=== PATIENT | female | born 1945 | race Caucasian/White ===

== ENCOUNTER 2020-09-28 19:30 | Emergency (ER) | payer OTHER, SELFPAY ==
--- NOTE | 2020-09-28 19:43 | PC.NURSE ---
Patient's name called, no answer.
--- NOTE | 2020-09-28 19:59 | PC.NURSE ---
Pt left ER lobby prior to triage.
== END 2020-09-28 20:06 | disposition left against medical advice (07) ==
DX: Z53.21 Procedure and treatment not carried out due to patient leaving prior to being seen by health care provider (principal)
CPT/HCPCS: 99199

== ENCOUNTER 2024-05-30 09:57 | Emergency (ER) | payer MEDICARE, SELFPAY ==
[2024-05-30] VITALS (10 sets, daily range): BP systolic 85–112; BP diastolic 54–69; PULSE 91–104; RESP 15–27; O2SAT 99–100
--- NOTE | ~2024-05-30 | XR_ITS ---
XR chest 1V portable Ordering provider: Shan Juares III, DO History: 78 years Female with . cva protocol . Comparison: None. FINDINGS: MEDIASTINUM: The cardiac silhouette is not enlarged. Prominent sherrie. LUNGS: No infiltrates, effusions or pneumothorax. Underlying fibrotic changes. OTHER: No free air under the diaphragm. Degenerative changes of the spine. Dextroscoliosis in the lumbar area. IMPRESSION: No acute cardiopulmonary pathology. Reviewed, dictated and finalized at location A.
--- NOTE | ~2024-05-30 | CT_ITS ---
EXAMINATION: CTA brain carotid DATE: 05/30/2024 12:23 INDICATION: Left facial numbness. TECHNIQUE: Computed tomographic angiography (CTA) of the head was performed with 100 mL Omnipaque-350 intravenous contrast. CTA of the neck was performed with intravenous contrast. Automated exposure co ntrol and iterative reconstruction technique were employed. The dose-length product was 869.10 mGy-cm . Maximum intensity projection and volume rendered 3D-reconstructions were created by the [employer] on a separate workstation. COMPARISON: CT 05/30/2024 FINDINGS: HEAD CTA: There are scattered areas of low attenuation in the cerebral white matter. There is no intr acranial hemorrhage, acute infarction, or abnormal intracranial mass lesion. The ventricles are manisha l in size. The orbits are normal. There is mucosal thickening in the paranasal sinuses, worst in left sphenoid sinus. There are surgical changes of the paranasal sinuses and nasal cavity. The mastoid ai r cells are normal. Left vertebral artery is dominant. There is no significant stenosis of basilar ar karen or the posterior cerebral arteries. The posterior communicating arteries are normal. There is no significant stenosis of the intracranial internal carotid arteries or anterior or middle cerebral ar teries. Anterior communicating artery is normal. There is no aneurysm. NECK CTA: There is no lymphadenopathy. There is no significant stenosis of the vertebral arteries. Th ere is plaque in the proximal internal carotid arteries. There is 0% stenosis of the proximal right i nternal carotid artery relative to normal distal artery lumen diameter (NASCET criteria). There is 0% stenosis of the proximal left internal carotid artery relative to normal distal artery lumen diamete r. There is severe cervical spondylosis. There is mild chronic anterior wedging of multiple thoracic vertebral bodies. IMPRESSION: 1. Moderate nonspecific cerebral white matter disease, which likely represents chronic small vessel i schemic disease. 2. No aneurysm or significant intracranial arterial stenosis. 3. 0% stenosis of the proximal internal carotid arteries relative to normal distal artery lumen diame ters (NASCET criteria). Reviewed, dictated and finalized at location A. IMPRESSION: 1. Moderate nonspecific cerebral white matter disease, which likely represents chronic small vessel ischemic disease. 2. No aneurysm or significant intracranial arterial stenosis. 3. 0% stenosis of the proximal internal carotid arteries relative to normal dis alo artery lumen diameters (NASCET criteria).
--- NOTE | ~2024-05-30 | CT_ITS ---
CT brain wo con Ordering provider: Shan Juares III, DO History: 78 years Female with . resolved bilateral facial numbness . Comparison: None. Technique: CT of the head without contrast. Radiation reduction technique utilized.The dose-length product was 605.33 mGy-cm. FINDINGS: BRAIN PARENCHYMA AND CSF SPACES: Mild leukoaraiosis and diffuse cortical atrophy. Mild atheromatous d isease. 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 No midline shift, mass effect or hemorrhage. The brain parenchyma and CSF spaces are otherwise normal. VISUALIZED PARANASAL SINUSES: Left maxillary and sphenoid sinus disease. Otherwise, Well aerated. Pos toperative changes in the medial wall of both maxillary sinuses. MASTOIDS: Well aerated. BONES: The bones appear intact. SOFT TISSUES: Visualized nasopharynx is normal. Superficial soft tissues are normal. IMPRESSION: No acute intracranial findings. Reviewed, dictated and finalized at location A.
--- NOTE | 2024-05-30 10:07 | ECG_ITS ---
Test Date: 2024-05-30 10:14:50 Measurements Intervals [place] Rate: 100 P: 75 KS: 185 QRS: 54 QRSD: 73 T: 56 QT: 321 QTc: 415 Interpretive Statements SINUS TACHYCARDIA No previous ECG available for comparison Electronically Signed On 05-31-2024 15:29:56 CDT by Jeff Osborne M.D.
[2024-05-30 10:20] LABS: Glucose Point of Care 146 mg/dl (65-105)
[2024-05-30 10:24] LABS: Basophils Percent Auto 0.5 % (0.2-1.2); Eosinophils Percent Auto 0.5 % (0-4.4); Hematocrit 29.2 % (37.0-47.0); Hemoglobin 9.4 g/dL (12.0-15.0); Immature Granulocyte Absolute 0.04 K/mm3 (0.00-0.031); Immature Granulocyte Percent A 0.5 % (0-0.5); Lymphocytes Absolute Auto 1.39 K/mm3 (0.9-3.2); Lymphocytes Percent Auto 17.7 % (18.3-44.2); Mean Corpuscular HGB Conc 32.2 g/dl (32-36); Mean Corpuscular Hemoglobin 32.2 pg (26-34); Mean Platelet Volume 8.8 fl (7.4-10.4); Monocytes Absolute Auto 0.9 K/mm3 (0.1-0.6); Neutrophils Absolute Auto 5.5 K/mm3 (1.3-6.7); Neutrophils Percent Auto 69.8 % (45.5-73.1); Platelet Count Result 249 k/mm3 (150-375); Red Blood Count 2.92 M/mm3 (4.2-5.4); Red Cell Distribution Width 18.1 % (11.5-14.5); White Blood Count 7.9 K/mm3 (4.5-10.0)
[2024-05-30 10:45] LABS: INR 1.3
[2024-05-30 10:46] LABS: Partial Thromboplastin Time 27.9 Seconds (22.3-36.8)
[2024-05-30 10:50] LABS: Troponin I < 0.012 ng/mL (0.000-0.034)
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
[2024-05-30 11:30] LABS: Alanine Aminotransferase 19 U/L (6-35); Albumin Level 2.8 g/dL (3.5-5.1); Alkaline Phosphatase 61 U/L (38-126); Anion Gap 11 mmol/L (4-12); Aspartate Amino Transferase 31 U/L (14-36); Bilirubin,Total 0.3 mg/dL (0.2-1.3); Blood Urea Nitrogen 24 mg/dL (7-17); Calcium 7.4 mg/dL (8.4-10.2); Carbon Dioxide 15 mmol/L (22-30); Chloride 108 mmol/L (98-107); Estimated CRCL calculation 41 ml/min; Estimated Glomerular Filt Rate 55; Glucose 122 mg/dL (65-110); Potassium 3.9 mmol/L (3.4-5.0); Sodium 134 mmol/L (137-145)
--- OUTSIDE RECORDS SUMMARY | 2024-05-30 13:00 | XMS_ITS | Encounter Summary ---
Author Organization [facility] Address [facility] [place] [address] Care Team Providers Care Technical Manager Name Role Phone Anna Adames MD Primary Care Provi meenakshi Reason for Visit * Reason Onset Date Comments Question 07/17/2020 Pre Op Call 07/17/2020 Encounter Details Date Type Department Care Team (Late st Contact Info) Description 07/17/2020 Telephone [facility] [address] [place] [id number] Joie Norman MD [address] [facility] [address] [place] [address] Question; Pre Op Call Social History Tobacco Use Types Packs/Day Years Used Date Smoking Tobacco: Never Smokeless Tobacco: Never Alcohol Use Standard Drinks/Week Comments Yes 1 (1 standard drink = 0.6 oz pur e alcohol) 1/week Sex and Gender Information Value Date Recorded Sex Assigned at Not on file Gender Identity Female 11/20/2016 10:17 AM CDT Sexual Orientation Not on file documented as of this encounter Miscellaneous Notes * Telephone Encounter - Lisa Palacios RN - 07/17/2020 2:28 PM CDT CBC, BMP, EKG, Type & Screen and urine culture, COVID 19 testing is the pre op orders She has received both of her Pfizer covid vaccinations HAS PRE OP QUESTIONS: Does she need MRSA testing? Does she need Covid testing since she had both covid vaccines? wants to get surgery scheduled annmarie Moved up her UroCysto testing from 08/22 to 07/19 Wiztangot message to patient with information for bladder testing appointment this Aware we will address all of her surgery issues at the testing visit Agreeable and grateful * Telephone Encounter - Lisa Palacios RN - 07/17/2020 2:23 PM CDT Pre op lab work Having trouble finding lab to run the MRSA Will check with [facility] and [facility] and can send order if so She lives in [facility] so can use either of those local labs * Telephone Encounter - Joie Jay - 07/17/2020 10:42 AM CDT Patient called and noted that she has surgery in September and she is having issues finding a place to do the MRSA test. Where can she go? Please call her as soon as possible. Call back # [phone] documented in this encounter Plan of Treatment Not on file documented as of this encounter Visit Diagnoses Not on filedocumented in this encounter Care Teams Technical Manager Relationship Specialty Start Date End Date Anna Adames MD PCP - General Internal Medicine 11/20/16 documented as of this encounter
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
--- OUTSIDE RECORDS SUMMARY | 2024-05-30 13:00 | XMS_ITS | Encounter Summary ---
Author Organization [facility] Address [address] [place] [address] Care Team Providers Care Applications Intern Name Role Phone Anna Adames MD Primary Care Provi meenakshi Ksenia Fermin MD Unavailable José Cole MD Unavailable TejaValeri Unavailable Anna Adames MD Primary Care Provi meenakshi Dionte Zaragoza MD Unavailable [phone] Jeffy Lugo MD Unavailable Kaushal Massey MD Unavailable [phone] Encounter Details Date Type Department Care Team (Late st Contact Info) Description 03/04/[address] [id number] Omayra Kaplan, RN Social History Tobacco Use Types Packs/Day Years Used Date Smoking Tobacco: Never Smokeless Tobacco: Never [facility] Utilities Answer Date Recorded In the past 12 months has th e electric, gas, oil, or water company threatened to shut off services in your home? No 02/23/2024 Humiliation, Afraid, Rape, and Kick questionnair e Answer Date Recorded Within the last year, have y ou been afraid of your partner or ex-partner? No 02/23/2024 Within the last year, have y ou been humiliated or emotionally abused in other ways by your partner or ex-partner? No Within the last year, have y ou been kicked, hit, slapped, or otherwise physically hurt by your partner or ex-partner? No 02/23/2024 Within the last year, have y ou been raped or forced to have any kind of sexual activity by your partner or ex-partner? No 02/23/2024 Social Connection and Isolat ion Panel [NHANES] Answer Date Recorded In a typical week, how many times do you talk on the phone with family, friends, or neighbors? More than three times a week 02/23/2024 How often do you get togethe r with friends or relatives? More than three times a week 02/23/2024 How often do you attend [facility] or tenriism services? Never 02/23/2024 Do you belong to any clubs o r organizations such as jew groups, unions, fraternal or athletic groups, or school groups? Yes 02/23/2024 How often do you attend meet ings of the clubs or organizations you belong to? More than 4 times per year 02/23/2024 Are you , , di vorced, , never , or living with a partner? 02/23/2024 AUDIT-C Answer Date Recorded Q1: How often do you have a drink containing alc ohol? 2-4 times a month 02/23/2024 Q2: How many drinks containi ng alcohol do you have on a typical day when you are drinking? 1 or 2 02/23/2024 Q3: How often do you have si x or more drinks on one occasion? Never 02/23/2024 Overall Financial Resource Strain (CARDIA) Answe r Date Recorded How hard is it for you to pa y for the very basics like food, housing, medical care, and heating? Not hard at all 02/23/2024 PHQ-2 Answer Date Recorded PHQ-2 Total Score (If total score is 3 or more points, staff should administer the PHQ-9) 0 11/19/2023 [facility] - Occupational Stress Questionnaire Answer Date Recorded Do you feel stress - tense, restless, nervous, or anxious, or unable to sleep at night because your mind is troubled all the time - these days? Not at all 02/23/2024 Exercise Vital Sign Answer Date Recorde d On average, how many days pe r week do you engage in moderate to strenuous exercise (like a brisk walk)? 3 days 02/23/2024 On average, how many minutes do you engage in exercise at this level? 30 min 02/23/2024 Hunger Vital Sign Answer Date Recorded Within the past 12 months, y ou worried that your food would run out before you got the money to buy more. Never true 02/23/20 24 Within the past 12 months, t he food you bought just didn't last and you didn't have money to get more. Never true 02/23/2024 PRAPARE - Transportation Answer Date Re corded In the past 12 months, has l ack of transportation kept you from medical appointments or from getting medications? No 02/06 In the past 12 months, has l ack of transportation kept you from meetings, work, or from getting things needed for daily living? No 02/23/2024 Housing Stability Vital Sign Answer Priyank e Recorded In the last 12 months, was t here a time when you were not able to pay the mortgage or rent on time? No 02/23/2024 In the past 12 months, how m any times have you moved where you were living? 0 02/23/2024 At any time in the past 12 m [facility], were you homeless or living in a group home (including now)? No 02/23/2024 Personal Safety Answer Date Recorded Have you ever been in or are you currently in a harmful physical or emotional relationship or is someone making you feel afraid or unsafe? Denies 02/01/2024 Comments No Sex and Gender Information Value Date Recorded Sex Assigned at Not on file Legal Sex Female 10:50 AM SHACKLER Gender Identity Female 07/16/2020 5:01 PM CDT Sexual Orientation Straight 07/16/2020 5: 01 PM CDT documented as of this encounter Plan of Treatment Not on file documented as of this encounter Visit Diagnoses Not on filedocumented in this encounter Additional Health Concerns Infection Onset Date Last Indicated Resolved Time Ring Surveillance Comment:C Auris 03/02/2024 03/02/2024 03/09/2024 3:[address] C. 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 difficile suspected 05/09/2024 05/09/202405/09 11:02 PM SHACKLER VRE 05/09/2024 05/09/2024 documented as of this encounter Care Teams Applications Intern Relationship Specialty Start Date End Date Anna Adames MD PCP - General 08/26/16 04/13/24 Anna Adames MD [id number] GENERAL MED, [facility] [address] [place] [address] PCP - General Internal Medicine 04/14/24 Ksenia Fermin MD Referring Physician Dermatology 07/23/18 José Cole MD Referring Physician Otolaryngology 08/08/19 Valeri Lezama OD Optometry 08/29/21 Dionte Zaragoza MD [email or web address] ORTHOPAEDIC SURGERY, [facility] [address] [place] [address] Consulting Physician Orthopedic Surgery 04/14/24 Jeffy Lugo MD [address] [facility] [id number] [place] [address] Surgeon Orthopedic Surgery 04/14/24 Kaushal Massey MD [address] [place] [address] Surgeon Trauma Surgery 04/14/24 documented as of this encounter
--- OUTSIDE RECORDS SUMMARY | 2024-05-30 13:00 | XMS_ITS | Clinical Summary ---
Author Organization [facility] Address [address] [place] [address] Care Team Providers Care Perioperative Tech Name Role Phone José Cole MD Unavailable [phone] Anna Adames MD Primary Care Provider [phone] Cassandra Mccoy MD Unavailable [phone] Allergies Active Allergy Reactions Criticality Noted Date Comments Penicillins Hives 12/26/2019 Sulfa Antibiotics Hives,Itching Medium 12/26/2019 Medications B complex-C Cap capsule Take 1 capsule by mouth daily. Active Multiple Vitamins-Minera ls (CENTRUM SILVER OR) Take 1 tablet by mouth daily. Active omeprazole 40 MG capsule Take 40 mg by mouth daily. Active Misc Natural Products (OSTEO BI-FLEX ADV JOINT SHIELD OR) Take 1 tablet by mouth daily. Active propranolol LA 80 MG 24 hr capsule Take 80 mg by mouth 2 (two) times a day. Active Naproxen Sodium (ALEVE) 220 MG Cap Take 2 tablets by mouth 2 (two) times a day. Takes routinely bid Active rosuvastatin 20 MG tablet Take 20 mg by mouth 2 (two) times a day, 3 (three) days a week. To take Thursday and Thursday Active vitamin E 100 UNIT capsule Take 100 Units by mouth daily. Active cholecalciferol (VITAMIN D3) 125 MCG (5000 UT) Tab Take 5,000 Units by mouth daily. Active Mometasone Furoate Powder 1 Application by Does not apply route weekly. Uses this once for rinse of sinus. Is put into distilled water mixed with salt, Uses 2 squeeze bottles of saline and 3rd squeeze bottle with the Momentasone. Other days of the week she uses mupirocin ointment 2%. Uses on Thursday or Thursday. Active losartan 100 MG tablet Take 100 mg by mouth nightly. Active Homeopathic Products (LEG CRAMPS OR) Take 1 tablet by mouth nightly as needed (leg cramps). Active bisacodyl EC 5 MG Tab EC tablet 12/16/20 Take 2 Dulcolax Tablets at 10:00 AM with an 8 ounce glass of water. 1 Active Estradiol (YUVAFEM) 10 MCG vaginal tablet INSERT 1 TABLET VAGINALLY 2 TIMES PER WEEK FOR 3 MONTHS 1 Active acetaminophen 500 MG tablet Take 1,000 mg by mouth every 6 (six) hours as needed for Pain. Active HYDROcodone-renny taminophen 5-325 MG tabletIndicatio ns:Acute Pain < 7 Day Supply Take 1 tablet by mouth every 6 (six) hours as needed for Pain. Indications: Acute Pain < 7 Day Supply 20 tablet 2 Active ibuprofen 800 MG tablet Take 1 tablet (800 mg total) by mouth every 8 (eight) hours as needed for Pain. 30 tablet 2 Active Active Problems No known active problems Family History Medical History Relation Comments Hyperlipidemia Father Hypertension Father Stroke Father Hyperlipidemia Mother Hypertension Mother [place] Mother Relation Status Comments Father (Age 73) heart/stroke Mother (Age 83) heart attack Social History Tobacco Use Types Packs/Day Years Used Date Smoking Tobacco: Never Smokeless Tobacco: Never Alcohol Use Standard Drinks/Week Comments Not Currently 0 (1 standard drink = 0.6 oz pur e alcohol) Comments No Sex and Gender Information Value Date Recorded Sex Assigned at Not on file Legal Sex Female 9:43 AM CDT Gender Identity Not on file Sexual Orientation Not on file Last Filed Vital Signs Vital Sign Reading Time Taken Comments Blood Pressure 153/80 05/10/2021 1:20 PM [employer] Pulse 66 05/10/2021 1:20 PM [employer] Temperature 36.4 C (97.5 F) 05/10/2021 1:20 PM [employer] Respiratory Rate 16 05/10/2021 1:20 PM [employer] Oxygen Saturation 99% 05/10/2021 1:20 PM [employer] Inhaled Oxygen Concentration - - Weight 84 kg (185 lb 3 oz) 05/10/2021 9:30 AM CS T Height 160 cm (5' 3 ) 05/06/2021 12:09 PM [employer] Body Mass Index 32.8 05/06/2021 12:09 PM [employer] Plan of Treatment Health Maintenance Due Date Last Done Comments Hepatitis C 07/16/1963 Annual Medicare Wellness Visit 2010 Dexa Scan (General) 2010 RSV Immunization or 60+ Years (1 - 1-dose 75+ series) 2020 Zoster Vaccines (3 of 3) 10/18/2020 021, 03/17/2012, 02/15/2012 COVID-19 Vaccine ( - season) 2023 12/04/2020, 05/10/2020, 04/17/2020 Influenza Adult (#1) 2023 11/26/2019, 12/03/2018, 01/10/2018, Additional history exists DTaP, Tdap and Td Vaccines (2 - Td or Tdap) 07/23/2028 07/23/2018 Pneumococcal Vaccine: 65+ Years Completed 07/23/2018, 03/07/2015 Meningococcal B Vaccine Aged Out No l onger eligible based on patient's age to complete this topic Meningococcal Vaccine Aged Out No thomas ren eligible based on patient's age to complete this topic RSV Immunizations Under 20 Months Aged Out No longer eligible based on patient's age to complete this topic Medical Devices Explanted Type Area Financial Systems Administrator Device Identifier Shelf Expiration Date Model / Serial / Lot 4.0 X 42 Headed Screw Implanted:Qty: 1 on 12/30/2019 by Nash Aragon DPM at [facility] Explanted:Qty: 1 on 05/10/2021 by Nash Aragon DPM at [facility] Screw Right: Foot [employer] [id number] / / Insurance MED [facility] [place] [address] Advance Directives * Full Code (Latest Code Status on File) Date Activated Date Inactivated Comments 12/30/2019 9:37 AM 12/30/2019 1:50 PM Care Teams Perioperative Tech Relationship Specialty Start Date End Date Anna Adames MD PCP - General INTERNAL MEDICINE 03/28/21 José Cole MD OTOLARYNGOLOGY 03/28/21 Cassandra Mccoy MD [address] [address] OBGYN 03/28/21
--- OUTSIDE RECORDS SUMMARY | 2024-05-30 13:01 | XMS_ITS | Clinical Summary ---
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 Plan (06/10/2023 12:12 PM CDT): C-spine MRI pending, encouraged to pursue PT as previously discussed Assessment & Plan (05/07/2023 4:05 PM SLUBBER OPERATOR): May be related to cervical radiculopathy given severe degenerative changes on her CT Will pursue neck MRI and refer to PT Consider pain mgmt or surgery as next step Left facial numbness 05/06/2023 Assessment & Plan (05/07/2023 4:03 PM SLUBBER OPERATOR): C-spine pathology shouldn't cause her face to be numb, will check brain MRI to rule out a more central process Neurologic exam otherwise reassuring Bilateral leg edema 01/05/2023 Assessment & Plan (01/05/2023 11:25 AM CDT): Suspect dependent edema - flared during travel which is typical Discussed that a water pill might be indicated for her HTN but I think would be less helpful for this Emphasized compression socks, leg elevation, regular physical activity TTE recently performed, not too concerned about CHF as a possibility. Update labs Hypertrophic cardiomyopathy 10/05/2022 Primary osteoarthritis involving multiple joints 08/21/2022 Assessment & Plan (06/10/2023 12:02 PM CDT): She is currently taking Celebrex BID (discussed risks of nonselective NSAIDs with Eliquis) Encouraged to minimize PRN naproxen but she is taking this fairly infrequently. Discussed that mixing NSAIDs is not ideal so she will try making her second dose of Celebrex PRN. If that creates a problem she will go back to PRN naproxen but she will continue to use extremely sparingly. Thankfully kidney function has been good/stable. Assessment & Plan (08/21/2022 10:07 AM CDT): Celebrex is wearing off , will trial 100mg bID instead of 200mg once daily to see if this works better Paroxysmal atrial fibrillation 06/16/2022 Overview (12/15/2023): -presents today with her holter monitor -in need of assistance applying monitor Holter monitor applied in office today, reviewed extra equipment, how to charge, also encouraged to reach out to cardiology for questions. Assessment & Plan (04/19/2024 10:21 AM SLUBBER OPERATOR): Required amio infusion while acutely ill, now back on metop and Eliquis Assessment & Plan (10/29/2023 3:11 PM CDT): Stable on metoprolol. Continue Eliquis. Would recommend she not be on both metoprolol and propranolol as previously discussed. However pt has not found a good replacement for propranolol She sees Neurology later this month. She is currently on clonazepam for her tremor but endorses fatigue is worsening and edema. Assessment & Plan (10/19/2023 5:25 PM CDT): Has not had episodes of palpitations though in clinic today and per Apple watch she is tachycardic, irregularly irregular rhythm, BLE edema on exam concerning for a fib on metoprolol 25 mg. Increase to metoprolol 50 mg Continue to avoid naproxen and use celebrex Referral to sleep medicine for possible AMELIE contributing to a fib Continue Eliquis Assessment & Plan (08/17/2023 3:40 PM CDT): She had an episode of palpitations last night that is concerning for AF (both because of her symptoms and her Kardia tracings) She will try to use her Apple watch in a resting position next time Will avoid naproxen in favor of Celebrex just in case this was a precipitant Check labs to eval for precipitating factors May need to go back up on metoprolol depending on how things go Continue Eliquis Assessment & Plan (07/29/2023 10:22 AM CDT): Much better controlled on metoprolol so switching back to propranolol entirely doesn't seem like a good option Assessment & Plan (01/05/2023 11:15 AM CDT): Discussed rationale for switching to metoprolol in hopes this better suppresses her AF and ectopy She will start it now and report back Reviewed that Eliquis does increase bruising, risk of bleeding but is also important to reduce her AF risk and she is amenable to continue (no serious bleeding). NSAID likely contributing as well Assessment & Plan (08/21/2022 10:17 AM CDT): Asymptomatic Will switch to CUSTOM FEED MILL OPERATOR HELPER stress echo to assess Encouraged compliance with Eliquis Assessment & Plan (06/16/2022 11:44 AM CDT): Several episodes noted on event monitor Discussed possible triggers- AMELIE (But declines sleep med referral), alcohol (but this is minimal), hyperthyroidism (but TFTs most recently normal) Update TTE Rate-controlled on propranolol 80mg BID CHADs-2 vasc score is 4 so will start Eliquis. She has had no falls. Reviewed risks with concurrent ASA/NSAID use so she will avoid -> will swtich from naproxen to celebrex Other chest pain 12/17/2021 Assessment & Plan (12/17/2021 11:33 AM CDT): May have been caused by an arrhythmia or other; given her risk factors will refer for stress test and also pursue event monitor Hair loss 09/24/2021 Assessment & Plan (08/21/2022 10:13 AM CDT): Now on minoxidil per Dr Velazco and she is tolerating fine. Will CTM Assessment & Plan (04/16/2022 11:14 AM SLUBBER OPERATOR): She is very interested in low dose minoxidil for hair regrowth and her advertising representative thought this might be helpful and also recommended Nutrafol. Discussed risks of minoxidil (reflex tachy, fluid retention/heart failure) but that these are likely dose-dependent and she would like to try with close monitoring. I think we need to investigate her palpitations first and will refer for event monitor Assessment & Plan (09/24/2021 2:31 PM CDT): Unlikely related to thyroid issues but suggest the following: Maintain normal TFT and re-evaluate hair loss OK to use biotin but stop few days prior to lab test Suggest Derm evaluation Acquired hallux valgus, right 05/03/2021 Assessment & Plan (05/08/2021 8:45 AM SLUBBER OPERATOR): Ongoing pain Scheduled for right hallux exostectomy with Dr. Aragon to remove prior hardware Preoperative clearance provided today in office as requested Pain of toe of right foot 03/26/2021 Assessment & Plan (03/26/2021 11:56 AM SLUBBER OPERATOR): Has right toe surgery scheduled with Dr Aragon for 04/05/21 No CXR needed as noted above Unable to calculate RCRI - will update labs and clear pending results Chronic LLQ pain 11/14/2020 Assessment & Plan (11/14/2020 3:10 PM CDT): Following with her ob-casting molder for this but persistent after her hysterectomy US done- will get records and consider CT Does not seem to be related to hip pain given normal exam today but some features seem more like MSK pain so will obtain imaging Hearing loss 08/14/2020 Assessment & Plan (05/21/2021 2:30 PM CDT): Wears hearing aids She seems to be having more issues today and does not have a cerumen impaction so encouraged her to repeat audiometry Assessment & Plan (08/14/2020 11:38 AM CDT): Will clean right ear wax based on exam. Esophageal stenosis 10/13/2019 Overview (10/13/2019): Per EGD report from 09/2019 Neck pain 12/07/2018 Assessment & Plan (03/17/2019 4:57 PM SLUBBER OPERATOR): Chronic stable posterior neck pain, well-controlled with Aleve. Likely secondary to her known kyphosis and scoliosis. NTD at this time, CTM. Assessment & Plan (01/27/2019 12:00 PM SLUBBER OPERATOR): X-rays with severe DDD She has been taking naproxen on a scheduled, daily basis. Encouraged her to try tylenol instead. Tizanidine was not particularly helpful. Referred to PT for this. Assessment & Plan (12/07/2018 12:27 PM CDT): I think this is myofascial. She will cut back on naproxen and start using Tylenol instead. Will also trial a low dose of a muscle relaxer- SER particularly risk of sedation. I have referred her to PT for her terribly kyphosis but she has been putting it off- will call to make an appointment in the near future. Kyphosis 08/06/2018 Assessment & Plan (01/27/2019 12:00 PM SLUBBER OPERATOR): Referred to PT to work on posture Assessment & Plan (08/06/2018 9:54 AM CDT): No h/o trauma or back pain so I don't think this is traumatic. She does have osteopenia so will check spine films to assess and r/o compression fracture. Referred to PT to work on postural changes and upper back strength to keep this from progressing. Impaired gait 08/06/2018 Balance problem 08/06/2018 Assessment & Plan (08/06/2018 10:13 AM CDT): Sensation in feet intact but will add B12 to this morning's labs. She has tremor but this thought related to ET - no rigidity on exam today but will continue to monitor for Parkinsonism. Referred to PT to work on this as well. History of nonmelanoma skin cancer 07/23/2018 Assessment & Plan (12/17/2021 11:40 AM CDT): Encouraged her to make sure she is UTD with derm FBSE Assessment & Plan (12/12/2020 3:47 PM CDT): Continues to follow with derm regularly Assessment & Plan (08/08/2019 10:36 AM CDT): Follows with jacky Fermin Recommended annual FBSE and sun protection Assessment & Plan (07/23/2018 1:07 PM CDT): Follows with derm- Dr Fermin Recommended annual FBSE and sun protection Chronic pansinusitis 04/12/2018 Assessment & Plan (08/08/2019 10:20 AM CDT): Now on doxy in addition to nasal regimen Assessment & Plan (01/27/2019 12:09 PM SLUBBER OPERATOR): Encouraged her to follow up with Dr Green for this in case imaging and/or surgery are indicated Continue nasal regimen Assessment & Plan (12/07/2018 12:27 PM CDT): Encouraged her to follow up with Dr Green for this given her persistent symptoms and discomfort Assessment & Plan (07/23/2018 1:08 PM CDT): Following with Dr Green and doing well currently with regular saline rinses Osteoporosis 09/10/2017 Assessment & Plan (12/17/2021 11:41 AM CDT): Update DEXA today Check vit D level- plan to continue supplementation Encouraged 1200mg calcium daily, preferably through diet but supplemental if needed Continue weight-bearing exercise and consider strength-training as well Assessment & Plan (07/23/2018 1:29 PM CDT): Mild, on DEXA 2017 Check vit D level- plan to continue supplementation Encouraged 1200mg calcium daily, preferably through diet but supplemental if needed Continue weight-bearing exercise and consider strength-training as well Assessment & Plan (09/10/2017 3:15 PM CDT): Noted on recent DEXA Encouraged regular weight-bearing exercise, 1200mg calcium (preferably through diet) daily, and continued vit D supplementation. Chronic bilateral low back pain without sciatica 09/10/2017 Assessment & Plan (05/07/2023 4:06 PM SLUBBER OPERATOR): Acute on chronic. Has severe scoliosis and degenerative changes on imaging in the past Again encouraged PT- referral placed Will re-trial celebrex at higher dose Consider pain mgmt as next step Assessment & Plan (01/05/2023 11:13 AM CDT): Chronic Encouraged PT, PM&R would be next step. Referral for PT placed Will continue naproxen 440mg BID for now- she is on NOAC but also on PPI and celebrex wasn't helpful Assessment & Plan (12/17/2021 11:37 AM CDT): Acute on chronic No red flags Referred to PT Continue Aleve Assessment & Plan (09/10/2017 3:19 PM CDT): Will obtain X-rays today per her request even though I suggested it might not private branch exchange installer and that I would probably recommend PT regardless Subclinical hyperthyroidism 07/22/2017 Assessment & Plan (05/16/2024 5:40 PM CDT): Following endocrine. TSH normal on admission. Free T4 within normal limits. -Continue home methimazole 5 mg every other day (while endo note reports every day, she has been taking qOD for at least 6 months and likely longer, will continue her OP regimen and she should follow up with endocrinology OP) Assessment & Plan (02/09/2024 4:04 PM SLUBBER OPERATOR): - Continue home methimazole Assessment & Plan (11/24/2023 1:40 PM CDT): Last TSH normal Assessment & Plan (01/05/2023 11:06 AM CDT): On methimazole per Dr Marcel Tolentino recently normal Assessment & Plan (12/17/2021 11:25 AM CDT): Now following with Dr Marcel TFTs normal in September, updated with upcoming labs Assessment & Plan (09/24/2021 2:30 PM CDT): TFT normalized , FT4 lower normal Plan to lower MMI to 2.5 mg every day TFT in 3 months Assessment & Plan (05/27/2021 2:05 PM CDT): Further investigation to elucidate etiology (TMNG vs autoimmune) Thyroiditis less likely given duration Obtain neck US, TSI/TRAB Consider treating given age and TSH suppression level Assessment & Plan (05/21/2021 2:27 PM CDT): Establishes with endocrine for this issue at the end of the month Assessment & Plan (05/08/2021 8:47 AM SLUBBER OPERATOR): Euthyroid with recent labs Continue current levothyroxine dosing Asymptomatic Routine TFT monitoring Assessment & Plan (03/26/2021 11:33 AM SLUBBER OPERATOR): Will update labs Assessment & Plan (12/12/2020 3:49 PM CDT): May be related to biotin supplementation. She has been instructed to stop biotin now and repeat labs on Thursday Assessment & Plan (11/14/2020 2:55 PM CDT): Encouraged to update labs in the near future Assessment & Plan (08/14/2020 11:38 AM CDT): Will continue to monitor will thyroid labs. Assessment & Plan (03/17/2019 4:58 PM SLUBBER OPERATOR): Last TSH depressed at 0.28, with normal FT4 at 1.08. Given her episodes of worsening palpiations, along with new HTN, will re-screen today. Assessment & Plan (09/10/2017 3:24 PM CDT): Resolved on most recent labs. CTM Muscle cramps 03/16/2017 Assessment & Plan (07/23/2018 1:28 PM CDT): Better on current regimen but still intermittently bothersome Encouraged her to drink more water and stretch every night before bed Paroxysmal supraventricular tachycardia 12/04/19 Assessment & Plan (12/17/2021 11:33 AM CDT): Her episode in [place] may have been consistent with SVT but it felt different from her episodes on the past Referred for event monitor She will try to capture with Kardia Device if it happens again Assessment & Plan (05/08/2021 8:47 AM SLUBBER OPERATOR): Clinically stable, asymptomatic Continue with propranolol as prior prescribed Closely followed by Cardiology Assessment & Plan (08/14/2020 11:35 AM CDT): Currently well controlled on propranolol. Will continue. Assessment & Plan (08/08/2019 10:41 AM CDT): Controlled on propranolol ER- continue at current dose Assessment & Plan (07/23/2018 1:10 PM CDT): No issues since being put on CCB Mixed hyperlipidemia 11/20/2016 Assessment & Plan (05/11/2024 6:28 PM SLUBBER OPERATOR): -Continue home rosuvastatin Assessment & Plan (12/17/2021 11:28 AM CDT): Doing well on rosuva 20 mg three times/week Will update FLP Continue working on Mediterranean diet and exercise Assessment & Plan (03/26/2021 11:31 AM SLUBBER OPERATOR): Doing well on rosuva 20 mg three times/week Will update FLP Continue working on Mediterranean diet and exercise Assessment & Plan (12/12/2020 3:51 PM CDT): Doing well on rosuva 20 three days a week Assessment & Plan (08/08/2019 10:24 AM CDT): On rosuva 3x weekly She will hold for a couple weeks to see if this makes a big difference in her muscle cramps Assessment & Plan (07/23/2018 1:09 PM CDT): Now on rosuvastatin 20mg three times weekly Repeat FLP and LFTs Assessment & Plan (09/10/2017 3:21 PM CDT): LDL 112 in July. Will increase rosuvastatin to 3 x weekly dosing. Essential hypertension 11/20/2016 Assessment & Plan (08/17/2023 3:31 PM CDT): BP looks good today, continue current regimen Assessment & Plan (01/05/2023 11:15 AM CDT): Currently on losartan, propranolol Encouraged to switch to metop and then send log of home Bps Assessment & Plan (08/21/2022 10:18 AM CDT): Significantly improved on my recheck Encouraged to resume monitoring at home as well Continue losartan 100, propranolol 80 BID for now Assessment & Plan (06/16/2022 11:41 AM CDT): Encouraged to continue monitoring BP at home and report back if elevated Assessment & Plan (04/16/2022 11:16 AM SLUBBER OPERATOR): Bps just slightly above goal recently Will hold off on any adjustments since we may be adding minoxidil She will continue to monitor and work on exercise, healthy diet for this Assessment & Plan (12/17/2021 11:39 AM CDT): BP well above goal in the office today but she reports normal Bps at home Encouraged her to keep a written log and report back Assessment & Plan (07/12/2021 2:51 PM CDT): Well above goal in the office today and she reports they may be high at home as well Encouraged to monitor regularly at home and report back with values Assessment & Plan (05/21/2021 2:28 PM CDT): BP looks good today on current regimen Will continue at these doses Assessment & Plan (05/08/2021 8:44 AM SLUBBER OPERATOR): Hypertension is stable Continue current treatment regimen. Dietary sodium restriction. Regular aerobic exercise. Ambulatory blood pressure monitoring. Blood pressure will be reassessed at the next regular appointment. Assessment & Plan (03/26/2021 11:57 AM SLUBBER OPERATOR): BP at goal in office but no home log available for review to determine any adjustment. Continue current meds/doses Reviewed BP goal of 130/80 Encouraged pt to monitor BP intermittently at home and report back with values Advised lifestyle measures for improving BP inc regular exercise, healthy diet, salt restriction and weight loss Will check labs per below Assessment & Plan (12/12/2020 3:59 PM CDT): BP still above goal despite losartan 100mg + propranolol 80mg BID Wonder if hyperthyroidism could be contributing, if this is truly a problem- will repeat labs before she goes to [place] I am hesitant to add anything before she goes out of the country but she does assure me that she will be walking more and hopefully that will help. Reviewed salt and alcohol restriction, healthy diet as well Will f/u in 3 months- advised her to bring in BP machine at that time Assessment & Plan (11/14/2020 3:11 PM CDT): Seemingly still above goal per home Bps on losartan 75mg daily Will increase to 100mg daily May need to add another agent like amlodipine, f/u at [facility] in 1 month and encouraged her to bring in written log of Bps along with her machine Assessment & Plan (08/14/2020 11:55 AM CDT): Patient's blood pressure consistently elevated at recent visits. Patient reporting taking her BP medication. Will increase to losartan 75mg daily and advise patient to log BPs and follow up a BMP. Blood Pressure Follow-up: Lifestyle modifications education provided on diet Assessment & Plan (08/08/2019 10:29 AM CDT): Controlled on current regimen of losartan 50mg + propranolol ER 80mg daily Encouraged to monitor intermittently at home and report back with values Advised lifestyle measures for improving BP inc regular exercise, healthy diet, salt restriction and weight loss Assessment & Plan (03/17/2019 5:00 PM SLUBBER OPERATOR): Well controlled currently on losartan 50. - continue losartan 50 - obtain appropriate-sized BP cuff, and CTM BP at home - RTC in 2 weeks for BP check and f/u Assessment & Plan (01/27/2019 12:18 PM SLUBBER OPERATOR): Above goal today in the office and on home readings Discussed that NSAIDs could be contributing to elevated BP and she will try to cut back She is hesitant to start another BP med so we will try a slightly unconventional approach and increase propranolol to 120mg BID. She will start tracking more consistently at home and will bring her log in to review with BJ in 1 month. Assessment & Plan (12/07/2018 12:27 PM CDT): Suspect elevated Bps were related to pain or to taking extra naproxen. Near goal today. She will continue monitoring at home and will report back if still high when she is otherwise feeling better. Update labs today. Assessment & Plan (07/23/2018 1:09 PM CDT): BP well-controlled on propranolol 80mg daily. CTM Tremor 07/14/2016 Assessment & Plan (05/16/2024 5:40 PM CDT): Following [facility] neuro. Used to be on propranolol. Currently on chronic clonazepam. reports taking 0.25 mg bid, sometimes tid at home -Continue home clonazepam 0.25 BID Assessment & Plan (02/09/2024 4:03 PM SLUBBER OPERATOR): - Home medication: clonazepam - Hold medication has not been resumed - Monitor for signs/symptoms of withdrawal Assessment & Plan (10/19/2023 5:24 PM CDT): Currently on propranolol LA 80mg nightly. Plan for increasing metoprolol 25 to 50 mg today due to a fib. Following with movement disorder clinic and currently taking clonazepam 0.5 mg daily. She takes half in the morning and half at night due to drowsiness. Continue propranolol 80 mg nightly and discuss medication adjustments with movement clinic Assessment & Plan (08/17/2023 3:40 PM CDT): Currently on propranolol LA 80mg nightly (in addition to metoprolol XR 25mg in the morning) She wants to take something PRN for tremor since she still has some breakthrough symptoms. I think if she is in a situation like last night, clonazepam would be helpful despite its risks. We reviewed risks of falls/fractures, dementia, dependence with this medication and will use sparingly She also wants to continue taking PRN propranolol as well for her art classes. Discussed that adding a third BB could made risks and side effects less predictable but she feels strongly that this works best for her and wants to continue. We discussed going up on the propranolol dose to 120mg daily and she reports that made her too tired in the past Assessment & Plan (07/29/2023 1:19 PM CDT): Previously controlled on propranolol but we are looking for other options now that she has to be on metoprolol Gabapentin not helpful nor well tolerated Primidone contraindicated given interaction with Eliquis Will trial topiramate- side effects reviewed, discussed titration up to 50mg BID at which point she will update me with how she is doing If not helpful, we can go back to propranolol + metop with close monitoring Establishes with neurology in a month as well Assessment & Plan (06/10/2023 12:10 PM CDT): I think it makes sense to go up on gabapentin to see if a higher dose impacts her tremor; will increase titrate up as noted in patient instructions to 300mg tID and then will re-assess, Can start primidone if not helpful She knows propranolol works for this and has tolerated both propranolol + metop in the past; therefore I will give her a PRN script of propranolol since she has an important presentation coming up, reviewed potential side effects/risks Assessment & Plan (05/06/2023 11:56 AM SLUBBER OPERATOR): Discussed other options besides propranolol - primidone would be my usual next dose but given her uncomfortable neuropathic symptoms in the left arm I think gabapentin would be good to try. 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 Assessment & Plan (08/14/2020 11:24 AM CDT): Currently controlled on omeprazole. Will continue Assessment & Plan (09/28/2019 1:50 PM CDT): With dysphagia that necessitates EGD Will continue famotidine BID and add omeprazole 40mg daily. She knows to continue both until the time of her EGD. Assessment & Plan (09/14/2019 10:14 AM CDT): She has weaned off Omeprazole. She added Famotidine OTC last week (on her own) to cimetidine 200mg BID. She still has some ranitidine at home which she continues to take. Advised her to not take ranitidine or add any medications without consulting her medical team. She is finding it hard to swallow and GERD sx are not in control. Will order EGD - requested Wendy to assist with this. Pt wants either [facility] or [place] locations for EGD. She will continue on this course for 2 weeks and follow up PRN She will continue taking her medications until her EGD. Added sucralfate today Could potentially consider short course of rabeprazole. She is against taking PPIs as she worries about dementia and side effects of omeprazole Assessment & Plan (08/08/2019 10:30 AM CDT): Controlled on omeprazole 10mg + cimetidine 200mg BID She will try weaning omeprazole Assessment & Plan (07/23/2018 1:10 PM CDT): Controlled on omeprazole 10mg Qam + ranitidine Qpm She will try transitioning to ranitidine BID Assessment & Plan (09/10/2017 3:27 PM CDT): She would like to get off omeprazole because she worries about her memory. Will wean omeprazole to 10mg daily + ranitidine in the evening, then change to ranitidine 300mg BID. Impaired sense of smell 03/19/2015 Resolved Problems Problem Noted Date Diagnosed Date Resolved Date Left ear impacted cerumen 08/15/2021 Assessment & Plan (08/15/2021 3:24 PM CDT): Successful cerumen removal completed office today Counseled of OTC methods to assist with cerumen removal including avoiding Q- tips. RTC with any ongoing sx, need for irrigation Right calf pain 07/12/2021 12/17/2021 Assessment & Plan (07/12/2021 2:58 PM CDT): Suspect that this Is a mild calf strain, but vascular insufficiency could also contribute Encouraged gentle calf stretching and strengthening daily (defers PT for now) If pain persists, could consider LE reflux studies . Thankfully DVT has been ruled out Urinary tract infection symptoms 07/12/2021 12/17/2021 Assessment & Plan (07/12/2021 2:50 PM CDT): With mild dysuria and urgency in the last couple days but not currently UA has already been obtained- since not having symptoms, will wait for results but she knows to call if symptoms worsen over the weekend Diarrhea of presumed infectious origin 06/27/2021 12/17/2021 Assessment & Plan (06/27/2021 10:48 AM CDT): Suspect viral gastroenteritis - defers COVID testing but will test with home kit and let us know. Sxs are improving Counseled on BRAT diet (banana/rice or oatmeal/apple sauce/toast) Avoid simple sugars, sodas and diary Can use Pedialyte or home made ORS Can consider using imodium very sparingly Appropriate warnings given for dehydration, worsening sxs, acute abdomen and when to present to UC vs ER If persistent, consider stool cultures Preop exam for internal medicine 05/03/2021 05/21/2021 Assessment & Plan (05/08/2021 8:46 AM SLUBBER OPERATOR): Pt is medically stable and/or cleared to proceed with surgery per internal medicine standpoint once all labs and other diagnostics (possibly including labs, EKG and/or CXR based on surgeon discretion, PMHx risks) have been received and reviewed. If applicable, RCRI evaluated and addressed through detailed PMHx below Counseled of any applicable prescribed or OTC medications, supplements to discontinue and/or hold preoperatively w/ direction of when to resume postoperatively as agreed by surgeon. Pt was instructed to contact the office with absolutely any changes prior to and post surgery. Pre-op evaluation 03/26/2021 05/21/2021 Assessment & Plan (03/26/2021 11:59 AM SLUBBER OPERATOR): Functional capacity is 4-10 METs Will check BMP EKG today reassuring Will clear pending results - note will be faxed to [phone] Positive colorectal cancer s creening using Cologuard test 12/12/2020 05/21/2021 Assessment & Plan (12/12/2020 3:52 PM CDT): She will schedule colonoscopy for this Impacted davidumen 08/14/2020 12/12/2020 Assessment & Plan (11/14/2020 3:05 PM CDT): Chronic issue and we can perform ear lavages for her Assessment & Plan (08/14/2020 11:42 AM CDT): Will clean right ear due to hearing loss at visit Acute cystitis without hematuria 05/31/2020 08/14/2020 Assessment & Plan (05/31/2020 4:23 PM CDT): Advised pt to practice hygiene Wipe front to back Will send Pyridium (discussed orange discoloration of urine) will order Macrobid and UA Encouraged hydration and avoiding bladder irritants Pt knows to reach back out if sx worsen or do not get better Gave warnings for renal colic Work on pelvic floor training for bladder prolapse and follow up with uro and casting molder Dysphagia 10/04/2019 08/14/2020 Overview (10/04/2019): Added automatically from request for surgery [id number] Palpitations 03/17/2019 08/14/2020 Assessment & Plan (03/17/2019 5:10 PM SLUBBER OPERATOR): Concerning for arrhythmia- perhaps longer episodes of SVT. She also has known frequent PACs. Will obtain event monitor to examine these longer episodes c/f SVT. Discussed abortive manuevers to try but also advised her to go to ER if prolonged symptoms arise. Also checking electrolytes and thyroid function tests. Return to clinic for an interim f/u in 2 weeks with [facility]. Flank pain 09/10/2017 07/23/2018 Assessment & Plan (09/10/2017 3:37 PM CDT): I'm concerned that she might have actually had pyelo given her flank pain although she denies fevers/chills/systemic symptoms. Will check UA to confirm eradication since [place] is going [place]. Encounters Date Type Department Care Team Description 05/12/2024 Telephone [facility] Orthopaedic Surgery [address] [address] [place] [address] [place] [phone] Douglas Tan MD Appointment 05/06/2024 9:45 AM SLUBBER OPERATOR Procedure visit [facility] Otolaryngology [address] [facility] [address] [facility] [address] [place] [address] [place] [phone] Morenita Rondon Au.D. Bilateral hearing loss, unspecified hearing loss type 05/03/2024 Orders Only [facility] Neuro Interventional Radiology [address] [place] [address] Rose Andrews, RN 05/02/2024 Orders Only [facility] Neuro Interventional Radiology [address] [place] [address] Rose Andrews, RN 04/29/2024 Orders Only [facility] Radiology [address] [place] [address] Claude Tobar, RN 04/28/2024 3:29 PM SLUBBER OPERATOR - 05/17/2024 2:53 PM CDT Hospital Encounter [address] [phone] Carlitos Carr MD Mendelsohn, Marc, MD Johnson, MD Sammy Bermudez Nathan R., MD Neilson, MD Bacilio Anderson, MD Clay Avalos, MD Shirley Lees, MD Mamie Irwin, Opal West MD Fall, initial encounter (Primary Dx); Urinary tract infection without hematuria, site unspecified; Diarrhea, unspecified type; Sepsis, due to unspecified organism, unspecified whether acute organ dysfunction present (HCC) Discharge Disposition: Discharge to an Rehab facility 04/27/2024 Telephone [facility] [address] [place] [address] Blanca Mcallister, [facility] Readmission to SNF 04/25/2024 Telephone [facility] Orthopaedic Surgery [address] [address] [place] [address] [place] [phone] Dionte Zaragoza MD cervical collar 04/18/2024 11:40 AM SLUBBER OPERATOR Telemedicine [facility] [address] [address] [place] [address] [place] [phone] Anna Adames MD Severe muscle deconditioning (Primary Dx); Confusion; Abdominal trauma, sequela; Paroxysmal atrial fibrillation (HCC); Impaired functional mobility, balance, gait, and endurance; Other closed nondisplaced odontoid fracture with routine healing, subsequent encounter 04/15/[address] [phone] Barbara Wall RN 04/14/[address] [address] Barbara Wall RN 04/14/2024 Telephone [facility] [address] [facility] [address], [address] [place] [phone] Nichole Dominguez, [facility] Spoke With Home Health Provider 04/13/2024 Telephone [facility] Scheduling [address] [place] [address] Betsy Jiang RN 04/13/2024 Home Care Visit [address] [address] [address] [place] [address] Alma Hazel, [facility] SN TRIAGE ENCOUNTER 04/09/2024 Home Care Visit [address] [address] [address] [place] [address] Asuncion Patel, [facility] TELEPHONE ENCOUNTER 04/09/2024 Home Care Visit [address] [place] [address] Xiomara King RN SN TRIAGE ENCOUNTER 04/08/2024 Home Care Visit [facility] - [address] [place] [address] Xiomara King RN SN TRIAGE ENCOUNTER 04/04/2024 8:30 AM SLUBBER OPERATOR [facility] [address] [facility] [address] [place] [address] 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) (Primary Dx) 03/30/2024 Telephone [facility] Orthopaedic Surgery [address] [place] [address] 6th [place] [address] [place] [address] Dionte Zaragoza MD Appointment 03/25/2024 10:00 AM SLUBBER OPERATOR Telemedicine [facility] Orth[facility] Surgery [address] [place] [address] [address]th [place] [address] [place] [address] Dionte Zaragoza MD Other closed nondisplaced odontoid fracture with routine healing, subsequent encounter (Primary Dx); Follow-up exam 03/24/2024 Telephone [facility] Orthopa[facility] Surgery [address] [place] [address] [address]th [place] [address] [place] [address] Dionte Zaragoza MD Appointment 03/21/2024 2:55 PM SLUBBER OPERATOR - 03/21/2024 11:59 PM SLUBBER OPERATOR Hospital Encounter [facility] [address] [place] [address] Dionte Zaragoza MD Cervical spine pain Discharge Disposition: Discharge to home or self care 03/21/2024 12:30 PM SLUBBER OPERATOR - 03/21/2024 11:59 PM SLUBBER OPERATOR Hospital Encounter [facility] [address] [place] [address] Closed fracture of phalanx of left fifth toe, initial encounter; Closed fracture of iliac wing, unspecified laterality, initial encounter (HCC); Closed nondisplaced fracture of left clavicle, unspecified part of clavicle, initial encounter Discharge Disposition: Discharge to home or self care 03/21/2024 9:30 AM SLUBBER OPERATOR Office Visit [facility] Orthopaedic Surgery [address] [address] [place] [address] [place] [address] Jeffy Lugo MD Closed fracture of phalanx of left fifth toe, initial encounter (Primary Dx); Closed fracture of iliac wing, unspecified laterality, initial encounter (HCC); Closed nondisplaced fracture of left clavicle, unspecified part of clavicle, initial encounter; Follow-up exam 03/21/2024 Orders Only [facility] Orthopaedic Surgery [address] [address]th [place] [address] [place] [address] Dionte Zaragoza MD Cervical spine pain (Primary Dx) 03/16/2024 Telephone [facility] [address] [place] [address] Medical [address], [address] [place] [phone] Loren George, [facility] Appointment 03/11/2024 Telephone [facility] Orthopaedic Surgery On license of [facility] [facility] [address] [place] [address] [place] [phone] Camille Aldana MD Appointment 03/04/2024 [facility] Transitional Care Outreach [facility] [address] [place] [address] April Crandall, [facility] 03/04/[address] [phone] Omayra Kaplan RN 02/01/2024 10:24 AM SLUBBER OPERATOR - 03/03/2024 6:28 PM SLUBBER OPERATOR Hospital Encounter [address] [phone] Omayra Castillo MD Eswaran, Vidya, MD Snyder, Jason Andrew, MD Mesenteric hemorrhage (Primary Dx); Liver laceration, grade III, without open wound into cavity, initial encounter; Closed fracture of left iliac crest, initial encounter (HCC); Closed fracture of cervical vertebral body (HCC); Traumatic epidural hematoma with loss of consciousness of 30 minutes or less, initial encounter (HCC); Closed displaced fracture of left clavicle, unspecified part of clavicle, initial encounter; Acute pain due to trauma; Acute hypoxemic respiratory failure (HCC); Atrial fibrillation with rapid ventricular response (HCC) Discharge Disposition: Discharge to SNF from Last 3 Months Immunizations Immunization Administration Dates Next Due Influenza, Quad, Adjuvantate d, Intramuscular 12/11/2021,11/26/2019 Influenza, Quadrivalent, Hig h Dose, Preservative Free, Intrr 10/22/2022,11/14/2020 Influenza, Trivalent, High D ose, Split, Preservative Free, Intramuscular 12/03/2018,01/10/2018,12/20/2016,02/19,03/07/2015,11/28/2013 Influenza, Trivalent, IM (MDV) 01/13/2013,2012 Influenza, Trivalent, Preser vative Free, Intramuscular 11/26/2019 Influenza, Unspecified 10/22/2022,2020,12/03/2018,01/10,12/20/2016,02/20/2016,02/07/2016 ,03/07/2015,11/28/2013 Pfizer SARS-CoV-2 Monovalent Vaccination (12+ Yrs) PURPLE 12/04/2020,05/10/2020,04/17/2020 Pneumococcal Conjugate PCV 13 03/06/2016 Pneumococcal Conjugate Pcv20 11/24/2023 Pneumococcal Polysaccharide PPV23 07/23/2018 RSV Vaccine, Pref, Recombina nt, Subunit, Adjuvanted, PF, IM (Arexvy) 01/22/2023 Tdap 04/28/2024(),02/02/2024,07/24/19 19 ZOSTER LIVE 03/16/2012,02/15/2012 ZOSTER Recombinant 11/04/2022,08/23/2020 Surgical History Surgery Date Site/Laterality Comments CONTRAST INJECTION EVALUATIO N CENTRAL VENOUS ACCESS DEVICE 08/25/2014 N/A SINUS SURGERY 2014, 2017 MOHS SURGERY Right BCCA cheek CHOLECYSTECTOMY TOTAL KNEE ARTHROPLASTY Bilateral PANNICULECTOMY 03/09/2016 - 03/08/2017 abdominoplasty SUPERFICIAL BONE BIOPSY 05/03/2024 N/A Medical History Medical History Date Comments Depression PAC (premature atrial contraction) SR w/PACs/event monitor 03/2019 Cystitis Chorea as child GERD (gastroesophageal reflux disease) Osteoarthritis MVP (mitral valve prolapse) Left ear impacted cerumen 08/15/2021 Urinary tract infection symptoms 07/12/2021 Diarrhea of presumed infectious origin 06/27/2021 Right calf pain 07/12/2021 Family History Medical History Relation Name Comments Coronary artery disease Father Citlali nary artery disease - (Added by TW Conv) Stroke Father FHx: stroke - ( Added by TW Conv)/Family history of cerebrovascular accident (CVA) - (Added by TW Conv) Coronary artery disease Mother Citlali nary artery disease - (Added by TW Conv) Osteoporosis Mother Family history of osteoporosis - (Added by TW Conv) Thyroid disease Sister Family histo ry of thyroid disease - (Added by TW Conv) Relation Name Status Comments Father Mother Sister Social History Tobacco Use Types Packs/Day Years Used Date Smoking Tobacco: Never Smokeless Tobacco: Never Tobacco Cessation:Counseling Given: Not Answered [facility] Utilities Answer Date Recorded In the past 12 months has e [employer], gas, oil, or water [employer] threatened to shut off services in your [...] neighbors? More than three times a week 05/02/2024 How often do you get togethe r with friends or relatives? More than three times a week 05/02/2024 How often do you attend chur or advent services? Never 05/02/2024 Do you belong to any clubs o r organizations such as cheondoism groups, unions, fraternal or athletic groups, or school groups? Yes 05/02/2024 How often do you attend meet ings of the clubs or organizations you belong to? More than 4 times per year 05/02/2024 Are you , , di vorced, , never , or living with a partner? 05/02/2024 AUDIT-C Answer Date Recorded Q1: How often do you have a drink containing alc ohol? Never 04/04/2024 Q2: How many drinks containi ng alcohol do you have on a typical day when you are drinking? 1 or 2 04/04/2024 Q3: How often do you have six or more drinks on one occasion? Never 04/04/2024 Overall Financial Resource Strain (CARDIA) Answe r Date Recorded How hard is it for you to pa y for the very basics like food, housing, medical care, and heating? Not hard at all 05/02/2024 PHQ-2 Answer Date Recorded PHQ-2 Total Score 0 05/02/2024 [facility] Occupational Stress Questionnaire Answer Date Recorded [...] the money to buy more. Never true 05/02/19 25 Within the past 12 months, t he food you bought just didn't last and you didn't have money to get more. Never true 05/02/2024 PRAPARE - Transportation Answer Date Re corded In the past 12 months, has l ack of transportation kept you from medical appointments or from getting medications? No 04/10 In the past 12 months, has l ack of transportation kept you from meetings, work, or from getting things needed for daily living? No 05/02/2024 Housing Stability Vital Sign Answer Priyank e Recorded In the last 12 months, was t here a time when you were not able to pay the mortgage or rent on time? No 05/02/2024 In the past 12 months, how m any times have you moved where you were living? 0 05/02/2024 At any time in the past 12 m [facility], were you homeless or living in a care home (including now)? No 05/02/2024 Personal Safety Answer Date Recorded Have you ever been in or are you currently in a harmful physical or emotional relationship or is someone making you feel afraid or unsafe? Denies 04/29/2024 Comments No Sex and Gender Information Value Date Recorded Sex Assigned at Not on file Legal Sex Female 10:50 AM SLUBBER OPERATOR Gender Identity Female 07/16/2020 5:01 PM CDT Sexual Orientation Straight 07/16/2020 5: 01 PM CDT Obstetrics History Last Filed Vital Signs Vital Sign Reading Time Taken Comments Blood Pressure 98/51 05/17/2024 11:05 AM CDT Pulse 100 05/17/2024 11:05 AM CDT Temperature 36.5 C (97.7 F) 05/17/2024 8:15 AM CDT Respiratory Rate 14 05/17/2024 8:15 AM CDT Oxygen Saturation 100% 05/17/2024 11:05 AM CDT Inhaled Oxygen Concentration - - Weight 76.9 kg (169 lb 8 oz) 05/11/2024 6:25 AM SLUBBER OPERATOR Height 162.6 cm (5' 4 ) 04/29/2024 10:06 PM SLUBBER OPERATOR Body Mass Index 29.09 04/29/2024 10:06 PM SLUBBER OPERATOR Plan of Treatment Health Maintenance Due Date Last Done Comments Hepatitis B Screening 07/16/1963 Covid-19 Vaccine (2023-2 5 season) 2023 01/22/2023, 10/22/2022, 12/11/2021, Additional history exists Influenza Vaccine (#1) 2023 , 10/22/2022, 12/11/2021, Additional history exists Colon Cancer Screening-DNA Stool 12/18/2023 12/17/2020, 12/05/2020, 08/08/2017 Well Visit 65+ 11/23/2024 11/24/2023, 11/07, 04/04/2022, Additional history exists Depression Screening 04/28/2025 04/28/2024, 11/24/2023, 12/17/2021, Additional history exists Fall Risk Assessment 05/17/2025 05/17/2024, 11/24/2023, 12/17/2021, Additional history exists Osteoporosis Screening-Bone Density Scan 11/25/2025 11/26/2023, 09/14/2019, 07/22/2017 DTaP/Tdap/Td Vaccine (3 - Td or Tdap) 02/01/2034 02/02/2024, 07/23/2018 Hepatitis C Screening Completed 07/22/2017 Breast Cancer Screening-Mammogram Discontinued 09/23/2022, 10/26/2019, 07/22/2017 Zoster Vaccine Completed 11/04/2022, 08/07, 03/16/2012, Additional history exists Pneumococcal vaccine 65+ Completed 024, 07/23/2018, 03/06/2016 Medical Devices Implanted Type Area Carbonating Stone Cleaner Device Identifier Shelf Expiration Date Model / Serial / Lot Bilateral Knee Replacement Knee Screw In Big Right Toe Foot Steel Clamp Abdomen Procedures Procedure Name Priority Date/Time Associated Diagnosis Comments EGFR Routine 05/16/2024 5:14 PM CDT MAGNESIUM Routine 05/16/2024 5:14 PM CDT BASIC METABOLIC PANEL Routine 05/16/2024 5:14 PM CDT HEPATIC FUNCTION PANEL Timed 5:14 PM CDT EGFR Timed 05/16/2024 9:07 AM CDT BASIC METABOLIC PANEL Timed 05/16/2024 9:07 AM CDT POTASSIUM, WHOLE BLOOD Routine 12:31 AM CDT EGFR Timed 05/15/2024 10:10 PM CDT MAGNESIUM Timed 05/15/2024 10:10 PM CDT PHOSPHORUS Timed 05/15/2024 10:10 PM CDT DIFFERENTIAL AUTO Timed 05/15/2024 10:10 PM CDT CBC WITH AUTO DIFFERENTIAL Timed 05/15/2024 10:10 PM CDT BASIC METABOLIC PANEL Timed 05/15/2024 10:10 PM CDT XR SPINE CERVICAL W FLEXION AND EXTENSION 6 OR MORE VIEWS IP Routine 05/15/2024 12:30 PM CDT BASIC METABOLIC PANEL Timed 05/14/2024 10:02 PM SLUBBER OPERATOR EGFR Timed 05/14/2024 10:02 PM SLUBBER OPERATOR MAGNESIUM Timed 05/14/2024 10:02 PM SLUBBER OPERATOR HEPATIC FUNCTION PANEL Timed 10:02 PM SLUBBER OPERATOR POCT GLUCOSE DEVICE Routine 05/14/2024 1 :17 PM SLUBBER OPERATOR PHOSPHORUS Timed 05/14/2024 10:25 AM SLUBBER OPERATOR CRITICAL RESULT CALLBACK CHEMISTRY Timed 05/14/2024 10:25 AM SLUBBER OPERATOR EGFR Timed 05/14/2024 10:25 AM SLUBBER OPERATOR MAGNESIUM Timed 05/14/2024 10:25 AM SLUBBER OPERATOR COMPREHENSIVE METABOLIC PANEL Timed 05/14/2024 10:25 AM SLUBBER OPERATOR EGFR Timed 05/13/2024 8:46 PM SLUBBER OPERATOR DIFFERENTIAL AUTO Timed 05/13/2024 8:4 6 PM SLUBBER OPERATOR MAGNESIUM Routine 05/13/2024 8:46 PM SLUBBER OPERATOR PHOSPHORUS Timed 05/13/2024 8:46 PM SLUBBER OPERATOR MAGNESIUM Timed 05/13/2024 8:46 PM SLUBBER OPERATOR COMPREHENSIVE METABOLIC PANEL Timed 05/13/2024 8:46 PM SLUBBER OPERATOR CBC WITH AUTO DIFFERENTIAL Timed 05/13/2024 8:46 PM SLUBBER OPERATOR TRANSTHORACIC ECHO (TTE) COMPLETE W DOPPLER/CF W CONTRAST ED Urgent/IP Urgent 05/13/2024 1:14 PM SLUBBER OPERATOR BASIC METABOLIC PANEL Timed 05/12/2024 6:18 PM SLUBBER OPERATOR EGFR Timed 05/12/2024 6:18 PM SLUBBER OPERATOR PHOSPHORUS Timed 05/12/2024 6:18 PM SLUBBER OPERATOR MAGNESIUM Timed 05/12/2024 6:18 PM SLUBBER OPERATOR XR SPINE CERVICAL 2 OR 3 VIEWS ED Urgent/IP Urgent 05/12/2024 4:04 PM SLUBBER OPERATOR EGFR Timed 05/11/2024 11:19 PM SLUBBER OPERATOR T4, FREE Timed 05/11/2024 11:19 PM SLUBBER OPERATOR DIFFERENTIAL AUTO Timed 05/11/2024 11:19 PM SLUBBER OPERATOR PHOSPHORUS Timed 05/11/2024 11:19 PM SLUBBER OPERATOR MAGNESIUM Timed 05/11/2024 11:19 PM SLUBBER OPERATOR COMPREHENSIVE METABOLIC PANEL Timed 05/11/2024 11:19 PM SLUBBER OPERATOR CBC WITH AUTO DIFFERENTIAL Timed 05/11/2024 11:19 PM SLUBBER OPERATOR EGFR Routine 05/11/2024 6:31 AM SLUBBER OPERATOR MAGNESIUM Routine 05/11/2024 6:31 AM SLUBBER OPERATOR BASIC METABOLIC PANEL Routine 05/11/2024 6:31 AM SLUBBER OPERATOR EGFR Timed 05/10/2024 12:21 AM SLUBBER OPERATOR DIFFERENTIAL AUTO Timed 05/10/2024 12:21 AM SLUBBER OPERATOR PHOSPHORUS Timed 05/10/2024 12:21 AM SLUBBER OPERATOR MAGNESIUM Timed 05/10/2024 12:21 AM SLUBBER OPERATOR COMPREHENSIVE METABOLIC PANEL Timed 05/10/2024 12:21 AM SLUBBER OPERATOR CBC WITH AUTO DIFFERENTIAL Timed 05/10/2024 12:21 AM SLUBBER OPERATOR SALINE LOCK IV STAT 05/09/2024 10:33 PM SLUBBER OPERATOR SALINE LOCK IV STAT 05/09/2024 10:33 PM SLUBBER OPERATOR INFECTION PREVENTION VRE CULTURE Routine 05/09/2024 4:01 PM SLUBBER OPERATOR C. DIFFICILE TESTING STAT 05/09/2024 4:01 PM SLUBBER OPERATOR XR ABDOMEN AP 1 VIEW ED Urgent/IP Urgent 05/09/2024 3:01 PM SLUBBER OPERATOR EGFR Routine 05/08/2024 1:30 PM SLUBBER OPERATOR DIFFERENTIAL AUTO Routine 05/08/2024 1:3 0 PM SLUBBER OPERATOR PHOSPHORUS Timed 05/08/2024 1:30 PM SLUBBER OPERATOR CBC WITH AUTO DIFFERENTIAL Routine 05/08/2024 1:30 PM SLUBBER OPERATOR BASIC METABOLIC PANEL Routine 05/08/2024 1:30 PM SLUBBER OPERATOR MAGNESIUM Routine 05/08/2024 1:30 PM SLUBBER OPERATOR EGFR STAT 05/06/2024 10:27 PM SLUBBER OPERATOR DIFFERENTIAL AUTO STAT 05/06/2024 10:27 PM SLUBBER OPERATOR PHOSPHORUS STAT 05/06/2024 10:27 PM SLUBBER OPERATOR MAGNESIUM STAT 05/06/2024 10:27 PM SLUBBER OPERATOR CBC WITH AUTO DIFFERENTIAL STAT 05/06/2024 10:27 PM SLUBBER OPERATOR BASIC METABOLIC PANEL STAT 05/06/2024 10:27 PM SLUBBER OPERATOR EGFR Routine 05/05/2024 10:32 PM SLUBBER OPERATOR DIFFERENTIAL AUTO Routine 05/05/2024 10:32 PM SLUBBER OPERATOR PHOSPHORUS Routine 05/05/2024 10:32 PM SLUBBER OPERATOR CBC WITH AUTO DIFFERENTIAL Routine 05/05/2024 10:32 PM SLUBBER OPERATOR MAGNESIUM Routine 05/05/2024 10:32 PM SLUBBER OPERATOR BASIC METABOLIC PANEL Routine 05/05/2024 10:32 PM SLUBBER OPERATOR EGFR Routine 05/04/2024 11:29 PM SLUBBER OPERATOR DIFFERENTIAL AUTO Routine 05/04/2024 11:29 PM SLUBBER OPERATOR PHOSPHORUS Routine 05/04/2024 11:29 PM SLUBBER OPERATOR CBC WITH AUTO DIFFERENTIAL Routine 05/04/2024 11:29 PM SLUBBER OPERATOR MAGNESIUM Routine 05/04/2024 11:29 PM SLUBBER OPERATOR BASIC METABOLIC PANEL Routine 05/04/2024 11:29 PM SLUBBER OPERATOR EGFR Routine 05/03/2024 10:28 PM SLUBBER OPERATOR DIFFERENTIAL AUTO Routine 05/03/2024 10:28 PM SLUBBER OPERATOR PHOSPHORUS Routine 05/03/2024 10:28 PM SLUBBER OPERATOR CBC WITH AUTO DIFFERENTIAL Routine 05/03/2024 10:28 PM SLUBBER OPERATOR MAGNESIUM Routine 05/03/2024 10:28 PM SLUBBER OPERATOR BASIC METABOLIC PANEL Routine 05/03/2024 10:28 PM SLUBBER OPERATOR MYCOBACTERIOLOGY AFB CULTURE AND ACID-FAST STAIN Routine 05/03/2024 11:37 AM SLUBBER OPERATOR MYCOLOGY (FUNGAL) CULTURE Routine 05/03/2024 11:37 AM SLUBBER OPERATOR TISSUE AEROBIC AND ANAEROBIC CULTURE AND GRAM STAIN Routine 05/03/2024 11:37 AM SLUBBER OPERATOR SUPERFICIAL BONE BIOPSY IP Routine 05/03/19 10:25 AM SLUBBER OPERATOR MYCOLOGY (FUNGAL) CULTURE AND STAIN Routine 05/03/2024 10:17 AM SLUBBER OPERATOR MYCOBACTERIOLOGY AFB CULTURE AND ACID-FAST STAIN Routine 05/03/2024 10:17 AM SLUBBER OPERATOR AEROBIC AND ANAEROBIC CULTURE AND GRAM STAIN Routine 05/03/2024 10:17 AM SLUBBER OPERATOR SURGICAL PATHOLOGY Routine 05/03/2024 9: 55 AM SLUBBER OPERATOR Fall, initial encounter Urinary tract infection without hematuria, site unspecified Diarrhea, unspecified type Sepsis, due to unspecified organism, unspecified whether acute organ dysfunction present (HCC) EGFR Routine 05/02/2024 11:12 PM SLUBBER OPERATOR DIFFERENTIAL AUTO Routine 05/02/2024 11:12 PM SLUBBER OPERATOR APTT Routine 05/02/2024 11:12 PM SLUBBER OPERATOR PROTIME-INR Routine 05/02/2024 11:12 PM SLUBBER OPERATOR PHOSPHORUS Routine 05/02/2024 11:12 PM SLUBBER OPERATOR CBC WITH AUTO DIFFERENTIAL Routine 05/02/2024 11:12 PM SLUBBER OPERATOR MAGNESIUM Routine 05/02/2024 11:12 PM SLUBBER OPERATOR BASIC METABOLIC PANEL Routine 05/02/2024 11:12 PM SLUBBER OPERATOR EGFR Routine 05/01/2024 11:02 PM SLUBBER OPERATOR DIFFERENTIAL AUTO Routine 05/01/2024 11:02 PM SLUBBER OPERATOR THYROID FUNCTION CASCADE Routine 025 11:02 PM SLUBBER OPERATOR VITAMIN B12 Routine 05/01/2024 11:02 PM SLUBBER OPERATOR FOLATE Routine 05/01/2024 11:02 PM SLUBBER OPERATOR PHOSPHORUS Routine 05/01/2024 11:02 PM SLUBBER OPERATOR CBC WITH AUTO DIFFERENTIAL Routine 05/01/2024 11:02 PM SLUBBER OPERATOR MAGNESIUM Routine 05/01/2024 11:02 PM SLUBBER OPERATOR BASIC METABOLIC PANEL Routine 05/01/2024 11:02 PM SLUBBER OPERATOR EGFR Routine 04/30/2024 11:17 PM SLUBBER OPERATOR DIFFERENTIAL AUTO Routine 04/30/2024 11:17 PM SLUBBER OPERATOR PHOSPHORUS Routine 04/30/2024 11:17 PM SLUBBER OPERATOR CBC WITH AUTO DIFFERENTIAL Routine 04/30/2024 11:17 PM SLUBBER OPERATOR MAGNESIUM Routine 04/30/2024 11:17 PM SLUBBER OPERATOR BASIC METABOLIC PANEL Routine 04/30/2024 11:17 PM SLUBBER OPERATOR EGFR Routine 04/30/2024 3:35 AM SLUBBER OPERATOR DIFFERENTIAL AUTO Routine 04/30/2024 3:3 5 AM SLUBBER OPERATOR BASIC METABOLIC PANEL Routine 04/30/2024 3:35 AM SLUBBER OPERATOR CBC WITH AUTO DIFFERENTIAL Routine 04/30/2024 3:35 AM SLUBBER OPERATOR EGFR STAT 04/29/2024 7:49 PM SLUBBER OPERATOR CALCIUM,IONIZED, WHOLE BLOOD Routine 04/29/2024 7:49 PM SLUBBER OPERATOR MAGNESIUM STAT 04/29/2024 7:49 PM SLUBBER OPERATOR BASIC METABOLIC PANEL STAT 04/29/2024 7:49 PM SLUBBER OPERATOR CRITICAL RESULT CALLBACK CHEMISTRY STAT 04/29/2024 5:43 PM SLUBBER OPERATOR BLOOD GAS, VENOUS STAT 04/29/2024 5:4 3 PM SLUBBER OPERATOR ECG 12-LEAD Routine 04/29/2024 5:28 PM SLUBBER OPERATOR HI CRITICAL CARE ILL/INJURED PATIENT INIT 30-74 MIN Routine 04/29/2024 5:25 PM SLUBBER OPERATOR CRITICAL RESULT CALLBACK CHEMISTRY Routine 04/29/2024 2:28 PM SLUBBER OPERATOR MAGNESIUM Routine 04/29/2024 2:28 PM SLUBBER OPERATOR CRITICAL RESULT CALLBACK CHEMISTRY Routine 04/29/2024 2:28 PM SLUBBER OPERATOR EGFR Routine 04/29/2024 2:28 PM SLUBBER OPERATOR DIFFERENTIAL AUTO Routine 04/29/2024 2:2 8 PM SLUBBER OPERATOR BASIC METABOLIC PANEL Routine 04/29/2024 2:28 PM SLUBBER OPERATOR CBC WITH AUTO DIFFERENTIAL Routine 04/29/2024 2:28 PM SLUBBER OPERATOR XR HIP LEFT W PELVIS 2 OR 3 VIEWS ED Urgent/IP Urgent 04/29/2024 11:27 AM SLUBBER OPERATOR XR TIBIA FIBULA RIGHT2 VIEWS IP Routine 04/29/2024 11:26 AM SLUBBER OPERATOR CRP (ACUTE PHASE) Timed 04/29/2024 9:5 1 AM SLUBBER OPERATOR ERYTHROCYTE SEDIMENTATION RATE Timed 04/29/2024 9:51 AM SLUBBER OPERATOR EGFR STAT 04/29/2024 5:49 AM SLUBBER OPERATOR COMPREHENSIVE METABOLIC PANEL STAT 04/29/2024 5:49 AM SLUBBER OPERATOR CBC WITHOUT DIFFERENTIAL Routine 025 5:49 AM SLUBBER OPERATOR C. DIFFICILE TESTING Routine 04/28/2024 8:45 PM SLUBBER OPERATOR DRUGS OF ABUSE SCREEN, URINE WITH REFLEX CONFIRMATION Routine 04/28/2024 7:39 PM SLUBBER OPERATOR URINALYSIS, MICROSCOPIC ONLY STAT 04/28/2024 7:17 PM SLUBBER OPERATOR URINE CULTURE STAT 04/28/2024 7:17 PM SLUBBER OPERATOR URINALYSIS AND REFLEX TO MICROSCOPIC AND CULTURE STAT 04/28/2024 7:17 PM SLUBBER OPERATOR BLOOD CULTURE STAT 04/28/2024 7:17 PM SLUBBER OPERATOR BLOOD CULTURE STAT 04/28/2024 7:17 PM SLUBBER OPERATOR SEPSIS LACTATE WITH REFLEX STAT 04/28/2024 5:42 PM SLUBBER OPERATOR HI CRITICAL CARE ILL/INJURED PATIENT INIT 30-74 MIN Routine 04/28/2024 4:52 PM SLUBBER OPERATOR PROTIME-INR STAT 04/28/2024 4:33 PM SLUBBER OPERATOR APTT STAT 04/28/2024 4:[address] RECON THORACIC AND LUMBAR SPINE W CONTRAST Critical/Life- Threatening 04/28/2024 3:[address] CHEST ABDOMEN PELVIS W CONTRAST ED Urgent/IP Urgent 04/28/2024 3:[address] HEAD AND CERVICAL SPINE WO CONTRAST ED 04/28/2024 3:38 PM SLUBBER OPERATOR THROMBOELASTOMETRY PANEL - INTRINSIC Routine 04/28/2024 3:38 PM SLUBBER OPERATOR THROMBOELASTOMETRY PANEL - HEPARIN Routine 04/28/2024 3:38 PM SLUBBER OPERATOR THROMBOELASTOMETRY PANEL - EXTRINSIC Routine 04/28/2024 3:38 PM SLUBBER OPERATOR THROMBOELASTOMETRY PANEL - FIBRINOGEN Routine 04/28/2024 3:38 PM SLUBBER OPERATOR DIFFERENTIAL AUTO Routine 04/28/2024 3:3 8 PM SLUBBER OPERATOR THROMBOELASTOMETRY PANEL Routine 025 3:38 PM SLUBBER OPERATOR ETHANOL Routine 04/28/2024 3:38 PM SLUBBER OPERATOR CBC WITH AUTO DIFFERENTIAL Routine 04/28/2024 3:38 PM SLUBBER OPERATOR TYPE AND SCREEN Timed 04/28/2024 3:38 PM SLUBBER OPERATOR POC BLOOD GAS AND CHEMISTRIES, VENOUS Routine 04/28/2024 3:34 PM SLUBBER OPERATOR XR SPINE CERVICAL 2 OR 3 VIEWS Schedule Routine, Read Routine (OP Routine) 03/21/2024 3:21 PM SLUBBER OPERATOR Cervical spine pain XR PELVIS 3 OR MORE VIEWS Schedule Routine, Read Routine (OP Routine) 03/21/2024 1:17 PM SLUBBER OPERATOR Closed fracture of phalanx of left fifth toe, initial encounter Closed fracture of iliac wing, unspecified laterality, initial encounter ([facility]) Closed nondisplaced fracture of left clavicle, unspecified part of clavicle, initial encounter XR CLAVICLE LEFT COMPLETE Schedule Routine, Read Routine (OP Routine) 03/21/2024 1:17 PM SLUBBER OPERATOR Closed fracture of phalanx of left fifth toe, initial encounter Closed fracture of iliac wing, unspecified laterality, initial encounter (HCC) Closed nondisplaced fracture of left clavicle, unspecified part of clavicle, initial encounter XR FOOT LEFT 3 OR MORE VIEWS Schedule Routine, Read Routine (OP Routine) 03/21/2024 1:17 PM SLUBBER OPERATOR Closed fracture of phalanx of left fifth toe, initial encounter Closed fracture of iliac wing, unspecified laterality, initial encounter (HCC) Closed nondisplaced fracture of left clavicle, unspecified part of clavicle, initial encounter INFECTION PREVENTION [facility] PCR, SURVEILLANCE Routine 03/03/2024 2:40 PM SLUBBER OPERATOR DEXA AXIAL SKELETON BONE DENSITY 1 OR MORE SITES Schedule Routine, Read Routine (OP Routine) 11/26/2023 3:21 PM CDT Encounter for Medicare annual wellness exam Osteopenia, unspecified location Primary ovarian failure COLONOSCOPY 12/17/2020 8:06 AM CDT SCREENING MAMMOGRAM BILATERAL W [facility] Schedule Routine, Read Routine (OP Routine) 10/26/2019 1:59 PM CDT Encounter for screening mammogram for malignant neoplasm of breast HEPATITIS C ANTIBODY Routine Gen Lab 07/22/2017 12:50 PM CDT from Last 3 Months or Most Recently Relevant to Health Maintenance Results * eGFR (05/16/2024 5:14 PM CDT) eGFR 72 >=60 mL/min/1. 73 m2 Comment: Interpretive Data Reference Interval Normal >/= 90 mL/min/1.73m2 Mildly decreased* 60 - 89 mL/min/1.73m2 Mildly to moderately decreased 45 - 59 mL/min/1.73m2 Moderately to severely decreased 30 - 44 mL/min/1.73m2 Severely decreased 15 - 29 mL/min/1.73m2 Kidney Failure < 15 mL/min/1.73m2 *Relative to young adult level Estimated glomerular filtration rate is determined by the 2020 CKD-EPI equation recommended by the National Kidney Foundation (A Unifying Approach to GFR Estimation: Recommendations of the NKF-ASK Task Force on Reassessing the Inclusion of Race in Diagnosing Kidney Disease, JASN 2020). The CKD-EPI equation should not be used for patients with unstable renal function and has not been validated in children and those over 70. Current interpretive data was last reviewed 2021. Blood 05/16/2024 5:14 PM CDT 05/16/2024 5:54 PM CDT Shawnee Watson MD LAB BLOOD ORDERA BLES Final Result Performing Organization Address City/[facility]/ZIP Co de Phone Number [facility] Department of [place] [address] * Magnesium (05/16/2024 5:14 PM CDT) Magnesium 1.7 1.4 - 2.5 mg/dL Blood 05/16/2024 5:14 PM CDT 05/16/2024 5:54 PM CDT Shawnee Watson MD LAB BLOOD ORDERA BLES Final Result Performing Organization Address City/[facility]/ZIP Co de Phone Number [facility] of [place] [address] * (ABNORMAL) Hepatic function panel (05/16/2024 5:14 PM CDT) Bilirubin, total 0.2 0.1 - 1.2 mg/dL Bilirubin, direct <0.2 0.1 - 0.3 mg/dL [facility] Protein, pl 5.1(L) 6.5 - 8.5 g/dL [facility] Albumin 2.5(L) 3.5 - 5.0 g/dL [facility] Alk phos 132(H) 40 - 130 Units/L [facility] ALT 22 7 - 45 Units/L [facility] AST 34 10 - 45 Units/L [facility] Blood 05/16/2024 5:14 PM CDT 05/16/2024 5:54 PM CDT Shawnee Watson MD LAB BLOOD ORDERA BLES Final Result [facility] Department [place] [address] * (ABNORMAL) Basic metabolic panel (05/16/2024 5:14 PM CDT) Sodium 136 135 - 145 mmol/L Potassium, pl 4.1 3.3 - 4.9 mmol/L [facility] Chloride 105 97 - 110 mmol/L [facility] CO2 21(L) 22 - 32 mmol/L [facility] Anion gap 10 2 - 15 mmol/L [facility] BUN 27(H) 6 - 25 mg/dL [facility] Creatinine 0.83 0.60 - 1.10 mg/dL [facility] Glucose 129 70 - 199 mg/dL [facility] Comment: Interpretive Data Fasting glucose >/= 126 mg/dl is diagnostic for diabetes. Fasting is defined as no caloric intake for at least 8 hours. Fasting glucose between 100 mg/dl to 125 mg/dl is diagnostic of prediabetes. In a patient with classic symptoms of hyperglycemia or hyperglycemic crisis, a random glucose >/= 200 mg/dl is diagnostic for diabetes. In the absence of unequivocal hyperglycemia, results should be confirmed by repeat testing. The classification and Diagnosis of Diabetes Diabetes Care 202; 46: S19-S40. Current interpretive data was last revised 2022. Calcium 8.1(L) 8.5 - 10.3 mg/dL [facility] Blood 05/16/2024 5:14 PM CDT 05/16/2024 5:54 PM CDT Shawnee Watson MD LAB BLOOD ORDERA BLES Final Result Performing Organization Address City/[facility]/ZIP Co de Phone Number [facility] Department [place] [address] * eGFR (05/16/2024 9:07 AM CDT) eGFR 67 >=60 mL/min/1. 73 m2 Comment: Interpretive Data Reference Interval Normal >/= 90 mL/min/1.73m2 Mildly decreased* 60 - 89 mL/min/1.73m2 Mildly to moderately decreased 45 - 59 mL/min/1.73m2 Moderately to severely decreased 30 - 44 mL/min/1.73m2 Severely decreased 15 - 29 mL/min/1.73m2 Kidney Failure < 15 mL/min/1.73m2 *Relative to young adult level Estimated glomerular filtration rate is determined by the 2020 CKD-EPI equation recommended by the National Kidney Foundation (A Unifying Approach to GFR Estimation: Recommendations of the NKF-ASK Task Force on Reassessing the Inclusion of Race in Diagnosing Kidney Disease, JASN 2020). The CKD-EPI equation should not be used for patients with unstable renal function and has not been validated in children and those over 70. Current interpretive data was last reviewed 2021. Blood 05/16/2024 9:07 AM CDT 05/16/2024 10:21 AM CDT Shawnee Watson MD LAB BLOOD ORDERA BLES Final Result Performing Organization Address City/[facility]/ZIP Co de Phone Number [facility] [place] [address] * (ABNORMAL) Basic metabolic panel (05/16/2024 9:07 AM CDT) Pathologist [facility] Sodium 138 135 - 145 mmol/L Potassium, pl 4.5 3.3 - 4.9 mmol/L [facility] Chloride 107 97 - 110 mmol/L [facility] CO2 22 22 - 32 mmol/L [facility] Anion gap 9 2 - 15 mmol/L [facility] BUN 26(H) 6 - 25 mg/dL [facility] Creatinine 0.88 0.60 - 1.10 mg/dL [facility] Glucose 73 70 - 199 mg/dL [facility] Comment: Interpretive Data Fasting glucose >/= 126 mg/dl is diagnostic for diabetes. Fasting is defined as no caloric intake for at least 8 hours. Fasting glucose between 100 mg/dl to 125 mg/dl is diagnostic of prediabetes. In a patient with classic symptoms of hyperglycemia or hyperglycemic crisis, a random glucose >/= 200 mg/dl is diagnostic for diabetes. In the absence of unequivocal hyperglycemia, results should be confirmed by repeat testing. The classification and Diagnosis of Diabetes Diabetes Care 2021; 46: S19-S40. Current interpretive data was last revised 2022. Calcium 8.8 8.5 - 10.3 mg/dL [facility] Blood 05/16/2024 9:07 AM CDT 05/16/2024 10:17 AM CDT Shawnee Watson MD LAB BLOOD ORDERA BLES Final Result [facility] Department of [place] [address] * Potassium, whole blood (05/16/2024 12:31 AM CDT) Pathologist [facility] Potassium, bld 4.7 3.3 - 4.9 mmol/L Blood 05/16/2024 12:3 1 AM CDT 05/16/2024 2:22 AM CDT Shawnee Watson MD LAB BLOOD ORDERA BLES Final Result [facility] Department [place] [address] * eGFR (05/15/2024 10:10 PM CDT) eGFR 65 >=60 mL/min/1. 73 m2 Comment: Interpretive Data Reference Interval Normal >/= 90 mL/min/1.73m2 Mildly decreased* 60 - 89 mL/min/1.73m2 Mildly to moderately decreased 45 - 59 mL/min/1.73m2 Moderately to severely decreased 30 - 44 mL/min/1.73m2 Severely decreased 15 - 29 mL/min/1.73m2 Kidney Failure < 15 mL/min/1.73m2 *Relative to young adult level Estimated glomerular filtration rate is determined by the 2020 CKD-EPI equation recommended by the National Kidney Foundation (A Unifying Approach to GFR Estimation: Recommendations of the NKF-ASK Task Force on Reassessing the Inclusion of Race in Diagnosing Kidney Disease, JASN 2020). The CKD-EPI equation should not be used for patients with unstable renal function and has not been validated in children and those over 70. Current interpretive data was last reviewed 2021. Blood 05/15/2024 10:1 0 PM CDT 05/15/2024 10:52 PM CDT us Shawnee Watson MD LAB BLOOD ORDERA BLES Final Result [facility] Department [place] [address] * Differential, auto (05/15/2024 10:10 PM CDT) Neutrophil abs 5.2 1.5 - 6.5 K/cumm Imm gran abs 0.1 0.0 - 0.1 K/cumm [facility] Lymphocyte abs 1.8 0.8 - 3.3 K/cumm [facility] Monocyte abs 0.8 0.2 - 0.8 K/cumm [facility] Eosinophil abs 0.1 0.0 - 0.5 K/cumm [facility] Basophil abs 0.0 0.0 - 0.1 K/cumm [facility] Neutrophil pct 65.2 % [facility] Comment: Interpretive Data Percent cell count reference ranges are not reported, since discordance with absolute values may lead to misinterpretation of CBC data. Current Interpretive Data was last revised on 2017. Imm gran pct 0.9 % [facility] Comment: Interpretive Data Percent cell count reference ranges are not reported, since discordance with absolute values may lead to misinterpretation of CBC data. Current Interpretive Data was last revised on 2017. Lymphocyte pct 22.4 % [facility] Comment: Interpretive Data Percent cell count reference ranges are not reported, since discordance with absolute values may lead to misinterpretation of CBC data. Current Interpretive Data was last revised on 2017. Monocyte pct 9.6 % [facility] Comment: Interpretive Data Percent cell count reference ranges are not reported, since discordance with absolute values may lead to misinterpretation of CBC data. Current Interpretive Data was last revised on 2017. Eosinophil pct 1.6 % [facility] Comment: Interpretive Data Percent cell count reference ranges are not reported, since discordance with absolute values may lead to misinterpretation of CBC data. Current Interpretive Data was last revised on 2017. Basophil pct 0.3 % [facility] Comment: Interpretive Data Percent cell count reference ranges are not reported, since discordance with absolute values may lead to misinterpretation of CBC data. Current Interpretive Data was last revised on 2017. Blood 05/15/2024 10:1 0 PM CDT 05/15/2024 10:52 PM CDT us Felecia Ribera MD LAB BLOOD ORDERABLES Final R esult [facility] Department [place] [address] * (ABNORMAL) CBC with auto differential (05/15/2024 10:10 PM CDT) WBC 8.0 3.8 - 9.9 K/cumm Hgb 10.2(L) 11.9 - 15.5 g/dL [facility] Hct 31.4(L) 35.6 - 45.5 % [facility] Plt 294 150 - 400 K/cumm [facility] MPV 8.7(L) 9.1 - 12.3 fL [facility] RBC 3.29(L) 3.90 - 5.20 M/cumm [facility] MCV 95.4 81.3 - 96.4 fL [facility] MCH 31.0 27.1 - 33.3 pg [facility] MCHC 32.5 32.3 - 35.7 g/dL [facility] RDW CV 18.7(H) 11.1 - 14.9 % [facility] RDW SD 65.4(H) 35.7 - 48.1 fL [facility] NRBC abs 0.00 0.00 - 0.01 K/cumm [facility] Blood 05/15/2024 10:1 0 PM CDT 05/15/2024 10:52 PM CDT Felecia Ribera MD LAB BLOOD ORDERABLES Final R esult Performing Organization Address City/[facility]/ZIP Co de Phone Number [facility] Department [place] [address] * Phosphorus (05/15/2024 10:10 PM CDT) Phosphorus, pl 3.3 2.3 - 4.5 mg/dL Blood 05/15/2024 10:1 0 PM CDT 05/15/2024 10:48 PM CDT Shawnee Watson MD LAB BLOOD ORDERA BLES Final Result [facility] Department [place] [address] * Magnesium (05/15/2024 10:10 PM CDT) Magnesium 2.1 1.4 - 2.5 mg/dL Blood 05/15/2024 10:1 0 PM CDT 05/15/2024 10:48 PM CDT Shawnee Watson MD LAB BLOOD ORDERA BLES Final Result [facility] Department [place] [address] * (ABNORMAL) Basic metabolic panel (05/15/2024 10:10 PM CDT) Sodium 135 135 - 145 mmol/L Potassium, pl 5.3(H) 3.3 - 4.9 mmol/L [facility] Chloride 106 97 - 110 mmol/L [facility] CO2 21(L) 22 - 32 mmol/L [facility] Anion gap 8 2 - 15 mmol/L [facility] BUN 27(H) 6 - 25 mg/dL [facility] Creatinine 0.90 0.60 - 1.10 mg/dL [facility] Glucose 86 70 - 199 mg/dL [facility] Comment: Interpretive Data Fasting glucose >/= 126 mg/dl is diagnostic for diabetes. Fasting is defined as no caloric intake for at least 8 hours. Fasting glucose between 100 mg/dl to 125 mg/dl is diagnostic of prediabetes. In a patient with classic symptoms of hyperglycemia or hyperglycemic crisis, a random glucose >/= 200 mg/dl is diagnostic for diabetes. In the absence of unequivocal hyperglycemia, results should be confirmed by repeat testing. The classification and Diagnosis of Diabetes Diabetes Care 202; 46: S19-S40. Current interpretive data was last revised 2022. Calcium 8.7 8.5 - 10.3 mg/dL [facility] Blood 05/15/2024 10:1 0 PM CDT 05/15/2024 10:48 PM CDT Shawnee Watson MD LAB BLOOD ORDERA BLES Final Result Performing Organization Address City/[facility]/ZIP Co de Phone Number [facility] Department [place] [address] * XR Spine Cervical W Flexion And Extension 6 or More Views (05/15/2024 12:30 PM CDT) Anatomical Region Laterality Modality Spine N/A Computed Radiogr aphy 05/15/2024 12:4 0 PM CDT Impressions 05/15/2024 12:40 PM CDT 1. Unchanged minimally displaced C2 vertebral body fracture 2. Possible dynamic listhesis at C3-C4 with unchanged severe multilevel subaxial cervical degenerative disc disease and bilateral uncovertebral/facet osteoarthritis 3. Diffuse demineralization Electronically signed by: Salvatore Patel MD, PHD Narrative 05/15/2024 12:40 PM CDT EXAMINATION: Cervical spine flexion and extension 6+ views HISTORY: C2 fracture FINDINGS: 9 nonstandard, upright cervical spine radiographs are compared to prior radiographs from 05/12/[address] examination 04/28/2024. Patient is in a collar The healing/healed nondisplaced C2 vertebral body fracture better seen on cross-sectional imaging with unchanged mild anterolisthesis of C3-C4 which there is a suggestion of partial reduction on extension and without change on flexion. Diffuse demineralization is noted. Cervical thoracic kyphosis is present. Severe multilevel subaxial cervical degenerative disc disease and bilateral uncovertebral/facet osteoarthritis is again noted, greatest C4-C7. The healing left mid to distal clavicle shaft fracture is again is again noted. There is wedging of the multiple upper and mid thoracic vertebra with mild to moderate multilevel degenerative disc disease Procedure Note Salvatore Patel MD PhD - 05/15/2024 EXAMINATION: Cervical spine flexion and extension 6+ views HISTORY: C2 fracture FINDINGS: 9 nonstandard, upright cervical spine radiographs are compared to prior radiographs from 05/12/[address] examination 04/28/2024. Patient is in a collar The healing/healed nondisplaced C2 vertebral body fracture better seen on cross-sectional imaging with unchanged mild anterolisthesis of C3-C4 which there is a suggestion of partial reduction on extension and without change on flexion. Diffuse demineralization is noted. Cervical thoracic kyphosis is present. Severe multilevel subaxial cervical degenerative disc disease and bilateral uncovertebral/facet osteoarthritis is again noted, greatest C4-C7. The healing left mid to distal clavicle shaft fracture is again is again noted. There is wedging of the multiple upper and mid thoracic vertebra with mild to moderate multilevel degenerative disc disease IMPRESSION: 1. Unchanged minimally displaced C2 vertebral body fracture 2. Possible dynamic listhesis at C3-C4 with unchanged severe multilevel subaxial cervical degenerative disc disease and bilateral uncovertebral/facet osteoarthritis 3. Diffuse demineralization Electronically signed by: Salvatore Patel MD, PHD Sahwnee Watson MD IMG XR PROCEDURE S Final Result * (ABNORMAL) eGFR (05/14/2024 10:02 PM SLUBBER OPERATOR) eGFR 56(L) >=60 mL/min/1. 73 m2 Comment: Interpretive Data Reference Interval Normal >/= 90 mL/min/1.73m2 Mildly decreased* 60 - 89 mL/min/1.73m2 Mildly to moderately decreased 45 - 59 mL/min/1.73m2 Moderately to severely decreased 30 - 44 mL/min/1.73m2 Severely decreased 15 - 29 mL/min/1.73m2 Kidney Failure < 15 mL/min/1.73m2 *Relative to young adult level Estimated glomerular filtration rate is determined by the 2020 CKD-EPI equation recommended by the National Kidney Foundation (A Unifying Approach to GFR Estimation: Recommendations of the NKF-ASK Task Force on Reassessing the Inclusion of Race in Diagnosing Kidney Disease, JASN 2020). The CKD-EPI equation should not be used for patients with unstable renal function and has not been validated in children and those over 70. Current interpretive data was last reviewed 2021. Blood 05/14/2024 10:0 2 PM SLUBBER OPERATOR 05/14/2024 11:10 PM SLUBBER OPERATOR us Shawnee Watson MD LAB BLOOD ORDERA BLES Final Result [facility] Department [place] [address] * Magnesium (05/14/2024 10:02 PM SLUBBER OPERATOR) Magnesium 2.5 1.4 - 2.5 mg/dL Blood 05/14/2024 10:0 2 PM SLUBBER OPERATOR 05/14/2024 10:46 PM SLUBBER OPERATOR Shawnee Watson MD LAB BLOOD ORDERA BLES Final Result Performing Organization Address [facility]/ZIP Co de Phone Number [facility] Department [place] [address] * (ABNORMAL) Hepatic function panel (05/14/2024 10:02 PM SLUBBER OPERATOR) Bilirubin, total 0.2 0.1 - 1.2 mg/dL Bilirubin, direct <0.2 0.1 - 0.3 mg/dL [facility] Comment:Hemolyzed; result ma y be falsely decreased Protein, pl 5.8(L) 6.5 - 8.5 g/dL [facility] Albumin 2.5(L) 3.5 - 5.0 g/dL [facility] Alk phos 168(H) 40 - 130 Units/L [facility] ALT 21 7 - 45 Units/L [facility] AST 37 10 - 45 Units/L [facility] Comment:Hemolyzed; result ma y be falsely elevated Blood 05/14/2024 10:0 2 PM SLUBBER OPERATOR 05/14/2024 10:46 PM SLUBBER OPERATOR Shawnee Watson MD LAB BLOOD ORDERA BLES Final Result Performing Organization Address [facility] Co de Phone Number [facility] Department [place] [address] * (ABNORMAL) Basic metabolic panel (05/14/2024 10:02 PM SLUBBER OPERATOR) Sodium 134(L) 135 - 145 mmol/L Potassium, pl 5.2(H) 3.3 - 4.9 mmol/L [facility] Comment:Hemolyzed; Potassium value may be falsely elevated by as much as 0.3-0.5 mmol/L. Suggest redraw and reanalysis. Chloride 107 97 - 110 mmol/L [facility] CO2 14(L) 22 - 32 mmol/L [facility] Anion gap 13 2 - 15 mmol/L [facility] BUN 27(H) 6 - 25 mg/dL [facility] Creatinine 1.02 0.60 - 1.10 mg/dL [facility] Glucose 102 70 - 199 mg/dL [facility] Comment: Interpretive Data Fasting glucose >/= 126 mg/dl is diagnostic for diabetes. Fasting is defined as no caloric intake for at least 8 hours. Fasting glucose between 100 mg/dl to 125 mg/dl is diagnostic of prediabetes. In a patient with classic symptoms of hyperglycemia or hyperglycemic crisis, a random glucose >/= 200 mg/dl is diagnostic for diabetes. In the absence of unequivocal hyperglycemia, results should be confirmed by repeat testing. The classification and Diagnosis of Diabetes Diabetes Care 2021; 46: S19-S40. Current interpretive data was last revised 2022. Calcium 8.4(L) 8.5 - 10.3 mg/dL [facility] Comment:Reviewed Blood 05/14/2024 10:0 2 PM SLUBBER OPERATOR 05/14/2024 10:46 PM SLUBBER OPERATOR us Shawnee Watson MD LAB BLOOD ORDERA BLES Final Result [facility] Department of [place] [address] * POCT glucose (05/14/2024 1:17 PM SLUBBER OPERATOR) Glucose, POC 124 70 - 199 mg/dL Blood 05/14/2024 1:17 PM SLUBBER OPERATOR 05/14/2024 1:17 PM SLUBBER OPERATOR us Shawnee Watson MD LAB POCT ORDERAB LES - DEVICE Final Result [facility] Department [place] [address] * eGFR (05/14/2024 10:25 AM SLUBBER OPERATOR) eGFR 89 >=60 mL/min/1. 73 m2 Comment: Interpretive Data Reference Interval Normal >/= 90 mL/min/1.73m2 Mildly decreased* 60 - 89 mL/min/1.73m2 Mildly to moderately decreased 45 - 59 mL/min/1.73m2 Moderately to severely decreased 30 - 44 mL/min/1.73m2 Severely decreased 15 - 29 mL/min/1.73m2 Kidney Failure < 15 mL/min/1.73m2 *Relative to young adult level Estimated glomerular filtration rate is determined by the 2020 CKD-EPI equation recommended by the National Kidney Foundation (A Unifying Approach to GFR Estimation: Recommendations of the NKF-ASK Task Force on Reassessing the Inclusion of Race in Diagnosing Kidney Disease, JASN 2020). The CKD-EPI equation should not be used for patients with unstable renal function and has not been validated in children and those over 70. Current interpretive data was last reviewed 2021. Blood 05/14/2024 10:2 5 AM SLUBBER OPERATOR 05/14/2024 11:46 AM SLUBBER OPERATOR us Shawnee Watson MD LAB BLOOD ORDERA BLES Final Result [facility] [place] [address] * Critical Result Callback Chemistry (05/14/2024 10:25 AM SLUBBER OPERATOR) Date Notified [id number] Time Notified 1222 [facility] TestName Calcium [facility] [place] Called/Read Back Dixie CUNN[place] Credentials RN [facility] [place] Called By miriam [place] Blood 05/14/2024 10:2 5 AM SLUBBER OPERATOR 05/14/2024 11:46 AM SLUBBER OPERATOR Shawnee Watson MD LAB BLOOD ORDERA BLES Final Result [facility] [place] [address] * Phosphorus (05/14/2024 10:25 AM SLUBBER OPERATOR) Pathologist [facility] Phosphorus, pl 2.4 2.3 - 4.5 mg/dL Blood 05/14/2024 10:2 5 AM SLUBBER OPERATOR 05/14/2024 11:46 AM SLUBBER OPERATOR Shawnee Watson MD LAB BLOOD ORDERA BLES Final Result [facility] Department [place] [address] * Magnesium (05/14/2024 10:25 AM SLUBBER OPERATOR) [facility] Magnesium 1.7 1.4 - 2.5 mg/dL Blood 05/14/2024 10:2 5 AM SLUBBER OPERATOR 05/14/2024 11:46 AM SLUBBER OPERATOR Shawnee Watson MD LAB BLOOD ORDERA BLES Final Result Performing Organization Address City/[facility] Co de Phone Number [facility] [place] [address] * (ABNORMAL) Comprehensive metabolic panel (05/14/2024 10:25 AM SLUBBER OPERATOR) [facility] Sodium 140 135 - 145 mmol/L Potassium, pl 2.8(L) 3.3 - 4.9 mmol/L [facility] Chloride 115(H) 97 - 110 mmol/L [facility] CO2 16(L) 22 - 32 mmol/L [facility] Anion gap 9 2 - 15 mmol/L [facility] BUN 17 6 - 25 mg/dL [facility] Creatinine 0.69 0.60 - 1.10 mg/dL [facility] Glucose 57(L) 70 - 199 mg/dL [facility] Comment: Interpretive Data Fasting glucose >/= 126 mg/dl is diagnostic for diabetes. Fasting is defined as no caloric intake for at least 8 hours. Fasting glucose between 100 mg/dl to 125 mg/dl is diagnostic of prediabetes. In a patient with classic symptoms of hyperglycemia or hyperglycemic crisis, a random glucose >/= 200 mg/dl is diagnostic for diabetes. In the absence of unequivocal hyperglycemia, results should be confirmed by repeat testing. The classification and Diagnosis of Diabetes Diabetes Care 2021; 46: S19-S40. Current interpretive data was last revised 2022. Calcium 6.3(C) 8.5 - 10.3 mg/dL [facility] Comment:Repeated and Verifie d Bilirubin, total 0.3 0.1 - 1.2 mg/dL [facility] Protein, pl 5.0(L) 6.5 - 8.5 g/dL [facility] Albumin 2.4(L) 3.5 - 5.0 g/dL [facility] Alk phos 154(H) 40 - 130 Units/L [facility] ALT 20 7 - 45 Units/L [facility] AST 29 10 - 45 Units/L [facility] Blood 05/14/2024 10:2 5 AM SLUBBER OPERATOR 05/14/2024 11:46 AM SLUBBER OPERATOR Shawnee Watson MD LAB BLOOD ORDERA BLES Final Result [facility] Department [place] [address] * eGFR (05/13/2024 8:46 PM SLUBBER OPERATOR) eGFR 65 >=60 mL/min/1. 73 m2 Comment: Interpretive Data Reference Interval Normal >/= 90 mL/min/1.73m2 Mildly decreased* 60 - 89 mL/min/1.73m2 Mildly to moderately decreased 45 - 59 mL/min/1.73m2 Moderately to severely decreased 30 - 44 mL/min/1.73m2 Severely decreased 15 - 29 mL/min/1.73m2 Kidney Failure < 15 mL/min/1.73m2 *Relative to young adult level Estimated glomerular filtration rate is determined by the 2020 CKD-EPI equation recommended by the National Kidney Foundation (A Unifying Approach to GFR Estimation: Recommendations of the NKF-ASK Task Force on Reassessing the Inclusion of Race in Diagnosing Kidney Disease, JASN 2020). The CKD-EPI equation should not be used for patients with unstable renal function and has not been validated in children and those over 70. Current interpretive data was last reviewed 2021. Blood 05/13/2024 8:46 PM SLUBBER OPERATOR 05/13/2024 9:21 PM SLUBBER OPERATOR us Felecia Ribera MD LAB BLOOD ORDERABLES Final R esult [facility] Department [place] [address] * (ABNORMAL) Differential, auto (05/13/2024 8:46 PM SLUBBER OPERATOR) Neutrophil abs 4.9 1.5 - 6.5 K/cumm Imm gran abs 0.1 0.0 - 0.1 K/cumm [facility] Lymphocyte abs 2.2 0.8 - 3.3 K/cumm [facility] Monocyte abs 1.0(H) 0.2 - 0.8 K/cumm [facility] Eosinophil abs 0.0 0.0 - 0.5 K/cumm [facility] Basophil abs 0.0 0.0 - 0.1 K/cumm [facility] Neutrophil pct 59.7 % [facility] Comment: Interpretive Data Percent cell count reference ranges are not reported, since discordance with absolute values may lead to misinterpretation of CBC data. Current Interpretive Data was last revised on 2017. Imm gran pct 0.7 % [facility] Comment: Interpretive Data Percent cell count reference ranges are not reported, since discordance with absolute values may lead to misinterpretation of CBC data. Current Interpretive Data was last revised on 2017. Lymphocyte pct 26.2 % [facility] Comment: Interpretive Data Percent cell count reference ranges are not reported, since discordance with absolute values may lead to misinterpretation of CBC data. Current Interpretive Data was last revised on 2017. Monocyte pct 12.4 % [facility] Comment: Interpretive Data Percent cell count reference ranges are not reported, since discordance with absolute values may lead to misinterpretation of CBC data. Current Interpretive Data was last revised on 2017. Eosinophil pct 0.5 % [facility] Comment: Interpretive Data Percent cell count reference ranges are not reported, since discordance with absolute values may lead to misinterpretation of CBC data. Current Interpretive Data was last revised on 2017. Basophil pct 0.5 % [facility] Comment: Interpretive Data Percent cell count reference ranges are not reported, since discordance with absolute values may lead to misinterpretation of CBC data. Current Interpretive Data was last revised on 2017. Blood 05/13/2024 8:46 PM SLUBBER OPERATOR 05/13/2024 9:20 PM SLUBBER OPERATOR us Felecia Ribera MD LAB BLOOD ORDERABLES Final R esult [facility] Department [place] [address] * (ABNORMAL) CBC with auto differential (05/13/2024 8:46 PM SLUBBER OPERATOR) WBC 8.3 3.8 - 9.9 K/cumm Hgb 11.8(L) 11.9 - 15.5 g/dL [facility] Hct 38.0 35.6 - 45.5 % [facility] Plt 339 150 - 400 K/cumm [facility] MPV 8.7(L) 9.1 - 12.3 fL [facility] RBC 3.91 3.90 - 5.20 M/cumm [facility] MCV 97.2(H) 81.3 - 96.4 fL [facility] MCH 30.2 27.1 - 33.3 pg [facility] MCHC 31.1(L) 32.3 - 35.7 g/dL [facility] RDW CV 18.7(H) 11.1 - 14.9 % [facility] RDW SD 67.2(H) 35.7 - 48.1 fL [facility] NRBC abs 0.00 0.00 - 0.01 K/cumm [facility] Blood 05/13/2024 8:46 PM SLUBBER OPERATOR 05/13/2024 9:20 PM SLUBBER OPERATOR Felecia Ribera MD LAB BLOOD ORDERABLES Final R esult Performing Organization Address City/[facility] Co de Phone Number [facility] [place] [address] * Phosphorus (05/13/2024 8:46 PM SLUBBER OPERATOR) Phosphorus, pl 2.9 2.3 - 4.5 mg/dL Blood 05/13/2024 8:46 PM SLUBBER OPERATOR 05/13/2024 9:21 PM SLUBBER OPERATOR Felecia Ribera MD LAB BLOOD ORDERABLES Final R esult Performing Organization Address [facility] Co de Phone Number [facility] [place] [address] * (ABNORMAL) Magnesium (05/13/2024 8:46 PM SLUBBER OPERATOR) Magnesium 2.8(H) 1.4 - 2.5 mg/dL Blood 05/13/2024 8:46 PM SLUBBER OPERATOR 05/13/2024 9:21 PM SLUBBER OPERATOR Shawnee Watson MD LAB BLOOD ORDERA BLES Final Result Performing Organization Address City/[facility] [place] [address] * (ABNORMAL) Magnesium (05/13/2024 8:46 PM SLUBBER OPERATOR) Magnesium 2.9(H) 1.4 - 2.5 mg/dL Blood 05/13/2024 8:46 PM SLUBBER OPERATOR 05/13/2024 9:21 PM SLUBBER OPERATOR Felecia Ribera MD LAB BLOOD ORDERABLES Final R esult [facility] Department [place] [address] * (ABNORMAL) Comprehensive metabolic panel (05/13/2024 8:46 PM SLUBBER OPERATOR) Sodium 140 135 - 145 mmol/L Potassium, pl 4.1 3.3 - 4.9 mmol/L [facility] Comment:Hemolyzed; Potassium value may be falsely elevated by as much as 0.6-1.0 mmol/L. Suggest redraw and reanalysis. Chloride 109 97 - 110 mmol/L [facility] CO2 12(L) 22 - 32 mmol/L [facility] Anion gap 19(H) 2 - 15 mmol/L [facility] BUN 22 6 - 25 mg/dL [facility] Creatinine 0.90 0.60 - 1.10 mg/dL [facility] Glucose 114 70 - 199 mg/dL [facility] Comment: Interpretive Data Fasting glucose >/= 126 mg/dl is diagnostic for diabetes. Fasting is defined as no caloric intake for at least 8 hours. Fasting glucose between 100 mg/dl to 125 mg/dl is diagnostic of prediabetes. In a patient with classic symptoms of hyperglycemia or hyperglycemic crisis, a random glucose >/= 200 mg/dl is diagnostic for diabetes. In the absence of unequivocal hyperglycemia, results should be confirmed by repeat testing. The classification and Diagnosis of Diabetes Diabetes Care 2021; 46: S19-S40. Current interpretive data was last revised 2022. Calcium 9.0 8.5 - 10.3 mg/dL [facility] Bilirubin, total 0.2 0.1 - 1.2 mg/dL [facility] Comment:Reviewed Protein, pl 6.6 6.5 - 8.5 g/dL [facility] Albumin 2.7(L) 3.5 - 5.0 g/dL [facility] Alk phos 171(H) 40 - 130 Units/L [facility] ALT 18 7 - 45 Units/L [facility] AST 46(H) 10 - 45 Units/L [facility] Comment:Hemolyzed; result ma y be falsely elevated Blood 05/13/2024 8:46 PM SLUBBER OPERATOR 05/13/2024 9:21 PM SLUBBER OPERATOR us Felecia Ribera MD LAB BLOOD ORDERABLES Final R esult [facility] Department [place] [address] * TRANSTHORACIC ECHO (TTE) COMPLETE W DOPPLER/CF W CONTRAST (05/13/2024 1:14 PM SLUBBER OPERATOR) Anatomical Region Laterality Modality Ultrasound 05/13/2024 12:2 2 PM SLUBBER OPERATOR Narrative 05/13/2024 2:45 PM SLUBBER OPERATOR [facility] [place] [place] [address] Transthoracic Echocardiographic Report Patient Name: BRENTON VALDEZ K : 1945 (78y 9m) Gender: F Study Date: 05/13/2024 12:22:20 Ht(Inch): 64 Wt(Lb): 169.09 BSA: 1.86 Phlebotomy Specialist: ZAIRA Bah Location: [id number] Order Provider: SHAWNEE WATSON Heart Rate: 88 BMI: 29.02 Quality: Technically difficult study due to limited patient mobility. Ref Provider: SHAWNEE WATSON PROCEDURES: Echocardiographic Report: [id number], [id number]) Transthoracic complete echo with strain imaging and contrast, 2D, spectral and tissue Doppler, color flow Doppler, M-mode. Contrast: Contrast Enhancement was Employed: After initial imaging due to sub- optimal quality related to co-morbidity defined by patient's body habitus and used Perflutren contrast because 2 of 16 LV wall segments in any view not visualized, using the volume necessary to obtain adequate images. 0.8 ml Optison Administered, (2.2 ml wasted). INDICATIONS: Atrial fibrillation. FINDINGS: Left Ventricle: Normal left ventricular size based on volume index. Concentric LV remodeling. Normal left ventricular systolic function. The Ejection Fraction (Romero's) is measured at 63 %. Left ventricular diastolic parameters are consistent with Grade I diastolic dysfunction (normal LA pressure). The average global longitudinal strain rate is abnormal. The LV global strain is: -14.7 %. No left ventricular thrombus visualized. Resting Segmental Wall Motion Analysis: Total wall motion score is 1.00. There are no regional wall motion abnormalities. Right Ventricle: Normal right ventricular size. Normal right ventricular systolic function. No RV strain images obtained. Left Atrium: The left atrium is normal in size. Right Atrium: The right atrium is normal in size. Mitral Valve: Mitral valve is not well visualized due to poor acoustic windows. Mitral annular calcification is present. There is mild mitral valve regurgitation. No stenosis present. Aortic Valve: Aortic valve not well visualized due to poor acoustic windows. Moderate aortic valve regurgitation. No aortic valve stenosis. Tricuspid Valve: The tricuspid valve demonstrates normal leaflet structure. No tricuspid regurgitation seen. PASP cannot be evaluated due to lack of adequate TR jet. No tricuspid valve stenosis. Pulmonic Valve: The pulmonic valve is not well visualized due to poor acoustic windows. No evidence of pulmonic regurgitation. No pulmonic valve stenosis present. Pericardium: Normal pericardium without evidence of pericardial effusion. Aorta: There is mild aortic root dilation. The aortic root is normal in size when indexed. Rhythm: The rhythm during the study was normal sinus rhythm. CONCLUSIONS: 1. Normal left ventricular size based on volume index. Concentric LV remodeling. Normal left ventricular systolic function. The Ejection Fraction (Romero's) is measured at 63 %. Left ventricular diastolic parameters are consistent with Grade I diastolic dysfunction (normal LA pressure). The average global longitudinal strain rate is abnormal. The LV global strain is: -14.7 %. No left ventricular thrombus visualized. 2. Resting Segmental Wall Motion Analysis: Total wall motion score is 1.00. There are no regional wall motion abnormalities. 3. Normal right ventricular size. Normal right ventricular systolic function. No strain imaging obtained. 4. Normal biatrial size. 5. Poor visualization of the mitral valve. Mild mitral insufficiency. No mitral stenosis. 6. Poor visualization of the aortic valve. No aortic stenosis. Moderate aortic insufficiency. 7. No tricuspid stenosis or insufficiency. 8. Poorly visualized pulmonic valve with no stenosis or insufficiency. 9. Aortic root normal in size when indexed to body surface area. 10. No pericardial effusion. 11. Patient in sinus rhythm for the study. MEASUREMENTS: 2D/MM Value Range Doppler Value Range LVIDd 2D 3.46 cm [ 3.80 - 5.20 ] AV Peak Corey 1.13 m/s [ 1.00 - 1.70 ] LVIDs 2D 2.23 cm [ 2.20 - 3.50 ] AV Peak PG 5.11 IVSd 2D 0.83 cm [ 0.60 - 0.90 ] AV Mean PG 2.71 mmHg LVPWd 2D 0.80 cm [ 0.60 - 0.90 ] AV VTI 22.69 cm LV Thickness Ratio 1.04 LVOT Peak Corey 0.92 m/s [ 0.70 - 1.10 ] LV FS 2D 35.44 % [ 27.00 - 45.00 ] LVOT Peak PG 3.39 LV Mass 2D 77.18 g LVOT Mean PG 1.68 mmHg LV Mass Index 2D 41.49 g/m2 LVOT VTI 16.68 cm RWT 0.46 LVOT Diam 1.98 cm EDV Mod BP 76.72 ml [ 46.00 - 106.00 ] SHANEL VTI 2.26 cm2 LV EDV Index 41.25 ml/m2 LVOT/AV VTI 0.74 - Dimensionless index (DVI) ESV Mod BP 28.48 ml [ 14.00 - 42.00 ] AI Peak Corey 2.60 m/s EF Mod BP 63 % [ 54 - 74 ] AI Peak PG 26.94 mmHg LV GLS -14.7 % [ -18.0 - -16.0 ] AI Decel Time 1361.62 sec LA Length 2C 4.33 cm AI Decel [place] 1.91 m/s2 LA Length 4C 4.99 cm AI PHT 394.87 msec LA Volume BP 34.49 ml MV E Peak Corey 0.54 m/s [ 0.60 - 1.30 ] LA Volume Index 18.54 ml/m2 [ 16.00 - 34.00 ] MV A Peak Corey 0.58 m/s [ 1.00 - 1.20 ] RV Base Dimen 2D 2.8 cm [ 2.5 - 4.2 ] MV E/A 0.92 ratio [ 0.80 - 1.50 ] TAPSE 1.70 cm [ 1.71 - 5.00 ] MV Decel Time 241.94 msec [ 104.00 - 258.00 ] RA Volume 16.48 ml Med E` Corey 4.42 cm/sec [ 8.00 - 15.00 ] RA Volume Index 8.86 ml/m2 Lat E` Corey 8.17 cm/sec [ 10.00 - 15.00 ] AoR Diam 2D 3.35 cm [ 2.70 - 3.70 ] Average E/E` 8.58 Ao Root Index 1.80 cm/m2 [ 1.00 - 2.00 ] RV S` 12.51 cm/sec - ATTESTATION: I have reviewed and interpreted the pertinent images and measurements of this study. I attest to the conclusions in the final report that is provided above. DISCLAIMER: The study images and the final report will be retained in the patient chart by the Echo Laboratory for the legally required time period. This chart constitutes the legal record of any testing performed. Electronically Signed By: Raul Dowling MD 05/13/2024 14:45:02 SLUBBER OPERATOR Electronically Signed By: Raul Dowling MD 05/13/2024 14:45:02 SLUBBER OPERATOR Procedure Note Raul Dowling MD - 05/13/2024 [facility] Cardiac [place] [address] Transthoracic Echocardiographic Report Patient Name: BRENTON VALDEZ K : 1945 (78y 9m) Gender: F Study Date: 05/13/2024 12:22:20 Ht(Inch): 64 Wt(Lb): 169.09 BSA: 1.86 Phlebotomy Specialist: ZAIRA Bah Location: [id number] Order Provider:SHAWNEE WATSON Heart Rate: 88 BMI: 29.02 Quality: Technically difficult study due tolimited patient mobility. Ref Provider: SHAWNEE WATSON PROCEDURES: Echocardiographic Report: [id number], [id number]) Transthoracic complete echo withstrain imaging and contrast, 2D, spectral and tissue Doppler, color flow Doppler,M-mode. Contrast: Contrast Enhancement was Employed: After initial imaging due tosub- optimal quality related to co-morbidity defined by patient's body habitus and usedPerflutren contrast because 2 of 16 LV wall segments in any view not visualized,using the volume necessary to obtain adequate images. 0.8 ml Optison Administered, (2.2 mlwasted). INDICATIONS: Atrial fibrillation. FINDINGS: Left Ventricle: Normal left ventricular size based on volume index.Concentric LV remodeling. Normal left ventricular systolic function. The EjectionFraction (Romero's) is measured at 63 %. Left ventricular diastolic parameters are consistentwith Grade I diastolic dysfunction (normal LA pressure). The average globallongitudinal strain rate is abnormal. The LV global strain is: -14.7 %. No left ventricularthrombus visualized. Resting Segmental Wall Motion Analysis: Total wall motion score is 1.00.There are no regional wall motion abnormalities. Right Ventricle: Normal right ventricular size. Normal right ventricularsystolic function. No RV strain images obtained. Left Atrium: The left atrium is normal in size. Right Atrium: The right atrium is normal in size. Mitral Valve: Mitral valve is not well visualized due to poor acousticwindows. Mitral annular calcification is present. There is mild mitral valveregurgitation. No stenosis present. Aortic Valve: Aortic valve not well visualized due to poor acousticwindows. Moderate aortic valve regurgitation. No aortic valve stenosis. Tricuspid Valve: The tricuspid valve demonstrates normal leafletstructure. No tricuspid regurgitation seen. PASP cannot be evaluated due to lack of adequate TRjet. No tricuspid valve stenosis. Pulmonic Valve: The pulmonic valve is not well visualized due to pooracoustic windows. No evidence of pulmonic regurgitation. No pulmonic valve stenosispresent. Pericardium: Normal pericardium without evidence of pericardialeffusion. Aorta: There is mild aortic root dilation. The aortic root is normal insize when indexed. Rhythm: The rhythm during the study was normal sinus rhythm. CONCLUSIONS: 1. Normal left ventricular size based on volume index. Concentric LVremodeling. Normal left ventricular systolic function. The Ejection Fraction (Romero's) ismeasured at 63 %. Left ventricular diastolic parameters are consistent with Grade Idiastolic dysfunction (normal LA pressure). The average global longitudinal strainrate is abnormal. The LV global strain is: -14.7 %. No left ventricular thrombusvisualized. 2. Resting Segmental Wall Motion Analysis: Total wall motion score is1.00. There are no regional wall motion abnormalities. 3. Normal right ventricular size. Normal right ventricular systolicfunction. No strain imaging obtained. 4. Normal biatrial size. 5. Poor visualization of the mitral valve. Mild mitral insufficiency. Nomitral stenosis. 6. Poor visualization of the aortic valve. No aortic stenosis. Moderateaortic insufficiency. 7. No tricuspid stenosis or insufficiency. 8. Poorly visualized pulmonic valve with no stenosis or insufficiency. 9. Aortic root normal in size when indexed to body surface area. 10. No pericardial effusion. 11. Patient in sinus rhythm for the study. MEASUREMENTS: 2D/MM Value Range DopplerValue Range LVIDd 2D 3.46 cm [ 3.80 - 5.20 ] AV Peak Vel1.13 m/s [ 1.00 - 1.70 ] LVIDs 2D 2.23 cm [ 2.20 - 3.50 ] AV Peak PG5.11 IVSd 2D 0.83 cm [ 0.60 - 0.90 ] AV Mean PG2.71 mmHg LVPWd 2D 0.80 cm [ 0.60 - 0.90 ] AV VTI22.69 cm LV Thickness Ratio 1.04 LVOT Peak Vel0.92 m/s [ 0.70 - 1.10 ] LV FS 2D 35.44 % [ 27.00 - 45.00 ] LVOT Peak PG3.39 LV Mass 2D 77.18 g LVOT Mean PG1.68 mmHg LV Mass Index 2D 41.49 g/m2 LVOT VTI16.68 cm RWT 0.46 LVOT Diam1.98 cm EDV Mod BP 76.72 ml [ 46.00 - 106.00 ] SHANEL VTI2.26 cm2 LV EDV Index 41.25 ml/m2 LVOT/AV VTI0.74 - Dimensionless index (DVI) ESV Mod BP 28.48 ml [ 14.00 - 42.00 ] AI Peak Vel2.60 m/s EF Mod BP 63 % [ 54 - 74 ] AI Peak PG26.94 mmHg LV GLS -14.7 % [ -18.0 - -16.0 ] AI Decel Kmyj2193.62 sec LA Length 2C 4.33 cm AI Decel Slope1.91 m/s2 LA Length 4C 4.99 cm AI YLQ352.87 msec LA Volume BP 34.49 ml MV E Peak Vel0.54 m/s [ 0.60 - 1.30 ] LA Volume Index 18.54 ml/m2 [ 16.00 - 34.00 ] MV A Peak Vel0.58 m/s [ 1.00 - 1.20 ] RV Base Dimen 2D 2.8 cm [ 2.5 - 4.2 ] MV E/A0.92 ratio [ 0.80 - 1.50 ] TAPSE 1.70 cm [ 1.71 - 5.00 ] MV Decel Xuaq296.94 msec [ 104.00 - 258.00 ] RA Volume 16.48 ml Med E` Vel4.42 cm/sec [ 8.00 - 15.00 ] RA Volume Index 8.86 ml/m2 Lat E` Vel8.17 cm/sec [ 10.00 - 15.00 ] AoR Diam 2D 3.35 cm [ 2.70 - 3.70 ] Average E/E`8.58 Ao Root Index 1.80 cm/m2 [ 1.00 - 2.00 ] RV S`12.51 cm/sec - ATTESTATION: I have reviewed and interpreted the pertinent images and measurements ofthis study. I attest to the conclusions in the final report that is provided above. DISCLAIMER: The study images and the final report will be retained in the patientchart by the [facility] for the legally required time period. This chart constitutesthe legal record of any testing performed. Electronically Signed By: Raul Dowling MD 05/13/2024 14:45:02 SLUBBER OPERATOR Electronically Signed By: Raul Dowling MD 05/13/2024 14:45:02 SLUBBER OPERATOR Shawnee Watson MD CV ECHO PROCEDUR ES Final Result * eGFR (05/12/2024 6:18 PM SLUBBER OPERATOR) eGFR 61 >=60 mL/min/1. 73 m2 Comment: Interpretive Data Reference Interval Normal >/= 90 mL/min/1.73m2 Mildly decreased* 60 - 89 mL/min/1.73m2 Mildly to moderately decreased 45 - 59 mL/min/1.73m2 Moderately to severely decreased 30 - 44 mL/min/1.73m2 Severely decreased 15 - 29 mL/min/1.73m2 Kidney Failure < 15 mL/min/1.73m2 *Relative to young adult level Estimated glomerular filtration rate is determined by the 2020 CKD-EPI equation recommended by the National Kidney Foundation (A Unifying Approach to GFR Estimation: Recommendations of the NKF-ASK Task Force on Reassessing the Inclusion of Race in Diagnosing Kidney Disease, JASN 202). The CKD-EPI equation should not be used for patients with unstable renal function and has not been validated in children and those over 70. Current interpretive data was last reviewed 2021. Blood 05/12/2024 6:18 PM SLUBBER OPERATOR 05/12/2024 6:49 PM SLUBBER OPERATOR Shawnee Watson MD LAB BLOOD ORDERA BLES Final Result [facility] Department [place] [address] * Phosphorus (05/12/2024 6:18 PM SLUBBER OPERATOR) Phosphorus, pl 2.3 2.3 - 4.5 mg/dL Blood 05/12/2024 6:18 PM SLUBBER OPERATOR 05/12/2024 6:45 PM SLUBBER OPERATOR Shawnee Watson MD LAB BLOOD ORDERA BLES Final Result Performing Organization Address City/[facility]/ZIP Co de Phone Number [facility] Department [place] [address] * Magnesium (05/12/2024 6:18 PM SLUBBER OPERATOR) [facility] Magnesium 1.4 1.4 - 2.5 mg/dL Blood 05/12/2024 6:18 PM SLUBBER OPERATOR 05/12/2024 6:45 PM SLUBBER OPERATOR Shawnee Watson MD LAB BLOOD ORDERA BLES Final Result Performing Organization Address [facility] Co de Phone Number [facility] Department [place] [address] * (ABNORMAL) Basic metabolic panel (05/12/2024 6:18 PM SLUBBER OPERATOR) [facility] Sodium 136 135 - 145 mmol/L Potassium, pl 3.8 3.3 - 4.9 mmol/L [facility] Chloride 103 97 - 110 mmol/L [facility] CO2 20(L) 22 - 32 mmol/L [facility] Anion gap 13 2 - 15 mmol/L [facility] BUN 21 6 - 25 mg/dL [facility] Creatinine 0.96 0.60 - 1.10 mg/dL [facility] Glucose 94 70 - 199 mg/dL [facility] Comment: Interpretive Data Fasting glucose >/= 126 mg/dl is diagnostic for diabetes. Fasting is defined as no caloric intake for at least 8 hours. Fasting glucose between 100 mg/dl to 125 mg/dl is diagnostic of prediabetes. In a patient with classic symptoms of hyperglycemia or hyperglycemic crisis, a random glucose >/= 200 mg/dl is diagnostic for diabetes. In the absence of unequivocal hyperglycemia, results should be confirmed by repeat testing. The classification and Diagnosis of Diabetes Diabetes Care 2021; 46: S19-S40. Current interpretive data was last revised 2022. Calcium 9.1 8.5 - 10.3 mg/dL [facility] Blood 05/12/2024 6:1 8 PM SLUBBER OPERATOR 05/12/2024 6:45 PM SLUBBER OPERATOR us Shawnee Watson MD LAB BLOOD ORDERA BLES Final Result [facility] Department [place] [address] * XR Spine Cervical 2 or 3 Views (05/12/2024 4:04 PM SLUBBER OPERATOR) Anatomical Region Laterality Modality Spine N/A Computed Radiogr aphy 05/12/2024 4:10 PM SLUBBER OPERATOR Impressions 05/12/2024 4:10 PM SLUBBER OPERATOR 1. Healing minimally displaced C2 vertebral body fracture which is unchanged in alignment. 2. Severe multilevel degenerative disc disease. Electronically signed by: Brayan Garcia D.O. Narrative 05/12/2024 4:10 PM SLUBBER OPERATOR EXAMINATION: XR SPINE CERVICAL 2 OR 3 VIEWS HISTORY: History of C2 fracture COMPARISON: CTs dated 04/28/2024 and 02/02/2024 FINDINGS: Healing minimally displaced C2 vertebral body fracture which is unchanged alignment and better visualized on prior CT. Mild anterolisthesis of C3 on C4. Multilevel degenerative disc disease in cervical spine, worst and severe from C4 to C7. Multilevel severe facet and uncovertebral arthropathy. Partially visualized displaced left clavicle mid shaft fracture. Vascular calcifications. Procedure Note Brayan Garcia DO - 05/12/2024 EXAMINATION: XR SPINE CERVICAL 2 OR 3 VIEWS HISTORY: History of C2 fracture COMPARISON: CTs dated 04/28/2024 and 02/02/2024 FINDINGS: Healing minimally displaced C2 vertebral body fracture which is unchanged alignment and better visualized on prior CT. Mild anterolisthesis of C3 on C4. Multilevel degenerative disc disease in cervical spine, worst and severe from C4 to C7. Multilevel severe facet and uncovertebral arthropathy. Partially visualized displaced left clavicle mid shaft fracture. Vascular calcifications. IMPRESSION: 1. Healing minimally displaced C2 vertebral body fracture which is unchanged in alignment. 2. Severe multilevel degenerative disc disease. Electronically signed by: Brayan Garcia D.O. us Shawnee Watson MD IMG XR PROCEDURE S Final Result * (ABNORMAL) eGFR (05/11/2024 11:19 PM SLUBBER OPERATOR) eGFR 53(L) >=60 mL/min/1. 73 m2 Comment: Interpretive Data Reference Interval Normal >/= 90 mL/min/1.73m2 Mildly decreased* 60 - 89 mL/min/1.73m2 Mildly to moderately decreased 45 - 59 mL/min/1.73m2 Moderately to severely decreased 30 - 44 mL/min/1.73m2 Severely decreased 15 - 29 mL/min/1.73m2 Kidney Failure < 15 mL/min/1.73m2 *Relative to young adult level Estimated glomerular filtration rate is determined by the 2020 CKD-EPI equation recommended by the National Kidney Foundation (A Unifying Approach to GFR Estimation: Recommendations of the NKF-ASK Task Force on Reassessing the Inclusion of Race in Diagnosing Kidney Disease, JASN 2020). The CKD-EPI equation should not be used for patients with unstable renal function and has not been validated in children and those over 70. Current interpretive data was last reviewed 2021. Blood 05/11/2024 11:1 9 PM SLUBBER OPERATOR 05/12/2024 12:37 AM SLUBBER OPERATOR us Felecia Ribera MD LAB BLOOD ORDERABLES Final R esult [facility] [place] [address] * Differential, auto (05/11/2024 11:19 PM SLUBBER OPERATOR) Neutrophil abs 3.4 1.5 - 6.5 K/cumm Imm gran abs 0.0 0.0 - 0.1 K/cumm [facility] Lymphocyte abs 1.7 0.8 - 3.3 K/cumm [facility] Monocyte abs 0.8 0.2 - 0.8 K/cumm [facility] Eosinophil abs 0.1 0.0 - 0.5 K/cumm [facility] Basophil abs 0.0 0.0 - 0.1 K/cumm [facility] Neutrophil pct 56.0 % [facility] Comment: Interpretive Data Percent cell count reference ranges are not reported, since discordance with absolute values may lead to misinterpretation of CBC data. Current Interpretive Data was last revised on 2017. Imm gran pct 0.5 % [facility] Comment: Interpretive Data Percent cell count reference ranges are not reported, since discordance with absolute values may lead to misinterpretation of CBC data. Current Interpretive Data was last revised on 2017. Lymphocyte pct 28.5 % [facility] Comment: Interpretive Data Percent cell count reference ranges are not reported, since discordance with absolute values may lead to misinterpretation of CBC data. Current Interpretive Data was last revised on 2017. Monocyte pct 13.9 % [facility] Comment: Interpretive Data Percent cell count reference ranges are not reported, since discordance with absolute values may lead to misinterpretation of CBC data. Current Interpretive Data was last revised on 2017. Eosinophil pct 0.8 % [facility] Comment: Interpretive Data Percent cell count reference ranges are not reported, since discordance with absolute values may lead to misinterpretation of CBC data. Current Interpretive Data was last revised on 2017. Basophil pct 0.3 % [facility] Comment: Interpretive Data Percent cell count reference ranges are not reported, since discordance with absolute values may lead to misinterpretation of CBC data. Current Interpretive Data was last revised on 2017. Blood 05/11/2024 11:1 9 PM SLUBBER OPERATOR 05/12/2024 12:13 AM SLUBBER OPERATOR us Felecia Ribera MD LAB BLOOD ORDERABLES Final R esult [facility] Department [place] [address] * (ABNORMAL) CBC with auto differential (05/11/2024 11:19 PM SLUBBER OPERATOR) [facility] WBC 6.1 3.8 - 9.9 K/cumm Hgb 9.7(L) 11.9 - 15.5 g/dL [facility] Hct 30.4(L) 35.6 - 45.5 % [facility] Plt 275 150 - 400 K/cumm [facility] MPV 8.7(L) 9.1 - 12.3 fL [facility] RBC 3.15(L) 3.90 - 5.20 M/cumm [facility] MCV 96.5(H) 81.3 - 96.4 fL [facility] MCH 30.8 27.1 - 33.3 pg [facility] MCHC 31.9(L) 32.3 - 35.7 g/dL [facility] RDW CV 18.8(H) 11.1 - 14.9 % [facility] RDW SD 65.6(H) 35.7 - 48.1 fL [facility] NRBC abs 0.00 0.00 - 0.01 K/cumm [facility] Blood 05/11/2024 11:1 9 PM SLUBBER OPERATOR 05/12/2024 12:13 AM SLUBBER OPERATOR us Felecia Ribera MD LAB BLOOD ORDERABLES Final R esult [facility] Department [place] [address] * T4, free (05/11/2024 11:19 PM SLUBBER OPERATOR) [facility] Free T4 1.02 0.90 - 1.70 ng/dL Blood 05/11/2024 11:1 9 PM SLUBBER OPERATOR 05/12/2024 12:28 AM SLUBBER OPERATOR us Shawnee Watson MD LAB BLOOD ORDERA BLES Final Result Performing Organization Address City/[facility] Co de Phone Number [facility] [place] [address] * Phosphorus (05/11/2024 11:19 PM SLUBBER OPERATOR) [facility] Phosphorus, pl 2.6 2.3 - 4.5 mg/dL Blood 05/11/2024 11:1 9 PM SLUBBER OPERATOR 05/12/2024 12:28 AM SLUBBER OPERATOR Felecia Ribera MD LAB BLOOD ORDERABLES Final R esult Performing Organization Address [facility] Co de Phone Number [facility] Department [place] [address] * Magnesium (05/11/2024 11:19 PM SLUBBER OPERATOR) [facility] Magnesium 1.5 1.4 - 2.5 mg/dL Blood 05/11/2024 11:1 9 PM SLUBBER OPERATOR 05/12/2024 12:28 AM SLUBBER OPERATOR Felecia Ribera MD LAB BLOOD ORDERABLES Final R esult Performing Organization Address [facility] Co de Phone Number [facility] Department [place] [address] * (ABNORMAL) Comprehensive metabolic panel (05/11/2024 11:19 PM SLUBBER OPERATOR) [facility] Sodium 138 135 - 145 mmol/L Potassium, pl 4.3 3.3 - 4.9 mmol/L [facility] Chloride 110 97 - 110 mmol/L [facility] CO2 19(L) 22 - 32 mmol/L [facility] Anion gap 9 2 - 15 mmol/L [facility] BUN 23 6 - 25 mg/dL [facility] Creatinine 1.07 0.60 - 1.10 mg/dL [facility] Glucose 93 70 - 199 mg/dL [facility] Comment: Interpretive Data Fasting glucose >/= 126 mg/dl is diagnostic for diabetes. Fasting is defined as no caloric intake for at least 8 hours. Fasting glucose between 100 mg/dl to 125 mg/dl is diagnostic of prediabetes. In a patient with classic symptoms of hyperglycemia or hyperglycemic crisis, a random glucose >/= 200 mg/dl is diagnostic for diabetes. In the absence of unequivocal hyperglycemia, results should be confirmed by repeat testing. The classification and Diagnosis of Diabetes Diabetes Care 2021; 46: S19-S40. Current interpretive data was last revised 2022. Calcium 8.0(L) 8.5 - 10.3 mg/dL [facility] Bilirubin, total <0.2 0.1 - 1.2 mg/dL [facility] Comment:Reviewed Protein, pl 5.2(L) 6.5 - 8.5 g/dL [facility] Albumin 2.4(L) 3.5 - 5.0 g/dL [facility] Alk phos 145(H) 40 - 130 Units/L [facility] ALT 16 7 - 45 Units/L [facility] AST 22 10 - 45 Units/L [facility] Blood 05/11/2024 11:1 9 PM SLUBBER OPERATOR 05/12/2024 12:28 AM SLUBBER OPERATOR us Felecia Ribera MD LAB BLOOD ORDERABLES Final R esult [facility] Department [place] [address] * (ABNORMAL) eGFR (05/11/2024 6:31 AM SLUBBER OPERATOR) eGFR 58(L) >=60 mL/min/1. 73 m2 Comment: Interpretive Data Reference Interval Normal >/= 90 mL/min/1.73m2 Mildly decreased* 60 - 89 mL/min/1.73m2 Mildly to moderately decreased 45 - 59 mL/min/1.73m2 Moderately to severely decreased 30 - 44 mL/min/1.73m2 Severely decreased 15 - 29 mL/min/1.73m2 Kidney Failure < 15 mL/min/1.73m2 *Relative to young adult level Estimated glomerular filtration rate is determined by the 2020 CKD-EPI equation recommended by the National Kidney Foundation (A Unifying Approach to GFR Estimation: Recommendations of the NKF-ASK Task Force on Reassessing the Inclusion of Race in Diagnosing Kidney Disease, JASN 202). The CKD-EPI equation should not be used for patients with unstable renal function and has not been validated in children and those over 70. Current interpretive data was last reviewed 2021. Blood 05/11/2024 6:31 AM SLUBBER OPERATOR 05/11/2024 6:46 AM SLUBBER OPERATOR Shawnee Watson MD LAB BLOOD ORDERA BLES Final Result Performing Organization Address City/[facility]/ZIP Co de Phone Number [facility] Department [place] [address] * Magnesium (05/11/2024 6:31 AM SLUBBER OPERATOR) Pathologist [facility] Magnesium 1.5 1.4 - 2.5 mg/dL Blood 05/11/2024 6:31 AM SLUBBER OPERATOR 05/11/2024 6:46 AM SLUBBER OPERATOR Shawnee Watson MD LAB BLOOD ORDERA BLES Final Result Performing Organization Address City/[facility]/ZIP Co de Phone Number [facility] Department [place] [address] * Basic metabolic panel (05/11/2024 6:31 AM SLUBBER OPERATOR) Sodium 140 135 - 145 mmol/L Potassium, pl 4.1 3.3 - 4.9 mmol/L [facility] Chloride 108 97 - 110 mmol/L [facility] CO2 23 22 - 32 mmol/L [facility] Anion gap 9 2 - 15 mmol/L [facility] BUN 22 6 - 25 mg/dL [facility] Creatinine 1.00 0.60 - 1.10 mg/dL [facility] Glucose 87 70 - 199 mg/dL [facility] Comment: Interpretive Data Fasting glucose >/= 126 mg/dl is diagnostic for diabetes. Fasting is defined as no caloric intake for at least 8 hours. Fasting glucose between 100 mg/dl to 125 mg/dl is diagnostic of prediabetes. In a patient with classic symptoms of hyperglycemia or hyperglycemic crisis, a random glucose >/= 200 mg/dl is diagnostic for diabetes. In the absence of unequivocal hyperglycemia, results should be confirmed by repeat testing. The classification and Diagnosis of Diabetes Diabetes Care 2021; 46: S19-S40. Current interpretive data was last revised 2022. Calcium 8.5 8.5 - 10.3 mg/dL [facility] Blood 05/11/2024 6:31 AM SLUBBER OPERATOR 05/11/2024 6:46 AM SLUBBER OPERATOR us Shawnee Watson MD LAB BLOOD ORDERA BLES Final Result [facility] Department [place] [address] * eGFR (05/10/2024 12:21 AM SLUBBER OPERATOR) eGFR 60 >=60 mL/min/1. 73 m2 Comment: Interpretive Data Reference Interval Normal >/= 90 mL/min/1.73m2 Mildly decreased* 60 - 89 mL/min/1.73m2 Mildly to moderately decreased 45 - 59 mL/min/1.73m2 Moderately to severely decreased 30 - 44 mL/min/1.73m2 Severely decreased 15 - 29 mL/min/1.73m2 Kidney Failure < 15 mL/min/1.73m2 *Relative to young adult level Estimated glomerular filtration rate is determined by the 2020 CKD-EPI equation recommended by the National Kidney Foundation (A Unifying Approach to GFR Estimation: Recommendations of the NKF-ASK Task Force on Reassessing the Inclusion of Race in Diagnosing Kidney Disease, JASN 2020). The CKD-EPI equation should not be used for patients with unstable renal function and has not been validated in children and those over 70. Current interpretive data was last reviewed 2021. Blood 05/10/2024 12:2 1 AM SLUBBER OPERATOR 05/10/2024 1:29 AM SLUBBER OPERATOR us Felecia Ribera MD LAB BLOOD ORDERABLES Final R esult [facility] Department [place] [address] * (ABNORMAL) Differential, auto (05/10/2024 12:21 AM SLUBBER OPERATOR) Neutrophil abs 4.9 1.5 - 6.5 K/cumm Imm gran abs 0.1 0.0 - 0.1 K/cumm [facility] Lymphocyte abs 1.6 0.8 - 3.3 K/cumm [facility] Monocyte abs 0.9(H) 0.2 - 0.8 K/cumm [facility] Eosinophil abs 0.1 0.0 - 0.5 K/cumm [facility] Basophil abs 0.0 0.0 - 0.1 K/cumm [facility] Neutrophil pct 65.4 % [facility] Comment: Interpretive Data Percent cell count reference ranges are not reported, since discordance with absolute values may lead to misinterpretation of CBC data. Current Interpretive Data was last revised on 2017. Imm gran pct 0.7 % [facility] Comment: Interpretive Data Percent cell count reference ranges are not reported, since discordance with absolute values may lead to misinterpretation of CBC data. Current Interpretive Data was last revised on 2017. Lymphocyte pct 20.6 % [facility] Comment: Interpretive Data Percent cell count reference ranges are not reported, since discordance with absolute values may lead to misinterpretation of CBC data. Current Interpretive Data was last revised on 2017. Monocyte pct 12.1 % [facility] Comment: Interpretive Data Percent cell count reference ranges are not reported, since discordance with absolute values may lead to misinterpretation of CBC data. Current Interpretive Data was last revised on 2017. Eosinophil pct 0.8 % [facility] Comment: Interpretive Data Percent cell count reference ranges are not reported, since discordance with absolute values may lead to misinterpretation of CBC data. Current Interpretive Data was last revised on 2017. Basophil pct 0.4 % [facility] Comment: Interpretive Data Percent cell count reference ranges are not reported, since discordance with absolute values may lead to misinterpretation of CBC data. Current Interpretive Data was last revised on 2017. Blood 05/10/2024 12:2 1 AM SLUBBER OPERATOR 05/10/2024 1:30 AM SLUBBER OPERATOR Felecia Ribera MD LAB BLOOD ORDERABLES Final R esult Performing Organization Address City/[facility]/ZIP Co de Phone Number [facility] Department [place] [address] * (ABNORMAL) CBC with auto differential (05/10/2024 12:21 AM SLUBBER OPERATOR) WBC 7.5 3.8 - 9.9 K/cumm Hgb 9.9(L) 11.9 - 15.5 g/dL [facility] [facility] Hct 31.6(L) 35.6 - 45.5 % [facility] Plt 272 150 - 400 K/cumm [facility] MPV 8.8(L) 9.1 - 12.3 fL [facility] RBC 3.38(L) 3.90 - 5.20 M/cumm [facility] MCV 93.5 81.3 - 96.4 fL [facility] MCH 29.3 27.1 - 33.3 pg [facility] MCHC 31.3(L) 32.3 - 35.7 g/dL [facility] RDW CV 18.6(H) 11.1 - 14.9 % [facility] RDW SD 63.2(H) 35.7 - 48.1 fL [facility] NRBC abs 0.00 0.00 - 0.01 K/cumm [facility] Blood 05/10/2024 12:2 1 AM SLUBBER OPERATOR 05/10/2024 1:30 AM SLUBBER OPERATOR Felecia Ribera MD LAB BLOOD ORDERABLES Final R esult [facility] [place] [address] * Phosphorus (05/10/2024 12:21 AM SLUBBER OPERATOR) [facility] Phosphorus, pl 3.7 2.3 - 4.5 mg/dL Blood 05/10/2024 12:2 1 AM SLUBBER OPERATOR 05/10/2024 1:29 AM SLUBBER OPERATOR eFlecia Ribera MD LAB BLOOD ORDERABLES Final R esult Performing Organization Address City/[facility]/[place] [address] * Magnesium (05/10/2024 12:21 AM SLUBBER OPERATOR) [facility] Magnesium 1.7 1.4 - 2.5 mg/dL Blood 05/10/2024 12:2 1 AM SLUBBER OPERATOR 05/10/2024 1:29 AM SLUBBER OPERATOR Felecia Ribera MD LAB BLOOD ORDERABLES Final R esult Performing Organization Address City/[facility] [place] [address] * (ABNORMAL) Comprehensive metabolic panel (05/10/2024 12:21 AM SLUBBER OPERATOR) [facility] Sodium 134(L) 135 - 145 mmol/L Potassium, pl 4.1 3.3 - 4.9 mmol/L [facility] Chloride 105 97 - 110 mmol/L [facility] CO2 21(L) 22 - 32 mmol/L [facility] Anion gap 8 2 - 15 mmol/L [facility] BUN 20 6 - 25 mg/dL [facility] Creatinine 0.97 0.60 - 1.10 mg/dL [facility] Glucose 89 70 - 199 mg/dL [facility] Comment: Interpretive Data Fasting glucose >/= 126 mg/dl is diagnostic for diabetes. Fasting is defined as no caloric intake for at least 8 hours. Fasting glucose between 100 mg/dl to 125 mg/dl is diagnostic of prediabetes. In a patient with classic symptoms of hyperglycemia or hyperglycemic crisis, a random glucose >/= 200 mg/dl is diagnostic for diabetes. In the absence of unequivocal hyperglycemia, results should be confirmed by repeat testing. The classification and Diagnosis of Diabetes Diabetes Care 202; 46: S19-S40. Current interpretive data was last revised 2022. Calcium 8.3(L) 8.5 - 10.3 mg/dL [facility] Bilirubin, total 0.3 0.1 - 1.2 mg/dL [facility] Protein, pl 5.2(L) 6.5 - 8.5 g/dL [facility] Albumin 2.5(L) 3.5 - 5.0 g/dL [facility] Alk phos 154(H) 40 - 130 Units/L [facility] ALT 18 7 - 45 Units/L [facility] AST 26 10 - 45 Units/L [facility] Blood 05/10/2024 12:2 1 AM SLUBBER OPERATOR 05/10/2024 1:29 AM SLUBBER OPERATOR us Felecia Ribera MD LAB BLOOD ORDERABLES Final R esult [facility] Department [place] [address] * Saline lock IV (05/09/2024 10:33 PM SLUBBER OPERATOR) Narrative Robert Garcia RN - 05/09/2024 10:33 PM SLUBBER OPERATOR Robert Garcia, [facility] 05/09/2024 10:33 PM Vascular Access Nurse: Procedure Note Summary of treatment provided to patient today is as follows : . Bedside Procedure Time out/Checklist (Last 4 Hours) Pre-Op Checklist Row Name 05/09/24209905/09/24201905/09/24 1900 Patient/Chart Verification Arm Bands On ID;Allergies -EH ID;Allergies -TW ID;Allergies -EH User Leo (r) = Recorded By, (t) = Taken By, (c) = Cosigned By Initials Name Karishma Bedoya RN TW White, Tamia Vascular Access Documentation (Last 4 Hours) [facility] Additional Procedures Row Name 05/09/24 2230 Procedures Line Type Peripheral -MT Time in 2227 -MT Time out 2233 -MT Time Calculation (min) 6 min -MT Vascular Access Procedures Difficult IV start -MT Comfort Measures Distraction -MT Patient Response Tolerated (no change in status) -MT Source Venous -MT Attempts 1 -MT Orientation Right -MT Site Forearm -MT Patient Response Tolerated Well -MT Peripheral IV 05/09/24 22 G Anterior;Right Forearm IV Properties Placement Date: 05/09/24 -MT Placement Time: 2230 -MT Type: Angiocath -MT Length of Catheter: 1 in -MT Size (Gauge): 22 G -MT Location Orientation: Anterior;Right -MT Location: Forearm -MT Site Prep: Chlorhexidine -MT Comfort Measures: Distraction -MT Local Anesthetic: None -MT Technique: Anatomical landmarks -WI Verification: Able to advance catheter;Irrigates easily with normal saline;Able to cannulate vein;Blood Return -WI Inserted by: Jagruti MADRID -WI Insertion attempts: 1 -MT Patient Tolerance: Tolerated well -MT Site Assessment Clean and dry -MT IV Line Status Single Blood return noted;Capped;Saline locked;Flushes easily -MT Dressing Type Transparent -MT Dressing Status New;Clean, dry, intact;Dated;Occlusive -MT Dressing Change Due 05/16/24 -WI User Leo (r) = Recorded By, (t) = Taken By, (c) = Cosigned By Initials Name WI Robert Garcia RN Michael Tarvin, RN Carlitos Carr MD IV THERAPY ORDERABLES Final R esult * Saline lock IV (05/09/2024 10:33 PM SLUBBER OPERATOR) Narrative Robert Garcia RN - 05/09/2024 10:33 PM SLUBBER OPERATOR Robert Garcia RN 05/09/2024 10:33 PM Vascular Access Nurse: Procedure Note Summary of treatment provided to patient today is as follows : . Bedside Procedure Time out/Checklist (Last 4 Hours) Pre-Op Checklist Row Name 05/09/24209905/09/24201905/09/24 1900 Patient/Chart Verification Arm Bands On ID;Allergies - ID;Allergies -TW ID;Allergies -EH User Leo (r) = Recorded By, (t) = Taken By, (c) = Cosigned By Initials Name Karishma Bedoya RN TW White, Becka Vascular Access Documentation (Last 4 Hours) [facility] Additional Procedures Row Name 05/09/24 2230 Procedures Line Type Peripheral -MT Time in 2227 -MT Time out 2233 -MT Time Calculation (min) 6 min -MT Vascular Access Procedures Difficult IV start -MT Comfort Measures Distraction -MT Patient Response Tolerated (no change in status) -MT Source Venous -MT Attempts 1 -MT Orientation Right -MT Site Forearm -MT Patient Response Tolerated Well -MT Peripheral IV 05/09/24 22 G Anterior;Right Forearm IV Properties Placement Date: 05/09/24 -WI Placement Time: 2230 -MT Type: Angiocath -MT Length of Catheter: 1 in -MT Size (Gauge): 22 G -MT Location Orientation: Anterior;Right -MT Location: Forearm -MT Site Prep: Chlorhexidine -MT Comfort Measures: Distraction -MT Local Anesthetic: None -MT Technique: Anatomical landmarks -WI Verification: Able to advance catheter;Irrigates easily with normal saline;Able to cannulate vein;Blood Return -WI Inserted by: Jagruti MADRID -WI Insertion attempts: 1 -MT Patient Tolerance: Tolerated well -MT Site Assessment Clean and dry -MT IV Line Status Single Blood return noted;Capped;Saline locked;Flushes easily -MT Dressing Type Transparent -MT Dressing Status New;Clean, dry, intact;Dated;Occlusive -MT Dressing Change Due 05/16/24 -WI User Leo (r) = Recorded By, (t) = Taken By, (c) = Cosigned By Initials Name WI Robert Garcia, [facility] Garcia RN Carlitos Carr MD IV THERAPY ORDERABLES Final R esult * C. difficile testing Stool (05/09/2024 4:01 PM SLUBBER OPERATOR) [facility] Result Negative Negative Toxin Result Negative Negative [facility] C. diff result Negative, free toxin Negative, free toxin [facility] C. diff interp Negative for toxigenic Clostridioides (Clostridium) difficile. Analysis was performed using a glutamate dehydrogenase antigen detection assay combined with a C. difficile toxin detection assay. [facility] Stool 05/09/2024 4:01 PM SLUBBER OPERATOR 05/09/2024 6:22 PM SLUBBER OPERATOR Felecia Ribera MD LAB MICROBIOLOGY - GENERAL O RDERABLES Final Result Performing Organization Address [facility]/ZIP Co de Phone Number [facility] Department [place] [address] * (ABNORMAL) Infection Prevention VRE Culture Stool (05/09/2024 4:01 PM SLUBBER OPERATOR) Report Final Report: Enterococcus species, vancomycin resistant (.) Organism ENTEROCOCCUS SPECIES, VANCOMYCIN RESISTANT [facility] Stool 05/09/2024 4:01 PM SLUBBER OPERATOR 05/09/2024 10:42 PM SLUBBER OPERATOR Narrative [facility] - 05/10/2024 9:45 PM SLUBBER OPERATOR Surveillance culture for Infection Prevention purposes only; results indicate colonization, not infection requiring treatment. Testing performed by [facility] ([phone]). Floridalma Williamson MD LAB MICROBIOLOGY - GENERA L ORDERABLES Final Result Performing Organization Address [facility] Co de Phone Number [facility] Department [place] [address] * XR Abdomen Ap 1 Vw (05/09/2024 3:01 PM SLUBBER OPERATOR) Anatomical Region Laterality Modality Body, Abdomen N/A Computed Radiogr aphy 05/09/2024 3:15 PM SLUBBER OPERATOR Impressions 05/09/2024 3:35 PM SLUBBER OPERATOR Bowel gas pattern within normal limits. Cholecystectomy clips. Lumbar dextroscoliosis. Surgical clip overlies the pelvis. Dictated by: Pawel Archuleta MD PHD The radiology attending physician has personally reviewed this study, and had reviewed and/or edited this written report and agrees with it. Electronically signed by: José Ruiz M.D. Narrative 05/09/2024 3:35 PM SLUBBER OPERATOR EXAMINATION: Abdomen, one view. HISTORY: Concern for obstruction COMPARISON: CT 04/28/2024 Procedure Note José Ruiz MD PhD - 05/09/2024 EXAMINATION: Abdomen, one view. HISTORY: Concern for obstruction COMPARISON: CT 04/28/2024 IMPRESSION: Bowel gas pattern within normal limits. Cholecystectomy clips. Lumbar dextroscoliosis. Surgical clip overlies the pelvis. Dictated by: Pawel Archuleta MD PHD The radiology attending physician has personally reviewed this study, and had reviewed and/or edited this written report and agrees with it. Electronically signed by: José Ruiz M.D. us Felecia Ribera MD IMG XR PROCEDURES Final Resu lt * eGFR (05/08/2024 1:30 PM SLUBBER OPERATOR) eGFR 60 >=60 mL/min/1. 73 m2 Comment: Interpretive Data Reference Interval Normal >/= 90 mL/min/1.73m2 Mildly decreased* 60 - 89 mL/min/1.73m2 Mildly to moderately decreased 45 - 59 mL/min/1.73m2 Moderately to severely decreased 30 - 44 mL/min/1.73m2 Severely decreased 15 - 29 mL/min/1.73m2 Kidney Failure < 15 mL/min/1.73m2 *Relative to young adult level Estimated glomerular filtration rate is determined by the 2020 CKD-EPI equation recommended by the National Kidney Foundation (A Unifying Approach to GFR Estimation: Recommendations of the NKF-ASK Task Force on Reassessing the Inclusion of Race in Diagnosing Kidney Disease, JASN 202). The CKD-EPI equation should not be used for patients with unstable renal function and has not been validated in children and those over 70. Current interpretive data was last reviewed 2021. Blood 05/08/2024 1:30 PM SLUBBER OPERATOR 05/08/2024 2:16 PM SLUBBER OPERATOR us Floridalma Williamson MD LAB BLOOD ORDERABLES Danna jin Result [facility] [place] [address] * Differential, auto (05/08/2024 1:30 PM SLUBBER OPERATOR) Neutrophil abs 4.9 1.5 - 6.5 K/cumm Imm gran abs 0.0 0.0 - 0.1 K/cumm [facility] Lymphocyte abs 1.6 0.8 - 3.3 K/cumm [facility] Monocyte abs 0.7 0.2 - 0.8 K/cumm [facility] Eosinophil abs 0.1 0.0 - 0.5 K/cumm [facility] Basophil abs 0.0 0.0 - 0.1 K/cumm [facility] Neutrophil pct 66.0 % [facility] Comment: Interpretive Data Percent cell count reference ranges are not reported, since discordance with absolute values may lead to misinterpretation of CBC data. Current Interpretive Data was last revised on 2017. Imm gran pct 0.5 % [facility] Comment: Interpretive Data Percent cell count reference ranges are not reported, since discordance with absolute values may lead to misinterpretation of CBC data. Current Interpretive Data was last revised on 2017. Lymphocyte pct 22.0 % [facility] Comment: Interpretive Data Percent cell count reference ranges are not reported, since discordance with absolute values may lead to misinterpretation of CBC data. Current Interpretive Data was last revised on 2017. Monocyte pct 9.6 % [facility] Comment: Interpretive Data Percent cell count reference ranges are not reported, since discordance with absolute values may lead to misinterpretation of CBC data. Current Interpretive Data was last revised on 2017. Eosinophil pct 1.4 % [facility] Comment: Interpretive Data Percent cell count reference ranges are not reported, since discordance with absolute values may lead to misinterpretation of CBC data. Current Interpretive Data was last revised on 2017. Basophil pct 0.5 % [facility] Comment: Interpretive Data Percent cell count reference ranges are not reported, since discordance with absolute values may lead to misinterpretation of CBC data. Current Interpretive Data was last revised on 2017. Blood 05/08/2024 1:30 PM SLUBBER OPERATOR 05/08/2024 2:16 PM SLUBBER OPERATOR us Floridalma Williamson MD LAB BLOOD ORDERABLES Danna l Result [facility] Department [place] [address] * (ABNORMAL) CBC with auto differential (05/08/2024 1:30 PM SLUBBER OPERATOR) [facility] WBC 7.4 3.8 - 9.9 K/cumm Hgb 12.0 11.9 - 15.5 g/dL [facility] Hct 37.3 35.6 - 45.5 % [facility] Plt 295 150 - 400 K/cumm [facility] MPV 8.7(L) 9.1 - 12.3 fL [facility] RBC 4.04 3.90 - 5.20 M/cumm [facility] MCV 92.3 81.3 - 96.4 fL [facility] MCH 29.7 27.1 - 33.3 pg [facility] MCHC 32.2(L) 32.3 - 35.7 g/dL [facility] RDW CV 18.0(H) 11.1 - 14.9 % [facility] RDW SD 59.4(H) 35.7 - 48.1 fL [facility] NRBC abs 0.00 0.00 - 0.01 K/cumm [facility] Blood 05/08/2024 1:30 PM SLUBBER OPERATOR 05/08/2024 2:16 PM SLUBBER OPERATOR us Floridalma Williamson MD LAB BLOOD ORDERABLES Danna l Result Performing Organization Address City/[facility]/ZIP Co de Phone Number [facility] Department [place] [address] * Phosphorus (05/08/2024 1:30 PM SLUBBER OPERATOR) [facility] Phosphorus, pl 3.7 2.3 - 4.5 mg/dL Blood 05/08/2024 1:30 PM SLUBBER OPERATOR 05/08/2024 2:08 PM SLUBBER OPERATOR Floridalma Williamson MD LAB BLOOD ORDERABLES Danna l Result Performing Organization Address City/[facility]/ZIP Co de Phone Number [facility] Department [place] [address] * (ABNORMAL) Magnesium (05/08/2024 1:30 PM SLUBBER OPERATOR) Pathologist [facility] Magnesium 1.3(L) 1.4 - 2.5 mg/dL Blood 05/08/2024 1:30 PM SLUBBER OPERATOR 05/08/2024 2:08 PM SLUBBER OPERATOR Floridalma Williamson MD LAB BLOOD ORDERABLES Danna l Result [facility] Department [place] [address] * (ABNORMAL) Basic metabolic panel (05/08/2024 1:30 PM SLUBBER OPERATOR) [facility] Sodium 135 135 - 145 mmol/L Potassium, pl 3.7 3.3 - 4.9 mmol/L [facility] Chloride 103 97 - 110 mmol/L [facility] CO2 21(L) 22 - 32 mmol/L [facility] Anion gap 11 2 - 15 mmol/L [facility] BUN 19 6 - 25 mg/dL [facility] Creatinine 0.97 0.60 - 1.10 mg/dL [facility] Glucose 87 70 - 199 mg/dL [facility] Comment: Interpretive Data Fasting glucose >/= 126 mg/dl is diagnostic for diabetes. Fasting is defined as no caloric intake for at least 8 hours. Fasting glucose between 100 mg/dl to 125 mg/dl is diagnostic of prediabetes. In a patient with classic symptoms of hyperglycemia or hyperglycemic crisis, a random glucose >/= 200 mg/dl is diagnostic for diabetes. In the absence of unequivocal hyperglycemia, results should be confirmed by repeat testing. The classification and Diagnosis of Diabetes Diabetes Care 2021; 46: S19-S40. Current interpretive data was last revised 2022. Calcium 8.7 8.5 - 10.3 mg/dL [facility] Blood 05/08/2024 1:30 PM SLUBBER OPERATOR 05/08/2024 2:08 PM SLUBBER OPERATOR us Floridalma Williamson MD LAB BLOOD ORDERABLES Danna l Result Performing Organization Address [facility] de Phone Number [facility] Department [place] [address] * eGFR (05/06/2024 10:27 PM SLUBBER OPERATOR) eGFR 63 >=60 mL/min/1. 73 m2 Comment: Interpretive Data Reference Interval Normal >/= 90 mL/min/1.73m2 Mildly decreased* 60 - 89 mL/min/1.73m2 Mildly to moderately decreased 45 - 59 mL/min/1.73m2 Moderately to severely decreased 30 - 44 mL/min/1.73m2 Severely decreased 15 - 29 mL/min/1.73m2 Kidney Failure < 15 mL/min/1.73m2 *Relative to young adult level Estimated glomerular filtration rate is determined by the 2020 CKD-EPI equation recommended by the National Kidney Foundation (A Unifying Approach to GFR Estimation: Recommendations of the NKF-ASK Task Force on Reassessing the Inclusion of Race in Diagnosing Kidney Disease, JASN 2020). The CKD-EPI equation should not be used for patients with unstable renal function and has not been validated in children and those over 70. Current interpretive data was last reviewed 2021. Blood 05/06/2024 10:2 7 PM SLUBBER OPERATOR 05/06/2024 11:48 PM SLUBBER OPERATOR us Jadyn Leyva MD LAB BLOOD ORDERABLES F inal Result Performing Organization Address [facility] Co de Phone Number [facility] Department [place] [address] * (ABNORMAL) Differential, auto (05/06/2024 10:27 PM SLUBBER OPERATOR) Pathologist [facility] Neutrophil abs 4.4 1.5 - 6.5 K/cumm Imm gran abs 0.1 0.0 - 0.1 K/cumm [facility] Lymphocyte abs 1.8 0.8 - 3.3 K/cumm [facility] Monocyte abs 0.9(H) 0.2 - 0.8 K/cumm [facility] Eosinophil abs 0.1 0.0 - 0.5 K/cumm [facility] Basophil abs 0.0 0.0 - 0.1 K/cumm [facility] Neutrophil pct 61.0 % [facility] Comment: Interpretive Data Percent cell count reference ranges are not reported, since discordance with absolute values may lead to misinterpretation of CBC data. Current Interpretive Data was last revised on 2017. Imm gran pct 1.0 % [facility] Comment: Interpretive Data Percent cell count reference ranges are not reported, since discordance with absolute values may lead to misinterpretation of CBC data. Current Interpretive Data was last revised on 2017. Lymphocyte pct 24.2 % [facility] Comment: Interpretive Data Percent cell count reference ranges are not reported, since discordance with absolute values may lead to misinterpretation of CBC data. Current Interpretive Data was last revised on 2017. Monocyte pct 12.0 % [facility] Comment: Interpretive Data Percent cell count reference ranges are not reported, since discordance with absolute values may lead to misinterpretation of CBC data. Current Interpretive Data was last revised on 2017. Eosinophil pct 1.4 % [facility] Comment: Interpretive Data Percent cell count reference ranges are not reported, since discordance with absolute values may lead to misinterpretation of CBC data. Current Interpretive Data was last revised on 2017. Basophil pct 0.4 % [facility] Comment: Interpretive Data Percent cell count reference ranges are not reported, since discordance with absolute values may lead to misinterpretation of CBC data. Current Interpretive Data was last revised on 2017. Blood 05/06/2024 10:2 7 PM SLUBBER OPERATOR 05/06/2024 11:48 PM SLUBBER OPERATOR us Jadyn Leyva MD LAB BLOOD ORDERABLES F inal Result [facility] Department [place] [address] * (ABNORMAL) CBC with auto differential (05/06/2024 10:27 PM SLUBBER OPERATOR) [facility] WBC 7.3 3.8 - 9.9 K/cumm Hgb 10.4(L) 11.9 - 15.5 g/dL [facility] Hct 31.4(L) 35.6 - 45.5 % [facility] Plt 232 150 - 400 K/cumm [facility] MPV 9.3 9.1 - 12.3 fL [facility] RBC 3.40(L) 3.90 - 5.20 M/cumm [facility] MCV 92.4 81.3 - 96.4 fL [facility] MCH 30.6 27.1 - 33.3 pg [facility] MCHC 33.1 32.3 - 35.7 g/dL [facility] RDW CV 18.3(H) 11.1 - 14.9 % [facility] RDW SD 60.0(H) 35.7 - 48.1 fL [facility] NRBC abs 0.00 0.00 - 0.01 K/cumm [facility] Blood 05/06/2024 10:2 7 PM SLUBBER OPERATOR 05/06/2024 11:48 PM SLUBBER OPERATOR Jadyn Leyva MD LAB BLOOD ORDERABLES F inal Result Performing Organization Address [facility] Co de Phone Number [facility] [place] [address] * Phosphorus (05/06/2024 10:27 PM SLUBBER OPERATOR) [facility] Phosphorus, pl 3.6 2.3 - 4.5 mg/dL Blood 05/06/2024 10:2 7 PM SLUBBER OPERATOR 05/06/2024 11:48 PM SLUBBER OPERATOR Jadyn Leyva MD LAB BLOOD ORDERABLES F inal Result Performing Organization Address [facility] Co de Phone Number [facility] [place] [address] * Magnesium (05/06/2024 10:27 PM SLUBBER OPERATOR) Pathologist [facility] Magnesium 1.4 1.4 - 2.5 mg/dL Blood 05/06/2024 10:2 7 PM SLUBBER OPERATOR 05/06/2024 11:48 PM SLUBBER OPERATOR Jadyn Leyva MD LAB BLOOD ORDERABLES F inal Result Performing Organization Address [facility]/ZIP Co de Phone Number [facility] Department [place] [address] * (ABNORMAL) Basic metabolic panel (05/06/2024 10:27 PM SLUBBER OPERATOR) Pathologist [facility] Sodium 136 135 - 145 mmol/L Potassium, pl 5.0(H) 3.3 - 4.9 mmol/L [facility] Chloride 108 97 - 110 mmol/L [facility] CO2 18(L) 22 - 32 mmol/L [facility] Anion gap 10 2 - 15 mmol/L [facility] BUN 18 6 - 25 mg/dL [facility] Creatinine 0.93 0.60 - 1.10 mg/dL [facility] Glucose 93 70 - 199 mg/dL [facility] Comment: Interpretive Data Fasting glucose >/= 126 mg/dl is diagnostic for diabetes. Fasting is defined as no caloric intake for at least 8 hours. Fasting glucose between 100 mg/dl to 125 mg/dl is diagnostic of prediabetes. In a patient with classic symptoms of hyperglycemia or hyperglycemic crisis, a random glucose >/= 200 mg/dl is diagnostic for diabetes. In the absence of unequivocal hyperglycemia, results should be confirmed by repeat testing. The classification and Diagnosis of Diabetes Diabetes Care 202; 46: S19-S40. Current interpretive data was last revised 2022. Calcium 8.5 8.5 - 10.3 mg/dL [facility] Blood 05/06/2024 10:2 7 PM SLUBBER OPERATOR 05/06/2024 11:48 PM SLUBBER OPERATOR Jadyn Leyva MD LAB BLOOD ORDERABLES F inal Result Performing Organization Address [facility]/ZIP Co de Phone Number [facility] Department [place] [address] * eGFR (05/05/2024 10:32 PM SLUBBER OPERATOR) Pathologist [facility] eGFR 65 >=60 mL/min/1. 73 m2 Comment: Interpretive Data Reference Interval Normal >/= 90 mL/min/1.73m2 Mildly decreased* 60 - 89 mL/min/1.73m2 Mildly to moderately decreased 45 - 59 mL/min/1.73m2 Moderately to severely decreased 30 - 44 mL/min/1.73m2 Severely decreased 15 - 29 mL/min/1.73m2 Kidney Failure < 15 mL/min/1.73m2 *Relative to young adult level Estimated glomerular filtration rate is determined by the 2020 CKD-EPI equation recommended by the National Kidney Foundation (A Unifying Approach to GFR Estimation: Recommendations of the NKF-ASK Task Force on Reassessing the Inclusion of Race in Diagnosing Kidney Disease, JASN 2020). The CKD-EPI equation should not be used for patients with unstable renal function and has not been validated in children and those over 70. Current interpretive data was last reviewed 2021. Blood 05/05/2024 10:3 2 PM SLUBBER OPERATOR 05/06/2024 us Chester Vegas MD LAB BLOOD ORDERABLES Fi nal Result [facility] Department [place] [address] * Differential, auto (05/05/2024 10:32 PM SLUBBER OPERATOR) Pathologist [facility] Neutrophil abs 3.2 1.5 - 6.5 K/cumm Imm gran abs 0.1 0.0 - 0.1 K/cumm [facility] Lymphocyte abs 2.1 0.8 - 3.3 K/cumm [facility] Monocyte abs 0.8 0.2 - 0.8 K/cumm [facility] Eosinophil abs 0.1 0.0 - 0.5 K/cumm [facility] Basophil abs 0.0 0.0 - 0.1 K/cumm [facility] Neutrophil pct 50.6 % [facility] Comment: Interpretive Data Percent cell count reference ranges are not reported, since discordance with absolute values may lead to misinterpretation of CBC data. Current Interpretive Data was last revised on 2017. Imm gran pct 0.8 % [facility] Comment: Interpretive Data Percent cell count reference ranges are not reported, since discordance with absolute values may lead to misinterpretation of CBC data. Current Interpretive Data was last revised on 2017. Lymphocyte pct 33.3 % [facility] Comment: Interpretive Data Percent cell count reference ranges are not reported, since discordance with absolute values may lead to misinterpretation of CBC data. Current Interpretive Data was last revised on 2017. Monocyte pct 13.1 % [facility] Comment: Interpretive Data Percent cell count reference ranges are not reported, since discordance with absolute values may lead to misinterpretation of CBC data. Current Interpretive Data was last revised on 2017. Eosinophil pct 1.7 % [facility] Comment: Interpretive Data Percent cell count reference ranges are not reported, since discordance with absolute values may lead to misinterpretation of CBC data. Current Interpretive Data was last revised on 2017. Basophil pct 0.5 % [facility] Comment: Interpretive Data Percent cell count reference ranges are not reported, since discordance with absolute values may lead to misinterpretation of CBC data. Current Interpretive Data was last revised on 2017. Blood 05/05/2024 10:3 2 PM SLUBBER OPERATOR 05/06/2024 12:00 AM SLUBBER OPERATOR us Chester Vegas MD LAB BLOOD ORDERABLES Fi nal Result [facility] Department [place] [address] * (ABNORMAL) CBC with auto differential (05/05/2024 10:32 PM SLUBBER OPERATOR) WBC 6.4 3.8 - 9.9 K/cumm Hgb 9.4(L) 11.9 - 15.5 g/dL [facility] Hct 28.8(L) 35.6 - 45.5 % [facility] Plt 211 150 - 400 K/cumm [facility] MPV 9.2 9.1 - 12.3 fL [facility] RBC 3.17(L) 3.90 - 5.20 M/cumm [facility] MCV 90.9 81.3 - 96.4 fL [facility] MCH 29.7 27.1 - 33.3 pg [facility] MCHC 32.6 32.3 - 35.7 g/dL [facility] RDW CV 17.7(H) 11.1 - 14.9 % [facility] RDW SD 58.3(H) 35.7 - 48.1 fL [facility] NRBC abs 0.00 0.00 - 0.01 K/cumm [facility] Blood 05/05/2024 10:3 2 PM SLUBBER OPERATOR 05/06/2024 12:00 AM SLUBBER OPERATOR us Chester Vegas MD LAB BLOOD ORDERABLES Fi nal Result [facility] [address] * Phosphorus (05/05/2024 10:32 PM SLUBBER OPERATOR) Phosphorus, pl 3.1 2.3 - 4.5 mg/dL Blood 05/05/2024 10:3 2 PM SLUBBER OPERATOR 05/06/2024 12:00 AM SLUBBER OPERATOR us Chester Vegas MD LAB BLOOD ORDERABLES Fi nal Result [facility] [place] [address] * Magnesium (05/05/2024 10:32 PM SLUBBER OPERATOR) Magnesium 1.5 1.4 - 2.5 mg/dL Blood 05/05/2024 10:3 2 PM SLUBBER OPERATOR 05/06/2024 12:00 AM SLUBBER OPERATOR us Chester Vegas MD LAB BLOOD ORDERABLES Fi nal Result Performing Organization Address City/[facility]/ZIP Co de Phone Number [facility] Department [place] [address] * (ABNORMAL) Basic metabolic panel (05/05/2024 10:32 PM SLUBBER OPERATOR) [facility] Sodium 137 135 - 145 mmol/L Potassium, pl 4.1 3.3 - 4.9 mmol/L [facility] Chloride 111(H) 97 - 110 mmol/L [facility] CO2 18(L) 22 - 32 mmol/L [facility] Anion gap 8 2 - 15 mmol/L [facility] BUN 16 6 - 25 mg/dL [facility] Creatinine 0.90 0.60 - 1.10 mg/dL [facility] Glucose 91 70 - 199 mg/dL [facility] Comment: Interpretive Data Fasting glucose >/= 126 mg/dl is diagnostic for diabetes. Fasting is defined as no caloric intake for at least 8 hours. Fasting glucose between 100 mg/dl to 125 mg/dl is diagnostic of prediabetes. In a patient with classic symptoms of hyperglycemia or hyperglycemic crisis, a random glucose >/= 200 mg/dl is diagnostic for diabetes. In the absence of unequivocal hyperglycemia, results should be confirmed by repeat testing. The classification and Diagnosis of Diabetes Diabetes Care 2021; 46: S19-S40. Current interpretive data was last revised 2022. Calcium 8.3(L) 8.5 - 10.3 mg/dL [facility] Blood 05/05/2024 10:3 2 PM SLUBBER OPERATOR 05/06/2024 12:00 AM SLUBBER OPERATOR us Chester Vegas MD LAB BLOOD ORDERABLES Fi nal Result Performing Organization Address [facility] Co de Phone Number [facility] Department [place] [address] * eGFR (05/04/2024 11:29 PM SLUBBER OPERATOR) [facility] eGFR 67 >=60 mL/min/1. 73 m2 Comment: Interpretive Data Reference Interval Normal >/= 90 mL/min/1.73m2 Mildly decreased* 60 - 89 mL/min/1.73m2 Mildly to moderately decreased 45 - 59 mL/min/1.73m2 Moderately to severely decreased 30 - 44 mL/min/1.73m2 Severely decreased 15 - 29 mL/min/1.73m2 Kidney Failure < 15 mL/min/1.73m2 *Relative to young adult level Estimated glomerular filtration rate is determined by the 2020 CKD-EPI equation recommended by the National Kidney Foundation (A Unifying Approach to GFR Estimation: Recommendations of the NKF-ASK Task Force on Reassessing the Inclusion of Race in Diagnosing Kidney Disease, JASN 2020). The CKD-EPI equation should not be used for patients with unstable renal function and has not been validated in children and those over 70. Current interpretive data was last reviewed 2021. Blood 05/04/2024 11:2 9 PM SLUBBER OPERATOR 05/05/2024 12:54 AM SLUBBER OPERATOR us Chester Vegas MD LAB BLOOD ORDERABLES Fi nal Result [facility] Department [place] [address] * Differential, auto (05/04/2024 11:29 PM SLUBBER OPERATOR) [facility] Neutrophil abs 4.0 1.5 - 6.5 K/cumm Imm gran abs 0.1 0.0 - 0.1 K/cumm [facility] Lymphocyte abs 1.7 0.8 - 3.3 K/cumm [facility] Monocyte abs 0.8 0.2 - 0.8 K/cumm [facility] Eosinophil abs 0.1 0.0 - 0.5 K/cumm [facility] Basophil abs 0.0 0.0 - 0.1 K/cumm [facility] Neutrophil pct 59.1 % [facility] Comment: Interpretive Data Percent cell count reference ranges are not reported, since discordance with absolute values may lead to misinterpretation of CBC data. Current Interpretive Data was last revised on 2017. Imm gran pct 0.7 % [facility] Comment: Interpretive Data Percent cell count reference ranges are not reported, since discordance with absolute values may lead to misinterpretation of CBC data. Current Interpretive Data was last revised on 2017. Lymphocyte pct 25.6 % [facility] Comment: Interpretive Data Percent cell count reference ranges are not reported, since discordance with absolute values may lead to misinterpretation of CBC data. Current Interpretive Data was last revised on 2017. Monocyte pct 12.1 % [facility] Comment: Interpretive Data Percent cell count reference ranges are not reported, since discordance with absolute values may lead to misinterpretation of CBC data. Current Interpretive Data was last revised on 2017. Eosinophil pct 2.1 % [facility] Comment: Interpretive Data Percent cell count reference ranges are not reported, since discordance with absolute values may lead to misinterpretation of CBC data. Current Interpretive Data was last revised on 2017. Basophil pct 0.4 % [facility] Comment: Interpretive Data Percent cell count reference ranges are not reported, since discordance with absolute values may lead to misinterpretation of CBC data. Current Interpretive Data was last revised on 2017. Blood 05/04/2024 11:2 9 PM SLUBBER OPERATOR 05/05/2024 12:54 AM SLUBBER OPERATOR us Chester Vegas MD LAB BLOOD ORDERABLES Fi nal Result [facility] Department [place] [address] * (ABNORMAL) CBC with auto differential (05/04/2024 11:29 PM SLUBBER OPERATOR) WBC 6.7 3.8 - 9.9 K/cumm Hgb 9.4(L) 11.9 - 15.5 g/dL [facility] Hct 28.9(L) 35.6 - 45.5 % [facility] Plt 223 150 - 400 K/cumm [facility] MPV 9.4 9.1 - 12.3 fL [facility] RBC 3.17(L) 3.90 - 5.20 M/cumm [facility] MCV 91.2 81.3 - 96.4 fL [facility] MCH 29.7 27.1 - 33.3 pg [facility] MCHC 32.5 32.3 - 35.7 g/dL [facility] RDW CV 18.0(H) 11.1 - 14.9 % [facility] RDW SD 60.1(H) 35.7 - 48.1 fL [facility] NRBC abs 0.00 0.00 - 0.01 K/cumm [facility] Blood 05/04/2024 11:2 9 PM SLUBBER OPERATOR 05/05/2024 12:54 AM SLUBBER OPERATOR us Chester Vegas MD LAB BLOOD ORDERABLES Fi nal Result Performing Organization Address [facility] Co de Phone Number [facility] Department [place] [address] * Phosphorus (05/04/2024 11:29 PM SLUBBER OPERATOR) Phosphorus, pl 2.9 2.3 - 4.5 mg/dL Blood 05/04/2024 11:2 9 PM SLUBBER OPERATOR 05/05/2024 12:54 AM SLUBBER OPERATOR Chester Vegas MD LAB BLOOD ORDERABLES Fi nal Result Performing Organization Address City/[facility] Co de Phone Number [facility] [place] [address] * Magnesium (05/04/2024 11:29 PM SLUBBER OPERATOR) Magnesium 1.5 1.4 - 2.5 mg/dL Blood 05/04/2024 11:2 9 PM SLUBBER OPERATOR 05/05/2024 12:54 AM SLUBBER OPERATOR Chester Vegas MD LAB BLOOD ORDERABLES Fi nal Result [facility] Department [place] [address] * (ABNORMAL) Basic metabolic panel (05/04/2024 11:29 PM SLUBBER OPERATOR) Pathologist [facility] Sodium 137 135 - 145 mmol/L Potassium, pl 3.9 3.3 - 4.9 mmol/L [facility] Chloride 112(H) 97 - 110 mmol/L [facility] CO2 18(L) 22 - 32 mmol/L [facility] Anion gap 7 2 - 15 mmol/L [facility] BUN 16 6 - 25 mg/dL [facility] Creatinine 0.88 0.60 - 1.10 mg/dL [facility] Glucose 119 70 - 199 mg/dL [facility] Comment: Interpretive Data Fasting glucose >/= 126 mg/dl is diagnostic for diabetes. Fasting is defined as no caloric intake for at least 8 hours. Fasting glucose between 100 mg/dl to 125 mg/dl is diagnostic of prediabetes. In a patient with classic symptoms of hyperglycemia or hyperglycemic crisis, a random glucose >/= 200 mg/dl is diagnostic for diabetes. In the absence of unequivocal hyperglycemia, results should be confirmed by repeat testing. The classification and Diagnosis of Diabetes Diabetes Care 2021; 46: S19-S40. Current interpretive data was last revised 2022. Calcium 8.2(L) 8.5 - 10.3 mg/dL [facility] Blood 05/04/2024 11:2 9 PM SLUBBER OPERATOR 05/05/2024 12:54 AM SLUBBER OPERATOR us Chester Vegas MD LAB BLOOD ORDERABLES Fi nal Result Performing Organization Address City/[facility]/ZIP Co de Phone Number [facility] Department [place] [address] * eGFR (05/03/2024 10:28 PM SLUBBER OPERATOR) Pathologist [facility] eGFR 67 >=60 mL/min/1. 73 m2 Comment: Interpretive Data Reference Interval Normal >/= 90 mL/min/1.73m2 Mildly decreased* 60 - 89 mL/min/1.73m2 Mildly to moderately decreased 45 - 59 mL/min/1.73m2 Moderately to severely decreased 30 - 44 mL/min/1.73m2 Severely decreased 15 - 29 mL/min/1.73m2 Kidney Failure < 15 mL/min/1.73m2 *Relative to young adult level Estimated glomerular filtration rate is determined by the 2020 CKD-EPI equation recommended by the National Kidney Foundation (A Unifying Approach to GFR Estimation: Recommendations of the NKF-ASK Task Force on Reassessing the Inclusion of Race in Diagnosing Kidney Disease, JASN 2020). The CKD-EPI equation should not be used for patients with unstable renal function and has not been validated in children and those over 70. Current interpretive data was last reviewed 2021. Blood 05/03/2024 10:2 8 PM SLUBBER OPERATOR 05/03/2024 11:51 PM SLUBBER OPERATOR Chester Vegas MD LAB BLOOD ORDERABLES [facility] Result [facility] Department [place] [address] * Differential, auto (05/03/2024 10:28 PM SLUBBER OPERATOR) Pathologist [facility] Neutrophil abs 3.2 1.5 - 6.5 K/cumm Imm gran abs 0.1 0.0 - 0.1 K/cumm [facility] Lymphocyte abs 1.8 0.8 - 3.3 K/cumm [facility] Monocyte abs 0.8 0.2 - 0.8 K/cumm [facility] Eosinophil abs 0.2 0.0 - 0.5 K/cumm [facility] Basophil abs 0.0 0.0 - 0.1 K/cumm [facility] Neutrophil pct 52.1 % [facility] Comment: Interpretive Data Percent cell count reference ranges are not reported, since discordance with absolute values may lead to misinterpretation of CBC data. Current Interpretive Data was last revised on 2017. Imm gran pct 0.8 % [facility] Comment: Interpretive Data Percent cell count reference ranges are not reported, since discordance with absolute values may lead to misinterpretation of CBC data. Current Interpretive Data was last revised on 2017. Lymphocyte pct 29.7 % [facility] Comment: Interpretive Data Percent cell count reference ranges are not reported, since discordance with absolute values may lead to misinterpretation of CBC data. Current Interpretive Data was last revised on 2017. Monocyte pct 13.6 % [facility] Comment: Interpretive Data Percent cell count reference ranges are not reported, since discordance with absolute values may lead to misinterpretation of CBC data. Current Interpretive Data was last revised on 2017. Eosinophil pct 3.2 % [facility] Comment: Interpretive Data Percent cell count reference ranges are not reported, since discordance with absolute values may lead to misinterpretation of CBC data. Current Interpretive Data was last revised on 2017. Basophil pct 0.6 % [facility] Comment: Interpretive Data Percent cell count reference ranges are not reported, since discordance with absolute values may lead to misinterpretation of CBC data. Current Interpretive Data was last revised on 2017. Blood 05/03/2024 10:2 8 PM SLUBBER OPERATOR 05/03/2024 11:51 PM SLUBBER OPERATOR us Chester Vegas MD LAB BLOOD ORDERABLES Fi nal Result [facility] Department [place] [address] * (ABNORMAL) CBC with auto differential (05/03/2024 10:28 PM SLUBBER OPERATOR) WBC 6.2 3.8 - 9.9 K/cumm Hgb 9.5(L) 11.9 - 15.5 g/dL [facility] Hct 29.0(L) 35.6 - 45.5 % [facility] Plt 221 150 - 400 K/cumm [facility] MPV 9.4 9.1 - 12.3 fL [facility] RBC 3.20(L) 3.90 - 5.20 M/cumm [facility] MCV 90.6 81.3 - 96.4 fL [facility] Comment:Consistent with hist orical value. MCH 29.7 27.1 - 33.3 pg [facility] MCHC 32.8 32.3 - 35.7 g/dL [facility] RDW CV 18.3(H) 11.1 - 14.9 % [facility] RDW SD 60.1(H) 35.7 - 48.1 fL [facility] NRBC abs 0.00 0.00 - 0.01 K/cumm [facility] Blood 05/03/2024 10:2 8 PM SLUBBER OPERATOR 05/03/2024 11:51 PM SLUBBER OPERATOR us Chester Vegas MD LAB BLOOD ORDERABLES Fi nal Result [facility] [address] * Phosphorus (05/03/2024 10:28 PM SLUBBER OPERATOR) Phosphorus, pl 2.6 2.3 - 4.5 mg/dL Blood 05/03/2024 10:2 8 PM SLUBBER OPERATOR 05/03/2024 11:51 PM SLUBBER OPERATOR Chester Vegas MD LAB BLOOD ORDERABLES Fi nal Result Performing Organization Address City/[facility] Co de Phone Number [facility] [place] [address] * Magnesium (05/03/2024 10:28 PM SLUBBER OPERATOR) Magnesium 1.7 1.4 - 2.5 mg/dL Blood 05/03/2024 10:2 8 PM SLUBBER OPERATOR 05/03/2024 11:51 PM SLUBBER OPERATOR Chester Vegas MD LAB BLOOD ORDERABLES Fi nal Result [facility] [address] * (ABNORMAL) Basic metabolic panel (05/03/2024 10:28 PM SLUBBER OPERATOR) Pathologist [facility] Sodium 136 135 - 145 mmol/L Potassium, pl 4.0 3.3 - 4.9 mmol/L [facility] Chloride 112(H) 97 - 110 mmol/L [facility] CO2 16(L) 22 - 32 mmol/L [facility] Anion gap 8 2 - 15 mmol/L [facility] BUN 16 6 - 25 mg/dL [facility] Creatinine 0.88 0.60 - 1.10 mg/dL [facility] Glucose 98 70 - 199 mg/dL [facility] Comment: Interpretive Data Fasting glucose >/= 126 mg/dl is diagnostic for diabetes. Fasting is defined as no caloric intake for at least 8 hours. Fasting glucose between 100 mg/dl to 125 mg/dl is diagnostic of prediabetes. In a patient with classic symptoms of hyperglycemia or hyperglycemic crisis, a random glucose >/= 200 mg/dl is diagnostic for diabetes. In the absence of unequivocal hyperglycemia, results should be confirmed by repeat testing. The classification and Diagnosis of Diabetes Diabetes Care 202; 46: S19-S40. Current interpretive data was last revised 2022. Calcium 8.1(L) 8.5 - 10.3 mg/dL [facility] Blood 05/03/2024 10:2 8 PM SLUBBER OPERATOR 05/03/2024 11:51 PM SLUBBER OPERATOR Chester Vegas MD LAB BLOOD ORDERABLES nal Result [facility] Department [place] [address] * Tissue aerobic and anaerobic culture and gram stain Bone Iliac (05/03/2024 11:37 AM SLUBBER OPERATOR) Pathologist [facility] Direct Specimen Exam Stain: No polymorphonuclear leukocytes seen. No organisms seen. Report Final Report: No growth [facility] Bone (Iliac) 05/03/2024 11:3 7 AM SLUBBER OPERATOR 05/03/2024 11:37 AM SLUBBER OPERATOR Narrative KAILA JAMES - 05/08/2024 11:33 AM SLUBBER OPERATOR left Testing performed by [facility] ([phone]) Specimens submitted from normally sterile body sites will have all bacterial morphotypes identified. Specimens that contain grossly mixed daniela and/or are from body sites that are not normally sterile will be examined for Staphylococcus aureus, Pseudomonas aeruginosa, beta-hemolytic strep, vancomycin-resistant Enterococcus, Bacteroides, Parabacteroides, Clostridium perfringens and fungus. If any of these are isolated, the organism will be reported. Current interpretive data was last revised on 2019. us Felecia Ribera MD LAB MICROBIOLOGY - GENERAL O RDERABLES Final Result [facility] Department [place] [address] * IR Superficial Bone Biopsy (05/03/2024 10:25 AM SLUBBER OPERATOR) Anatomical Region Laterality Modality Body N/A Computed Tomogra phy 05/03/2024 10:3 6 AM SLUBBER OPERATOR Impressions 05/03/2024 3:43 PM SLUBBER OPERATOR Left iliac bone biopsy under CT guidance. The core specimens were sent to surgical pathology and microbiology. Aspirate was sent to microbiology. Dictated by: Douglas Kraus M.D. The radiology attending physician has personally reviewed this study, and had reviewed and/or edited this written report and agrees with it. Electronically signed by: Salvatore Patel MD, PHD Narrative 05/03/2024 3:43 PM SLUBBER OPERATOR EXAMINATION: Left iliac bone biopsy under CT guidance HISTORY: Chronic fracture, concern for osteomyelitis ATTENDING PRESENCE: Dr. Salvatore Patel MD, PHD, the attending radiologist, was present from the beginning to the end of the procedure. Dr. Hickman (senior vice president and chief information officer) was present and participated in the procedure. Shyanne Anguiano NP, was also present and actively participated in the procedure. SEDATION: Conscious sedation was administered under the attending physician's direction and continuous monitoring by a trained nurse specialist who was independent from those actually performing the procedure. Total monitored sedation time was 30 minutes. During the course of the procedure, the patient received Fentanyl 100 mcg and Versed 3 mg IV. TECHNIQUE: The risks, benefits and alternatives were discussed and informed consent was obtained. Prior to beginning the procedure, [place] Protocol was performed to confirm the patient's identity and the planned procedure. Sterile barriers used during the procedure included cap, mask, hand hygiene, sterile gloves, sterile gown and a sterile drape. Chloraprep was used for cutaneous antisepsis. The patient was placed supine on the procedure table. 10 mL of a 1:1 mixture of 0.25% bupivacaine and 1% lidocaine was injected for subcutaneous and deep anesthesia. 10/12 gauge Arrow [employer] coaxial biopsy device was inserted into the biopsy site and appropriate needle positioning confirmed utilizing CT guidance. 2 core specimens of a total of 4 cm in length were obtained. 4 mL of sanguinous aspirate was also obtained. The needle was removed and the skin was cleansed with hydrogen peroxide. Dermabond was placed at the needle entry site. Complication: None Type: None ESTIMATED BLOOD LOSS: <30mL CONDITION: Stable condition. DISCHARGED TO: Patient Care Division FINDINGS: Initial images demonstrate chronic, displaced left iliac wing fracture with large inferolateral soft tissue wound. Subsequent images demonstrate appropriate position of the anesthetic and biopsy needles. Images at the conclusion of the procedure demonstrate expected postbiopsy change without complication. Procedure Note Salvatore Patel MD PhD - 05/03/2024 EXAMINATION: Left iliac bone biopsy under CT guidance HISTORY: Chronic fracture, concern for osteomyelitis ATTENDING PRESENCE: Dr. Salvatore Patel MD, PHD, the attending radiologist, was present from the beginning to the end of the procedure. Dr. Hickman (senior vice president and chief information officer) was present and participated in the procedure. Shyanne Anguiano NP, was also present and actively participated in the procedure. SEDATION: Conscious sedation was administered under the attending physician's direction and continuous monitoring by a trained nurse specialist who was independent from those actually performing the procedure. Total monitored sedation time was 30 minutes. During the course of the procedure, the patient received Fentanyl 100 mcg and Versed 3 mg IV. TECHNIQUE: The risks, benefits and alternatives were discussed and informed consent was obtained. Prior to beginning the procedure, [place] Protocol was performed to confirm the patient's identity and the planned procedure. Sterile barriers used during the procedure included cap, mask, hand hygiene, sterile gloves, sterile gown and a sterile drape. Chloraprep was used for cutaneous antisepsis. The patient was placed supine on the procedure table. 10 mL of a 1:1 mixture of 0.25% bupivacaine and 1% lidocaine was injected for subcutaneous and deep anesthesia. 10/12 gauge Arrow [employer] coaxial biopsy device was inserted into the biopsy site and appropriate needle positioning confirmed utilizing CT guidance. 2 core specimens of a total of 4 cm in length were obtained. 4 mL of sanguinous aspirate was also obtained. The needle was removed and the skin was cleansed with hydrogen peroxide. Dermabond was placed at the needle entry site. Complication: None Type: None ESTIMATED BLOOD LOSS: <30mL CONDITION: Stable condition. DISCHARGED TO: Patient Care Division FINDINGS: Initial images demonstrate chronic, displaced left iliac wing fracture with large inferolateral soft tissue wound. Subsequent images demonstrate appropriate position of the anesthetic and biopsy needles. Images at the conclusion of the procedure demonstrate expected postbiopsy change without complication. IMPRESSION: Left iliac bone biopsy under CT guidance. The core specimens were sent to surgical pathology and microbiology. Aspirate was sent to microbiology. Dictated by: Douglas Kraus M.D. The radiology attending physician has personally reviewed this study, and had reviewed and/or edited this written report and agrees with it. Electronically signed by: Salvatore Patel MD, PHD Jadyn Leyva MD IMG IR PROCEDURES Danna l Result * Aerobic and anaerobic culture and gram stain Aspirate Pelvic (05/03/2024 10:17 AM SLUBBER OPERATOR) Direct Specimen Exam Stain: Few polymorphonuclear leukocytes seen. No organisms seen. Report Final Report: No growth [facility] Aspirate (Pelvic) 05/03/2024 10:17 AM SLUBBER OPERATOR 05/03/2024 11:46 AM SLUBBER OPERATOR Narrative [facility] - 05/08/2024 11:33 AM SLUBBER OPERATOR Left Iliac Apirate Testing performed by [facility] ([phone]) Specimens submitted from normally sterile body sites will have all bacterial morphotypes identified. Specimens that contain grossly mixed daniela and/or are from body sites that are not normally sterile will be examined for Staphylococcus aureus, Pseudomonas aeruginosa, beta-hemolytic strep, vancomycin-resistant Enterococcus, Bacteroides, Parabacteroides, Clostridium perfringens and fungus. If any of these are isolated, the organism will be reported. Current interpretive data was last revised on 2019. Jadyn Leyva MD LAB MICROBIOLOGY - GEN ERAL ORDERABLES Final Result [facility] Department [place] [address] * Surgical pathology (05/03/2024 9:55 AM SLUBBER OPERATOR) Tissue (Bone - Biopsy / Curettings) 05/03/2024 9:55 AM SLUBBER OPERATOR Comment:Left Iliac Bone Biop sy Narrative PATHOLOGY [facility] - 05/09/2024 2:13 PM SLUBBER OPERATOR EPIC results best viewed via link to PDF [facility] [place] [address] Note to Patients: This report may contain a detailed description of human tissue sent by a health care provider to the laboratory for pathologic evaluation. The content of this report is essential for diagnosis and may provide important critical findings. This information may be unfamiliar to patients to review without a medical professional present. It is advised that the patient review this report in the presence of a health care provider who can answer questions and explain the details. SURGICAL PATHOLOGY REPORT FINAL Patient Name: BRENTON VALDEZ Gender: F : 1945 (Age: 78) Address: [address] [place] [id number] Hospital #: [id number] Taken:05/03/2024 Received:05/03/2024 Reported: 05/09/2024 Patient Type: [facility] Inpatient Service: Hospitalist Location: [place] [address] Physician(s): Salvatore Patel M.D. MD Anna Ac M.D. Diagnosis: Bone, left iliac, biopsy - No evidence of acute osteomyelitis elba/05/09/2024 09:52 By this signature, I attest that the above diagnosis is based upon my personal examination of the slides(and/or other material indicated in the diagnosis). Patrice Hernandez M.D. Report Electronically Reviewed and Signed Out By Patrice Hernandez M.D. 05/09/2024 14:13:56 Patricia Morris M.D. History: The patient is a 78-year-old woman presenting with fall, initial encounter; urinary tract infection without hematuria, site unspecified; diarrhea, unspecified type; sepsis, due to unspecified organism, unspecified whether acute organ dysfunction present. Operative procedure: Iliac bone biopsy. Specimen(s) Received: A: Left iliac bone biopsy Gross Description: Received in formalin, labeled with the patient s identifiers and left iliac bone biopsy and consists of three white to white- pink core(s) of bone measuring 0.4-0.8 cm each in length by 0.2 cm in diameter. Labeled A1. Acid 1 decalcification.. Jar 0. sxst/05/03/2024 12:09 PA(s): Marsha Casey By this signature, I attest that the above diagnosis is based upon my personal examination of the slides(and/or other material). Addenda/Procedures The performance characteristics of some immunohistochemical stains, fluorescence in-situ hybridization tests and immunophenotyping by flow cytometry cited in this report (if any) were determined by the Surgical Pathology and Flow Cytometry Departments at [facility] as part of an ongoing director software quality assurance program and in compliance with federally mandated regulations drawn from the Clinical Laboratory Improvement Act of 1988 (CLIA '88). Some of these tests rely on the use of analyte specific reagents and are subject to specific labeling requirements by the US Food and Drug Administration. Such diagnostic tests may only be performed in a facility that is certified by the Department of Health and Human Services as a high complexity laboratory under CLIA '88. The FDA has determined that such clearance or approval is not necessary. This test is used for clinical purposes. It should not be regarded as investigational or for research. Nevertheless, federal rules concerning the medical use of analyte specific reagents require that the following disclaimer be attached to the report: This test was developed and its performance characteristics determined by the Surgical Pathology and Flow Cytometry Departments of [facility]. It has not been cleared or approved by the U. S. Food and Drug Administration. IMAGES AND SCANNED DOCUMENTS, IF INCLUDED, ONLY VIEWABLE IN PDF VERSION OF REPORT us Jadyn Leyva MD LAB PATHOLOGY ORDERABL ES Final Result PATHOLOGY [facility] IO [address]rd Floor [place], [place] [phone] * eGFR (05/02/2024 11:12 PM SLUBBER OPERATOR) eGFR 65 >=60 mL/min/1. 73 m2 Comment: Interpretive Data Reference Interval Normal >/= 90 mL/min/1.73m2 Mildly decreased* 60 - 89 mL/min/1.73m2 Mildly to moderately decreased 45 - 59 mL/min/1.73m2 Moderately to severely decreased 30 - 44 mL/min/1.73m2 Severely decreased 15 - 29 mL/min/1.73m2 Kidney Failure < 15 mL/min/1.73m2 *Relative to young adult level Estimated glomerular filtration rate is determined by the 2020 CKD-EPI equation recommended by the National Kidney Foundation (A Unifying Approach to GFR Estimation: Recommendations of the NKF-ASK Task Force on Reassessing the Inclusion of Race in Diagnosing Kidney Disease, JASN 2020). The CKD-EPI equation should not be used for patients with unstable renal function and has not been validated in children and those over 70. Current interpretive data was last reviewed 2021. Blood 05/02/2024 11:1 2 PM SLUBBER OPERATOR 05/03/2024 12:01 AM SLUBBER OPERATOR us Chester Vegas MD LAB BLOOD ORDERABLES Fi nal Result [facility] Department [place] [address] * (ABNORMAL) Differential, auto (05/02/2024 11:12 PM SLUBBER OPERATOR) Neutrophil abs 4.2 1.5 - 6.5 K/cumm Imm gran abs 0.1 0.0 - 0.1 K/cumm [facility] Lymphocyte abs 1.7 0.8 - 3.3 K/cumm [facility] Monocyte abs 0.9(H) 0.2 - 0.8 K/cumm [facility] Eosinophil abs 0.3 0.0 - 0.5 K/cumm [facility] Basophil abs 0.0 0.0 - 0.1 K/cumm [facility] Neutrophil pct 58.4 % [facility] Comment: Interpretive Data Percent cell count reference ranges are not reported, since discordance with absolute values may lead to misinterpretation of CBC data. Current Interpretive Data was last revised on 2017. Imm gran pct 0.8 % [facility] Comment: Interpretive Data Percent cell count reference ranges are not reported, since discordance with absolute values may lead to misinterpretation of CBC data. Current Interpretive Data was last revised on 2017. Lymphocyte pct 24.1 % [facility] Comment: Interpretive Data Percent cell count reference ranges are not reported, since discordance with absolute values may lead to misinterpretation of CBC data. Current Interpretive Data was last revised on 2017. Monocyte pct 12.3 % [facility] Comment: Interpretive Data Percent cell count reference ranges are not reported, since discordance with absolute values may lead to misinterpretation of CBC data. Current Interpretive Data was last revised on 2017. Eosinophil pct 3.8 % [facility] Comment: Interpretive Data Percent cell count reference ranges are not reported, since discordance with absolute values may lead to misinterpretation of CBC data. Current Interpretive Data was last revised on 2017. Basophil pct 0.6 % [facility] Comment: Interpretive Data Percent cell count reference ranges are not reported, since discordance with absolute values may lead to misinterpretation of CBC data. Current Interpretive Data was last revised on 2017. Blood 05/02/2024 11:1 2 PM SLUBBER OPERATOR 05/03/2024 12:01 AM SLUBBER OPERATOR us Chester Vegas MD LAB BLOOD ORDERABLES Fi nal Result [facility] Department [place] [address] * (ABNORMAL) CBC with auto differential (05/02/2024 11:12 PM SLUBBER OPERATOR) Pathologist [facility] WBC 7.1 3.8 - 9.9 K/cumm Hgb 9.9(L) 11.9 - 15.5 g/dL [facility] Hct 32.1(L) 35.6 - 45.5 % [facility] Plt 237 150 - 400 K/cumm [facility] MPV 9.2 9.1 - 12.3 fL [facility] RBC 3.34(L) 3.90 - 5.20 M/cumm [facility] MCV 96.1 81.3 - 96.4 fL [facility] Comment:Large delta with no apparant cause, correlate with clinical context and redraw if indicated. Called to Mary Jo Palm RN. MCH 29.6 27.1 - 33.3 pg [facility] MCHC 30.8(L) 32.3 - 35.7 g/dL [facility] RDW CV 18.6(H) 11.1 - 14.9 % [facility] RDW SD 65.2(H) 35.7 - 48.1 fL [facility] NRBC abs 0.00 0.00 - 0.01 K/cumm [facility] Blood 05/02/2024 11:1 2 PM SLUBBER OPERATOR 05/03/2024 12:01 AM SLUBBER OPERATOR Chester Vegas MD LAB BLOOD ORDERABLES nal Result [facility] Department [place] [address] * aPTT (05/02/2024 11:12 PM SLUBBER OPERATOR) Pathologist [facility] aPTT 28 28 - 38 sec Comment: Interpretive Data Heparin therapeutic range: 66.0 - 100.0 seconds. Range based on correlation with therapeutic heparin activity range of 0.3 - 0.7 Units/mL. Current interpretive data was last revised on 2022. Blood 05/02/2024 11:1 2 PM SLUBBER OPERATOR 05/03/2024 12:07 AM SLUBBER OPERATOR Chester Vegas MD LAB BLOOD ORDERABLES Fi nal Result Performing Organization Address [facility] de Phone Number [facility] [place] [address] * Protime-INR (05/02/2024 11:12 PM SLUBBER OPERATOR) PT 11.9 9.7 - 13.0 sec INR 1.10 0.90 - 1.20 [facility] Comment: Interpretive data Oral anticoagulant therapeutic ranges: Venous thromboembolism prophylaxis or treatment: 2.0-3.0 CARDIOLOGY Standard range: 2.0-3.0 High-intensity range: 2.5-3.5 Refer to indication-specific guidelines for appropriate target ranges for prosthetic heart valve replacement. Current interpretive data was last revised on 2019. Blood 05/02/2024 11:1 2 PM SLUBBER OPERATOR 05/03/2024 12:07 AM SLUBBER OPERATOR Chester Vegas MD LAB BLOOD ORDERABLES Fi nal Result Performing Organization Address [facility] [place] [address] * Phosphorus (05/02/2024 11:12 PM SLUBBER OPERATOR) Pathologist [facility] Phosphorus, pl 2.4 2.3 - 4.5 mg/dL Blood 05/02/2024 11:1 2 PM SLUBBER OPERATOR 05/03/2024 12:01 AM SLUBBER OPERATOR Chester Vegas MD LAB BLOOD ORDERABLES Fi nal Result Performing Organization Address [facility] Co de Phone Number [facility] [place] [address] * Magnesium (05/02/2024 11:12 PM SLUBBER OPERATOR) Pathologist [facility] Magnesium 1.8 1.4 - 2.5 mg/dL Blood 05/02/2024 11:1 2 PM SLUBBER OPERATOR 05/03/2024 12:01 AM SLUBBER OPERATOR Chester Vegas MD LAB BLOOD ORDERABLES Fi nal Result Performing Organization Address City/[facility]/ZIP Co de Phone Number [facility] Department [place] [address] * (ABNORMAL) Basic metabolic panel (05/02/2024 11:12 PM SLUBBER OPERATOR) [facility] Sodium 136 135 - 145 mmol/L Potassium, pl 4.3 3.3 - 4.9 mmol/L [facility] Chloride 114(H) 97 - 110 mmol/L [facility] CO2 13(L) 22 - 32 mmol/L [facility] Anion gap 9 2 - 15 mmol/L [facility] BUN 16 6 - 25 mg/dL [facility] Creatinine 0.90 0.60 - 1.10 mg/dL [facility] Glucose 87 70 - 199 mg/dL [facility] Comment: Interpretive Data Fasting glucose >/= 126 mg/dl is diagnostic for diabetes. Fasting is defined as no caloric intake for at least 8 hours. Fasting glucose between 100 mg/dl to 125 mg/dl is diagnostic of prediabetes. In a patient with classic symptoms of hyperglycemia or hyperglycemic crisis, a random glucose >/= 200 mg/dl is diagnostic for diabetes. In the absence of unequivocal hyperglycemia, results should be confirmed by repeat testing. The classification and Diagnosis of Diabetes Diabetes Care 2021; 46: S19-S40. Current interpretive data was last revised 2022. Calcium 8.1(L) 8.5 - 10.3 mg/dL [facility] Blood 05/02/2024 11:1 2 PM SLUBBER OPERATOR 05/03/2024 12:01 AM SLUBBER OPERATOR Chester Vegas MD LAB BLOOD ORDERABLES Fi nal Result Performing Organization Address [facility] Co de Phone Number [facility] Department [place] [address] * (ABNORMAL) eGFR (05/01/2024 11:02 PM SLUBBER OPERATOR) Pathologist [facility] eGFR 58(L) >=60 mL/min/1. 73 m2 Comment: Interpretive Data Reference Interval Normal >/= 90 mL/min/1.73m2 Mildly decreased* 60 - 89 mL/min/1.73m2 Mildly to moderately decreased 45 - 59 mL/min/1.73m2 Moderately to severely decreased 30 - 44 mL/min/1.73m2 Severely decreased 15 - 29 mL/min/1.73m2 Kidney Failure < 15 mL/min/1.73m2 *Relative to young adult level Estimated glomerular filtration rate is determined by the 2020 CKD-EPI equation recommended by the National Kidney Foundation (A Unifying Approach to GFR Estimation: Recommendations of the NKF-ASK Task Force on Reassessing the Inclusion of Race in Diagnosing Kidney Disease, JASN 2020). The CKD-EPI equation should not be used for patients with unstable renal function and has not been validated in children and those over 70. Current interpretive data was last reviewed 2021. Blood 05/01/2024 11:0 2 PM SLUBBER OPERATOR 05/01/2024 11:55 PM SLUBBER OPERATOR us Chester Vegas MD LAB BLOOD ORDERABLES Fi nal Result [facility] Department [place] [address] * (ABNORMAL) Differential, auto (05/01/2024 11:02 PM SLUBBER OPERATOR) Pathologist [facility] Neutrophil abs 5.7 1.5 - 6.5 K/cumm Imm gran abs 0.0 0.0 - 0.1 K/cumm [facility] Lymphocyte abs 1.5 0.8 - 3.3 K/cumm [facility] Monocyte abs 1.0(H) 0.2 - 0.8 K/cumm [facility] Eosinophil abs 0.5 0.0 - 0.5 K/cumm [facility] Basophil abs 0.0 0.0 - 0.1 K/cumm [facility] Neutrophil pct 65.3 % [facility] Comment: Interpretive Data Percent cell count reference ranges are not reported, since discordance with absolute values may lead to misinterpretation of CBC data. Current Interpretive Data was last revised on 2017. Imm gran pct 0.5 % [facility] Comment: Interpretive Data Percent cell count reference ranges are not reported, since discordance with absolute values may lead to misinterpretation of CBC data. Current Interpretive Data was last revised on 2017. Lymphocyte pct 17.4 % [facility] Comment: Interpretive Data Percent cell count reference ranges are not reported, since discordance with absolute values may lead to misinterpretation of CBC data. Current Interpretive Data was last revised on 2017. Monocyte pct 11.0 % [facility] Comment: Interpretive Data Percent cell count reference ranges are not reported, since discordance with absolute values may lead to misinterpretation of CBC data. Current Interpretive Data was last revised on 2017. Eosinophil pct 5.5 % [facility] Comment: Interpretive Data Percent cell count reference ranges are not reported, since discordance with absolute values may lead to misinterpretation of CBC data. Current Interpretive Data was last revised on 2017. Basophil pct 0.3 % [facility] Comment: Interpretive Data Percent cell count reference ranges are not reported, since discordance with absolute values may lead to misinterpretation of CBC data. Current Interpretive Data was last revised on 2017. Blood 05/01/2024 11:0 2 PM SLUBBER OPERATOR 05/01/2024 11:55 PM SLUBBER OPERATOR us Chester Vegas MD LAB BLOOD ORDERABLES Fi nal Result [facility] Department [place] [address] * Thyroid Function [place] (05/01/2024 11:02 PM SLUBBER OPERATOR) TSH 2.06 0.30 - 4.20 mcIUnit/mL Blood 05/01/2024 11:0 2 PM SLUBBER OPERATOR 05/01/2024 11:55 PM SLUBBER OPERATOR us Chester Vegsa MD LAB BLOOD ORDERABLES Fi nal Result Performing Organization Address [facility]/ZIP Co de Phone Number [facility] Department [place] [address] * (ABNORMAL) CBC with auto differential (05/01/2024 11:02 PM SLUBBER OPERATOR) Pathologist [facility] WBC 8.7 3.8 - 9.9 K/cumm Hgb 10.5(L) 11.9 - 15.5 g/dL [facility] Hct 32.6(L) 35.6 - 45.5 % [facility] Plt 272 150 - 400 K/cumm [facility] MPV 9.3 9.1 - 12.3 fL [facility] RBC 3.60(L) 3.90 - 5.20 M/cumm [facility] MCV 90.6 81.3 - 96.4 fL [facility] MCH 29.2 27.1 - 33.3 pg [facility] MCHC 32.2(L) 32.3 - 35.7 g/dL [facility] RDW CV 18.6(H) 11.1 - 14.9 % [facility] RDW SD 60.8(H) 35.7 - 48.1 fL [facility] NRBC abs 0.00 0.00 - 0.01 K/cumm [facility] Blood 05/01/2024 11:0 2 PM SLUBBER OPERATOR 05/01/2024 11:55 PM SLUBBER OPERATOR us Chester Vegas MD LAB BLOOD ORDERABLES Fi nal Result Performing Organization Address City/[facility] Hospital/ZIP Co de Phone Number [facility] Department [place] [address] * (ABNORMAL) Phosphorus (05/01/2024 11:02 PM SLUBBER OPERATOR) Pathologist [facility] Phosphorus, pl 1.7(L) 2.3 - 4.5 mg/dL Blood 05/01/2024 11:0 2 PM SLUBBER OPERATOR 05/01/2024 11:55 PM SLUBBER OPERATOR us Chester Vegas MD LAB BLOOD ORDERABLES Fi nal Result Performing Organization Address [facility] Co de Phone Number [facility] [address] * Magnesium (05/01/2024 11:02 PM SLUBBER OPERATOR) Magnesium 2.5 1.4 - 2.5 mg/dL Blood 05/01/2024 11:0 2 PM SLUBBER OPERATOR 05/01/2024 11:55 PM SLUBBER OPERATOR us Chester Vegas MD LAB BLOOD ORDERABLES Fi nal Result Performing Organization Address [facility] de Phone Number [facility] [address] * Folate (05/01/2024 11:02 PM SLUBBER OPERATOR) Folic acid >20.0 >=5.0 ng/mL Blood 05/01/2024 11:0 2 PM SLUBBER OPERATOR 05/01/2024 11:55 PM SLUBBER OPERATOR us Chester Vegas MD LAB BLOOD ORDERABLES Fi nal Result Performing Organization Address [facility] de Phone Number [facility] [address] * (ABNORMAL) Vitamin B12 (05/01/2024 11:02 PM SLUBBER OPERATOR) Vitamin B12 1,353(H) 230 - 1,250 pg/mL Blood 05/01/2024 11:0 2 PM SLUBBER OPERATOR 05/01/2024 11:55 PM SLUBBER OPERATOR us Chester Vegas MD LAB BLOOD ORDERABLES Fi nal Result [facility] Department [place] [address] * (ABNORMAL) Basic metabolic panel (05/01/2024 11:02 PM SLUBBER OPERATOR) Pathologist [facility] Sodium 140 135 - 145 mmol/L Potassium, pl 4.2 3.3 - 4.9 mmol/L [facility] Chloride 116(H) 97 - 110 mmol/L [facility] CO2 15(L) 22 - 32 mmol/L [facility] Anion gap 9 2 - 15 mmol/L [facility] BUN 16 6 - 25 mg/dL [facility] Creatinine 1.00 0.60 - 1.10 mg/dL [facility] Glucose 125 70 - 199 mg/dL [facility] Comment: Interpretive Data Fasting glucose >/= 126 mg/dl is diagnostic for diabetes. Fasting is defined as no caloric intake for at least 8 hours. Fasting glucose between 100 mg/dl to 125 mg/dl is diagnostic of prediabetes. In a patient with classic symptoms of hyperglycemia or hyperglycemic crisis, a random glucose >/= 200 mg/dl is diagnostic for diabetes. In the absence of unequivocal hyperglycemia, results should be confirmed by repeat testing. The classification and Diagnosis of Diabetes Diabetes Care 2021; 46: S19-S40. Current interpretive data was last revised 2022. Calcium 8.2(L) 8.5 - 10.3 mg/dL [facility] Blood 05/01/2024 11:0 2 PM SLUBBER OPERATOR 05/01/2024 11:55 PM SLUBBER OPERATOR us Chester Vegas MD LAB BLOOD ORDERABLES Fi nal Result [facility] Department [place] [address] * (ABNORMAL) eGFR (04/30/2024 11:17 PM SLUBBER OPERATOR) eGFR 49(L) >=60 mL/min/1. 73 m2 Comment: Interpretive Data Reference Interval Normal >/= 90 mL/min/1.73m2 Mildly decreased* 60 - 89 mL/min/1.73m2 Mildly to moderately decreased 45 - 59 mL/min/1.73m2 Moderately to severely decreased 30 - 44 mL/min/1.73m2 Severely decreased 15 - 29 mL/min/1.73m2 Kidney Failure < 15 mL/min/1.73m2 *Relative to young adult level Estimated glomerular filtration rate is determined by the 2020 CKD-EPI equation recommended by the National Kidney Foundation (A Unifying Approach to GFR Estimation: Recommendations of the NKF-ASK Task Force on Reassessing the Inclusion of Race in Diagnosing Kidney Disease, JASN 2020). The CKD-EPI equation should not be used for patients with unstable renal function and has not been validated in children and those over 70. Current interpretive data was last reviewed 2021. Blood 04/30/2024 11:1 7 PM SLUBBER OPERATOR 04/30/2024 11:53 PM SLUBBER OPERATOR Chester Vegas MD LAB BLOOD ORDERABLES nal Result [facility] Department [place] [address] * (ABNORMAL) Differential, auto (04/30/2024 11:17 PM SLUBBER OPERATOR) Pathologist [facility] Neutrophil abs 5.8 1.5 - 6.5 K/cumm Imm gran abs 0.1 0.0 - 0.1 K/cumm [facility] Lymphocyte abs 1.2 0.8 - 3.3 K/cumm [facility] Monocyte abs 1.0(H) 0.2 - 0.8 K/cumm [facility] Eosinophil abs 0.5 0.0 - 0.5 K/cumm [facility] Basophil abs 0.1 0.0 - 0.1 K/cumm [facility] Neutrophil pct 67.7 % [facility] Comment: Interpretive Data Percent cell count reference ranges are not reported, since discordance with absolute values may lead to misinterpretation of CBC data. Current Interpretive Data was last revised on 2017. Imm gran pct 0.6 % [facility] Comment: Interpretive Data Percent cell count reference ranges are not reported, since discordance with absolute values may lead to misinterpretation of CBC data. Current Interpretive Data was last revised on 2017. Lymphocyte pct 14.1 % [facility] Comment: Interpretive Data Percent cell count reference ranges are not reported, since discordance with absolute values may lead to misinterpretation of CBC data. Current Interpretive Data was last revised on 2017. Monocyte pct 11.1 % [facility] Comment: Interpretive Data Percent cell count reference ranges are not reported, since discordance with absolute values may lead to misinterpretation of CBC data. Current Interpretive Data was last revised on 2017. Eosinophil pct 5.9 % [facility] Comment: Interpretive Data Percent cell count reference ranges are not reported, since discordance with absolute values may lead to misinterpretation of CBC data. Current Interpretive Data was last revised on 2017. Basophil pct 0.6 % [facility] Comment: Interpretive Data Percent cell count reference ranges are not reported, since discordance with absolute values may lead to misinterpretation of CBC data. Current Interpretive Data was last revised on 2017. Blood 04/30/2024 11:1 7 PM SLUBBER OPERATOR 04/30/2024 11:54 PM SLUBBER OPERATOR us Chester Vegas MD LAB BLOOD ORDERABLES Fi nal Result [facility] Department [place] [address] * (ABNORMAL) CBC with auto differential (04/30/2024 11:17 PM SLUBBER OPERATOR) WBC 8.6 3.8 - 9.9 K/cumm Hgb 9.7(L) 11.9 - 15.5 g/dL [facility] Hct 29.2(L) 35.6 - 45.5 % [facility] Plt 260 150 - 400 K/cumm [facility] MPV 9.1 9.1 - 12.3 fL [facility] RBC 3.33(L) 3.90 - 5.20 M/cumm [facility] MCV 87.7 81.3 - 96.4 fL [facility] MCH 29.1 27.1 - 33.3 pg [facility] MCHC 33.2 32.3 - 35.7 g/dL [facility] RDW CV 18.1(H) 11.1 - 14.9 % [facility] RDW SD 57.2(H) 35.7 - 48.1 fL [facility] NRBC abs 0.00 0.00 - 0.01 K/cumm [facility] Blood 04/30/2024 11:1 7 PM SLUBBER OPERATOR 04/30/2024 11:54 PM SLUBBER OPERATOR Chester Vegas MD LAB BLOOD ORDERABLES Fi nal Result Performing Organization Address City/[facility] Co de Phone Number [facility] Department [place] [address] * Phosphorus (04/30/2024 11:17 PM SLUBBER OPERATOR) Phosphorus, pl 2.5 2.3 - 4.5 mg/dL Blood 04/30/2024 11:1 7 PM SLUBBER OPERATOR 04/30/2024 11:53 PM SLUBBER OPERATOR Chester Vegas MD LAB BLOOD ORDERABLES Fi nal Result Performing Organization Address City/[facility] Co de Phone Number [facility] Department [place] [address] * Magnesium (04/30/2024 11:17 PM SLUBBER OPERATOR) Magnesium 1.5 1.4 - 2.5 mg/dL Blood 04/30/2024 11:1 7 PM SLUBBER OPERATOR 04/30/2024 11:53 PM SLUBBER OPERATOR Chester Vegas MD LAB BLOOD ORDERABLES Fi nal Result Performing Organization Address City/[facility] Co de Phone Number [facility] Department [place] [address] * (ABNORMAL) Basic metabolic panel (04/30/2024 11:17 PM SLUBBER OPERATOR) Pathologist [facility] Sodium 141 135 - 145 mmol/L Potassium, pl 3.6 3.3 - 4.9 mmol/L [facility] Chloride 115(H) 97 - 110 mmol/L [facility] CO2 17(L) 22 - 32 mmol/L [facility] Anion gap 9 2 - 15 mmol/L [facility] BUN 14 6 - 25 mg/dL [facility] Creatinine 1.14(H) 0.60 - 1.10 mg/dL [facility] Glucose 102 70 - 199 mg/dL [facility] Comment: Interpretive Data Fasting glucose >/= 126 mg/dl is diagnostic for diabetes. Fasting is defined as no caloric intake for at least 8 hours. Fasting glucose between 100 mg/dl to 125 mg/dl is diagnostic of prediabetes. In a patient with classic symptoms of hyperglycemia or hyperglycemic crisis, a random glucose >/= 200 mg/dl is diagnostic for diabetes. In the absence of unequivocal hyperglycemia, results should be confirmed by repeat testing. The classification and Diagnosis of Diabetes Diabetes Care 2021; 46: S19-S40. Current interpretive data was last revised 2022. Calcium 8.3(L) 8.5 - 10.3 mg/dL [facility] Blood 04/30/2024 11:1 7 PM SLUBBER OPERATOR 04/30/2024 11:53 PM SLUBBER OPERATOR Chester Vegas MD LAB BLOOD ORDERABLES Fi nal Result [facility] Department [place] [address] * (ABNORMAL) eGFR (04/30/2024 3:35 AM SLUBBER OPERATOR) [facility] eGFR 44(L) >=60 mL/min/1. 73 m2 Comment: Interpretive Data Reference Interval Normal >/= 90 mL/min/1.73m2 Mildly decreased* 60 - 89 mL/min/1.73m2 Mildly to moderately decreased 45 - 59 mL/min/1.73m2 Moderately to severely decreased 30 - 44 mL/min/1.73m2 Severely decreased 15 - 29 mL/min/1.73m2 Kidney Failure < 15 mL/min/1.73m2 *Relative to young adult level Estimated glomerular filtration rate is determined by the 2020 CKD-EPI equation recommended by the National Kidney Foundation (A Unifying Approach to GFR Estimation: Recommendations of the NKF-ASK Task Force on Reassessing the Inclusion of Race in Diagnosing Kidney Disease, JASN 202). The CKD-EPI equation should not be used for patients with unstable renal function and has not been validated in children and those over 70. Current interpretive data was last reviewed 2021. Blood 04/30/2024 3:35 AM SLUBBER OPERATOR 04/30/2024 4:21 AM SLUBBER OPERATOR us Jadyn Leyva MD LAB BLOOD ORDERABLES F inal Result [facility] Department [place] [address] * (ABNORMAL) Differential, auto (04/30/2024 3:35 AM SLUBBER OPERATOR) Neutrophil abs 7.0(H) 1.5 - 6.5 K/cumm Imm gran abs 0.1 0.0 - 0.1 K/cumm [facility] Lymphocyte abs 1.4 0.8 - 3.3 K/cumm [facility] Monocyte abs 0.9(H) 0.2 - 0.8 K/cumm [facility] Eosinophil abs 0.3 0.0 - 0.5 K/cumm [facility] Basophil abs 0.0 0.0 - 0.1 K/cumm [facility] Neutrophil pct 72.2 % [facility] Comment: Interpretive Data Percent cell count reference ranges are not reported, since discordance with absolute values may lead to misinterpretation of CBC data. Current Interpretive Data was last revised on 2017. Imm gran pct 0.9 % [facility] Comment: Interpretive Data Percent cell count reference ranges are not reported, since discordance with absolute values may lead to misinterpretation of CBC data. Current Interpretive Data was last revised on 2017. Lymphocyte pct 14.2 % [facility] Comment: Interpretive Data Percent cell count reference ranges are not reported, since discordance with absolute values may lead to misinterpretation of CBC data. Current Interpretive Data was last revised on 2017. Monocyte pct 9.5 % [facility] Comment: Interpretive Data Percent cell count reference ranges are not reported, since discordance with absolute values may lead to misinterpretation of CBC data. Current Interpretive Data was last revised on 2017. Eosinophil pct 2.9 % [facility] Comment: Interpretive Data Percent cell count reference ranges are not reported, since discordance with absolute values may lead to misinterpretation of CBC data. Current Interpretive Data was last revised on 2017. Basophil pct 0.3 % [facility] Comment: Interpretive Data Percent cell count reference ranges are not reported, since discordance with absolute values may lead to misinterpretation of CBC data. Current Interpretive Data was last revised on 2017. Blood 04/30/2024 3:35 AM SLUBBER OPERATOR 04/30/2024 4:22 AM SLUBBER OPERATOR us Jadyn Leyva MD LAB BLOOD ORDERABLES F inal Result [facility] Department [place] [address] * (ABNORMAL) CBC with auto differential (04/30/2024 3:35 AM SLUBBER OPERATOR) WBC 9.7 3.8 - 9.9 K/cumm Hgb 10.4(L) 11.9 - 15.5 g/dL [facility] Hct 31.2(L) 35.6 - 45.5 % [facility] Plt 285 150 - 400 K/cumm [facility] MPV 9.0(L) 9.1 - 12.3 fL [facility] RBC 3.59(L) 3.90 - 5.20 M/cumm [facility] MCV 86.9 81.3 - 96.4 fL [facility] MCH 29.0 27.1 - 33.3 pg [facility] MCHC 33.3 32.3 - 35.7 g/dL [facility] RDW CV 17.7(H) 11.1 - 14.9 % [facility] RDW SD 54.9(H) 35.7 - 48.1 fL [facility] NRBC abs 0.00 0.00 - 0.01 K/cumm [facility] Blood 04/30/2024 3:35 AM SLUBBER OPERATOR 04/30/2024 4:22 AM SLUBBER OPERATOR us Jadyn Leyva MD LAB BLOOD ORDERABLES F inal Result [facility] Department [place] [address] * (ABNORMAL) Basic metabolic panel (04/30/2024 3:35 AM SLUBBER OPERATOR) Sodium 142 135 - 145 mmol/L Potassium, pl 4.4 3.3 - 4.9 mmol/L [facility] Chloride 114(H) 97 - 110 mmol/L [facility] CO2 17(L) 22 - 32 mmol/L [facility] Anion gap 11 2 - 15 mmol/L [facility] BUN 17 6 - 25 mg/dL [facility] Creatinine 1.26(H) 0.60 - 1.10 mg/dL [facility] Glucose 86 70 - 199 mg/dL [facility] Comment: Interpretive Data Fasting glucose >/= 126 mg/dl is diagnostic for diabetes. Fasting is defined as no caloric intake for at least 8 hours. Fasting glucose between 100 mg/dl to 125 mg/dl is diagnostic of prediabetes. In a patient with classic symptoms of hyperglycemia or hyperglycemic crisis, a random glucose >/= 200 mg/dl is diagnostic for diabetes. In the absence of unequivocal hyperglycemia, results should be confirmed by repeat testing. The classification and Diagnosis of Diabetes Diabetes Care 2021; 46: S19-S40. Current interpretive data was last revised 2022. Calcium 8.6 8.5 - 10.3 mg/dL [facility] Blood 04/30/2024 3:35 AM SLUBBER OPERATOR 04/30/2024 4:21 AM SLUBBER OPERATOR us Jadyn Leyva MD LAB BLOOD ORDERABLES F inal Result [facility] [place] [address] * (ABNORMAL) Calcium, ionized, whole blood (04/29/2024 7:49 PM SLUBBER OPERATOR) Ca, ionized, bld 5.34(H) 4.50 - 5.10 mg/dL Blood 04/29/2024 7:49 PM SLUBBER OPERATOR 04/29/2024 7:53 PM SLUBBER OPERATOR us Griffin Jimenez MD LAB BLOOD ORDERABLES Final Result Performing Organization Address [facility] de Phone Number [facility] [place] [address] * (ABNORMAL) eGFR (04/29/2024 7:49 PM SLUBBER OPERATOR) eGFR 44(L) >=60 mL/min/1. 73 m2 Comment: Interpretive Data Reference Interval Normal >/= 90 mL/min/1.73m2 Mildly decreased* 60 - 89 mL/min/1.73m2 Mildly to moderately decreased 45 - 59 mL/min/1.73m2 Moderately to severely decreased 30 - 44 mL/min/1.73m2 Severely decreased 15 - 29 mL/min/1.73m2 Kidney Failure < 15 mL/min/1.73m2 *Relative to young adult level Estimated glomerular filtration rate is determined by the 2020 CKD-EPI equation recommended by the National Kidney Foundation (A Unifying Approach to GFR Estimation: Recommendations of the NKF-ASK Task Force on Reassessing the Inclusion of Race in Diagnosing Kidney Disease, JASN 2020). The CKD-EPI equation should not be used for patients with unstable renal function and has not been validated in children and those over 70. Current interpretive data was last reviewed 2021. Blood 04/29/2024 7:49 PM SLUBBER OPERATOR 04/29/2024 8:18 PM SLUBBER OPERATOR Griffin Jimenez MD LAB BLOOD ORDERABLES Final Result Performing Organization Address City/State/[facility] Co de Phone Number [facility] [place] [address] * Magnesium (04/29/2024 7:49 PM SLUBBER OPERATOR) Pathologist [facility] Magnesium 2.0 1.4 - 2.5 mg/dL Comment:Reviewed Blood 04/29/2024 7:49 PM SLUBBER OPERATOR 04/29/2024 8:18 PM SLUBBER OPERATOR Griffin Jimenez MD LAB BLOOD ORDERABLES Final Result Performing Organization Address [facility] Phone Number [facility] [place] [address] * (ABNORMAL) Basic metabolic panel (04/29/2024 7:49 PM SLUBBER OPERATOR) [facility] Sodium 138 135 - 145 mmol/L Potassium, pl 3.8 3.3 - 4.9 mmol/L [facility] Chloride 110 97 - 110 mmol/L [facility] CO2 16(L) 22 - 32 mmol/L [facility] Anion gap 12 2 - 15 mmol/L [facility] BUN 19 6 - 25 mg/dL [facility] Creatinine 1.26(H) 0.60 - 1.10 mg/dL [facility] Glucose 89 70 - 199 mg/dL [facility] Comment: Interpretive Data Fasting glucose >/= 126 mg/dl is diagnostic for diabetes. Fasting is defined as no caloric intake for at least 8 hours. Fasting glucose between 100 mg/dl to 125 mg/dl is diagnostic of prediabetes. In a patient with classic symptoms of hyperglycemia or hyperglycemic crisis, a random glucose >/= 200 mg/dl is diagnostic for diabetes. In the absence of unequivocal hyperglycemia, results should be confirmed by repeat testing. The classification and Diagnosis of Diabetes Diabetes Care 202; 46: S19-S40. Current interpretive data was last revised 2022. Calcium 8.6 8.5 - 10.3 mg/dL [facility] Comment:Reviewed Blood 04/29/2024 7:49 PM SLUBBER OPERATOR 04/29/2024 8:18 PM SLUBBER OPERATOR Griffin Jimenez MD LAB BLOOD ORDERABLES Final Result Performing Organization Address City/[facility] Co de Phone Number [facility] [place] [address] * Critical Result Callback Chemistry (04/29/2024 5:43 PM SLUBBER OPERATOR) Date Notified [id number] Time Notified [facility] [facility] TestName HCO3 Abrahan (Calc) [facility] Called/Read Back Griffin [facility] Credentials MD BRIGHT [facility] Called By SB [facility] Blood 04/29/2024 5:43 PM SLUBBER OPERATOR 04/29/2024 5:48 PM SLUBBER OPERATOR Griffin Jimenez MD LAB BLOOD ORDERABLES Final Result Performing Organization Address [facility] [place] [address] * (ABNORMAL) Blood gas, venous (04/29/2024 5:43 PM SLUBBER OPERATOR) pH, Venous 7.26(L) 7.32 - 7.43 PCO2, Venous 18(L) 40 - 50 mmHg [facility] PO2, Venous 52 mmHg [facility] Comment: Interpretive Data No Reference Range Established Current Interpretive Data was last revised on 2017. HCO3 Venous, Calculated 8(C) 20 - 30 mmol/L [facility] BE, venous -18 mmol/L [facility] Comment: Interpretive Data No Reference Range Established Current Interpretive Data was last revised on 2017. Blood 04/29/2024 5:43 PM SLUBBER OPERATOR 04/29/2024 5:48 PM SLUBBER OPERATOR Griffin Jimenez MD LAB BLOOD ORDERABLES Final Result Performing Organization Address City/[facility] Co de Phone Number [facility] Department [place] [address] * (ABNORMAL) ECG 12-LEAD (04/29/2024 5:28 PM SLUBBER OPERATOR) Narrative [facility] - 04/29/2024 5:28 PM SLUBBER OPERATOR Noble Vang MD 05/02/2024 2:44 AM ECG 12 lead Date/Time: 04/29/2024 5:28 PM Performed by: Griffin Jimenez MD Authorized by: Griffin Jimenez MD Rate: ECG rate: 108 ECG rate assessment: tachycardic Rhythm: Rhythm: sinus tachycardia Ectopy: Ectopy: none QRS: QRS axis: Normal QRS intervals: Normal Conduction: Conduction: normal ST segments: ST segments: Normal T waves: T waves: normal Other findings: Other findings comment: Borderline long qt Previous ECG: Previous ECG: Compared to current Date of previous EC02/02/2024 Comparison ECG info: QT longer on current ekg. Newly tachycardic Similarity: Changes noted Interpretation: Interpretation: abnormal Recommended Follow-up: Recommended follow up: further workup in the ED us Griffin Jimenez MD ECG ORDERABLES Final Result Performing Organization Address [facility] Co de Phone Number [facility] * HI CRITICAL CARE ILL/INJURED PATIENT INIT 30-74 MIN (04/29/2024 5:25 PM SLUBBER OPERATOR) Narrative Noble Vang MD - 04/29/2024 5:25 PM SLUBBER OPERATOR Noble Vang MD 05/04/2024 11:45 AM Critical Care Performed by: Noble Vang MD Authorized by: Noble Vang MD Critical care provider statement: As reflected in the history, physical exam, orders, notes, and/or MDM, I was personally present while the patient was critically ill and provided critical care services for 45 minutes, excluding time involved in separately billable procedures. Critical care was necessary to treat or prevent imminent or life-threatening deterioration of the following condition(s): acid-base disturbance, acute electrolyte derangement and severe metabolic condition Critical care was time spent by me providing the following: continuous telemetry, interpretation of bedside monitors, imaging, and arterial/venous lab draws, serial bedside patient exams, serial laboratory checks and resuscitation with fluids frequent neurologic exams active repletion of electrolytes I provided emergent necessary critical care medicine services to this patient. I ordered and reviewed test results and/or imaging studies. I spent time discussing the management of this critically ill patient with consultants and the medical staff. I spent time documenting in the medical record. I spent time discussing the management and therapeutic options for this critically ill patient with the patient themselves or with the appropriate designated surrogate decision-maker. I admitted this patient to a continuous cardiac monitored bed. us Noble Vang MD IN CLINIC/BEDSIDE JUAN ANTONIO CASTELLON Final Result * (ABNORMAL) eGFR (04/29/2024 2:28 PM SLUBBER OPERATOR) [facility] eGFR 42(L) >=60 mL/min/1. 73 m2 Comment: Interpretive Data Reference Interval Normal >/= 90 mL/min/1.73m2 Mildly decreased* 60 - 89 mL/min/1.73m2 Mildly to moderately decreased 45 - 59 mL/min/1.73m2 Moderately to severely decreased 30 - 44 mL/min/1.73m2 Severely decreased 15 - 29 mL/min/1.73m2 Kidney Failure < 15 mL/min/1.73m2 *Relative to young adult level Estimated glomerular filtration rate is determined by the 2020 CKD-EPI equation recommended by the National Kidney Foundation (A Unifying Approach to GFR Estimation: Recommendations of the NKF-ASK Task Force on Reassessing the Inclusion of Race in Diagnosing Kidney Disease, JASN 202). The CKD-EPI equation should not be used for patients with unstable renal function and has not been validated in children and those over 70. Current interpretive data was last reviewed 2021. Blood 04/29/2024 2:28 PM SLUBBER OPERATOR 04/29/2024 2:42 PM SLUBBER OPERATOR us Jadyn Leyva MD LAB BLOOD ORDERABLES F inal Result [facility] Department [place] [address] * (ABNORMAL) Differential, auto (04/29/2024 2:28 PM SLUBBER OPERATOR) Neutrophil abs 5.6 1.5 - 6.5 K/cumm Imm gran abs 0.1 0.0 - 0.1 K/cumm [facility] Lymphocyte abs 1.4 0.8 - 3.3 K/cumm [facility] Monocyte abs 1.0(H) 0.2 - 0.8 K/cumm [facility] Eosinophil abs 0.1 0.0 - 0.5 K/cumm [facility] Basophil abs 0.0 0.0 - 0.1 K/cumm [facility] Neutrophil pct 68.2 % [facility] Comment: Interpretive Data Percent cell count reference ranges are not reported, since discordance with absolute values may lead to misinterpretation of CBC data. Current Interpretive Data was last revised on 2017. Imm gran pct 1.0 % [facility] Comment: Interpretive Data Percent cell count reference ranges are not reported, since discordance with absolute values may lead to misinterpretation of CBC data. Current Interpretive Data was last revised on 2017. Lymphocyte pct 17.0 % [facility] Comment: Interpretive Data Percent cell count reference ranges are not reported, since discordance with absolute values may lead to misinterpretation of CBC data. Current Interpretive Data was last revised on 2017. Monocyte pct 12.3 % [facility] Comment: Interpretive Data Percent cell count reference ranges are not reported, since discordance with absolute values may lead to misinterpretation of CBC data. Current Interpretive Data was last revised on 2017. Eosinophil pct 1.0 % [facility] Comment: Interpretive Data Percent cell count reference ranges are not reported, since discordance with absolute values may lead to misinterpretation of CBC data. Current Interpretive Data was last revised on 2017. Basophil pct 0.5 % [facility] Comment: Interpretive Data Percent cell count reference ranges are not reported, since discordance with absolute values may lead to misinterpretation of CBC data. Current Interpretive Data was last revised on 2017. Blood 04/29/2024 2:28 PM SLUBBER OPERATOR 04/29/2024 2:36 PM SLUBBER OPERATOR Jadyn Leyva MD LAB BLOOD ORDERABLES F inal Result Performing Organization Address City/[facility]/ZIP Co de Phone Number [facility] [place] [address] * Critical Result Callback Chemistry (04/29/2024 2:28 PM SLUBBER OPERATOR) Date Notified 20240429 Time Notified 164 [place]A [place] TestName Theresa [place] Called/Read Back Marcia [place] Credentials [facility] [place] Called By Rey [place] Blood 04/29/2024 2:28 PM SLUBBER OPERATOR 04/29/2024 2:42 PM SLUBBER OPERATOR Navid Weinstein MD LAB BLOOD ORDERABLES Final Re sult Performing Organization Address [facility] Co de Phone Number KAILA [facility] [address] * Critical Result Callback Chemistry (04/29/2024 2:28 PM SLUBBER OPERATOR) Date Notified 20240429 Time Notified 1517 [facility]AILA [place] TestName Gay [place] Called/Read Back Jadyn [place] Credentials MD [facility] [place] Called By VIJAYA [place] Blood 04/29/2024 2:28 PM SLUBBER OPERATOR 04/29/2024 2:42 PM SLUBBER OPERATOR Jadyn Leyva MD LAB BLOOD ORDERABLES F inal Result Performing Organization Address City/[facility]/ZIP Co de Phone Number KAILA [facility] [place] [address] * (ABNORMAL) CBC with auto differential (04/29/2024 2:28 PM SLUBBER OPERATOR) [facility] WBC 8.3 3.8 - 9.9 K/cumm Hgb 9.3(L) 11.9 - 15.5 g/dL [facility] Hct 26.6(L) 35.6 - 45.5 % [facility] Plt 271 150 - 400 K/cumm [facility] MPV 9.2 9.1 - 12.3 fL [facility] RBC 3.16(L) 3.90 - 5.20 M/cumm [facility] MCV 84.2 81.3 - 96.4 fL [facility] MCH 29.4 27.1 - 33.3 pg [facility] MCHC 35.0 32.3 - 35.7 g/dL [facility] RDW CV 17.0(H) 11.1 - 14.9 % [facility] RDW SD 52.3(H) 35.7 - 48.1 fL [facility] NRBC abs 0.00 0.00 - 0.01 K/cumm [facility] Blood 04/29/2024 2:28 PM SLUBBER OPERATOR 04/29/2024 2:36 PM SLUBBER OPERATOR us Jadyn Leyva MD LAB BLOOD ORDERABLES F inal Result Performing Organization Address City/[facility]/ZIP Co de Phone Number [facility] Department of Every[place] [address] * (ABNORMAL) Magnesium (04/29/2024 2:28 PM SLUBBER OPERATOR) [facility] Magnesium 0.6(C) 1.4 - 2.5 mg/dL Comment:Repeated and Verifie d Blood 04/29/2024 2:28 PM SLUBBER OPERATOR 04/29/2024 2:42 PM SLUBBER OPERATOR us Navid Weinstein MD LAB BLOOD ORDERABLES Final Re sult Performing Organization Address City/[facility]/ZIP Co de Phone Number [facility] Department [place] [address] * (ABNORMAL) Basic metabolic panel (04/29/2024 2:28 PM SLUBBER OPERATOR) Sodium 141 135 - 145 mmol/L Potassium, pl 2.9(L) 3.3 - 4.9 mmol/L [facility] Chloride 115(H) 97 - 110 mmol/L [facility] CO2 17(L) 22 - 32 mmol/L [facility] Anion gap 9 2 - 15 mmol/L [facility] BUN 19 6 - 25 mg/dL [facility] Creatinine 1.31(H) 0.60 - 1.10 mg/dL [facility] Glucose 75 70 - 199 mg/dL [facility] Comment: Interpretive Data Fasting glucose >/= 126 mg/dl is diagnostic for diabetes. Fasting is defined as no caloric intake for at least 8 hours. Fasting glucose between 100 mg/dl to 125 mg/dl is diagnostic of prediabetes. In a patient with classic symptoms of hyperglycemia or hyperglycemic crisis, a random glucose >/= 200 mg/dl is diagnostic for diabetes. In the absence of unequivocal hyperglycemia, results should be confirmed by repeat testing. The classification and Diagnosis of Diabetes Diabetes Care 202; 46: S19-S40. Current interpretive data was last revised 2022. Calcium 6.4(C) 8.5 - 10.3 mg/dL [facility] Blood 04/29/2024 2:28 PM SLUBBER OPERATOR 04/29/2024 2:36 PM SLUBBER OPERATOR Jadyn Leyva MD LAB BLOOD ORDERABLES F inal Result [facility] Department [place] [address] * XR Hip Left 2 or 3 Views W Pelvis (04/29/2024 11:27 AM SLUBBER OPERATOR) Anatomical Region Laterality Modality Lower Extremities, Hip, Pelvis Left C omputed Radiography 04/29/2024 12:2 7 PM SLUBBER OPERATOR Impressions 04/29/2024 12:27 PM SLUBBER OPERATOR Findings and Impression: Left hip: No acute fracture or dislocation. The chronic left iliac wing fracture was better seen on the recent CT. Right tibia and fibula: Status post right knee replacement. Enthesopathic changes at the Achilles insertion on the calcaneus. No fracture or dislocation. Electronically signed by: Pedro Lau M.D. Narrative 04/29/2024 12:27 PM SLUBBER OPERATOR Study: 3 views of the left hip. 2 views of the right tibia and fibula. Indication: pain Comparison: 03/21/2024 Procedure Note Pedro Lau MD - 04/29/2024 Study: 3 views of the left hip. 2 views of the right tibia and fibula. Indication: pain Comparison: 03/21/2024 IMPRESSION: Findings and Impression: Left hip: No acute fracture or dislocation. The chronic left iliac wing fracture was better seen on the recent CT. Right tibia and fibula: Status post right knee replacement. Enthesopathic changes at the Achilles insertion on the calcaneus. No fracture or dislocation. Electronically signed by: Pedro Lau M.D. Navid Weinstein MD IMG XR PROCEDURES Final Resul t * XR Tibia Fibula Right 2 Views (04/29/2024 11:26 AM SLUBBER OPERATOR) Anatomical Region Laterality Modality Lower Extremities, Lower Leg Right Com puted Radiography 04/29/2024 12:2 7 PM SLUBBER OPERATOR Impressions 04/29/2024 12:27 PM SLUBBER OPERATOR Findings and Impression: Left hip: No acute fracture or dislocation. The chronic left iliac wing fracture was better seen on the recent CT. Right tibia and fibula: Status post right knee replacement. Enthesopathic changes at the Achilles insertion on the calcaneus. No fracture or dislocation. Electronically signed by: Pedro Lau M.D. Narrative 04/29/2024 12:27 PM SLUBBER OPERATOR Study: 3 views of the left hip. 2 views of the right tibia and fibula. Indication: pain Comparison: 03/21/2024 Procedure Note Pedro Lau MD - 04/29/2024 Study: 3 views of the left hip. 2 views of the right tibia and fibula. Indication: pain Comparison: 03/21/2024 IMPRESSION: Findings and Impression: Left hip: No acute fracture or dislocation. The chronic left iliac wing fracture was better seen on the recent CT. Right tibia and fibula: Status post right knee replacement. Enthesopathic changes at the Achilles insertion on the calcaneus. No fracture or dislocation. Electronically signed by: Pedro Lau M.D. Jadyn Leyva MD IMG XR PROCEDURES Danna l Result * Erythrocyte sedimentation rate (04/29/2024 9:51 AM SLUBBER OPERATOR) Pathologist [facility] Erythrocyte sedimentation rate 16 1 - 30 mm/hr Blood 04/29/2024 9:51 AM SLUBBER OPERATOR 04/29/2024 10:04 AM SLUBBER OPERATOR Jadyn Leyva MD LAB BLOOD ORDERABLES F inal Result Performing Organization Address [facility] de Phone Number [facility] Department [place] [address] * CRP (acute phase) (04/29/2024 9:51 AM SLUBBER OPERATOR) [facility] CRP 6.1 <=10.0 mg/L Blood 04/29/2024 9:51 AM SLUBBER OPERATOR 04/29/2024 10:04 AM SLUBBER OPERATOR Jadyn Leyva MD LAB BLOOD ORDERABLES F inal Result Performing Organization Address [facility] de Phone Number [facility] Department [place] [address] * (ABNORMAL) eGFR (04/29/2024 5:49 AM SLUBBER OPERATOR) Pathologist [facility] eGFR 34(L) >=60 mL/min/1. 73 m2 Comment: Interpretive Data Reference Interval Normal >/= 90 mL/min/1.73m2 Mildly decreased* 60 - 89 mL/min/1.73m2 Mildly to moderately decreased 45 - 59 mL/min/1.73m2 Moderately to severely decreased 30 - 44 mL/min/1.73m2 Severely decreased 15 - 29 mL/min/1.73m2 Kidney Failure < 15 mL/min/1.73m2 *Relative to young adult level Estimated glomerular filtration rate is determined by the 2020 CKD-EPI equation recommended by the National Kidney Foundation (A Unifying Approach to GFR Estimation: Recommendations of the NKF-ASK Task Force on Reassessing the Inclusion of Race in Diagnosing Kidney Disease, JASN 202). The CKD-EPI equation should not be used for patients with unstable renal function and has not been validated in children and those over 70. Current interpretive data was last reviewed 2021. Blood 04/29/2024 5:49 AM SLUBBER OPERATOR 04/29/2024 5:58 AM SLUBBER OPERATOR us Amna Zaragoza DO LAB BLOOD ORDERABLES Final Resul t [facility] Department [place] [address] * (ABNORMAL) CBC without differential (04/29/2024 5:49 AM SLUBBER OPERATOR) WBC 8.4 3.8 - 9.9 K/cumm Hgb 10.4(L) 11.9 - 15.5 g/dL [facility] Hct 30.4(L) 35.6 - 45.5 % [facility] Plt 263 150 - 400 K/cumm [facility] MPV 9.1 9.1 - 12.3 fL [facility] RBC 3.56(L) 3.90 - 5.20 M/cumm [facility] MCV 85.4 81.3 - 96.4 fL [facility] MCH 29.2 27.1 - 33.3 pg [facility] MCHC 34.2 32.3 - 35.7 g/dL [facility] RDW CV 16.6(H) 11.1 - 14.9 % [facility] RDW SD 51.0(H) 35.7 - 48.1 fL [facility] NRBC abs 0.00 0.00 - 0.01 K/cumm [facility] Blood 04/29/2024 5:49 AM SLUBBER OPERATOR 04/29/2024 5:58 AM SLUBBER OPERATOR us Amna Zaragoza DO LAB BLOOD ORDERABLES Final Resul t [facility] Department [place] [address] * (ABNORMAL) Comprehensive metabolic panel (04/29/2024 5:49 AM SLUBBER OPERATOR) Pathologist [facility] Sodium 142 135 - 145 mmol/L Potassium, pl 3.0(L) 3.3 - 4.9 mmol/L [facility] Chloride 113(H) 97 - 110 mmol/L [facility] CO2 17(L) 22 - 32 mmol/L [facility] Anion gap 12 2 - 15 mmol/L [facility] BUN 24 6 - 25 mg/dL [facility] Creatinine 1.54(H) 0.60 - 1.10 mg/dL [facility] Glucose 77 70 - 199 mg/dL [facility] Comment: Interpretive Data Fasting glucose >/= 126 mg/dl is diagnostic for diabetes. Fasting is defined as no caloric intake for at least 8 hours. Fasting glucose between 100 mg/dl to 125 mg/dl is diagnostic of prediabetes. In a patient with classic symptoms of hyperglycemia or hyperglycemic crisis, a random glucose >/= 200 mg/dl is diagnostic for diabetes. In the absence of unequivocal hyperglycemia, results should be confirmed by repeat testing. The classification and Diagnosis of Diabetes Diabetes Care 202; 46: S19-S40. Current interpretive data was last revised 2022. Calcium 7.2(L) 8.5 - 10.3 mg/dL [facility] Bilirubin, total 0.2 0.1 - 1.2 mg/dL [facility] Protein, pl 5.2(L) 6.5 - 8.5 g/dL [facility] Albumin 2.5(L) 3.5 - 5.0 g/dL [facility] Alk phos 117 40 - 130 Units/L [facility] ALT 19 7 - 45 Units/L [facility] AST 27 10 - 45 Units/L [facility] Blood 04/29/2024 5:49 AM SLUBBER OPERATOR 04/29/2024 5:58 AM SLUBBER OPERATOR Amna Zaragoza DO LAB BLOOD ORDERABLES Final Resul t Performing Organization Address [facility] Co de Phone Number [facility] [place] [address] * C. difficile testing Stool (04/28/2024 8:45 PM SLUBBER OPERATOR) Pathologist [facility] Result Negative Negative Toxin Result Negative Negative [facility] C. diff result Negative, free toxin Negative, free toxin [facility] C. diff interp Negative for toxigenic Clostridioides (Clostridium) difficile. Analysis was performed using a glutamate dehydrogenase antigen detection assay combined with a C. difficile toxin detection assay. [facility] Stool 04/28/2024 8:45 PM SLUBBER OPERATOR 04/28/2024 9:17 PM SLUBBER OPERATOR Mel Kim MD LAB MICROBIOLOGY - GENER AL ORDERABLES Final Result Performing Organization Address [facility] de Phone Number [facility] Department [place] [address] * (ABNORMAL) Drugs of Abuse Screen, Urine with Reflex Confirmation (04/28/2024 7:39 PM SLUBBER OPERATOR) Pathologist [facility] Amphetamine, ur Not Detected CutOff 500ng/mL Comment: Interpretive Data - Amphetamines: Samples containing greater than 500 ng/mL d-methamphetamine or other cross-reacting amphetamine compounds are reported as positive. Amphetamine immunoassays are subject to significant false positive rates due to cross-reactivity of non-amphetamine drugs. Confirmatory testing required for definitive results. Current Interpretive Data was last reviewed 2022. Barbiturates, ur Not Detected CutOff 200ng/mL [facility] Comment: Interpretive Data - Barbiturates: Samples containing greater than 200 ng/mL secobarbital or other cross-reacting barbiturate compounds are reported as positive. False positive and false negative results are possible. Confirmatory testing required for definitive results. Current Interpretive Data was last reviewed 2022. Benzodiazepines, ur Screen Positive, presumptive (A) CutOff 100ng/mL [facility] Comment: Interpretive Data - Benzodiazepines: Samples containing greater than 100 ng/mL nordiazepam or other cross-reacting compounds are reported as positive. False positive and false negative results are possible. Confirmatory testing required for definitive results. Current Interpretive Data was last reviewed 2022. Cannabinoids, ur Not Detected CutOff 50 ng/mL [facility] Comment: Interpretive Data - Cannabinoids: Samples containing greater than 50 ng/mL delta-9 THC -COOH or other cross- reacting compounds are reported as positive. False positive and false negative results are possible. Confirmatory testing required for definitive results. Current Interpretive Data was last reviewed 2022. Cocaine, ur Not Detected CutOff 150ng/mL [facility] Comment: Interpretive Data - Cocaine: Samples containing greater than 150 ng/mL benzoylecgonine or other cross- reacting compounds are reported as positive. False positive and false negative results are possible. Confirmatory testing required for definitive results. Current Interpretive Data was last reviewed 2022. Fentanyl, Ur Not Detected CutOff 5 ng/mL [facility] Comment: Interpretive Data - Fentanyl: Samples containing greater than 5 ng/mL norfentanyl, fentanyl, or other cross-reacting fentanyl compounds are reported as positive. False positive and false negative results are possible. Confirmatory testing required for definitive results. Current Interpretive Data was last reviewed 2023. Methadone, ur Not Detected CutOff 300ng/mL [facility] Comment: Interpretive Data - Methadone: Samples containing greater than 300 ng/mL d,l-methadone or other cross-reacting compounds are reported as positive. False positive and false negative results are possible. Confirmatory testing required for definitive results. Current Interpretive Data was last reviewed 2022. Opiates, ur Not Detected CutOff 300ng/mL [facility] Comment: Interpretive Data - Opiates: Samples containing greater than 300 ng/mL morphine or other cross-reacting compounds are reported as positive. False positive and false negative results are possible. Confirmatory testing required for definitive results. Current Interpretive Data was last reviewed 2022. Oxycodone, ur Not Detected CutOff 100ng/mL [facility] Comment: Interpretive Data - Oxycodone: Samples containing greater than 100 ng/mL oxycodone or other cross-reacting compounds are reported as positive. False positive and false negative results are possible. Confirmatory testing required for definitive results. Current Interpretive Data was last reviewed 2022. Phencyclidine, ur Not Detected CutOff 25 ng/mL [facility] Comment: Interpretive Data - Phencyclidine: Samples containing greater than 25 ng/mL phencyclidine or other cross-reacting compounds are reported as positive. False positive and false negative results are possible. Confirmatory testing required for definitive results. Current Interpretive Data was last reviewed 2022. Urine Creatinine 114 mg/dL [facility] Comment: Interpretive Data Urine Creatinine: < 10 mg/dL is extremely dilute = or > 10 but < 20 mg/dL is dilute = or > 20 mg/dL is normal Current Interpretive Data was last revised on 2017. Urine 04/28/2024 7:39 PM SLUBBER OPERATOR 04/28/2024 7:47 PM SLUBBER OPERATOR Narrative [facility] - 04/28/2024 8:17 PM SLUBBER OPERATOR Drug of Abuse screening is performed by immunoassay for medical purposes only. This is not to be used for Pain Management purposes. If Detected, confirmation testing will be performed for Amphetamines, Cocaine, Fentanyl, Methadone, Opiates, Oxycodone or Phencyclidine. Carlitos Carr MD LAB URINE ORDERABLES Final Re sult [facility] Department [place] [address] * (ABNORMAL) Urinalysis reflex to microscopic and culture Urine (04/28/2024 7:17 PM SLUBBER OPERATOR) Color, ur Yellow Yellow Clarity, ur Cloudy(A) Clear [facility] Specific gravity, ur 1.039(H) 1.003 - 1.030 [facility] pH, urine 6.0 [facility] Comment: Interpretive Data U rine pH is affected by diet, medications, systemic acid-base disturbances, and renal tubular function. pH may affect urinary stone formation. For example, urine pH below 6.0 may help reduce the tendency for calcium phosphate stones and pH greater than 6.0 may reduce the tendency for uric acid stone formation. Source: [facility] Current Interpretive Data was last revised on 2017 Protein, ur ql 1+(A) Negative [facility] Glucose, ur ql Negative Negative [facility] Ketones, ur Negative Negative [facility] Bilirubin, ur Negative Negative [facility] Blood, ur Trace(A) Negative [facility] Urobilinogen, ur <2.0 <2.0 mg/dL [facility] Nitrite, ur Negative Negative [facility] Leukocyte esterase, ur 3+(A) Negative [facility] UA reflex comment Reflex to microscopic UA will be performed. [facility] Urine 04/28/2024 7:17 PM SLUBBER OPERATOR 04/28/2024 7:21 PM SLUBBER OPERATOR Mel Kim MD LAB MICROBIOLOGY - GENER AL ORDERABLES Final Result [facility] Department [place] [address] * Blood culture Blood Peripheral (04/28/2024 7:17 PM SLUBBER OPERATOR) Report Final Report: No growth Blood (Peripheral) 04/28/2024 7:17 PM SLUBBER OPERATOR 04/28/2024 7:38 PM SLUBBER OPERATOR Narrative [facility] - 05/03/2024 7:00 AM SLUBBER OPERATOR From a different site than #1. Draw Blood cultures before administration of Antibiotics Collection->Peripheral 1. Blood cultures are incubated for 4 days on a continuously monitored blood culture system. The first report of a negative culture is issued within 24 hours of receipt of the specimen in the laboratory. 2. Positive culture results are reported as soon as they are detected. 3. The most important factor for detection of microbes in the setting of bloodstream infection is the volume of blood submitted for culture. Failure to collect an optimal blood volume can result in false negative blood cultures. 4. For pediatric patients, the recommended blood volume to collect follows a weight based strategy. See the electronic test catalog for collection instructions. 5. For positive blood cultures, a rapid molecular test may be performed for organism identification using the adolph ePlex blood culture identification panel for gram positive (BCID-GP) and gram negative (BCID-GN) organisms. This nucleic acid amplification test detects microbial DNA in positive blood culture broth. This assay has been cleared by the [place] Food and Drug Administration and its performance characteristics have been verified by the [facility]. For questions about this culture, contact the Microbiology Laboratory at [phone]. Interpretive data was last revised on 24. us Mel Kim MD LAB MICROBIOLOGY - GENER AL ORDERABLES Final Result [facility] Department [place] [address] * Blood culture Blood Peripheral (04/28/2024 7:17 PM SLUBBER OPERATOR) Report Final Report: No growth Blood (Peripheral) 04/28/2024 7:17 PM SLUBBER OPERATOR 04/28/2024 7:38 PM SLUBBER OPERATOR Narrative [facility] - 05/03/2024 7:00 AM SLUBBER OPERATOR Draw Blood cultures before administration of Antibiotics Collection->Peripheral 1. Blood cultures are incubated for 4 days on a continuously monitored blood culture system. The first report of a negative culture is issued within 24 hours of receipt of the specimen in the laboratory. 2. Positive culture results are reported as soon as they are detected. 3. The most important factor for detection of microbes in the setting of bloodstream infection is the volume of blood submitted for culture. Failure to collect an optimal blood volume can result in false negative blood cultures. 4. For pediatric patients, the recommended blood volume to collect follows a weight based strategy. See the electronic test catalog for collection instructions. 5. For positive blood cultures, a rapid molecular test may be performed for organism identification using the adolph ePlex blood culture identification panel for gram positive (BCID-GP) and gram negative (BCID-GN) organisms. This nucleic acid amplification test detects microbial DNA in positive blood culture broth. This assay has been cleared by the [place] Food and Drug Administration and its performance characteristics have been verified by the [facility]. For questions about this culture, contact the Microbiology Laboratory at [phone]. Interpretive data was last revised on 24. Mel Kim MD LAB MICROBIOLOGY - GENER AL ORDERABLES Final Result Performing Organization Address [facility] de Phone Number [facility] Department [place] [address] * (ABNORMAL) Urinalysis, microscopic only (04/28/2024 7:17 PM SLUBBER OPERATOR) WBC, ur >50(A) 0 - 5 /HPF RBC, ur 0-2 0 - 2 /HPF [facility] Epithelial cells, squamous, ur 1-5 0 - 5 /HPF [facility] Bacteria, ur 4+(A) [facility] Mucous, ur Present(A) [facility] Hyaline casts, ur 1-5 0 - 10 /LPF [facility] Culture Reflex Comment Reflex to urine culture will be performed. [facility] Urine 04/28/2024 7:17 PM SLUBBER OPERATOR 04/28/2024 7:21 PM SLUBBER OPERATOR Mel Kim MD LAB URINE ORDERABLES Fin al Result Performing Organization Address [facility] de Phone Number [facility] Department [place] [address] * (ABNORMAL) Urine culture Urine (04/28/2024 7:17 PM SLUBBER OPERATOR) Report Final Report: Greater than or equal to 100,000 colonies/mL of Klebsiella pneumoniae The susceptibility pattern of this Klebsiella pneumoniae indicates the possible production of an extended spectrum beta lactamase (ESBL). Patients infected with ESBL-producing organisms require contact isolation precautions. For therapeutic options for this organism, please contact infectious diseases. Greater than or equal to 100,000 colonies/mL of Klebsiella pneumoniae #2 The susceptibility pattern of this Klebsiella pneumoniae #2 indicates the possible production of an extended spectrum beta lactamase (ESBL). Patients infected with ESBL-producing organisms require contact isolation precautions. For therapeutic options for this organism, please contact infectious diseases. (.) Organism KLEBSIELLA PNEUMONIAE [facility] Organism KLEBSIELLA PNEUMONIAE [facility] Urine 04/28/2024 7:17 PM SLUBBER OPERATOR 04/29/2024 1:52 AM SLUBBER OPERATOR Narrative [facility] - 05/02/2024 9:28 AM SLUBBER OPERATOR Urine culture reflexed based upon urinalysis results. Testing performed by [facility] ([phone]) Organism Antibiotic Method Susceptibility Klebsiella pneumoniae Ampicillin INTERPRETATION Resistant Klebsiella pneumoniae Cefazolin INTERPRETATION Resistant Klebsiella pneumoniae Nitrofurantoin INTERPRETATION Resistant Klebsiella pneumoniae Gentamicin INTERPRETATION Susceptible Klebsiella pneumoniae Trimethoprim with Sulfamethoxazole INTERPRETATION Resistant Klebsiella pneumoniae Meropenem INTERPRETATION Susceptible Klebsiella pneumoniae Cefepime INTERPRETATION Resistant Klebsiella pneumoniae Ciprofloxacin INTERPRETATION Resistant Klebsiella pneumoniae Ceftazidime INTERPRETATION Resistant Klebsiella pneumoniae Ceftriaxone INTERPRETATION Resistant Klebsiella pneumoniae Piperacillin/Tazobactam INTERPRE TATION Intermediate Klebsiella pneumoniae Cephalexin INTERPRETATION Resistant Klebsiella pneumoniae Cefuroxime-axetil INTERPRETATION Resistant Klebsiella pneumoniae Cefdinir INTERPRETATION Resistant Klebsiella pneumoniae Amikacin INTERPRETATION Susceptible Klebsiella pneumoniae Aztreonam INTERPRETATION Resistant Klebsiella pneumoniae Imipenem INTERPRETATION Susceptible Klebsiella pneumoniae Ertapenem INTERPRETATION Susceptible Klebsiella pneumoniae Minocycline INTERPRETATION Intermediate Klebsiella pneumoniae Tobramycin INTERPRETATION Susceptible Klebsiella pneumoniae Levofloxacin INTERPRETATION Resistant Klebsiella pneumoniae Doxycycline INTERPRETATION Resistant Klebsiella pneumoniae Ampicillin with Sulbactam INTERP RETATION Resistant Klebsiella pneumoniae Ampicillin INTERPRETATION Resistant Klebsiella pneumoniae Cefazolin INTERPRETATION Resistant Klebsiella pneumoniae Nitrofurantoin INTERPRETATION Resistant Klebsiella pneumoniae Gentamicin INTERPRETATION Susceptible Klebsiella pneumoniae Trimethoprim with Sulfamethoxazole INTERPRETATION Resistant Klebsiella pneumoniae Meropenem INTERPRETATION Susceptible Klebsiella pneumoniae Cefepime INTERPRETATION Resistant Klebsiella pneumoniae Ciprofloxacin INTERPRETATION Resistant Klebsiella pneumoniae Ceftazidime INTERPRETATION Resistant Klebsiella pneumoniae Ceftriaxone INTERPRETATION Resistant Klebsiella pneumoniae Cephalexin INTERPRETATION Resistant Klebsiella pneumoniae Cefuroxime-axetil INTERPRETATION Resistant Klebsiella pneumoniae Cefdinir INTERPRETATION Resistant Klebsiella pneumoniae Amikacin INTERPRETATION Susceptible Klebsiella pneumoniae Aztreonam INTERPRETATION Resistant Klebsiella pneumoniae Imipenem INTERPRETATION Susceptible Klebsiella pneumoniae Ertapenem INTERPRETATION Susceptible Klebsiella pneumoniae Minocycline INTERPRETATION Intermediate Klebsiella pneumoniae Tobramycin INTERPRETATION Susceptible Klebsiella pneumoniae Levofloxacin INTERPRETATION Resistant Klebsiella pneumoniae Doxycycline INTERPRETATION Resistant Klebsiella pneumoniae Ampicillin with Sulbactam INTERP RETATION Resistant us Mel Kim MD LAB MICROBIOLOGY - GENER AL ORDERABLES Final Result [facility] Department [place] [address] * Sepsis Lactate w/ Reflex (04/28/2024 5:42 PM SLUBBER OPERATOR) Sepsis Lactate 1.5 0.7 - 2.0 mmol/L Blood 04/28/2024 5:42 PM SLUBBER OPERATOR 04/28/2024 5:45 PM SLUBBER OPERATOR Margo Chang MD LAB BLOOD ORDERABLES Fin al Result [facility] Department [place] [address] * HI CRITICAL CARE ILL/INJURED PATIENT INIT 30-74 MIN (04/28/2024 4:52 PM SLUBBER OPERATOR) Narrative Carlitos Carr MD - 04/28/2024 4:52 PM SLUBBER OPERATOR Carlitos Carr MD 04/28/2024 6:30 PM Critical Care Performed by: Carlitos Carr MD Authorized by: Carlitos Carr MD Critical care provider statement: As reflected in the history, physical exam, orders, notes, and/or MDM, I was personally present while the patient was critically ill and provided critical care services for 31 minutes, excluding time involved in separately billable procedures. Critical care was necessary to treat or prevent imminent or life-threatening deterioration of the following condition(s): unstable vital signs acute electrolyte derangement sepsis level 1 trauma Critical care was time spent by me providing the following: continuous telemetry, continuous pulse oximetry, interpretation of bedside monitors, imaging, and arterial/venous lab draws, serial laboratory checks, serial bedside patient exams and resuscitation with fluids active repletion of electrolytes obtain appropriate cultures and empiric broad coverage antibiotics I provided emergent necessary critical care medicine services to this patient. I ordered and reviewed test results and/or imaging studies. I spent time discussing the management of this critically ill patient with consultants and the medical staff. I spent time discussing the management and therapeutic options for this critically ill patient with the patient themselves or with the appropriate designated surrogate decision-maker. I spent time documenting in the medical record. us Carlitos Carr MD IN CLINIC/BEDSIDE ORDERABLES Final Result * aPTT (04/28/2024 4:33 PM SLUBBER OPERATOR) aPTT 33 28 - 38 sec Comment: Interpretive Data Heparin therapeutic range: 66.0 - 100.0 seconds. Range based on correlation with therapeutic heparin activity range of 0.3 - 0.7 Units/mL. Current interpretive data was last revised on 2022. Blood 04/28/2024 4:33 PM SLUBBER OPERATOR 04/28/2024 4:45 PM SLUBBER OPERATOR Carlitos Carr MD LAB BLOOD ORDERABLES Final Re sult Performing Organization Address [facility] de Phone Number [facility] Department of [place] [address] * (ABNORMAL) Protime-INR (04/28/2024 4:33 PM SLUBBER OPERATOR) PT 20.6(H) 9.7 - 13.0 sec INR 1.88(H) 0.90 - 1.20 [facility] Comment: Interpretive data Oral anticoagulant therapeutic ranges: Venous thromboembolism prophylaxis or treatment: 2.0-3.0 CARDIOLOGY Standard range: 2.0-3.0 High-intensity range: 2.5-3.5 Refer to indication-specific guidelines for appropriate target ranges for prosthetic heart valve replacement. Current interpretive data was last revised on 2019. Blood 04/28/2024 4:33 PM SLUBBER OPERATOR 04/28/2024 4:45 PM SLUBBER OPERATOR Carlitos Carr MD LAB BLOOD ORDERABLES Final Re sult Performing Organization Address [facility] Co de Phone Number [facility] Department [place] [address] * CT Recon Thoracic and Lumbar Spine W Contrast (C) (04/28/2024 3:38 PM SLUBBER OPERATOR) Anatomical Region Laterality Modality Spine N/A Computed Tomogra phy 04/28/2024 4:19 PM SLUBBER OPERATOR Impressions 04/28/2024 5:05 PM SLUBBER OPERATOR 1. No acute intracranial process. 2. No evidence of acute fracture in the cervical, thoracic, or lumbar spine. Nearly completely healed C2 right lateral mass and body. 3. Asymmetric fullness of the left cavernous sinus, which may represent tortuosity or ectasia of the cavernous carotid artery, however underlying mass cannot be excluded. Consider further evaluation with brain MRI if clinically indicated. 4. Partially imaged subacute left clavicular midshaft fracture, chronic bilateral rib fracture deformities, and left iliac bone chronic fracture deformity. Dictated by: Salty Arriola MD The radiology attending physician has personally reviewed this study, and had reviewed and/or edited this written report and agrees with it. Electronically signed by: Juan Drake MD Narrative 04/28/2024 5:05 PM SLUBBER OPERATOR EXAMINATION: 1. CT head without contrast 2. CT of the cervical spine without contrast 3. CT of the thoracic spine with contrast 4. CT of the lumbar spine with contrast HISTORY: Fall from wheelchair with neck pain, recent C2 vertebral body fracture TECHNIQUE: CT of the head was performed with images acquired from skull base to vertex without intravenous contrast. CT of the cervical spine was performed according to the standard protocol without intravenous contrast. Dedicated reconstructions of the thoracic and lumbar spine were generated using data from a CT of the chest, abdomen, and pelvis acquired with intravenous contrast according to standard protocol. COMPARISON: Cervical spine radiographs 03/21/2024, CT chest abdomen pelvis 02/11/2024, MRI cervical spine 02/04/2024, CT head and cervical spine 02/02/2024 FINDINGS: HEAD: There is no acute intracranial hemorrhage. Diffuse parenchymal volume loss with ex vacuo dilation of the ventricular system. Scattered periventricular subcortical white matter hypodensities likely represent sequela of chronic small vessel ischemic disease. Intracranial atherosclerotic calcifications. No mass effect or midline shift is present. The mckeon-white matter differentiation is normal. The visualized portions of the orbits are normal. The visualized portions of the mastoids are normal. No acute fracture. Postsurgical changes of sinus surgery partially imaged. Bilateral temporomandibular joint osteoarthritis. Asymmetric fullness of the left cavernous sinus. CERVICAL SPINE: Diffuse osseous demineralization. Cervicothoracic levoscoliosis. Mild anterolisthesis of C6 on C7. Non-instrumented osseous fusion of C4 and C5. Multilevel intervertebral disc height loss throughout the remaining cervical spine, most pronounced and moderate to severe at C5-C6 and C6-C7. There is ankylosis of the facet joints bilaterally at C2-C3 on the left at C4-C5, and on the right at C7-T1. There is no acute fracture. Chronic healed fracture deformity of the right body and lateral mass of C2. Vertebral bodies are normal in height without compression fractures. Atherosclerotic calcifications of the carotid artery bifurcations. A subacute left mid clavicle shaft fracture with surrounding callus. Limited views of the skull base appear normal. Multilevel uncovertebral and facet arthropathy throughout the thoracic spine resulting in varying levels of neural foraminal stenosis, severe at C3-C4, C5-C6 and C6-C7. No high-grade spinal canal stenosis. THORACIC SPINE: Diffuse osseous demineralization. There are 12 rib-bearing thoracic vertebra. Cervicothoracic levoscoliosis and thoracolumbar dextroscoliosis. There is no acute fracture. Vertebral bodies are normal in height without compression fractures. Intervertebral disk heights are normal. Cholecystectomy. Atherosclerotic calcifications of the thoracic aorta. Coronary artery calcifications. Hiatal hernia. Soft tissue findings are more completely assessed on concurrent CT of the chest, abdomen, and pelvis. Chronic bilateral rib fracture deformities. Multilevel degenerative disc disease throughout the thoracic spine, most pronounced along the concavity of the thoracolumbar dextroscoliosis. Multilevel facet arthropathy resulting in varying levels of neuroforaminal stenosis, most pronounced and severe at T2-T3 and T3-T4 on the right. LUMBAR SPINE: Diffuse osseous demineralization. Lumbar dextroscoliosis centered at L2-L3 with mild rightward lateral listhesis of L3 on L4. There is no acute fracture. The vertebral bodies are normal in height without compression fractures. Multilevel intervertebral disc height loss throughout the lumbar spine, most pronounced and severe at L5-S1, L3-L4, T12-L1. There is no soft tissue abnormality. Atherosclerotic calcifications of the abdominal aorta and pelvic arterial vasculature. Left lower quadrant ostomy. Partially imaged chronic fracture deformity of the left iliac bone. Multilevel posterior disc osteophyte complexes, most pronounced at L5-S1 resulting in at least mild spinal canal stenosis. Multilevel facet arthropathy throughout the lumbar spine, most pronounced and severe on the right at L3-L4 and L4-L5. Procedure Note Juan Drake MD PhD - 04/28/2024 EXAMINATION: 1. CT head without contrast 2. CT of the cervical spine without contrast 3. CT of the thoracic spine with contrast 4. CT of the lumbar spine with contrast HISTORY: Fall from wheelchair with neck pain, recent C2 vertebral body fracture TECHNIQUE: CT of the head was performed with images acquired from skull base to vertex without intravenous contrast. CT of the cervical spine was performed according to the standard protocol without intravenous contrast. Dedicated reconstructions of the thoracic and lumbar spine were generated using data from a CT of the chest, abdomen, and pelvis acquired with intravenous contrast according to standard protocol. COMPARISON: Cervical spine radiographs 03/21/2024, CT chest abdomen pelvis 02/11/2024, MRI cervical spine 02/04/2024, CT head and cervical spine 02/02/2024 FINDINGS: HEAD: There is no acute intracranial hemorrhage. Diffuse parenchymal volume loss with ex vacuo dilation of the ventricular system. Scattered periventricular subcortical white matter hypodensities likely represent sequela of chronic small vessel ischemic disease. Intracranial atherosclerotic calcifications. No mass effect or midline shift is present. The mckeon-white matter differentiation is normal. The visualized portions of the orbits are normal. The visualized portions of the mastoids are normal. No acute fracture. Postsurgical changes of sinus surgery partially imaged. Bilateral temporomandibular joint osteoarthritis. Asymmetric fullness of the left cavernous sinus. CERVICAL SPINE: Diffuse osseous demineralization. Cervicothoracic levoscoliosis. Mild anterolisthesis of C6 on C7. Non-instrumented osseous fusion of C4 and C5. Multilevel intervertebral disc height loss throughout the remaining cervical spine, most pronounced and moderate to severe at C5-C6 and C6-C7. There is ankylosis of the facet joints bilaterally at C2-C3 on the left at C4-C5, and on the right at C7-T1. There is no acute fracture. Chronic healed fracture deformity of the right body and lateral mass of C2. Vertebral bodies are normal in height without compression fractures. Atherosclerotic calcifications of the carotid artery bifurcations. A subacute left mid clavicle shaft fracture with surrounding callus. Limited views of the skull base appear normal. Multilevel uncovertebral and facet arthropathy throughout the thoracic spine resulting in varying levels of neural foraminal stenosis, severe at C3-C4, C5-C6 and C6-C7. No high-grade spinal canal stenosis. THORACIC SPINE: Diffuse osseous demineralization. There are 12 rib-bearing thoracic vertebra. Cervicothoracic levoscoliosis and thoracolumbar dextroscoliosis. There is no acute fracture. Vertebral bodies are normal in height without compression fractures. Intervertebral disk heights are normal. Cholecystectomy. Atherosclerotic calcifications of the thoracic aorta. Coronary artery calcifications. Hiatal hernia. Soft tissue findings are more completely assessed on concurrent CT of the chest, abdomen, and pelvis. Chronic bilateral rib fracture deformities. Multilevel degenerative disc disease throughout the thoracic spine, most pronounced along the concavity of the thoracolumbar dextroscoliosis. Multilevel facet arthropathy resulting in varying levels of neuroforaminal stenosis, most pronounced and severe at T2-T3 and T3-T4 on the right. LUMBAR SPINE: Diffuse osseous demineralization. Lumbar dextroscoliosis centered at L2-L3 with mild rightward lateral listhesis of L3 on L4. There is no acute fracture. The vertebral bodies are normal in height without compression fractures. Multilevel intervertebral disc height loss throughout the lumbar spine, most pronounced and severe at L5-S1, L3-L4, T12-L1. There is no soft tissue abnormality. Atherosclerotic calcifications of the abdominal aorta and pelvic arterial vasculature. Left lower quadrant ostomy. Partially imaged chronic fracture deformity of the left iliac bone. Multilevel posterior disc osteophyte complexes, most pronounced at L5-S1 resulting in at least mild spinal canal stenosis. Multilevel facet arthropathy throughout the lumbar spine, most pronounced and severe on the right at L3-L4 and L4-L5. IMPRESSION: 1. No acute intracranial process. 2. No evidence of acute fracture in the cervical, thoracic, or lumbar spine. Nearly completely healed C2 right lateral mass and body. 3. Asymmetric fullness of the left cavernous sinus, which may represent tortuosity or ectasia of the cavernous carotid artery, however underlying mass cannot be excluded. Consider further evaluation with brain MRI if clinically indicated. 4. Partially imaged subacute left clavicular midshaft fracture, chronic bilateral rib fracture deformities, and left iliac bone chronic fracture deformity. Dictated by: Salty Arriola MD The radiology attending physician has personally reviewed this study, and had reviewed and/or edited this written report and agrees with it. Electronically signed by: Juan Drake MD us Jun Mitchell MD IMG CT PROCEDURES Final Result * CT Head and Cervical Spine WO Contrast (04/28/2024 3:38 PM SLUBBER OPERATOR) Anatomical Region Laterality Modality Head and Neck N/A Computed Tomogra phy 04/28/2024 4:19 PM SLUBBER OPERATOR Impressions 04/28/2024 5:05 PM SLUBBER OPERATOR 1. No acute intracranial process. 2. No evidence of acute fracture in the cervical, thoracic, or lumbar spine. Nearly completely healed C2 right lateral mass and body. 3. Asymmetric fullness of the left cavernous sinus, which may represent tortuosity or ectasia of the cavernous carotid artery, however underlying mass cannot be excluded. Consider further evaluation with brain MRI if clinically indicated. 4. Partially imaged subacute left clavicular midshaft fracture, chronic bilateral rib fracture deformities, and left iliac bone chronic fracture deformity. Dictated by: Salty Arriola MD The radiology attending physician has personally reviewed this study, and had reviewed and/or edited this written report and agrees with it. Electronically signed by: Juan Drake MD Narrative 04/28/2024 5:05 PM SLUBBER OPERATOR EXAMINATION: 1. CT head without contrast 2. CT of the cervical spine without contrast 3. CT of the thoracic spine with contrast 4. CT of the lumbar spine with contrast HISTORY: Fall from wheelchair with neck pain, recent C2 vertebral body fracture TECHNIQUE: CT of the head was performed with images acquired from skull base to vertex without intravenous contrast. CT of the cervical spine was performed according to the standard protocol without intravenous contrast. Dedicated reconstructions of the thoracic and lumbar spine were generated using data from a CT of the chest, abdomen, and pelvis acquired with intravenous contrast according to standard protocol. COMPARISON: Cervical spine radiographs 03/21/2024, CT chest abdomen pelvis 02/11/2024, MRI cervical spine 02/04/2024, CT head and cervical spine 02/02/2024 FINDINGS: HEAD: There is no acute intracranial hemorrhage. Diffuse parenchymal volume loss with ex vacuo dilation of the ventricular system. Scattered periventricular subcortical white matter hypodensities likely represent sequela of chronic small vessel ischemic disease. Intracranial atherosclerotic calcifications. No mass effect or midline shift is present. The mckeon-white matter differentiation is normal. The visualized portions of the orbits are normal. The visualized portions of the mastoids are normal. No acute fracture. Postsurgical changes of sinus surgery partially imaged. Bilateral temporomandibular joint osteoarthritis. Asymmetric fullness of the left cavernous sinus. CERVICAL SPINE: Diffuse osseous demineralization. Cervicothoracic levoscoliosis. Mild anterolisthesis of C6 on C7. Non-instrumented osseous fusion of C4 and C5. Multilevel intervertebral disc height loss throughout the remaining cervical spine, most pronounced and moderate to severe at C5-C6 and C6-C7. There is ankylosis of the facet joints bilaterally at C2-C3 on the left at C4-C5, and on the right at C7-T1. There is no acute fracture. Chronic healed fracture deformity of the right body and lateral mass of C2. Vertebral bodies are normal in height without compression fractures. Atherosclerotic calcifications of the carotid artery bifurcations. A subacute left mid clavicle shaft fracture with surrounding callus. Limited views of the skull base appear normal. Multilevel uncovertebral and facet arthropathy throughout the thoracic spine resulting in varying levels of neural foraminal stenosis, severe at C3-C4, C5-C6 and C6-C7. No high-grade spinal canal stenosis. THORACIC SPINE: Diffuse osseous demineralization. There are 12 rib-bearing thoracic vertebra. Cervicothoracic levoscoliosis and thoracolumbar dextroscoliosis. There is no acute fracture. Vertebral bodies are normal in height without compression fractures. Intervertebral disk heights are normal. Cholecystectomy. Atherosclerotic calcifications of the thoracic aorta. Coronary artery calcifications. Hiatal hernia. Soft tissue findings are more completely assessed on concurrent CT of the chest, abdomen, and pelvis. Chronic bilateral rib fracture deformities. Multilevel degenerative disc disease throughout the thoracic spine, most pronounced along the concavity of the thoracolumbar dextroscoliosis. Multilevel facet arthropathy resulting in varying levels of neuroforaminal stenosis, most pronounced and severe at T2-T3 and T3-T4 on the right. LUMBAR SPINE: Diffuse osseous demineralization. Lumbar dextroscoliosis centered at L2-L3 with mild rightward lateral listhesis of L3 on L4. There is no acute fracture. The vertebral bodies are normal in height without compression fractures. Multilevel intervertebral disc height loss throughout the lumbar spine, most pronounced and severe at L5-S1, L3-L4, T12-L1. There is no soft tissue abnormality. Atherosclerotic calcifications of the abdominal aorta and pelvic arterial vasculature. Left lower quadrant ostomy. Partially imaged chronic fracture deformity of the left iliac bone. Multilevel posterior disc osteophyte complexes, most pronounced at L5-S1 resulting in at least mild spinal canal stenosis. Multilevel facet arthropathy throughout the lumbar spine, most pronounced and severe on the right at L3-L4 and L4-L5. Procedure Note Juan Drake MD PhD - 04/28/2024 EXAMINATION: 1. CT head without contrast 2. CT of the cervical spine without contrast 3. CT of the thoracic spine with contrast 4. CT of the lumbar spine with contrast HISTORY: Fall from wheelchair with neck pain, recent C2 vertebral body fracture TECHNIQUE: CT of the head was performed with images acquired from skull base to vertex without intravenous contrast. CT of the cervical spine was performed according to the standard protocol without intravenous contrast. Dedicated reconstructions of the thoracic and lumbar spine were generated using data from a CT of the chest, abdomen, and pelvis acquired with intravenous contrast according to standard protocol. COMPARISON: Cervical spine radiographs 03/21/2024, CT chest abdomen pelvis 02/11/2024, MRI cervical spine 02/04/2024, CT head and cervical spine 02/02/2024 FINDINGS: HEAD: There is no acute intracranial hemorrhage. Diffuse parenchymal volume loss with ex vacuo dilation of the ventricular system. Scattered periventricular subcortical white matter hypodensities likely represent sequela of chronic small vessel ischemic disease. Intracranial atherosclerotic calcifications. No mass effect or midline shift is present. The mckeon-white matter differentiation is normal. The visualized portions of the orbits are normal. The visualized portions of the mastoids are normal. No acute fracture. Postsurgical changes of sinus surgery partially imaged. Bilateral temporomandibular joint osteoarthritis. Asymmetric fullness of the left cavernous sinus. CERVICAL SPINE: Diffuse osseous demineralization. Cervicothoracic levoscoliosis. Mild anterolisthesis of C6 on C7. Non-instrumented osseous fusion of C4 and C5. Multilevel intervertebral disc height loss throughout the remaining cervical spine, most pronounced and moderate to severe at C5-C6 and C6-C7. There is ankylosis of the facet joints bilaterally at C2-C3 on the left at C4-C5, and on the right at C7-T1. There is no acute fracture. Chronic healed fracture deformity of the right body and lateral mass of C2. Vertebral bodies are normal in height without compression fractures. Atherosclerotic calcifications of the carotid artery bifurcations. A subacute left mid clavicle shaft fracture with surrounding callus. Limited views of the skull base appear normal. Multilevel uncovertebral and facet arthropathy throughout the thoracic spine resulting in varying levels of neural foraminal stenosis, severe at C3-C4, C5-C6 and C6-C7. No high-grade spinal canal stenosis. THORACIC SPINE: Diffuse osseous demineralization. There are 12 rib-bearing thoracic vertebra. Cervicothoracic levoscoliosis and thoracolumbar dextroscoliosis. There is no acute fracture. Vertebral bodies are normal in height without compression fractures. Intervertebral disk heights are normal. Cholecystectomy. Atherosclerotic calcifications of the thoracic aorta. Coronary artery calcifications. Hiatal hernia. Soft tissue findings are more completely assessed on concurrent CT of the chest, abdomen, and pelvis. Chronic bilateral rib fracture deformities. Multilevel degenerative disc disease throughout the thoracic spine, most pronounced along the concavity of the thoracolumbar dextroscoliosis. Multilevel facet arthropathy resulting in varying levels of neuroforaminal stenosis, most pronounced and severe at T2-T3 and T3-T4 on the right. LUMBAR SPINE: Diffuse osseous demineralization. Lumbar dextroscoliosis centered at L2-L3 with mild rightward lateral listhesis of L3 on L4. There is no acute fracture. The vertebral bodies are normal in height without compression fractures. Multilevel intervertebral disc height loss throughout the lumbar spine, most pronounced and severe at L5-S1, L3-L4, T12-L1. There is no soft tissue abnormality. Atherosclerotic calcifications of the abdominal aorta and pelvic arterial vasculature. Left lower quadrant ostomy. Partially imaged chronic fracture deformity of the left iliac bone. Multilevel posterior disc osteophyte complexes, most pronounced at L5-S1 resulting in at least mild spinal canal stenosis. Multilevel facet arthropathy throughout the lumbar spine, most pronounced and severe on the right at L3-L4 and L4-L5. IMPRESSION: 1. No acute intracranial process. 2. No evidence of acute fracture in the cervical, thoracic, or lumbar spine. Nearly completely healed C2 right lateral mass and body. 3. Asymmetric fullness of the left cavernous sinus, which may represent tortuosity or ectasia of the cavernous carotid artery, however underlying mass cannot be excluded. Consider further evaluation with brain MRI if clinically indicated. 4. Partially imaged subacute left clavicular midshaft fracture, chronic bilateral rib fracture deformities, and left iliac bone chronic fracture deformity. Dictated by: Salty Arriola MD The radiology attending physician has personally reviewed this study, and had reviewed and/or edited this written report and agrees with it. Electronically signed by: Juan Drake MD Carlitos Carr MD IMG CT PROCEDURES Final Resul t * CT Chest Abdomen Pelvis W Contrast (04/28/2024 3:38 PM SLUBBER OPERATOR) Anatomical Region Laterality Modality Body N/A Computed Tomogra phy 04/28/2024 4:00 PM SLUBBER OPERATOR Impressions 04/28/2024 4:00 PM SLUBBER OPERATOR 1. No acute traumatic injury identified in the chest abdomen or pelvis. 2. Soft tissue wound overlying the left iliac bone with inflammation extending to the site of a chronic iliac wing fracture, suspicious for osteomyelitis. Electronically signed by: Molina Griffin M.D. Narrative 04/28/2024 4:00 PM SLUBBER OPERATOR EXAMINATION: Computed tomography of the chest, abdomen and pelvis with intravenous contrast HISTORY: Fall TECHNIQUE: Transaxial computed tomographic images of the chest, abdomen and pelvis were obtained with intravenous contrast according to the standard protocol after the uneventful administration of 69 mL Opti-Ray 350 intravenous contrast. COMPARISON: 02/11/2024 FINDINGS: There is respiratory motion both lungs. Subsegmental atelectasis in the lung bases. Central airways are widely patent. No suspicious pulmonary nodule or mass. No pulmonary contusion or laceration. Normal heart size without pericardial effusion. Nonaneurysmal thoracic aorta. Coronary atherosclerotic calcifications are present. No axillary, supraclavicular, mediastinal, or hilar lymphadenopathy. There is no solid organ laceration or perivisceral hematoma. No suspicious liver lesion or biliary duct dilatation. Surgically absent gallbladder. Normal-appearing adrenal glands, pancreas, and spleen. No hydronephrosis or suspicious renal lesion. The abdominal aorta is atherosclerotic but nonaneurysmal. No abdominal or pelvic lymphadenopathy. Surgically absent uterus and ovaries. Decompressed bladder. Surgical changes from descending colostomy and Hester's pouch are noted. No ascites or free intraperitoneal gas. No intestinal obstruction or focal bowel wall thickening. Changes from previous ileocolic resection are noted. There is a wound overlying the left iliac wing with inflammation extending down to the site of a chronic ununited left iliac wing fracture. There is sclerosis of the underlying bone suggestive of underlying osteomyelitis. No acute fracture is identified. There is an old left ninth rib fracture. Multiple old right-sided rib fractures are also seen. Thoracolumbar spine degenerative disc disease is noted. Old sternal fracture is noted. Procedure Note Molina Griffin MD - 04/28/2024 EXAMINATION: Computed tomography of the chest, abdomen and pelvis with intravenous contrast HISTORY: Fall TECHNIQUE: Transaxial computed tomographic images of the chest, abdomen and pelvis were obtained with intravenous contrast according to the standard protocol after the uneventful administration of 69 mL Opti-Ray 350 intravenous contrast. COMPARISON: 02/11/2024 FINDINGS: There is respiratory motion both lungs. Subsegmental atelectasis in the lung bases. Central airways are widely patent. No suspicious pulmonary nodule or mass. No pulmonary contusion or laceration. Normal heart size without pericardial effusion. Nonaneurysmal thoracic aorta. Coronary atherosclerotic calcifications are present. No axillary, supraclavicular, mediastinal, or hilar lymphadenopathy. There is no solid organ laceration or perivisceral hematoma. No suspicious liver lesion or biliary duct dilatation. Surgically absent gallbladder. Normal-appearing adrenal glands, pancreas, and spleen. No hydronephrosis or suspicious renal lesion. The abdominal aorta is atherosclerotic but nonaneurysmal. No abdominal or pelvic lymphadenopathy. Surgically absent uterus and ovaries. Decompressed bladder. Surgical changes from descending colostomy and Hester's pouch are noted. No ascites or free intraperitoneal gas. No intestinal obstruction or focal bowel wall thickening. Changes from previous ileocolic resection are noted. There is a wound overlying the left iliac wing with inflammation extending down to the site of a chronic ununited left iliac wing fracture. There is sclerosis of the underlying bone suggestive of underlying osteomyelitis. No acute fracture is identified. There is an old left ninth rib fracture. Multiple old right-sided rib fractures are also seen. Thoracolumbar spine degenerative disc disease is noted. Old sternal fracture is noted. IMPRESSION: 1. No acute traumatic injury identified in the chest abdomen or pelvis. 2. Soft tissue wound overlying the left iliac bone with inflammation extending to the site of a chronic iliac wing fracture, suspicious for osteomyelitis. Electronically signed by: Molina Griffin M.D. Margo Chang MD [facility] CT PROCEDURES Final Result * Thromboelastometry Panel - Heparin (04/28/2024 3:38 PM SLUBBER OPERATOR) HEPTEM-CT 203 141 - 215 sec HEPTEM-A5 48 33 - 51 mm [facility] HEPTEM-A10 59 44 - 61 mm [facility] HEPTEM-A20 66 52 - 67 mm [facility] HEPTEM-MCF 68 54 - 69 mm [facility] Blood 04/28/2024 3:38 PM SLUBBER OPERATOR 04/28/2024 3:43 PM SLUBBER OPERATOR Carlitos Carr MD LAB BLOOD ORDERABLES Edited [facility] Performing Organization Address City/[facility] Co de Phone Number [facility] Department of [place] [address] * Thromboelastometry Panel - Intrinsic (04/28/2024 3:38 PM SLUBBER OPERATOR) Pathologist [facility] INTEM-CT 204 139 - 205 sec INTEM-A5 50 36 - 54 mm [facility] INTEM-A10 60 46 - 63 mm [facility] INTEM-A20 67 53 - 68 mm [facility] INTEM-MCF 69 55 - 70 mm [facility] INTEM-LI60 99 93 - 100 % [facility] INTEM-ML 1 0 - 7 % [facility] Blood 04/28/2024 3:38 PM SLUBBER OPERATOR 04/28/2024 3:43 PM SLUBBER OPERATOR Carlitos Carr MD LAB BLOOD ORDERABLES Edited [facility] Performing Organization Address City/[facility] Co de Phone Number [facility] Department of [place] [address] * Thromboelastometry Panel - Fibrinogen (04/28/2024 3:38 PM SLUBBER OPERATOR) FIBTEM-A5 9 5 - 16 mm FIBTEM-A10 11 6 - 17 mm [facility] FIBTEM-A20 13 6 - 18 mm [facility] FIBTEM-MCF 13 9 - 19 mm [facility] Blood 04/28/2024 3:38 PM SLUBBER OPERATOR 04/28/2024 3:43 PM SLUBBER OPERATOR Carlitos Carr MD LAB BLOOD ORDERABLES Edited [facility] Performing Organization Address [facility] de Phone Number [facility] Department [place] [address] * Thromboelastometry Panel - Extrinsic (04/28/2024 3:38 PM SLUBBER OPERATOR) [facility] EXTEM-CT >172 51 - 73 sec EXTEM-A5 42 33 - 52 mm [facility] EXTEM-A10 59 45 - 62 mm [facility] EXTEM-A20 66 54 - 69 mm [facility] EXTEM-MCF 69 57 - 72 [facility] EX[facility]-LI60 99 94 - 100 % [facility] EXTEM-ML 1 0 - 6 % [facility] Blood 04/28/2024 3:38 PM SLUBBER OPERATOR 04/28/2024 3:43 PM SLUBBER OPERATOR Carlitos Carr MD LAB BLOOD ORDERABLES Edited [facility] Performing Organization Address [facility] de Phone Number [facility] Department [place] [address] * (ABNORMAL) Differential, auto (04/28/2024 3:38 PM SLUBBER OPERATOR) Pathologist [facility] Neutrophil abs 8.9(H) 1.5 - 6.5 K/cumm Imm gran abs 0.1 0.0 - 0.1 K/cumm [facility] Lymphocyte abs 2.7 0.8 - 3.3 K/cumm [facility] Monocyte abs 1.2(H) 0.2 - 0.8 K/[facility]umm [facility] Eosinophil abs 0.0 0.0 - 0.5 K/cumm [facility] Basophil abs 0.1 0.0 - 0.1 K/cumm [facility] Neutrophil pct 68.2 % [facility] Comment: Interpretive Data Percent cell count reference ranges are not reported, since discordance with absolute values may lead to misinterpretation of CBC data. Current Interpretive Data was last revised on 2017. Imm gran pct 1.0 % [facility] Comment: Interpretive Data Percent cell count reference ranges are not reported, since discordance with absolute values may lead to misinterpretation of CBC data. Current Interpretive Data was last revised on 2017. Lymphocyte pct 21.0 % [facility] Comment: Interpretive Data Percent cell count reference ranges are not reported, since discordance with absolute values may lead to misinterpretation of CBC data. Current Interpretive Data was last revised on 2017. Monocyte pct 9.1 % [facility] Comment: Interpretive Data Percent cell count reference ranges are not reported, since discordance with absolute values may lead to misinterpretation of CBC data. Current Interpretive Data was last revised on 2017. Eosinophil pct 0.2 % [facility] Comment: Interpretive Data Percent cell count reference ranges are not reported, since discordance with absolute values may lead to misinterpretation of CBC data. Current Interpretive Data was last revised on 2017. Basophil pct 0.5 % [facility] Comment: Interpretive Data Percent cell count reference ranges are not reported, since discordance with absolute values may lead to misinterpretation of CBC data. Current Interpretive Data was last revised on 2017. Blood 04/28/2024 3:38 PM SLUBBER OPERATOR 04/28/2024 3:43 PM SLUBBER OPERATOR us Carlitos Carr MD LAB BLOOD ORDERABLES Final Re sult [facility] Department of Laboratories [place], [place] [id number] * (ABNORMAL) CBC with auto differential (04/28/2024 3:38 PM SLUBBER OPERATOR) WBC 13.0(H) 3.8 - 9.9 K/cumm Comment:Code Blue Specimen Hgb 13.3 11.9 - 15.5 g/dL [facility] Hct 38.4 35.6 - 45.5 % [facility] Plt 396 150 - 400 K/cumm [facility] MPV 8.9(L) 9.1 - 12.3 fL [facility] RBC 4.48 3.90 - 5.20 M/cumm [facility] MCV 85.7 81.3 - 96.4 fL [facility] MCH 29.7 27.1 - 33.3 pg [facility] MCHC 34.6 32.3 - 35.7 g/dL [facility] RDW CV 16.6(H) 11.1 - 14.9 % [facility] RDW SD 51.2(H) 35.7 - 48.1 fL [facility] NRBC abs 0.00 0.00 - 0.01 K/cumm [facility] Blood 04/28/2024 3:38 PM SLUBBER OPERATOR 04/28/2024 3:43 PM SLUBBER OPERATOR Carlitos Carr MD LAB BLOOD ORDERABLES Final Re sult Performing Organization Address City/[facility]/ZIP Co de Phone Number [facility] Department [place] [address] * Type and screen (04/28/2024 3:38 PM SLUBBER OPERATOR) Pathologist [facility] Solo, indirect Negative ABO Rh A Positive [facility] Blood 04/28/2024 3:38 PM SLUBBER OPERATOR 04/28/2024 3:45 PM SLUBBER OPERATOR Narrative [facility] - 04/28/2024 4:30 PM SLUBBER OPERATOR Has the patient had Daratumumab or Isatuximab in the past 6 months?->Unknown Carlitos Carr MD LAB BLOOD BANK TEST ORDERABLE S Final Result [facility] [place] [address] * Ethanol (04/28/2024 3:38 PM SLUBBER OPERATOR) Pathologist [facility] Ethanol <10 <=10 mg/dL Comment: Code Blue Specimen Interpretive Data Legal limit of intoxication > or = 80 mg/dL Levels > or = 400 mg/dL are potentially TOXIC. Current interpretive data was last revised on 2018. Blood 04/28/2024 3:38 PM SLUBBER OPERATOR 04/28/2024 3:43 PM SLUBBER OPERATOR us Carlitos Carr MD LAB BLOOD ORDERABLES Final Re sult [facility] Department [place] [address] * (ABNORMAL) POC Blood Gas and Chemistries, Venous - (04/28/2024 3:34 PM SLUBBER OPERATOR) pH, Abrahan POC 7.22(L) 7.32 - 7.43 pCO2, abrahan POC 36(L) 40 - 50 mmHg [facility] pO2, abrahan POC 24(C) mmHg [facility] Na, POC 131(L) 135 - 145 mmol/L [facility] K POC 2.6(L) 3.3 - 4.9 mmol/L [facility] Comment: Interpretive Data Not all point of care methods assess for hemolysis. Confirm with instrument and retest K+ if not consistent with clinical signs and symptoms. Current Interpretive Data was last revised on 2023. Cl, POC 99 97 - 110 mmol/L [facility] Ionized Ca, POC 4.41(L) 4.50 - 5.10 mg/dL [facility] Glucose, POC 115 70 - 199 mg/dL [facility] Lactate, POC 4.9(C) 0.7 - 2.0 mmol/L [facility] MetHb, Abrahan POC 0.5 0.0 - 1.9 % [facility] O2 Sat, Abrahan POC (Jair) 24 % [facility] Base excess, POC -12.1 mmol/L [facility] Hct, POC 41.0 36.3 - 45.3 % [facility] Total Hb, POC 13.6 11.9 - 15.5 g/dL [facility] Blood 04/28/2024 3:34 PM SLUBBER OPERATOR 04/28/2024 3:34 PM SLUBBER OPERATOR us Carlitos Carr MD LAB POCT ORDERABLES - DEVICE Final Result [facility] Department [place] [address] * XR Spine Cervical 2 or 3 Views (03/21/2024 3:21 PM SLUBBER OPERATOR) Anatomical Region Laterality Modality Spine N/A Computed Radiogr aphy 03/21/2024 4:18 PM SLUBBER OPERATOR Impressions 03/21/2024 4:18 PM SLUBBER OPERATOR 1. Healing minimally displaced C2 vertebral body fracture. 2. Severe multilevel cervical degenerative disc disease. Electronically signed by: Terence Radford M.D. Narrative 03/21/2024 4:18 PM SLUBBER OPERATOR EXAMINATION: XR SPINE CERVICAL 2 OR 3 VIEWS HISTORY: Cervical Spine Fracture FINDINGS: 3 view examination of the cervical spine is read with comparison to cervical spine CT 02/02/2024. Healing minimally displaced C2 vertebral body fracture much better characterized on prior CT. The bones are demineralized. The C6 and C7 vertebral bodies are partially obscured by overlying soft tissue on the lateral view. No prevertebral soft tissue swelling or new fracture. Unchanged mild retrolisthesis of C4 on C5. Unchanged multilevel degenerative disc disease most pronounced and severe from C4-C7 with cervical kyphosis. Multilevel up to severe facet osteoarthritis and uncovertebral hypertrophy. Vascular calcifications noted. Procedure Note Bill Radford, Terence Galvez MD - 03/21/2024 EXAMINATION: XR SPINE CERVICAL 2 OR 3 VIEWS HISTORY: Cervical Spine Fracture FINDINGS: 3 view examination of the cervical spine is read with comparison to cervical spine CT 02/02/2024. Healing minimally displaced C2 vertebral body fracture much better characterized on prior CT. The bones are demineralized. The C6 and C7 vertebral bodies are partially obscured by overlying soft tissue on the lateral view. No prevertebral soft tissue swelling or new fracture. Unchanged mild retrolisthesis of C4 on C5. Unchanged multilevel degenerative disc disease most pronounced and severe from C4-C7 with cervical kyphosis. Multilevel up to severe facet osteoarthritis and uncovertebral hypertrophy. Vascular calcifications noted. IMPRESSION: 1. Healing minimally displaced C2 vertebral body fracture. 2. Severe multilevel cervical degenerative disc disease. Electronically signed by: Terence Radford M.D. us Dionte Zaragoza MD IMG XR PROCEDURES Final Re sult * X-ray foot left 3+ views (03/21/2024 1:17 PM SLUBBER OPERATOR) Anatomical Region Laterality Modality Lower Extremities, Foot Left Computed Radiography 03/21/2024 3:24 PM SLUBBER OPERATOR Impressions 03/21/2024 3:25 PM SLUBBER OPERATOR 1. Healing minimally displaced intra-articular fifth proximal phalanx base fracture. 2. Healing comminuted and displaced left iliac wing fracture. 3. Unchanged displaced left clavicle mid shaft fracture. Dictated by: Chau Paris M.D. The radiology attending physician has personally reviewed this study, and had reviewed and/or edited this written report and agrees with it. Electronically signed by: Eugene Godfrey M.D. Narrative 03/21/2024 3:25 PM SLUBBER OPERATOR EXAMINATION: XR FOOT LEFT 3 OR MORE VIEWS, XR CLAVICLE LEFT COMPLETE, XR PELVIS 3 OR MORE VIEWS HISTORY: Fracture follow-up COMPARISON: 02/02/2024 FINDINGS: Left foot: 3 views of the left foot were obtained. Healing minimally displaced intra-articular fifth proximal phalanx base fracture. No new fractures or dislocation. Unchanged mild midfoot and first metatarsophalangeal osteoarthritis. Unchanged Achilles enthesophyte and moderate-sized plantar calcaneal bone spur. No significant soft tissue swelling about the left foot. Pelvis: 3 views of the pelvis were obtained. Healing comminuted and displaced left iliac wing fracture. No new fracture or dislocation. Normal joint spaces. Normal bone alignment. Surgical clips and sutures overlie the pelvis. Mild bilateral hip osteoarthritis. Multilevel lower lumbar degenerative disc disease. An osteotomy bag is noted. Left clavicle: 2 views of the left clavicle were obtained. Unchanged displaced left clavicle mid shaft fracture. Mild acromioclavicular osteoarthritis. Normal glenohumeral joint. No new fracture or dislocation. Procedure Note Eugene Godfrey MD PhD - 03/21/2024 EXAMINATION: XR FOOT LEFT 3 OR MORE VIEWS, XR CLAVICLE LEFT COMPLETE, XR PELVIS 3 OR MORE VIEWS HISTORY: Fracture follow-up COMPARISON: 02/02/2024 FINDINGS: Left foot: 3 views of the left foot were obtained. Healing minimally displaced intra-articular fifth proximal phalanx base fracture. No new fractures or dislocation. Unchanged mild midfoot and first metatarsophalangeal osteoarthritis. Unchanged Achilles enthesophyte and moderate-sized plantar calcaneal bone spur. No significant soft tissue swelling about the left foot. Pelvis: 3 views of the pelvis were obtained. Healing comminuted and displaced left iliac wing fracture. No new fracture or dislocation. Normal joint spaces. Normal bone alignment. Surgical clips and sutures overlie the pelvis. Mild bilateral hip osteoarthritis. Multilevel lower lumbar degenerative disc disease. An osteotomy bag is noted. Left clavicle: 2 views of the left clavicle were obtained. Unchanged displaced left clavicle mid shaft fracture. Mild acromioclavicular osteoarthritis. Normal glenohumeral joint. No new fracture or dislocation. IMPRESSION: 1. Healing minimally displaced intra-articular fifth proximal phalanx base fracture. 2. Healing comminuted and displaced left iliac wing fracture. 3. Unchanged displaced left clavicle mid shaft fracture. Dictated by: Chau Paris M.D. The radiology attending physician has personally reviewed this study, and had reviewed and/or edited this written report and agrees with it. Electronically signed by: Eugene Godfrey M.D. Jeffy Lugo MD IMG XR PROCEDURE S Final Result * X-ray clavicle left (03/21/2024 1:17 PM SLUBBER OPERATOR) Anatomical Region Laterality Modality Clavicle, Chest Left Computed Radiogr aphy 03/21/2024 3:24 PM SLUBBER OPERATOR Impressions 03/21/2024 3:25 PM SLUBBER OPERATOR 1. Healing minimally displaced intra-articular fifth proximal phalanx base fracture. 2. Healing comminuted and displaced left iliac wing fracture. 3. Unchanged displaced left clavicle mid shaft fracture. Dictated by: Chau Paris M.D. The radiology attending physician has personally reviewed this study, and had reviewed and/or edited this written report and agrees with it. Electronically signed by: Eugene Godfrey M.D. Narrative 03/21/2024 3:25 PM SLUBBER OPERATOR EXAMINATION: XR FOOT LEFT 3 OR MORE VIEWS, XR CLAVICLE LEFT COMPLETE, XR PELVIS 3 OR MORE VIEWS HISTORY: Fracture follow-up COMPARISON: 02/02/2024 FINDINGS: Left foot: 3 views of the left foot were obtained. Healing minimally displaced intra-articular fifth proximal phalanx base fracture. No new fractures or dislocation. Unchanged mild midfoot and first metatarsophalangeal osteoarthritis. Unchanged Achilles enthesophyte and moderate-sized plantar calcaneal bone spur. No significant soft tissue swelling about the left foot. Pelvis: 3 views of the pelvis were obtained. Healing comminuted and displaced left iliac wing fracture. No new fracture or dislocation. Normal joint spaces. Normal bone alignment. Surgical clips and sutures overlie the pelvis. Mild bilateral hip osteoarthritis. Multilevel lower lumbar degenerative disc disease. An osteotomy bag is noted. Left clavicle: 2 views of the left clavicle were obtained. Unchanged displaced left clavicle mid shaft fracture. Mild acromioclavicular osteoarthritis. Normal glenohumeral joint. No new fracture or dislocation. Procedure Note Eugene Godfrey MD PhD - 03/21/2024 EXAMINATION: XR FOOT LEFT 3 OR MORE VIEWS, XR CLAVICLE LEFT COMPLETE, XR PELVIS 3 OR MORE VIEWS HISTORY: Fracture follow-up COMPARISON: 02/02/2024 FINDINGS: Left foot: 3 views of the left foot were obtained. Healing minimally displaced intra-articular fifth proximal phalanx base fracture. No new fractures or dislocation. Unchanged mild midfoot and first metatarsophalangeal osteoarthritis. Unchanged Achilles enthesophyte and moderate-sized plantar calcaneal bone spur. No significant soft tissue swelling about the left foot. Pelvis: 3 views of the pelvis were obtained. Healing comminuted and displaced left iliac wing fracture. No new fracture or dislocation. Normal joint spaces. Normal bone alignment. Surgical clips and sutures overlie the pelvis. Mild bilateral hip osteoarthritis. Multilevel lower lumbar degenerative disc disease. An osteotomy bag is noted. Left clavicle: 2 views of the left clavicle were obtained. Unchanged displaced left clavicle mid shaft fracture. Mild acromioclavicular osteoarthritis. Normal glenohumeral joint. No new fracture or dislocation. IMPRESSION: 1. Healing minimally displaced intra-articular fifth proximal phalanx base fracture. 2. Healing comminuted and displaced left iliac wing fracture. 3. Unchanged displaced left clavicle mid shaft fracture. Dictated by: Chau Paris M.D. The radiology attending physician has personally reviewed this study, and had reviewed and/or edited this written report and agrees with it. Electronically signed by: Eugene Godfrey M.D. us Jeffy Lugo MD IMG XR PROCEDURE S Final Result * X-ray pelvis 3+ views (03/21/2024 1:17 PM SLUBBER OPERATOR) Anatomical Region Laterality Modality Pelvis, Body N/A Computed Radiogr aphy 03/21/2024 3:24 PM SLUBBER OPERATOR Impressions 03/21/2024 3:25 PM SLUBBER OPERATOR 1. Healing minimally displaced intra-articular fifth proximal phalanx base fracture. 2. Healing comminuted and displaced left iliac wing fracture. 3. Unchanged displaced left clavicle mid shaft fracture. Dictated by: Chau Paris M.D. The radiology attending physician has personally reviewed this study, and had reviewed and/or edited this written report and agrees with it. Electronically signed by: Eugene Godfrey M.D. Narrative 03/21/2024 3:25 PM SLUBBER OPERATOR EXAMINATION: XR FOOT LEFT 3 OR MORE VIEWS, XR CLAVICLE LEFT COMPLETE, XR PELVIS 3 OR MORE VIEWS HISTORY: Fracture follow-up COMPARISON: 02/02/2024 FINDINGS: Left foot: 3 views of the left foot were obtained. Healing minimally displaced intra-articular fifth proximal phalanx base fracture. No new fractures or dislocation. Unchanged mild midfoot and first metatarsophalangeal osteoarthritis. Unchanged Achilles enthesophyte and moderate-sized plantar calcaneal bone spur. No significant soft tissue swelling about the left foot. Pelvis: 3 views of the pelvis were obtained. Healing comminuted and displaced left iliac wing fracture. No new fracture or dislocation. Normal joint spaces. Normal bone alignment. Surgical clips and sutures overlie the pelvis. Mild bilateral hip osteoarthritis. Multilevel lower lumbar degenerative disc disease. An osteotomy bag is noted. Left clavicle: 2 views of the left clavicle were obtained. Unchanged displaced left clavicle mid shaft fracture. Mild acromioclavicular osteoarthritis. Normal glenohumeral joint. No new fracture or dislocation. Procedure Note Eugene Godfrey MD PhD - 03/21/2024 EXAMINATION: XR FOOT LEFT 3 OR MORE VIEWS, XR CLAVICLE LEFT COMPLETE, XR PELVIS 3 OR MORE VIEWS HISTORY: Fracture follow-up COMPARISON: 02/02/2024 FINDINGS: Left foot: 3 views of the left foot were obtained. Healing minimally displaced intra-articular fifth proximal phalanx base fracture. No new fractures or dislocation. Unchanged mild midfoot and first metatarsophalangeal osteoarthritis. Unchanged Achilles enthesophyte and moderate-sized plantar calcaneal bone spur. No significant soft tissue swelling about the left foot. Pelvis: 3 views of the pelvis were obtained. Healing comminuted and displaced left iliac wing fracture. No new fracture or dislocation. Normal joint spaces. Normal bone alignment. Surgical clips and sutures overlie the pelvis. Mild bilateral hip osteoarthritis. Multilevel lower lumbar degenerative disc disease. An osteotomy bag is noted. Left clavicle: 2 views of the left clavicle were obtained. Unchanged displaced left clavicle mid shaft fracture. Mild acromioclavicular osteoarthritis. Normal glenohumeral joint. No new fracture or dislocation. IMPRESSION: 1. Healing minimally displaced intra-articular fifth proximal phalanx base fracture. 2. Healing comminuted and displaced left iliac wing fracture. 3. Unchanged displaced left clavicle mid shaft fracture. Dictated by: Chau Paris M.D. The radiology attending physician has personally reviewed this study, and had reviewed and/or edited this written report and agrees with it. Electronically signed by: Eugene Godfrey M.D. Jeffy Lugo MD IMG XR PROCEDURE S Final Result * Infection Prevention [place] auris PCR, surveillance Axilla/Groin (03/03/2024 2:40 PM SLUBBER OPERATOR) Pathologist [facility] [place] auris DNA Not Detected Not Detected [facility] Comment: Interpretive Data Testing performed by [facility] using the [employer] Lia[employer] MDX [place] auris assay. This assay detects DNA from [place] auris using Real-Time PCR. This assay is laboratory developed and is not cleared by the [place] Food and Drug Administration. The performance characteristics have been verified by the [facility]. Interpretive data was last reviewed on 07/01/2023 Axilla/Groin 03/03/2024 2:40 PM SLUBBER OPERATOR 03/03/2024 3:42 PM SLUBBER OPERATOR us Eamon Rodriguez MD LAB MICROBIOLOGY - GENERAL ORDER KRIS Final Result [facility] Department [place] [address] [facility] * Dexa Axial Skeleton Bone Density 1 or 2 Site (11/26/2023 3:21 PM CDT) Anatomical Region Laterality Modality Body N/A Digital Radiogra phy 11/26/2023 3:43 PM CDT Impressions 11/26/2023 5:20 PM CDT 1. The bone mineral density of the lumbar spine is normal. 2. The bone mineral density of the left femoral neck is mildly decreased. 3. The bone mineral density of the left total hip is mildly decreased. 4. Overall, the above findings are diagnostic of low bone mass (osteopenia) by WHO criteria. 5. Based on the FRAX fracture risk model, the 10-year probability for major osteoporotic fracture is 14% and that for hip fracture is 3.6%. This 10-year fracture risk estimate was calculated using the risk factors noted in the history above, along with the femoral neck bone density. FRAX is intended to help guide treatment decisions in men over age 50 and postmenopausal women with low bone mass (osteopenia). The National Osteoporosis Foundation (NOF) recommends that FDA-approved medical therapies be considered in postmenopausal women and men age 50 years and older with osteoporosis and those with low bone mass whose 10-year fracture probability by FRAX is >= 20% for major osteoporotic fracture or >= 3% for hip fracture. However, all treatment decisions require clinical judgment and consideration of individual patient factors, including patient preferences, comorbidities, previous drug use, risk factors not captured in the FRAX model (e.g., frailty, falls, vitamin D deficiency, increased bone turnover, interval significant decline in bone density) and possible under- or overestimation of fracture risk by FRAX. General comments regarding interpretation of bone density measurements: A) In children, premenopausal woman and males under age 50 not at increased risk for fractures only Z-scores, not T-scores are used to indicate risk. A Z-score above -2.0 is defined as within the expected range for age and Z-score at or less than -2.0 is below the expected range for age . A Z-score below the expected range for age in a patient with recent fractures and/or chronic corticosteroid treatment is consistent with a diagnosis of osteoporosis. B) In post menopausal women and males over 50, comparison of the measured bone mineral density with the average value in young normal subjects (the T-score ) has been found to be useful in assessing fracture risk. Fracture risk approximately doubles for each 1.0 standard deviation (SD) in individual's hip or spine bone mineral density is below the average value of young normal subjects. The World Health Organization (WHO) has defined T-scores of -1.0 to -2.5 as diagnostic of low bone mass (OSTEOPENIA), and T-scores of -2.5 or lower to be diagnostic of OSTEOPOROSIS, based on the site of lowest bone density. Note that there will be a change in reporting format and reference databases as patients move from the younger population (group A) to the older population (group B) The National Osteoporosis Foundation (www.nof.org) recommends adequate intake of calcium and vitamin D and regular weight-bearing exercise in all patients. They recommend pharmacologic treatment in postmenopausal women and men age 50 and older presenting with any of the followin) Osteoporosis, after appropriate evaluation to exclude secondary causes. 2) A hip or vertebral (clinical or radiographic) fracture, regardless of the bone density. 3) Low bone mass (Osteopenia) and one or more of: other prior fractures, secondary causes associated with high risk of fracture (such as glucocorticoid use or total immobilization), or computed high risk of fracture (10-yr probability of hip fracture >= 3% or a 10-yr probability of any major osteoporosis-related fracture >= 20% based on the [place].-adapted WHO algorithm), available at http://www.shef.ac.uk/FRAX). Dictated by: Velma Gonzales MD The radiology attending physician has personally reviewed this study, and had reviewed and/or edited this written report and agrees with it. Electronically signed by: Jj Jung M.D. Narrative 11/26/2023 5:20 PM CDT BONE DENSITOMETRY OF THE SPINE AND HIP DATE OF STUDY: 11/26/2023 HISTORY: 78-year-old postmenopausal woman with loss of height. She is being treated with calcium and vitamin D. Evaluate bone mineral density. Additional risk factors for fracture: none. FINDINGS (SPINE): The bone mineral density of L1-L4 was assessed by dual-energy x-ray absorptiometry. The average bone mineral density within this region is 1.125 gm/sq-cm. This is 3.3 standard deviations above the mean of the average bone mineral density for age- and gender-matched subjects (the Z-score). It is 0.7 standard deviations above the mean peak bone mineral density in young adults (the T-score). FINDINGS (FEMORAL NECK): The bone mineral density of the left femoral neck was assessed by dual-energy x-ray absorptiometry. The average bone mineral density within the femoral neck region is 0.629 gm/sq-cm. This is 0.2 standard deviations above the mean of the average bone mineral density for age- and gender-matched subjects (the Z-score). It is 2.0 standard deviations below the mean peak bone mineral density in young adults (the T-score). FINDINGS (TOTAL HIP): The bone mineral density of the left hip was assessed by dual-energy x-ray absorptiometry. The average bone mineral density within the total hip region is 0.726 gm/sq-cm. This is 0.2 standard deviations above the mean of the average bone mineral density for age- and gender-matched subjects (the Z-score). It is 1.8 standard deviations below the mean peak bone mineral density in young adults (the T-score). SUMMARY OF CURRENT RESULTS: Region BMD T-score Z-score AP Spine (L1-L4) 1.125 0.7 3.3 Femoral Neck (Left) 0.629 -2.0 0.2 Total Hip (Left) 0.726 -1.8 0.2 Procedure Note Jj Jung MD - 11/26/2023 BONE DENSITOMETRY OF THE SPINE AND HIP DATE OF STUDY: 11/26/2023 HISTORY: 78-year-old postmenopausal woman with loss of height. She is being treated with calcium and vitamin D. Evaluate bone mineral density. Additional risk factors for fracture: none. FINDINGS (SPINE): The bone mineral density of L1-L4 was assessed by dual-energy x-ray absorptiometry. The average bone mineral density within this region is 1.125 gm/sq-cm. This is 3.3 standard deviations above the mean of the average bone mineral density for age- and gender-matched subjects (the Z-score). It is 0.7 standard deviations above the mean peak bone mineral density in young adults (the T-score). FINDINGS (FEMORAL NECK): The bone mineral density of the left femoral neck was assessed by dual-energy x-ray absorptiometry. The average bone mineral density within the femoral neck region is 0.629 gm/sq-cm. This is 0.2 standard deviations above the mean of the average bone mineral density for age- and gender-matched subjects (the Z-score). It is 2.0 standard deviations below the mean peak bone mineral density in young adults (the T-score). FINDINGS (TOTAL HIP): The bone mineral density of the left hip was assessed by dual-energy x-ray absorptiometry. The average bone mineral density within the total hip region is 0.726 gm/sq-cm. This is 0.2 standard deviations above the mean of the average bone mineral density for age- and gender-matched subjects (the Z-score). It is 1.8 standard deviations below the mean peak bone mineral density in young adults (the T-score). SUMMARY OF CURRENT RESULTS: Region BMD T-score Z-score AP Spine (L1-L4) 1.125 0.7 3.3 Femoral Neck (Left) 0.629 -2.0 0.2 Total Hip (Left) 0.726 -1.8 0.2 IMPRESSION: 1. The bone mineral density of the lumbar spine is normal. 2. The bone mineral density of the left femoral neck is mildly decreased. 3. The bone mineral density of the left total hip is mildly decreased. 4. Overall, the above findings are diagnostic of low bone mass (osteopenia) by WHO criteria. 5. Based on the FRAX fracture risk model, the 10-year probability for major osteoporotic fracture is 14% and that for hip fracture is 3.6%. This 10-year fracture risk estimate was calculated using the risk factors noted in the history above, along with the femoral neck bone density. FRAX is intended to help guide treatment decisions in men over age 50 and postmenopausal women with low bone mass (osteopenia). The National Osteoporosis Foundation (NOF) recommends that FDA-approved medical therapies be considered in postmenopausal women and men age 50 years and older with osteoporosis and those with low bone mass whose 10-year fracture probability by FRAX is >= 20% for major osteoporotic fracture or >= 3% for hip fracture. However, all treatment decisions require clinical judgment and consideration of individual patient factors, including patient preferences, comorbidities, previous drug use, risk factors not captured in the FRAX model (e.g., frailty, falls, vitamin D deficiency, increased bone turnover, interval significant decline in bone density) and possible under- or overestimation of fracture risk by FRAX. General comments regarding interpretation of bone density measurements: A) In children, premenopausal woman and males under age 50 not at increased risk for fractures only Z-scores, not T-scores are used to indicate risk. A Z-score above -2.0 is defined as within the expected range for age and Z-score at or less than -2.0 is below the expected range for age . A Z-score below the expected range for age in a patient with recent fractures and/or chronic corticosteroid treatment is consistent with a diagnosis of osteoporosis. B) In post menopausal women and males over 50, comparison of the measured bone mineral density with the average value in young normal subjects (the T-score ) has been found to be useful in assessing fracture risk. Fracture risk approximately doubles for each 1.0 standard deviation (SD) in individual's hip or spine bone mineral density is below the average value of young normal subjects. The World Health Organization (WHO) has defined T-scores of -1.0 to -2.5 as diagnostic of low bone mass (OSTEOPENIA), and T-scores of -2.5 or lower to be diagnostic of OSTEOPOROSIS, based on the site of lowest bone density. Note that there will be a change in reporting format and reference databases as patients move from the younger population (group A) to the older population (group B) The National Osteoporosis Foundation (www.nof.org) recommends adequate intake of calcium and vitamin D and regular weight-bearing exercise in all patients. They recommend pharmacologic treatment in postmenopausal women and men age 50 and older presenting with any of the followin) Osteoporosis, after appropriate evaluation to exclude secondary causes. 2) A hip or vertebral (clinical or radiographic) fracture, regardless of the bone density. 3) Low bone mass (Osteopenia) and one or more of: other prior fractures, secondary causes associated with high risk of fracture (such as glucocorticoid use or total immobilization), or computed high risk of fracture (10-yr probability of hip fracture >= 3% or a 10-yr probability of any major osteoporosis-related fracture >= 20% based on the [place].-adapted WHO algorithm), available at http://www.shef.ac.uk/FRAX). Dictated by: Velma Gonzales MD The radiology attending physician has personally reviewed this study, and had reviewed and/or edited this written report and agrees with it. Electronically signed by: Jj Jung M.D. us Anna Adames MD IMG DXA PROCEDURES Final Result * COLONOSCOPY (12/17/2020 8:06 AM CDT) Anatomical Region Laterality Modality Other Narrative Procedure Note Yolis Mata MD PhD - 12/17/2020 8:06 AM CDT ENDOSCOPY LAB Patient Name: Brenton Valdez Procedure Date: 12/17/2020 8:06 AM Date of : 1945 Admit Type: Outpatient Age: 75 Gender: Female Attending MD: Yolis Mata MD,PHD Room: [facility] ENDOSCOPY ROOM 03 Note Status: Finalized Procedure: Colonoscopy Indications: Positive Cologuard test Providers: Yolis Mata MD, PHD Referring MD: Anna Adames M.D. Medicines: Monitored Anesthesia Care Complications: No immediate complications. Estimated Blood Loss: Estimated blood loss: none. Procedure: Pre-Anesthesia Assessment: - Immediately prior to administration ofmedications, the patient was re-assessed for adequacy to receive sedatives. The benefits, risks and alternatives of theprocedure and sedation were discussed and informed consentwas obtained. All questions were answered. Please referto the signed informed consent document in the medical record. The scope was passed under direct vision.The [id number] was introduced through the anusand advanced to the terminal ileum. The colonoscopy was performed without difficulty. The patient tolerated the procedure well. The quality of the bowel preparation was excellent. The quality of the bowel preparation was evaluated using the BBPS (BostonBowel Preparation Scale) with scores of: Right Colon = 3, Transverse Colon = 3 and Left Colon = 3 (entiremucosa seen well with no residual staining, smallfragments of stool or opaque liquid). The total BBPS score equals 9. The bowel preparation used was Miralax, bisacodyl tablets and magnesium citrate via splitdose instruction. Bowel prep was administered using asplit dose. Findings: The perianal and digital rectal examinations were normal. The terminal ileum appeared normal. Scattered small-mouthed diverticula were found from transverse colonto sigmoid colon. The exam was otherwise without abnormality on direct and retroflexion views. Impression: - The examined portion of the ileum was normal. - Diverticulosis from transverse colon to sigmoid colon. - The examination was otherwise normal on directand retroflexion views. Recommendation: - High fiber diet. - Repeat colonoscopy in 10 years for screening purposes. - Contact Information: During normal business hours - Please call theNurse Coordinator: [phone]. After hours, evening, nights, weekends and holidays- Please call the hospital sorter operator at and ask for the GI fellow wildlife conservation officer. Attending Participation: I personally performed the entire procedure. Electronically signed by Yolis Mata MD. Yolis Mata MD, PHD 12/17/2020 8:36:25 AM Number of Addenda: 0 Note Initiated On: 12/17/2020 8:06 AM Yolis Mata MD PhD ENDOSCOPY PROCEDURES Danna l Result * Screening Mammogram Bilateral W Johnson (10/26/2019 1:59 PM CDT) Anatomical Region Laterality Modality Breast Bilateral Mammography Narrative 10/31/2019 11:04 AM CDT Mammogram Technique: Bilateral Digital Breast Tomosynthesis, Bilateral C-view 2D Screening mammogram. Views obtained: bilateral craniocaudal and bilateral mediolateral oblique. Computer Aided Detection was performed. Mammogram Findings: The present examination has been compared to a prior imaging study performed at [place] [address] on 07/22/2017. There are scattered areas of fibroglandular density. There is no suspicious abnormality in either breast. Impression: Annual screening mammography is recommended. OVERALL FINAL ASSESSMENT: BI-RADS CATEGORY 1: Negative. Procedure Note Reid Mccartney MD - 10/31/2019 Mammogram Technique: Bilateral Digital Breast Tomosynthesis, Bilateral C-view 2D Screening mammogram. Views obtained: bilateral craniocaudal and bilateral mediolateral oblique. Computer Aided Detection was performed. Mammogram Findings: The present examination has been compared to a prior imaging study performed at [place] [address] on 07/22/2017. There are scattered areas of fibroglandular density. There is no suspicious abnormality in either breast. Impression: Annual screening mammography is recommended. OVERALL FINAL ASSESSMENT: BI-RADS CATEGORY 1: Negative. Anna Adames MD IMG MAMMO PROCEDURE S Final Result * Hepatitis C antibody (07/22/2017 12:50 PM CDT) Hep C Ab Nonreactive Nonreactive [facility] Comment: Interpretive Data Positive and greyzone results should be confirmed by a molecular method. If positive or greyzone, a second separately collected sample should be submitted for Hepatitis C Virus RNA. Detection and Quantitation by Real-Time Reverse Cushion Sewer-PCR.Current Interpretive data was last revised on 2016. 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:05/02/2024 New Dx <6 months, Can review 10/26, OWEN Rodriguez RN 04/28/2024 04/28/2024 VRE 05/09/2024 05/09/2024 Insurance [facility] MED[facility] Address: [address] [address] [facility] MEDIC[facility] Address: [address] [address] [place] [address] [facility] MEDICARE AET MEDICARE [facility] MEDICARE AETNA MEDICARE Advance Directives For more information, please contact: [phone] Documents on File Type Date Recorded Patient Manager Business Operations Expl anation Power of [employer] Network Engineer 02/24/2022 1:27 PM [facility] Directive Brenton Real [email or web address] * Full Code (Latest Code Status on File) Date Activated Date Inactivated Comments 04/28/2024 10:17 PM 05/17/2024 7:12 PM * Full Code Date Activated Date Inactivated Comments 02/01/2024 3:24 PM 03/03/2024 10:34 PM * Full Code Date Activated Date Inactivated Comments 02/01/2024 3:11 PM 02/01/2024 3:18 PM * Full Code Date Activated Date Inactivated Comments 12/17/2020 7:09 AM 12/17/2020 1:48 PM * Full Code Date Activated Date Inactivated Comments 10/05/2019 11:17 AM 10/05/2019 5:44 PM Care Teams Rotary Saw Operator Relationship Specialty Start Date End Date Anna Adames MD [address] DIV GENERAL [facility] [address] [place] [address] PCP - General Internal Medicine 04/14/24 Ksenia Fermin MD Referring Physician Dermatology 07/23/18 José Cole MD Referring Physician Otolaryngology 08/08/19 Valeri Lezama, JOANNE Optometry 08/29/21 Dionte Zaragoza MD [address] [facility] DEPT ORTHOPAEDIC SURGERY, [facility] [address] Consulting Physician Orthopedic Surgery 04/14/24 Jeffy Lugo MD [address] [facility] [id number] [place] [address] Surgeon Orthopedic Surgery 04/14/24 Kaushal Massey MD [address] [place] [address] Surgeon Trauma Surgery 04/14/24
--- OUTSIDE RECORDS SUMMARY | 2024-05-30 13:02 | XMS_ITS | Encounter Summary ---
Author Organization [facility] Address [address] [facility] Attn: Epic Prelude ADT [place] [address] Care Team Providers Care Facing End Trimmer Name Role Phone Kevin Peterson MD Primary Care Provider Unava ilable Encounter Details Date Type Department Care Team (Late st Contact Info) Description 05/02/1992 Outpatient Historical Kevin Peterson MD NO ADDRESS ON FILE Social History Tobacco Use Types Packs/Day Years Used Date Smoking Tobacco: Never Assessed Comments Unknown Sex and Gender Information Value Date Recorded Sex Assigned at Not on file 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
--- OUTSIDE RECORDS SUMMARY | 2024-05-30 13:02 | XMS_ITS | Clinical Summary ---
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
--- OUTSIDE RECORDS SUMMARY | 2024-05-30 13:02 | XMS_ITS | Encounter Summary ---
Author [facility] Address 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
--- OUTSIDE RECORDS SUMMARY | 2024-05-30 13:02 | XMS_ITS | Encounter Summary ---
Author Organization [facility] Address [facility] [facility] [place] [address] Care Team Providers Care Dressage Instructor Name Role Phone Anna Adames MD Primary Care [facility] Reason for Visit * Reason Onset Date Comments Appointment 11/17/2023 Encounter Details Date Type Department Care Team (Late st Contact Info) Description 11/17/2023 Telephone [facility] - ENT [address] [place] [phone] José Cole MD [address] [place] [address] [place] [address] Appointment Social History Tobacco Use Types Packs/Day Years Used Date Smoking Tobacco: Never Smokeless Tobacco: Never Alcohol Use Standard Drinks/Week Comments Yes 1 (1 standard drink = 0.6 oz pur e alcohol) Sex and Gender Information Value Date Recorded Sex Assigned at Not on file Gender Identity Female 11/20/2016 10:17 AM CDT Sexual Orientation Not on file documented as of this encounter Miscellaneous Notes * Telephone Encounter - Les Pichrado - 11/17/2023 8:14 AM CDT Current Provider: Kelsey Reason for Call: pt has appt next week 11/23 but states that she has ear pain possible ear infectionand wants to be seen sooner Patient Call Back Number: [phone] documented in this encounter Plan of Treatment Not on file documented as of this encounter Visit Diagnoses Not on filedocumented in this encounter Care Teams Dressage Instructor Relationship Specialty Start Date End Date Anna Adames MD PCP - General Internal Medicine 11/20/16 documented as of this encounter
--- OUTSIDE RECORDS SUMMARY | 2024-05-30 13:02 | XMS_ITS | Encounter Summary ---
Author Organization [email or web address] Address [address] [place] [address] Care Team Providers Care Ship Pilot Dispatcher Name Role Phone Kevin Peterson MD Primary Care Provider Aram hinds Encounter Details Date Type Department Care Team (Latest Contact Info) Description 10/24/2003 Outpatient Historical [facility] Royal Sky MD [address] [facility] [address] [place] [address] BENIGN SARAH SCALP/SKIN NECK (Primary Dx) Social History Tobacco Use Types Packs/Day Years Used Date Smoking Tobacco: Never Assessed Comments Unknown Sex and Gender Information Value Date Recorded Sex Assigned at Not on file Legal Sex Female 5:22 AM PERIANESTHESIA RN Gender Identity Not on file Sexual Orientation Not on file documented as of this encounter Plan of Treatment Not on file documented as of this encounter Visit Diagnoses Diagnosis 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
--- OUTSIDE RECORDS SUMMARY | 2024-05-30 13:02 | XMS_ITS | Encounter Summary ---
Author Organization [facility] Address [address] [place] [address] Phone Care Team Providers Care Tram Inspector Name Role Phone Anna Adames MD Primary Care Provi meenakshi Ksenia Fermin MD Unavailable José Cole MD Unavailable Valeri Lezama Unavailable [phone] Anna Adames MD Primary Care Provi meenakshi Dionte Zaragoza MD Unavailable [phone] Jeffy Lugo MD Unavailable Kaushal Massey MD Unavailable [phone] Encounter Details Date Type Department Care Team (Latest Contact Info) Description 09/23/2022 Orders Only [facility] ED Scanning, Provider Social History Tobacco Use Types Packs/Day Years Used Date Smoking Tobacco: Never Smokeless Tobacco: Never AUDIT-C Answer Date Recorded Q1: How often do you have a drink containing alc ohol? 2-4 times a month 12/17/2020 Q2: How many drinks containi ng alcohol do you have on a typical day when you are drinking? 1 or 2 12/17/2020 Q3: How often do you have si x or more drinks on one occasion? Never 12/17/2020 PHQ-2 Answer Date Recorded PHQ-2 Total Score (If total score is 3 or more points, staff should administer the PHQ-9) 0 12/17/2021 Comments No Sex and Gender Information Value Date Recorded Sex Assigned at Not on file Legal Sex Female 10:50 AM FORESTRY ENGINEER Gender Identity Female 07/16/2020 5:01 PM CDT Sexual Orientation Straight 07/16/2020 5: 01 PM CDT documented as of this encounter Plan of Treatment Not on file documented as of this encounter Procedures Procedure Name Priority Date/Time Associated Diagnosis Comments SCAN - RADIOLOGY/IMAGING 09/23/2022 documented in this encounter Results * SCAN - RADIOLOGY/IMAGING (09/23/2022) Anatomical Region Laterality Modality Other us Provider Scanning Final Result documented in this encounter Visit Diagnoses Not on filedocumented in this encounter Additional Health Concerns Infection Onset Date Last Indicated Resolved Time Ring Surveillance Comment:This flag is used to identify patient who are in house who are being monitored by Infection Prevention. If the patient is discharged and a swab has not been collected, if patient returns to hospital within 7 days a surveillance swab is to be collected (Reach out to IP for order) Patient does NOT need isolation, patient can travel off the floor. C auris 02/06/2024 02/06/2024 02/09/2024 8:[address] C. difficile suspected 02/22/2024 02/22/202402/21 7:16 PM FORESTRY ENGINEER Ring Surveillance Comment:C Auris 03/02/2024 03/02/2024 03/09/2024 3:[address] C. difficile suspected 04/28/2024 04/28/202404/28 10:44 PM FORESTRY ENGINEER MDR gram neg/ESBL Comment:05/02/2024 New Dx <6 months, Can review 10/26, IP Stacie Rodriguez RN 04/28/2024 04/28/2024 C. difficile suspected 05/09/2024 05/09/202405/09 11:02 PM FORESTRY ENGINEER VRE 05/09/2024 05/09/2024 documented as of this encounter Care Teams Tram Inspector Relationship Specialty Start Date End Date Anna Adames MD PCP - General 08/26/16 04/13/24 Anna Adames MD [address] [facility] DIV GENERAL [facility] [place] [address] [place] [address] PCP - General Internal Medicine 04/14/24 Ksenia Fermin MD Referring Physician Dermatology 07/23/18 José Cole MD Referring Physician Otolaryngology 08/08/19 Valeri Lezama OD Optometry 08/29/21 Dionte Zaragoza MD [address] [facility] DEPT ORTHOPAEDIC SURGERY, [facility] [address] [place] [address] Consulting Physician Orthopedic Surgery 04/14/24 Jeffy Lugo MD [address] [facility] [id number] [place] [address] Surgeon Orthopedic Surgery 04/14/24 Kaushal Massey MD [address] [place] [address] Surgeon Trauma Surgery 04/14/24 documented as of this encounter
--- OUTSIDE RECORDS SUMMARY | 2024-05-30 13:02 | XMS_ITS | Encounter Summary ---
Author Organization [facility] Address [address] [facility] Attn: Epic Prelude ADT [place] [address] Care Team Providers Care Quilting Machine Helper Name Role Phone Kevin Peterson MD Primary Care Provider Unava ilable Encounter Details Date Type Department Care Team (Late st Contact Info) Description 10/03/1988 Outpatient Historical Kevin Peterson MD NO ADDRESS ON FILE Social History Tobacco Use Types Packs/Day Years Used Date Smoking Tobacco: Never Assessed Comments Unknown Sex and Gender Information Value Date Recorded Sex Assigned at Not on file Legal Sex Female 5:22 AM AUTOMATIC CLIPPER AND STRIPPER Gender Identity Not on file Sexual Orientation Not on file documented as of this encounter Plan of Treatment Not on file documented as of this encounter Visit Diagnoses Not on filedocumented in this encounter Care Teams Quilting Machine Helper Relationship Specialty Start Date End Date Kevin Peterson MD NO ADDRESS ON FILE PCP - General 11/25/02 documented as of this encounter
--- OUTSIDE RECORDS SUMMARY | 2024-05-30 13:02 | XMS_ITS | Encounter Summary ---
Author Organization [facility] Address [address] [place] [address] Care Team Providers Care Disability Insurance Hearing Officer Name Role Phone Anna Adames MD Primary Care Provi meenakshi Reason for Visit * Reason Onset Date Comments Concerns 07/29/2023 Encounter Details Date Type Department Care Team (Late st Contact Info) Description 07/29/2023 Telephone [facility] - Centralized Scheduling [address] [place] [phone] Henry Perez MD Concerns Social History Tobacco Use Types Packs/Day Years [...] encounter Miscellaneous Notes * Telephone Encounter - Denilson [place] - 07/29/2023 3:15 PM CDT Patient is concerned with seeing Dr. Rosales and asked why her appt was rescheduled with HODA Gee. documented in this encounter Plan of Treatment Not on file documented as of this encounter Visit Diagnoses Not on filedocumented in this encounter Care Teams Disability Insurance Hearing Officer Relationship Specialty Start Date End Date Anna Adames MD PCP - General Internal Medicine 11/20/16 documented as of this encounter
--- OUTSIDE RECORDS SUMMARY | 2024-05-30 13:02 | XMS_ITS | Encounter Summary ---
Author Organization [employer] [facility] Address [address] [place] [address] Care Team Providers Care Lime Supervisor Name Role Phone Kevin Peterson MD Primary Care Provider Aram hinds Encounter Details Date Type Department Care Team (Latest Contact Info) Description 11/25/2002 Outpatient Historical HIS PATIENT IN A BED Fausto Dias MD NO ADDRESS ON FILE CHOLELITH W ACUTE GB DIS-NO OBSTR (Primary Dx) Social History Tobacco Use Types Packs/Day Years Used Date Smoking Tobacco: Never Assessed Comments Unknown Sex and Gender Information Value Date Recorded Sex Assigned at Not on file Legal Sex Female 5:22 AM DINKING MACHINE OPERATOR Gender Identity Not on file Sexual Orientation Not on file documented as of this encounter Plan of Treatment Not on file documented as of this encounter Visit Diagnoses Diagnosis Calculus of gallbladder with acute cholecystitis, without mention of obstruction- Primary documented in this encounter Care Teams Lime Supervisor Relationship Specialty Start Date End Date Kevin Peterson MD NO ADDRESS ON FILE PCP - General 11/25/02 documented as of this encounter
--- OUTSIDE RECORDS SUMMARY | 2024-05-30 13:02 | XMS_ITS | Encounter Summary ---
Author Organization [facility] Address [address] [facility] Attn: Epic Prelude ADT [place] [address] Care Team Providers Care Security Incident Handler Name Role Phone Kevin Peterson MD Primary Care Provider Unava ilable Encounter Details Date Type Department Care Team (Late st Contact Info) Description 04/12/1991 Outpatient Historical Kevin Peterson MD NO ADDRESS ON FILE Social History Tobacco Use Types Packs/Day Years Used Date Smoking Tobacco: Never Assessed Comments Unknown Sex and Gender Information Value Date Recorded Sex Assigned at Not on file Legal Sex Female 5:22 AM CERTIFIED SCRUM MASTER Gender Identity Not on file Sexual Orientation Not on file documented as of this encounter Plan of Treatment Not on file documented as of this encounter Visit Diagnoses Not on filedocumented in this encounter Care Teams Security Incident Handler Relationship Specialty Start Date End Date Kevin Peterson MD NO ADDRESS ON FILE PCP - General 11/25/02 documented as of this encounter
--- OUTSIDE RECORDS SUMMARY | 2024-05-30 13:02 | XMS_ITS | Encounter Summary ---
Author Organization [facility] Address [address] [place] [address] Care Team Providers Care Railroad Brake Repairer Name Role Phone Kevin Peterson MD Primary Care Provider Unava ilable Encounter Details Date Type Department Care Team (Late st Contact Info) Description 05/08/2006 Outpatient Historical HIS AUDIOLOGY Kevin Peterson MD NO ADDRESS ON FILE Social History Tobacco Use Types Packs/Day Years Used Date Smoking Tobacco: Never Assessed Comments Unknown Sex and Gender Information Value Date Recorded Sex Assigned at Not on file Legal Sex Female 5:22 AM AUDITOR INTERNAL Gender Identity Not on file Sexual Orientation Not on file documented as of this encounter Plan of Treatment Not on file documented as of this encounter Visit Diagnoses Not on filedocumented in this encounter Care Teams Railroad Brake Repairer Relationship Specialty Start Date End Date Kevin Peterson MD NO ADDRESS ON FILE PCP - General 11/25/02 documented as of this encounter
--- OUTSIDE RECORDS SUMMARY | 2024-05-30 13:02 | XMS_ITS | Referral Summary ---
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 AUTO DIFFERENTIAL Timed 05/10/2024 12:21 AM AUDITING CONTROL CLERK SALINE LOCK IV STAT 05/09/2024 10:33 PM AUDITING CONTROL CLERK SALINE LOCK IV STAT 05/09/2024 10:33 PM AUDITING CONTROL CLERK INFECTION PREVENTION VRE CULTURE Routine 05/09/2024 4:01 PM AUDITING CONTROL CLERK C. DIFFICILE TESTING STAT 05/09/2024 4:01 PM AUDITING CONTROL CLERK XR ABDOMEN AP 1 VIEW ED Urgent/IP Urgent 05/09/2024 3:01 PM AUDITING CONTROL CLERK EGFR Routine 05/08/2024 1:30 PM AUDITING CONTROL CLERK DIFFERENTIAL AUTO Routine 05/08/2024 1:3 0 PM AUDITING CONTROL CLERK PHOSPHORUS Timed 05/08/2024 1:30 PM AUDITING CONTROL CLERK CBC WITH AUTO DIFFERENTIAL Routine 05/08/2024 1:30 PM AUDITING CONTROL CLERK BASIC METABOLIC PANEL Routine 05/08/2024 1:30 PM AUDITING CONTROL CLERK MAGNESIUM Routine 05/08/2024 1:30 PM AUDITING CONTROL CLERK EGFR STAT 05/06/2024 10:27 PM AUDITING CONTROL CLERK DIFFERENTIAL AUTO STAT 05/06/2024 10:27 PM AUDITING CONTROL CLERK PHOSPHORUS STAT 05/06/2024 10:27 PM AUDITING CONTROL CLERK MAGNESIUM STAT 05/06/2024 10:27 PM AUDITING CONTROL CLERK CBC WITH AUTO DIFFERENTIAL STAT 05/06/2024 10:27 PM AUDITING CONTROL CLERK BASIC METABOLIC PANEL STAT 05/06/2024 10:27 PM AUDITING CONTROL CLERK EGFR Routine 05/05/2024 10:32 PM AUDITING CONTROL CLERK DIFFERENTIAL AUTO Routine 05/05/2024 10:32 PM AUDITING CONTROL CLERK PHOSPHORUS Routine 05/05/2024 10:32 PM AUDITING CONTROL CLERK CBC WITH AUTO DIFFERENTIAL Routine 05/05/2024 10:32 PM AUDITING CONTROL CLERK MAGNESIUM Routine 05/05/2024 10:32 PM AUDITING CONTROL CLERK BASIC METABOLIC PANEL Routine 05/05/2024 10:32 PM AUDITING CONTROL CLERK EGFR Routine 05/04/2024 11:29 PM AUDITING CONTROL CLERK DIFFERENTIAL AUTO Routine 05/04/2024 11:29 PM AUDITING CONTROL CLERK PHOSPHORUS Routine 05/04/2024 11:29 PM AUDITING CONTROL CLERK CBC WITH AUTO DIFFERENTIAL Routine 05/04/2024 11:29 PM AUDITING CONTROL CLERK MAGNESIUM Routine 05/04/2024 11:29 PM AUDITING CONTROL CLERK BASIC METABOLIC PANEL Routine 05/04/2024 11:29 PM AUDITING CONTROL CLERK EGFR Routine 05/03/2024 10:28 PM AUDITING CONTROL CLERK DIFFERENTIAL AUTO Routine 05/03/2024 10:28 PM AUDITING CONTROL CLERK PHOSPHORUS Routine 05/03/2024 10:28 PM AUDITING CONTROL CLERK CBC WITH AUTO DIFFERENTIAL Routine 05/03/2024 10:28 PM AUDITING CONTROL CLERK MAGNESIUM Routine 05/03/2024 10:28 PM AUDITING CONTROL CLERK BASIC METABOLIC PANEL Routine 05/03/2024 10:28 PM AUDITING CONTROL CLERK MYCOBACTERIOLOGY AFB CULTURE AND ACID-FAST STAIN Routine 05/03/2024 11:37 AM AUDITING CONTROL CLERK MYCOLOGY (FUNGAL) CULTURE Routine 05/03/2024 11:37 AM AUDITING CONTROL CLERK TISSUE AEROBIC AND ANAEROBIC CULTURE AND GRAM STAIN Routine 05/03/2024 11:37 AM AUDITING CONTROL CLERK SUPERFICIAL BONE BIOPSY IP Routine 05/03/19 10:25 AM AUDITING CONTROL CLERK MYCOLOGY (FUNGAL) CULTURE AND STAIN Routine 05/03/2024 10:17 AM AUDITING CONTROL CLERK MYCOBACTERIOLOGY AFB CULTURE AND ACID-FAST STAIN Routine 05/03/2024 10:17 AM AUDITING CONTROL CLERK AEROBIC AND ANAEROBIC CULTURE AND GRAM STAIN Routine 05/03/2024 10:17 AM AUDITING CONTROL CLERK SURGICAL PATHOLOGY Routine 05/03/2024 9: 55 AM AUDITING CONTROL CLERK Fall, initial encounter Urinary tract infection without hematuria, site unspecified Diarrhea, unspecified type Sepsis, due to unspecified organism, unspecified whether acute organ dysfunction present (HCC) EGFR Routine 05/02/2024 11:12 PM AUDITING CONTROL CLERK DIFFERENTIAL AUTO Routine 05/02/2024 11:12 PM AUDITING CONTROL CLERK APTT Routine 05/02/2024 11:12 PM AUDITING CONTROL CLERK PROTIME-INR Routine 05/02/2024 11:12 PM AUDITING CONTROL CLERK PHOSPHORUS Routine 05/02/2024 11:12 PM AUDITING CONTROL CLERK CBC WITH AUTO DIFFERENTIAL Routine 05/02/2024 11:12 PM AUDITING CONTROL CLERK MAGNESIUM Routine 05/02/2024 11:12 PM AUDITING CONTROL CLERK BASIC METABOLIC PANEL Routine 05/02/2024 11:12 PM AUDITING CONTROL CLERK EGFR Routine 05/01/2024 11:02 PM AUDITING CONTROL CLERK DIFFERENTIAL AUTO Routine 05/01/2024 11:02 PM AUDITING CONTROL CLERK THYROID FUNCTION CASCADE Routine 11:02 PM AUDITING CONTROL CLERK VITAMIN B12 Routine 05/01/2024 11:02 PM AUDITING CONTROL CLERK FOLATE Routine 05/01/2024 11:02 PM AUDITING CONTROL CLERK PHOSPHORUS Routine 05/01/2024 11:02 PM AUDITING CONTROL CLERK CBC WITH AUTO DIFFERENTIAL Routine 05/01/2024 11:02 PM AUDITING CONTROL CLERK MAGNESIUM Routine 05/01/2024 11:02 PM AUDITING CONTROL CLERK BASIC METABOLIC PANEL Routine 05/01/2024 11:02 PM AUDITING CONTROL CLERK EGFR Routine 04/30/2024 11:17 PM AUDITING CONTROL CLERK DIFFERENTIAL AUTO Routine 04/30/2024 11:17 PM AUDITING CONTROL CLERK PHOSPHORUS Routine 04/30/2024 11:17 PM AUDITING CONTROL CLERK CBC WITH AUTO DIFFERENTIAL Routine 04/30/2024 11:17 PM AUDITING CONTROL CLERK MAGNESIUM Routine 04/30/2024 11:17 PM AUDITING CONTROL CLERK BASIC METABOLIC PANEL Routine 04/30/2024 11:17 PM AUDITING CONTROL CLERK EGFR Routine 04/30/2024 3:35 AM AUDITING CONTROL CLERK DIFFERENTIAL AUTO Routine 04/30/2024 3:3 5 AM AUDITING CONTROL CLERK BASIC METABOLIC PANEL Routine 04/30/2024 3:35 AM AUDITING CONTROL CLERK CBC WITH AUTO DIFFERENTIAL Routine 04/30/2024 3:35 AM AUDITING CONTROL CLERK EGFR STAT 04/29/2024 7:49 PM AUDITING CONTROL CLERK CALCIUM,IONIZED, WHOLE BLOOD Routine 04/29/2024 7:49 PM AUDITING CONTROL CLERK MAGNESIUM STAT 04/29/2024 7:49 PM AUDITING CONTROL CLERK BASIC METABOLIC PANEL STAT 04/29/2024 7:49 PM AUDITING CONTROL CLERK CRITICAL RESULT CALLBACK CHEMISTRY STAT 04/29/2024 5:43 PM AUDITING CONTROL CLERK BLOOD GAS, VENOUS STAT 04/29/2024 5:4 3 PM AUDITING CONTROL CLERK ECG 12-LEAD Routine 04/29/2024 5:28 PM AUDITING CONTROL CLERK [place] CRITICAL CARE ILL/INJURED PATIENT INIT 30-74 MIN Routine 04/29/2024 5:25 PM AUDITING CONTROL CLERK CRITICAL RESULT CALLBACK CHEMISTRY Routine 04/29/2024 2:28 PM AUDITING CONTROL CLERK MAGNESIUM Routine 04/29/2024 2:28 PM AUDITING CONTROL CLERK CRITICAL RESULT CALLBACK CHEMISTRY Routine 04/29/2024 2:28 PM AUDITING CONTROL CLERK EGFR Routine 04/29/2024 2:28 PM AUDITING CONTROL CLERK DIFFERENTIAL AUTO Routine 04/29/2024 2:2 8 PM AUDITING CONTROL CLERK BASIC METABOLIC PANEL Routine 04/29/2024 2:28 PM AUDITING CONTROL CLERK CBC WITH AUTO DIFFERENTIAL Routine 04/29/2024 2:28 PM AUDITING CONTROL CLERK XR HIP LEFT W PELVIS 2 OR 3 VIEWS ED Urgent/IP Urgent 04/29/2024 11:27 AM AUDITING CONTROL CLERK XR TIBIA FIBULA RIGHT2 VIEWS IP Routine 04/29/2024 11:26 AM AUDITING CONTROL CLERK CRP (ACUTE PHASE) Timed 04/29/2024 9:5 1 AM AUDITING CONTROL CLERK ERYTHROCYTE SEDIMENTATION RATE Timed 04/29/2024 9:51 AM AUDITING CONTROL CLERK EGFR STAT 04/29/2024 5:49 AM AUDITING CONTROL CLERK COMPREHENSIVE METABOLIC PANEL STAT 04/29/2024 5:49 AM AUDITING CONTROL CLERK CBC WITHOUT DIFFERENTIAL Routine 025 5:49 AM AUDITING CONTROL CLERK C. DIFFICILE TESTING Routine 04/28/2024 8:45 PM AUDITING CONTROL CLERK DRUGS OF ABUSE SCREEN, URINE WITH REFLEX CONFIRMATION Routine 04/28/2024 7:39 PM AUDITING CONTROL CLERK URINALYSIS, MICROSCOPIC ONLY STAT 04/28/2024 7:17 PM AUDITING CONTROL CLERK URINE CULTURE STAT 04/28/2024 7:17 PM AUDITING CONTROL CLERK URINALYSIS AND REFLEX TO MICROSCOPIC AND CULTURE STAT 04/28/2024 7:17 PM AUDITING CONTROL CLERK BLOOD CULTURE STAT 04/28/2024 7:17 PM AUDITING CONTROL CLERK BLOOD CULTURE STAT 04/28/2024 7:17 PM AUDITING CONTROL CLERK SEPSIS LACTATE WITH REFLEX STAT 04/28/2024 5:42 PM AUDITING CONTROL CLERK [place] CRITICAL CARE ILL/INJURED PATIENT INIT 30-74 MIN Routine 04/28/2024 4:52 PM AUDITING CONTROL CLERK PROTIME-INR STAT 04/28/2024 4:33 PM AUDITING CONTROL CLERK APTT STAT 04/28/2024 4:33 [address] RECON THORACIC AND LUMBAR SPINE W CONTRAST Critical/Life- Threatening 04/28/2024 3:38 PM AUDITING CONTROL CL[address] CHEST ABDOMEN PELVIS W CONTRAST ED Urgent/IP Urgent 04/28/2024 3:38 PM AUDITING CONTROL CLERK CT HEAD AND CERVICAL SPINE WO CONTRAST ED 04/28/2024 3:38 PM AUDITING CONTROL CLERK THROMBOELASTOMETRY PANEL - INTRINSIC Routine 04/28/2024 3:38 PM AUDITING CONTROL CLERK THROMBOELASTOMETRY PANEL - HEPARIN Routine 04/28/2024 3:38 PM AUDITING CONTROL CLERK THROMBOELASTOMETRY PANEL - EXTRINSIC Routine 04/28/2024 3:38 PM AUDITING CONTROL CLERK THROMBOELASTOMETRY PANEL - FIBRINOGEN Routine 04/28/2024 3:38 PM AUDITING CONTROL CLERK DIFFERENTIAL AUTO Routine 04/28/2024 3:3 8 PM AUDITING CONTROL CLERK THROMBOELASTOMETRY PANEL Routine 025 3:38 PM AUDITING CONTROL CLERK ETHANOL Routine 04/28/2024 3:38 PM AUDITING CONTROL CLERK CBC WITH AUTO DIFFERENTIAL Routine 04/28/2024 3:38 PM AUDITING CONTROL CLERK TYPE AND SCREEN Timed 04/28/2024 3:38 PM AUDITING CONTROL CLERK POC BLOOD GAS AND CHEMISTRIES, VENOUS Routine 04/28/2024 3:34 PM AUDITING CONTROL CLERK XR SPINE CERVICAL 2 OR 3 VIEWS Schedule Routine, Read Routine (OP Routine) 03/21/2024 3:21 PM AUDITING CONTROL CLERK Cervical spine pain XR PELVIS 3 OR MORE VIEWS Schedule Routine, Read Routine (OP Routine) 03/21/2024 1:17 PM AUDITING CONTROL CLERK Closed fracture of phalanx of left fifth toe, initial encounter Closed fracture of iliac wing, unspecified laterality, initial encounter (HCC) Closed nondisplaced fracture of left clavicle, unspecified part of clavicle, initial encounter XR CLAVICLE LEFT COMPLETE Schedule Routine, Read Routine (OP Routine) 03/21/2024 1:17 PM AUDITING CONTROL CLERK Closed fracture of phalanx of left fifth toe, initial encounter Closed fracture of iliac wing, unspecified laterality, initial encounter (HCC) Closed nondisplaced fracture of left clavicle, unspecified part of clavicle, initial encounter XR FOOT LEFT 3 OR MORE VIEWS Schedule Routine, Read Routine (OP Routine) 03/21/2024 1:17 PM AUDITING CONTROL CLERK Closed fracture of phalanx of left fifth toe, initial encounter Closed fracture of iliac wing, unspecified laterality, initial encounter ([facility]) Closed nondisplaced fracture of left clavicle, unspecified part of clavicle, initial encounter INFECTION PREVENTION [place] [facility] PCR, SURVEILLANCE Routine 03/03/2024 2:40 PM AUDITING CONTROL CLERK DEXA AXIAL SKELETON BONE DENSITY 1 OR [...] MD LAB BLOOD ORDERA BLES Final Result [facility] [place] [address] * Magnesium (05/16/2024 5:14 PM CDT) Pathologist [facility] Magnesium 1.7 1.4 - 2.5 mg/dL Blood 05/16/2024 5:14 PM CDT 05/16/2024 5:54 PM CDT Shawnee Watson MD LAB BLOOD ORDERA BLES Final Result Performing Organization Address [facility] Co de Phone Number [facility] [place] [address] * (ABNORMAL) Hepatic function panel (05/16/2024 5:14 PM CDT) Bilirubin, total 0.2 0.1 - 1.2 mg/dL Bilirubin, direct <0.2 0.1 - 0.3 mg/dL [facility] Protein, pl 5.1(L) 6.5 - 8.5 g/dL [facility] Albumin 2.5(L) 3.5 - 5.0 g/dL [facility] Alk phos 132(H) 40 - 130 Units/L [facility] ALT 22 7 - 45 Units/L [facility] AST 34 10 - 45 Units/L [facility] Blood 05/16/2024 5:14 PM CDT 05/16/2024 5:54 PM CDT Shawnee Watson MD LAB BLOOD ORDERA BLES Final Result Performing Organization Address City/[facility]/ZIP Co de Phone Number [facility] Department [place] [address] * (ABNORMAL) Basic metabolic panel (05/16/2024 5:14 PM CDT) Pathologist [facility] Sodium 136 135 - 145 mmol/L Potassium, pl 4.1 3.3 - 4.9 mmol/L [facility] Chloride 105 97 - 110 mmol/L [facility] CO2 21(L) 22 - 32 mmol/L [facility] Anion gap 10 2 - 15 mmol/L [facility] BUN 27(H) 6 - 25 mg/dL [facility] Creatinine 0.83 0.60 - 1.10 mg/dL [facility] Glucose 129 70 - 199 mg/dL [facility] Comment: Interpretive Data Fasting glucose >/= 126 [...] 2022. Calcium 8.1(L) 8.5 - 10.3 mg/dL [facility] Blood 05/16/2024 5:14 PM CDT 05/16/2024 5:54 PM CDT Shawnee Watson MD LAB BLOOD ORDERA BLES Final Result [facility] Department [place] [address] * eGFR (05/16/2024 9:07 AM CDT) Pathologist [facility] eGFR 67 >=60 mL/min/1. 73 m2 Comment: [...] MD LAB BLOOD ORDERA BLES Final Result [facility] Department [place] [address] * (ABNORMAL) Basic metabolic panel (05/16/2024 9:07 AM CDT) Sodium 138 135 - 145 mmol/L Potassium, pl 4.5 3.3 - 4.9 mmol/L [facility] Chloride 107 97 - 110 mmol/L [facility] CO2 22 22 - 32 mmol/L [facility] Anion gap 9 2 - 15 mmol/L [facility] BUN 26(H) 6 - 25 mg/dL [facility] Creatinine 0.88 0.60 - 1.10 mg/dL [facility] Glucose 73 70 - 199 mg/dL [facility] Comment: Interpretive Data Fasting glucose >/= 126 [...] 2022. Calcium 8.8 8.5 - 10.3 mg/dL [facility] Blood 05/16/2024 9:07 AM CDT 05/16/2024 10:17 AM CDT Shawnee Watson MD LAB BLOOD ORDERA BLES Final Result [facility] Department [place] [address] * Potassium, whole blood (05/16/2024 12:31 AM CDT) Potassium, bld 4.7 3.3 - 4.9 mmol/L Blood 05/16/2024 12:3 1 AM CDT 05/16/2024 2:22 AM CDT Shawnee Watson MD LAB BLOOD ORDERA BLES Final Result Performing Organization Address City/[facility] Co de Phone Number [facility] Department [place] [address] * eGFR (05/15/2024 10:10 PM CDT) eGFR [...] 0 PM CDT 05/15/2024 10:52 PM CDT Shawnee Watson MD LAB BLOOD ORDERA BLES Final Result [facility] Department [place] [address] * Differential, auto (05/15/2024 10:10 PM CDT) Neutrophil abs 5.2 1.5 - 6.5 K/cumm Imm gran abs 0.1 0.0 - 0.1 K/cumm [facility] Lymphocyte abs 1.8 0.8 - 3.3 K/cumm [facility] Monocyte abs 0.8 0.2 - 0.8 K/cumm [facility] Eosinophil abs 0.1 0.0 - 0.5 K/cumm [facility] Basophil abs 0.0 0.0 - 0.1 K/cumm [facility] Neutrophil pct 65.2 % [facility] Comment: Interpretive Data Percent cell count reference ranges are not reported, since discordance with absolute values may lead to misinterpretation of CBC data. Current Interpretive Data was last revised on 2017. Imm gran pct 0.9 % [facility] Comment: Interpretive Data Percent cell count reference ranges are not reported, since discordance with absolute values may lead to misinterpretation of CBC data. Current Interpretive Data was last revised on 2017. Lymphocyte pct 22.4 % [facility] Comment: Interpretive Data Percent cell count reference ranges are not reported, since discordance with absolute values may lead to misinterpretation of CBC data. Current Interpretive Data was last revised on 2017. Monocyte pct 9.6 % [facility] Comment: Interpretive Data Percent cell count reference ranges are not reported, since discordance with absolute values may lead to misinterpretation of CBC data. Current Interpretive Data was last revised on 2017. Eosinophil pct 1.6 % [facility] Comment: Interpretive Data Percent cell count reference ranges are not reported, since discordance with absolute values may lead to misinterpretation of CBC data. Current Interpretive Data was last revised on 2017. Basophil pct 0.3 % [facility] Comment: Interpretive Data Percent cell count reference ranges are not reported, since discordance with absolute values may lead to misinterpretation of CBC data. Current Interpretive Data was last revised on 2017. Blood 05/15/2024 10:1 0 PM CDT 05/15/2024 10:52 PM CDT us Felecia Ribera MD LAB BLOOD ORDERABLES Final R esult [facility] Department [place] [address] * (ABNORMAL) CBC with auto differential (05/15/2024 10:10 PM CDT) WBC 8.0 3.8 - 9.9 K/cumm Hgb 10.2(L) 11.9 - 15.5 g/dL [facility] Hct 31.4(L) 35.6 - 45.5 % [facility] Plt 294 150 - 400 K/cumm [facility] MPV 8.7(L) 9.1 - 12.3 fL [facility] RBC 3.29(L) 3.90 - 5.20 M/cumm [facility] MCV 95.4 81.3 - 96.4 fL [facility] MCH 31.0 27.1 - 33.3 pg [facility] MCHC 32.5 32.3 - 35.7 g/dL [facility] RDW CV 18.7(H) 11.1 - 14.9 % [facility] RDW SD 65.4(H) 35.7 - 48.1 fL [facility] NRBC abs 0.00 0.00 - 0.01 K/cumm [facility] Blood 05/15/2024 10:1 0 PM CDT 05/15/2024 10:52 PM CDT Felecia Ribera MD LAB BLOOD ORDERABLES Final R esult Performing Organization Address City/[facility]/ZIP Co de Phone Number [facility] [place] [address] * Phosphorus (05/15/2024 10:10 PM CDT) [facility] [address] Phosphorus, pl 3.3 2.3 - 4.5 mg/dL Blood 05/15/2024 10:1 0 PM CDT 05/15/2024 10:48 PM CDT Shawnee Watson MD LAB BLOOD ORDERA BLES Final Result Performing Organization Address [facility] Co de Phone Number [facility] Department [place] [address] * Magnesium (05/15/2024 10:10 PM CDT) [facility] [address] Magnesium 2.1 1.4 - 2.5 mg/dL Blood 05/15/2024 10:1 0 PM CDT 05/15/2024 10:48 PM CDT Shawnee Watson MD LAB BLOOD ORDERA BLES Final Result Performing Organization Address City/[facility]/ZIP Co de Phone Number [facility] [place] [address] * (ABNORMAL) Basic metabolic panel (05/15/2024 10:10 PM CDT) [facility] [address] Sodium 135 135 - 145 mmol/L Potassium, pl 5.3(H) 3.3 - 4.9 mmol/L [facility] Chloride 106 97 - 110 mmol/L [facility] CO2 21(L) 22 - 32 mmol/L [facility] Anion gap 8 2 - 15 mmol/L [facility] BUN 27(H) 6 - 25 mg/dL [facility] Creatinine 0.90 0.60 - 1.10 mg/dL [facility] Glucose 86 70 - 199 mg/dL [facility] Comment: Interpretive Data Fasting glucose >/= 126 [...] 2022. Calcium 8.7 8.5 - 10.3 mg/dL [facility] Blood 05/15/2024 10:1 0 PM CDT 05/15/2024 10:48 PM CDT us Shawnee Watson MD LAB BLOOD ORDERA BLES Final Result [facility] Department [place] [address] * XR Spine Cervical W Flexion And [...] Electronically signed by: Salvatore Patel MD, PHD us Shawnee Watson MD IMG XR PROCEDURE S Final Result * (ABNORMAL) eGFR (05/14/2024 10:02 PM AUDITING CONTROL CLERK) eGFR 56(L) >=60 mL/min/1. 73 m2 Comment: [...] reviewed 2021. Blood 05/14/2024 10:0 2 PM AUDITING CONTROL CLERK 05/14/2024 11:10 PM AUDITING CONTROL CLERK Shawnee Watson MD LAB BLOOD ORDERA BLES Final Result [facility] [place] [address] * Magnesium (05/14/2024 10:02 PM AUDITING CONTROL CLERK) Magnesium 2.5 1.4 - 2.5 mg/dL Blood 05/14/2024 10:0 2 PM AUDITING CONTROL CLERK 05/14/2024 10:46 PM AUDITING CONTROL CLERK Shawnee Watson MD LAB BLOOD ORDERA BLES Final Result [facility] [place] [address] * (ABNORMAL) Hepatic function panel (05/14/2024 10:02 PM AUDITING CONTROL CLERK) Bilirubin, total 0.2 0.1 - 1.2 mg/dL Bilirubin, direct <0.2 0.1 - 0.3 mg/dL [facility] Comment:Hemolyzed; result ma y be falsely decreased Protein, pl 5.8(L) 6.5 - 8.5 g/dL [facility] Albumin 2.5(L) 3.5 - 5.0 g/dL [facility] Alk phos 168(H) 40 - 130 Units/L [facility] ALT 21 7 - 45 Units/L [facility] AST 37 10 - 45 Units/L [facility] Comment:Hemolyzed; result ma y be falsely elevated Blood 05/14/2024 10:0 2 PM AUDITING CONTROL CLERK 05/14/2024 10:46 PM AUDITING CONTROL CLERK us Shawnee Watson MD LAB BLOOD ORDERA BLES Final Result [facility] Department [place] [address] * (ABNORMAL) Basic metabolic panel (05/14/2024 10:02 PM AUDITING CONTROL CLERK) Sodium 134(L) 135 - 145 mmol/L Potassium, pl 5.2(H) 3.3 - 4.9 mmol/L [facility] Comment:Hemolyzed; Potassium value may be falsely elevated by as much as 0.3-0.5 mmol/L. Suggest redraw and reanalysis. Chloride 107 97 - 110 mmol/L [facility] CO2 14(L) 22 - 32 mmol/L [facility] Anion gap 13 2 - 15 mmol/L [facility] BUN 27(H) 6 - 25 mg/dL [facility] Creatinine 1.02 0.60 - 1.10 mg/dL [facility] Glucose 102 70 - 199 mg/dL [facility] Comment: Interpretive Data Fasting glucose >/= 126 [...] 2022. Calcium 8.4(L) 8.5 - 10.3 mg/dL [facility] Comment:Reviewed Blood 05/14/2024 10:0 2 PM AUDITING CONTROL CLERK 05/14/2024 10:46 PM AUDITING CONTROL CLERK Shawnee Watson MD LAB BLOOD ORDERA BLES Final Result Performing Organization Address City/[facility]/ZIP Co de Phone Number [facility] [place] [address] * POCT glucose (05/14/2024 1:17 PM AUDITING CONTROL CLERK) Glucose, POC 124 70 - 199 mg/dL Blood 05/14/2024 1:17 PM AUDITING CONTROL CLERK 05/14/2024 1:17 PM AUDITING CONTROL CLERK Shawnee Watson MD LAB POCT ORDERAB LES - DEVICE Final Result Performing Organization Address [facility] Co de Phone Number [facility] [place] [address] * eGFR (05/14/2024 10:25 AM AUDITING CONTROL CLERK) eGFR 89 >=60 mL/min/1. 73 m2 Comment: [...] reviewed 2021. Blood 05/14/2024 10:2 5 AM AUDITING CONTROL CLERK 05/14/2024 11:46 AM AUDITING CONTROL CLERK Shawnee Watson MD LAB BLOOD ORDERA BLES Final Result [facility] [place] [address] * Critical Result Callback Chemistry (05/14/2024 10:25 AM AUDITING CONTROL CLERK) Date Notified [id number] Time Notified 1222 [facility] TestName Calcium [facility] Called/Read Back [place] Credentials RN [facility] Called By miriam [facility] Blood 05/14/2024 10:2 5 AM AUDITING CONTROL CLERK 05/14/2024 11:46 AM AUDITING CONTROL CLERK Shawnee Watson MD LAB BLOOD ORDERA BLES Final Result Performing Organization Address City/[facility] Co de Phone Number [facility] [place] [address] * Phosphorus (05/14/2024 10:25 AM AUDITING CONTROL CLERK) Phosphorus, pl 2.4 2.3 - 4.5 mg/dL Blood 05/14/2024 10:2 5 AM AUDITING CONTROL CLERK 05/14/2024 11:46 AM AUDITING CONTROL CLERK Shawnee Watson MD LAB BLOOD ORDERA BLES Final Result Performing Organization Address City/[facility]/ZIP Co de Phone Number [facility] [place] [address] * Magnesium (05/14/2024 10:25 AM AUDITING CONTROL CLERK) Magnesium 1.7 1.4 - 2.5 mg/dL Blood 05/14/2024 10:2 5 AM AUDITING CONTROL CLERK 05/14/2024 11:46 AM AUDITING CONTROL CLERK Shawnee Watson MD LAB BLOOD ORDERA BLES Final Result [facility] Department [place] [address] * (ABNORMAL) Comprehensive metabolic panel (05/14/2024 10:25 AM AUDITING CONTROL CLERK) Pathologist [facility] Sodium 140 135 - 145 mmol/L Potassium, pl 2.8(L) 3.3 - 4.9 mmol/L [facility] Chloride 115(H) 97 - 110 mmol/L [facility] CO2 16(L) 22 - 32 mmol/L [facility] Anion gap 9 2 - 15 mmol/L [facility] BUN 17 6 - 25 mg/dL [facility] Creatinine 0.69 0.60 - 1.10 mg/dL [facility] Glucose 57(L) 70 - 199 mg/dL [facility] Comment: Interpretive Data Fasting glucose >/= 126 [...] 2022. Calcium 6.3(C) 8.5 - 10.3 mg/dL [facility] Comment:Repeated and Verifie d Bilirubin, total 0.3 0.1 - 1.2 mg/dL [facility] Protein, pl 5.0(L) 6.5 - 8.5 g/dL [facility] Albumin 2.4(L) 3.5 - 5.0 g/dL [facility] Alk phos 154(H) 40 - 130 Units/L [facility] ALT 20 7 - 45 Units/L [facility] AST 29 10 - 45 Units/L [facility] Blood 05/14/2024 10:2 5 AM AUDITING CONTROL CLERK 05/14/2024 11:46 AM AUDITING CONTROL CLERK us Shawnee Watson MD LAB BLOOD ORDERA BLES Final Result Performing Organization Address [facility]/ZIP Co de Phone Number [facility] Department [place] [address] * eGFR (05/13/2024 8:46 PM AUDITING CONTROL CLERK) eGFR 65 >=60 mL/min/1. 73 m2 Comment: [...] last reviewed 2021. Blood 05/13/2024 8:46 PM AUDITING CONTROL CLERK 05/13/2024 9:21 PM AUDITING CONTROL CLERK us Felecia Ribera MD LAB BLOOD ORDERABLES Final R esult Performing Organization Address City/[facility]/ZIP Co de Phone Number [facility] Department [place] [address] * (ABNORMAL) Differential, auto (05/13/2024 8:46 PM AUDITING CONTROL CLERK) Neutrophil abs 4.9 1.5 - 6.5 K/cumm Imm gran abs 0.1 0.0 - 0.1 K/cumm [facility] Lymphocyte abs 2.2 0.8 - 3.3 K/cumm [facility] Monocyte abs 1.0(H) 0.2 - 0.8 K/cumm [facility] Eosinophil abs 0.0 0.0 - 0.5 K/cumm [facility] Basophil abs 0.0 0.0 - 0.1 K/cumm [facility] Neutrophil pct 59.7 % [facility] Comment: Interpretive Data Percent cell count reference ranges are not reported, since discordance with absolute values may lead to misinterpretation of CBC data. Current Interpretive Data was last revised on 2017. Imm gran pct 0.7 % [facility] Comment: Interpretive Data Percent cell count reference ranges are not reported, since discordance with absolute values may lead to misinterpretation of CBC data. Current Interpretive Data was last revised on 2017. Lymphocyte pct 26.2 % [facility] Comment: Interpretive Data Percent cell count reference ranges are not reported, since discordance with absolute values may lead to misinterpretation of CBC data. Current Interpretive Data was last revised on 2017. Monocyte pct 12.4 % [facility] Comment: Interpretive Data Percent cell count reference ranges are not reported, since discordance with absolute values may lead to misinterpretation of CBC data. Current Interpretive Data was last revised on 2017. Eosinophil pct 0.5 % [facility] Comment: Interpretive Data Percent cell count reference ranges are not reported, since discordance with absolute values may lead to misinterpretation of CBC data. Current Interpretive Data was last revised on 2017. Basophil pct 0.5 % [facility] Comment: Interpretive Data Percent cell count reference ranges are not reported, since discordance with absolute values may lead to misinterpretation of CBC data. Current Interpretive Data was last revised on 2017. Blood 05/13/2024 8:46 PM AUDITING CONTROL CLERK 05/13/2024 9:20 PM AUDITING CONTROL CLERK Felecia Ribera MD LAB BLOOD ORDERABLES Final R esult Performing Organization Address City/[facility] Co de Phone Number [facility] Department [place] [address] * (ABNORMAL) CBC with auto differential (05/13/2024 8:46 PM AUDITING CONTROL CLERK) Pathologist [facility] WBC 8.3 3.8 - 9.9 K/cumm Hgb 11.8(L) 11.9 - 15.5 g/dL [facility] Hct 38.0 35.6 - 45.5 % [facility] Plt 339 150 - 400 K/cumm [facility] MPV 8.7(L) 9.1 - 12.3 fL [facility] RBC 3.91 3.90 - 5.20 M/cumm [facility] MCV 97.2(H) 81.3 - 96.4 fL [facility] MCH 30.2 27.1 - 33.3 pg [facility] MCHC 31.1(L) 32.3 - 35.7 g/dL [facility] RDW CV 18.7(H) 11.1 - 14.9 % [facility] RDW SD 67.2(H) 35.7 - 48.1 fL [facility] NRBC abs 0.00 0.00 - 0.01 K/cumm [facility] Blood 05/13/2024 8:46 PM AUDITING CONTROL CLERK 05/13/2024 9:20 PM AUDITING CONTROL CLERK Felecia Ribera MD LAB BLOOD ORDERABLES Final R esult [facility] [place] [address] * Phosphorus (05/13/2024 8:46 PM AUDITING CONTROL CLERK) Pathologist [facility] Phosphorus, pl 2.9 2.3 - 4.5 mg/dL Blood 05/13/2024 8:46 PM AUDITING CONTROL CLERK 05/13/2024 9:21 PM AUDITING CONTROL CLERK Felecia Ribera MD LAB BLOOD ORDERABLES Final R esult Performing Organization Address [facility] Co de Phone Number [facility] [place] [address] * (ABNORMAL) Magnesium (05/13/2024 8:46 PM AUDITING CONTROL CLERK) Magnesium 2.8(H) 1.4 - 2.5 mg/dL Blood 05/13/2024 8:46 PM AUDITING CONTROL CLERK 05/13/2024 9:21 PM AUDITING CONTROL CLERK Shawnee Watson MD LAB BLOOD ORDERA BLES Final Result Performing Organization Address [facility] Co de Phone Number [facility] [place] [address] * (ABNORMAL) Magnesium (05/13/2024 8:46 PM AUDITING CONTROL CLERK) Pathologist [facility] Magnesium 2.9(H) 1.4 - 2.5 mg/dL Blood 05/13/2024 8:46 PM AUDITING CONTROL CLERK 05/13/2024 9:21 PM AUDITING CONTROL CLERK Felecia Ribera MD LAB BLOOD ORDERABLES Final R esult Performing Organization Address [facility] Co de Phone Number [facility] [place] [address] * (ABNORMAL) Comprehensive metabolic panel (05/13/2024 8:46 PM AUDITING CONTROL CLERK) Sodium 140 135 - 145 mmol/L Potassium, pl 4.1 3.3 - 4.9 mmol/L [facility] Comment:Hemolyzed; Potassium value may be falsely elevated by as much as 0.6-1.0 mmol/L. Suggest redraw and reanalysis. Chloride 109 97 - 110 mmol/L [facility] CO2 12(L) 22 - 32 mmol/L [facility] Anion gap 19(H) 2 - 15 mmol/L [facility] BUN 22 6 - 25 mg/dL [facility] Creatinine 0.90 0.60 - 1.10 mg/dL [facility] Glucose 114 70 - 199 mg/dL [facility] Comment: Interpretive Data Fasting glucose >/= 126 [...] 2022. Calcium 9.0 8.5 - 10.3 mg/dL [facility] Bilirubin, total 0.2 0.1 - 1.2 mg/dL [facility] Comment:Reviewed Protein, pl 6.6 6.5 - 8.5 g/dL [facility] Albumin 2.7(L) 3.5 - 5.0 g/dL [facility] Alk phos 171(H) 40 - 130 Units/L [facility] ALT 18 7 - 45 Units/L [facility] AST 46(H) 10 - 45 Units/L [facility] Comment:Hemolyzed; result ma y be falsely elevated Blood 05/13/2024 8:46 PM AUDITING CONTROL CLERK 05/13/2024 9:21 PM AUDITING CONTROL CLERK us Felecia Ribera MD LAB BLOOD ORDERABLES Final R esult [facility] [place] [address] * TRANSTHORACIC ECHO (TTE) COMPLETE W DOPPLER/CF W CONTRAST (05/13/2024 1:14 PM AUDITING CONTROL CLERK) Anatomical Region Laterality Modality Ultrasound 05/13/2024 12:2 2 PM AUDITING CONTROL CLERK Narrative 05/13/2024 2:45 PM AUDITING CONTROL CLERK [facility] [place] [address] Transthoracic Echocardiographic Report Patient Name: BRENTON VALDEZ K : 1945 (78y 9m) Gender: F Study Date: 05/13/2024 12:22:20 Ht(Inch): 64 Wt(Lb): 169.09 BSA: 1.86 Machine Maintenance Repairer: ZAIRA Bah Location: [id number] Order Provider: SHAWNEE WATSON Heart Rate: 88 BMI: 29.02 Quality: Technically difficult study due to limited patient mobility. Ref Provider: SHAWNEE WATSON PROCEDURES: Echocardiographic Report: ([id number], [id number]) Transthoracic complete echo with strain imaging and [...] LA Length 2C 4.33 cm AI Decel [place] 1.91 m/s2 LA Length 4C 4.99 cm [...] Signed By: Raul Dowling MD 05/13/2024 14:45:02 AUDITING CONTROL CLERK Electronically Signed By: Raul Dowling MD 05/13/2024 14:45:02 AUDITING CONTROL CLERK Procedure Note Raul Dowling MD - 05/13/2024 [facility] [place] [address] Transthoracic Echocardiographic Report Patient Name: BRENTON VALDEZ K : 1945 (78y 9m) Gender: F Study Date: 05/13/2024 12:22:20 Ht(Inch): 64 Wt(Lb): 169.09 BSA: 1.86 Machine Maintenance Repairer: ZAIRA Bah Location: [id number] Order Provider:SHAWNEE WATSON Heart Rate: 88 BMI: 29.02 Quality: Technically difficult study due tolimited patient mobility. Ref Provider: SHAWNEE WATSON PROCEDURES: Echocardiographic Report: ([id number], [id number]) Transthoracic complete echo withstrain imaging and contrast, [...] [ -18.0 - -16.0 ] AI Decel [id number] sec LA Length 2C 4.33 cm AI Decel [place]1.91 m/s2 LA Length 4C 4.99 cm AI JHV804.87 msec LA Volume BP 34.49 ml MV [...] [ 1.71 - 5.00 ] MV Decel Jirf129.94 msec [ 104.00 - 258.00 ] RA [...] Signed By: Raul Dowling MD 05/13/2024 14:45:02 AUDITING CONTROL CLERK Electronically Signed By: Raul Dowling MD 05/13/2024 14:45:02 AUDITING CONTROL CLERK us Shawnee Watson MD CV ECHO PROCEDUR ES Final Result * eGFR (05/12/2024 6:18 PM AUDITING CONTROL CLERK) eGFR 61 >=60 mL/min/1. 73 m2 Comment: [...] last reviewed 2021. Blood 05/12/2024 6:18 PM AUDITING CONTROL CLERK 05/12/2024 6:49 PM AUDITING CONTROL CLERK us Shawnee Watson MD LAB BLOOD ORDERA BLES Final Result Performing Organization Address City/[facility]/ZIP Co de Phone Number [facility] [place] [address] * Phosphorus (05/12/2024 6:18 PM AUDITING CONTROL CLERK) Phosphorus, pl 2.3 2.3 - 4.5 mg/dL Blood 05/12/2024 6:18 PM AUDITING CONTROL CLERK 05/12/2024 6:45 PM AUDITING CONTROL CLERK Shawnee Watson MD LAB BLOOD ORDERA BLES Final Result Performing Organization Address City/[facility] Co de Phone Number [facility] Department [place] [address] * Magnesium (05/12/2024 6:18 PM AUDITING CONTROL CLERK) Magnesium 1.4 1.4 - 2.5 mg/dL Blood 05/12/2024 6:18 PM AUDITING CONTROL CLERK 05/12/2024 6:45 PM AUDITING CONTROL CLERK Shawnee Watson MD LAB BLOOD ORDERA BLES Final Result [facility] Department [place] [address] * (ABNORMAL) Basic metabolic panel (05/12/2024 6:18 PM AUDITING CONTROL CLERK) Pathologist [facility] Sodium 136 135 - 145 mmol/L Potassium, pl 3.8 3.3 - 4.9 mmol/L [facility] Chloride 103 97 - 110 mmol/L [facility] CO2 20(L) 22 - 32 mmol/L [facility] Anion gap 13 2 - 15 mmol/L [facility] BUN 21 6 - 25 mg/dL [facility] Creatinine 0.96 0.60 - 1.10 mg/dL [facility] Glucose 94 70 - 199 mg/dL [facility] Comment: Interpretive Data Fasting glucose >/= 126 [...] 2022. Calcium 9.1 8.5 - 10.3 mg/dL [facility] Blood 05/12/2024 6:18 PM AUDITING CONTROL CLERK 05/12/2024 6:45 PM AUDITING CONTROL CLERK Shawnee Watson MD LAB BLOOD ORDERA BLES Final Result Performing Organization Address [facility]/ZIP Co de Phone Number [facility] Department [place] [address] * XR Spine Cervical 2 or 3 Views (05/12/2024 4:04 PM AUDITING CONTROL CLERK) Anatomical Region Laterality Modality Spine N/A Computed Radiogr aphy 05/12/2024 4:10 PM AUDITING CONTROL CLERK Impressions 05/12/2024 4:10 PM AUDITING CONTROL CLERK 1. Healing minimally displaced C2 vertebral body fracture which is unchanged in alignment. 2. Severe multilevel degenerative disc disease. Electronically signed by: Brayan Garcia D.O. Narrative 05/12/2024 4:10 PM AUDITING CONTROL CLERK EXAMINATION: XR SPINE CERVICAL 2 OR 3 [...] shaft fracture. Vascular calcifications. Procedure Note Brayan Garcia, DO - 05/12/2024 EXAMINATION: XR SPINE CERVICAL [...] disease. Electronically signed by: Brayan Garcia D.O. Shawnee Watson MD IMG XR PROCEDURE S Final Result * (ABNORMAL) eGFR (05/11/2024 11:19 PM AUDITING CONTROL CLERK) eGFR 53(L) >=60 mL/min/1. 73 m2 Comment: [...] reviewed 2021. Blood 05/11/2024 11:1 9 PM AUDITING CONTROL CLERK 05/12/2024 12:37 AM AUDITING CONTROL CLERK us Felecia Ribera MD LAB BLOOD ORDERABLES Final R esult [facility] Department [place] [address] * Differential, auto (05/11/2024 11:19 PM AUDITING CONTROL CLERK) Pathologist [facility] Neutrophil abs 3.4 1.5 - 6.5 K/cumm Imm gran abs 0.0 0.0 - 0.1 K/cumm [facility] Lymphocyte abs 1.7 0.8 - 3.3 K/cumm [facility] Monocyte abs 0.8 0.2 - 0.8 K/cumm [facility] Eosinophil abs 0.1 0.0 - 0.5 K/cumm [facility] Basophil abs 0.0 0.0 - 0.1 K/cumm [facility] Neutrophil pct 56.0 % [facility] Comment: Interpretive Data Percent cell count reference ranges are not reported, since discordance with absolute values may lead to misinterpretation of CBC data. Current Interpretive Data was last revised on 2017. Imm gran pct 0.5 % [facility] Comment: Interpretive Data Percent cell count reference ranges are not reported, since discordance with absolute values may lead to misinterpretation of CBC data. Current Interpretive Data was last revised on 2017. Lymphocyte pct 28.5 % [facility] Comment: Interpretive Data Percent cell count reference ranges are not reported, since discordance with absolute values may lead to misinterpretation of CBC data. Current Interpretive Data was last revised on 2017. Monocyte pct 13.9 % [facility] Comment: Interpretive Data Percent cell count reference ranges are not reported, since discordance with absolute values may lead to misinterpretation of CBC data. Current Interpretive Data was last revised on 2017. Eosinophil pct 0.8 % [facility] Comment: Interpretive Data Percent cell count reference ranges are not reported, since discordance with absolute values may lead to misinterpretation of CBC data. Current Interpretive Data was last revised on 2017. Basophil pct 0.3 % [facility] Comment: Interpretive Data Percent cell count reference ranges are not reported, since discordance with absolute values may lead to misinterpretation of CBC data. Current Interpretive Data was last revised on 2017. Blood 05/11/2024 11:1 9 PM AUDITING CONTROL CLERK 05/12/2024 12:13 AM AUDITING CONTROL CLERK us Felecia Ribera MD LAB BLOOD ORDERABLES Final R esult [facility] Department [place] [address] * (ABNORMAL) CBC with auto differential (05/11/2024 11:19 PM AUDITING CONTROL CLERK) WBC 6.1 3.8 - 9.9 K/cumm Hgb 9.7(L) 11.9 - 15.5 g/dL [facility] Hct 30.4(L) 35.6 - 45.5 % [facility] Plt 275 150 - 400 K/cumm [facility] MPV 8.7(L) 9.1 - 12.3 fL [facility] RBC 3.15(L) 3.90 - 5.20 M/cumm [facility] MCV 96.5(H) 81.3 - 96.4 fL [facility] MCH 30.8 27.1 - 33.3 pg [facility] MCHC 31.9(L) 32.3 - 35.7 g/dL [facility] RDW CV 18.8(H) 11.1 - 14.9 % [facility] RDW SD 65.6(H) 35.7 - 48.1 fL [facility] NRBC abs 0.00 0.00 - 0.01 K/cumm [facility] Blood 05/11/2024 11:1 9 PM AUDITING CONTROL CLERK 05/12/2024 12:13 AM AUDITING CONTROL CLERK Felecia Ribera MD LAB BLOOD ORDERABLES Final R esult Performing Organization Address City/[facility]/ZIP Co de Phone Number [facility] Department [place] [address] * T4, free (05/11/2024 11:19 PM AUDITING CONTROL CLERK) Free T4 1.02 0.90 - 1.70 ng/dL Blood 05/11/2024 11:1 9 PM AUDITING CONTROL CLERK 05/12/2024 12:28 AM AUDITING CONTROL CLERK Shawnee Watson MD LAB BLOOD ORDERA BLES Final Result [facility] Department [place] [address] * Phosphorus (05/11/2024 11:19 PM AUDITING CONTROL CLERK) Phosphorus, pl 2.6 2.3 - 4.5 mg/dL Blood 05/11/2024 11:1 9 PM AUDITING CONTROL CLERK 05/12/2024 12:28 AM AUDITING CONTROL CLERK Felecia Ribera MD LAB BLOOD ORDERABLES Final R esult [facility] Department [place] [address] * Magnesium (05/11/2024 11:19 PM AUDITING CONTROL CLERK) [facility] [address] Magnesium 1.5 1.4 - 2.5 mg/dL Blood 05/11/2024 11:1 9 PM AUDITING CONTROL CLERK 05/12/2024 12:28 AM AUDITING CONTROL CLERK [facility] MD LAB BLOOD ORDERABLES Final R esult Performing Organization Address [facility] Co de Phone Number [facility] Department [place] [address] * (ABNORMAL) Comprehensive metabolic panel (05/11/2024 11:19 PM AUDITING CONTROL CLERK) [facility] [address] Sodium 138 135 - 145 mmol/L Potassium, pl 4.3 3.3 - 4.9 mmol/L [facility] Chloride 110 97 - 110 mmol/L [facility] CO2 19(L) 22 - 32 mmol/L [facility] Anion gap 9 2 - 15 mmol/L [facility] BUN 23 6 - 25 mg/dL [facility] Creatinine 1.07 0.60 - 1.10 mg/dL [facility] Glucose 93 70 - 199 mg/dL [facility] Comment: Interpretive Data Fasting glucose >/= 126 [...] 2022. Calcium 8.0(L) 8.5 - 10.3 mg/dL [facility] Bilirubin, total <0.2 0.1 - 1.2 mg/dL [facility] Comment:Reviewed Protein, pl 5.2(L) 6.5 - 8.5 g/dL [facility] Albumin 2.4(L) 3.5 - 5.0 g/dL [facility] Alk phos 145(H) 40 - 130 Units/L [facility] ALT 16 7 - 45 Units/L [facility] AST 22 10 - 45 Units/L [facility] Blood 05/11/2024 11:1 9 PM AUDITING CONTROL CLERK 05/12/2024 12:28 AM AUDITING CONTROL CLERK us Felecia Ribera MD LAB BLOOD ORDERABLES Final R esult [facility] Department [place] [address] * (ABNORMAL) eGFR (05/11/2024 6:31 AM AUDITING CONTROL CLERK) eGFR 58(L) >=60 mL/min/1. 73 m2 Comment: [...] last reviewed 2021. Blood 05/11/2024 6:31 AM AUDITING CONTROL CLERK 05/11/2024 6:46 AM AUDITING CONTROL CLERK us Shawnee Watson MD LAB BLOOD ORDERA BLES Final Result [facility] Department [place] [address] * Magnesium (05/11/2024 6:31 AM AUDITING CONTROL CLERK) [facility] [address] Magnesium 1.5 1.4 - 2.5 mg/dL Blood 05/11/2024 6:31 AM AUDITING CONTROL CLERK 05/11/2024 6:46 AM AUDITING CONTROL CLERK Shawnee Watson MD LAB BLOOD ORDERA BLES Final Result Performing Organization Address [facility] de Phone Number [facility] Department [place] [address] * Basic metabolic panel (05/11/2024 6:31 AM AUDITING CONTROL CLERK) [facility] [address] Sodium 140 135 - 145 mmol/L Potassium, pl 4.1 3.3 - 4.9 mmol/L [facility] Chloride 108 97 - 110 mmol/L [facility] CO2 23 22 - 32 mmol/L [facility] Anion gap 9 2 - 15 mmol/L [facility] BUN 22 6 - 25 mg/dL [facility] Creatinine 1.00 0.60 - 1.10 mg/dL [facility] Glucose 87 70 - 199 mg/dL [facility] Comment: Interpretive Data Fasting glucose >/= 126 [...] 2022. Calcium 8.5 8.5 - 10.3 mg/dL [facility] Blood 05/11/2024 6:31 AM AUDITING CONTROL CLERK 05/11/2024 6:46 AM AUDITING CONTROL CLERK Shawnee Watson MD LAB BLOOD ORDERA BLES Final Result Performing Organization Address [facility] Co de Phone Number [facility] Department [place] [address] * eGFR (05/10/2024 12:21 AM AUDITING CONTROL CLERK) eGFR 60 >=60 mL/min/1. 73 m2 Comment: [...] reviewed 2021. Blood 05/10/2024 12:2 1 AM AUDITING CONTROL CLERK 05/10/2024 1:29 AM AUDITING CONTROL CLERK us Felecia Ribera MD LAB BLOOD ORDERABLES Final R esult Performing Organization Address City/[facility]/ZIP Co de Phone Number [facility] Department [place] [address] * (ABNORMAL) Differential, auto (05/10/2024 12:21 AM AUDITING CONTROL CLERK) Pathologist [facility] Neutrophil abs 4.9 1.5 - 6.5 K/cumm Imm gran abs 0.1 0.0 - 0.1 K/cumm [facility] Lymphocyte abs 1.6 0.8 - 3.3 K/cumm [facility] Monocyte abs 0.9(H) 0.2 - 0.8 K/cumm [facility] Eosinophil abs 0.1 0.0 - 0.5 K/cumm [facility] Basophil abs 0.0 0.0 - 0.1 K/cumm [facility] Neutrophil pct 65.4 % [facility] Comment: Interpretive Data Percent cell count reference ranges are not reported, since discordance with absolute values may lead to misinterpretation of CBC data. Current Interpretive Data was last revised on 2017. Imm gran pct 0.7 % [facility] Comment: Interpretive Data Percent cell count reference ranges are not reported, since discordance with absolute values may lead to misinterpretation of CBC data. Current Interpretive Data was last revised on 2017. Lymphocyte pct 20.6 % [facility] Comment: Interpretive Data Percent cell count reference ranges are not reported, since discordance with absolute values may lead to misinterpretation of CBC data. Current Interpretive Data was last revised on 2017. Monocyte pct 12.1 % [facility] Comment: Interpretive Data Percent cell count reference ranges are not reported, since discordance with absolute values may lead to misinterpretation of CBC data. Current Interpretive Data was last revised on 2017. Eosinophil pct 0.8 % [facility] Comment: Interpretive Data Percent cell count reference ranges are not reported, since discordance with absolute values may lead to misinterpretation of CBC data. Current Interpretive Data was last revised on 2017. Basophil pct 0.4 % [facility] Comment: Interpretive Data Percent cell count reference ranges are not reported, since discordance with absolute values may lead to misinterpretation of CBC data. Current Interpretive Data was last revised on 2017. Blood 05/10/2024 12:2 1 AM AUDITING CONTROL CLERK 05/10/2024 1:30 AM AUDITING CONTROL CLERK us Felecia Ribera MD LAB BLOOD ORDERABLES Final R esult [facility] [place] [address] * (ABNORMAL) CBC with auto differential (05/10/2024 12:21 AM AUDITING CONTROL CLERK) Pathologist [facility] WBC 7.5 3.8 - 9.9 K/cumm Hgb 9.9(L) 11.9 - 15.5 g/dL [facility] Hct 31.6(L) 35.6 - 45.5 % [facility] Plt 272 150 - 400 K/cumm [facility] MPV 8.8(L) 9.1 - 12.3 fL [facility] RBC 3.38(L) 3.90 - 5.20 M/cumm [facility] MCV 93.5 81.3 - 96.4 fL [facility] MCH 29.3 27.1 - 33.3 pg [facility] MCHC 31.3(L) 32.3 - 35.7 g/dL [facility] RDW CV 18.6(H) 11.1 - 14.9 % [facility] RDW SD 63.2(H) 35.7 - 48.1 fL [facility] NRBC abs 0.00 0.00 - 0.01 K/cumm [facility] Blood 05/10/2024 12:2 1 AM AUDITING CONTROL CLERK 05/10/2024 1:30 AM AUDITING CONTROL CLERK Felecia Ribera MD LAB BLOOD ORDERABLES Final R esult Performing Organization Address City/[facility] Co de Phone Number [facility] [place] [address] * Phosphorus (05/10/2024 12:21 AM AUDITING CONTROL CLERK) Pathologist [facility] Phosphorus, pl 3.7 2.3 - 4.5 mg/dL Blood 05/10/2024 12:2 1 AM AUDITING CONTROL CLERK 05/10/2024 1:29 AM AUDITING CONTROL CLERK Felecia Ribera MD LAB BLOOD ORDERABLES Final R esult Performing Organization Address City/State/[facility] Co de Phone Number [facility] Department [place] [address] * Magnesium (05/10/2024 12:21 AM AUDITING CONTROL CLERK) Pathologist [facility] Magnesium 1.7 1.4 - 2.5 mg/dL Blood 05/10/2024 12:2 1 AM AUDITING CONTROL CLERK 05/10/2024 1:29 AM AUDITING CONTROL CLERK Felecia Ribera MD LAB BLOOD ORDERABLES Final R esult [facility] [place] [address] * (ABNORMAL) Comprehensive metabolic panel (05/10/2024 12:21 AM AUDITING CONTROL CLERK) Pathologist [facility] Sodium 134(L) 135 - 145 mmol/L Potassium, pl 4.1 3.3 - 4.9 mmol/L [facility] Chloride 105 97 - 110 mmol/L [facility] CO2 21(L) 22 - 32 mmol/L [facility] Anion gap 8 2 - 15 mmol/L [facility] BUN 20 6 - 25 mg/dL [facility] Creatinine 0.97 0.60 - 1.10 mg/dL [facility] Glucose 89 70 - 199 mg/dL [facility] Comment: Interpretive Data Fasting glucose >/= 126 [...] 2022. Calcium 8.3(L) 8.5 - 10.3 mg/dL [facility] Bilirubin, total 0.3 0.1 - 1.2 mg/dL [facility] Protein, pl 5.2(L) 6.5 - 8.5 g/dL [facility] Albumin 2.5(L) 3.5 - 5.0 g/dL [facility] Alk phos 154(H) 40 - 130 Units/L [facility] ALT 18 7 - 45 Units/L [facility] AST 26 10 - 45 Units/L [facility] Blood 05/10/2024 12:2 1 AM AUDITING CONTROL CLERK 05/10/2024 1:29 AM AUDITING CONTROL CLERK us Felecia Ribera MD LAB BLOOD ORDERABLES Final R esult [facility] [place] [address] * Saline lock IV (05/09/2024 10:33 PM AUDITING CONTROL CLERK) Narrative Robert Garcia, [facility] - 05/09/2024 10:33 PM AUDITING CONTROL CLERK Robert Garcia RN 05/09/2024 10:33 PM Vascular [...] Cosigned By Initials Name Karishma Bedoya RN Becka Lindo Vascular Access Documentation (Last 4 Hours) [facility] Additional Procedures Row Name 05/09/242229 Procedures Line Type Peripheral -MT Time in [...] Local Anesthetic: None -MT Technique: Anatomical landmarks -MT Verification: Able to advance catheter;Irrigates easily with normal saline;Able to cannulate vein;Blood Return -MT Inserted by: Jagruti MADRID -MT Insertion attempts: 1 -MT Patient Tolerance: Tolerated well -MT Site Assessment Clean and dry -MT IV Line Status Single Blood return noted;Capped;Saline locked;Flushes easily -MT Dressing Type Transparent -MT Dressing Status New;Clean, dry, intact;Dated;Occlusive -MT Dressing Change Due 05/16/24 -MT User Leo (r) = Recorded By, (t) = Taken By, (c) = Cosigned By Initials Name OR Robert Garcia RN Michael Tarvin, RN Carlitos Carr MD IV THERAPY ORDERABLES Final R esult * Saline lock IV (05/09/2024 10:33 PM AUDITING CONTROL CLERK) Narrative Robert Garcia RN - 05/09/2024 10:33 PM AUDITING CONTROL CLERK Robert Garcia RN 05/09/2024 10:33 PM Vascular Access Nurse: Procedure Note Summary of treatment provided to patient today is as follows : . Bedside Procedure Time out/Checklist (Last 4 Hours) Pre-Op Checklist Row Name 05/09/24 2100 05/09/24201905/09/24 1900 Patient/Chart Verification Arm Bands On ID;Allergies - ID;Allergies - ID;Allergies - User Leo (r) = Recorded By, (t) = Taken By, (c) = Cosigned By Initials Name Karishma Bedoya RN TW White, Tamia Vascular Access Documentation (Last 4 Hours) [facility] Additional Procedures Row Name 05/09/242229 Procedures Line Type Peripheral -MT Time in [...] (Gauge): 22 G -MT Location Orientation: Anterior;Right -OR Location: Forearm -OR Site Prep: Chlorhexidine -OR Comfort Measures: Distraction -MT Local Anesthetic: None -MT Technique: Anatomical landmarks -OR Verification: Able to advance catheter;Irrigates easily with normal saline;Able to cannulate vein;Blood Return -OR Inserted by: Jagruti MADRID -OR Insertion attempts: 1 -MT Patient Tolerance: Tolerated well -MT Site Assessment Clean and dry -MT IV Line Status Single Blood return noted;Capped;Saline locked;Flushes easily -MT Dressing Type Transparent -MT Dressing Status New;Clean, dry, intact;Dated;Occlusive -MT Dressing Change Due 05/16/24 -OR User Leo (r) = Recorded By, (t) = Taken By, (c) = Cosigned By Initials Name OR Robert Garcia RN Michael Tarvin, RN Carlitos Carr MD IV THERAPY ORDERABLES Final R esult * C. difficile testing Stool (05/09/2024 4:01 PM AUDITING CONTROL CLERK) [facility] Result Negative Negative Toxin Result Negative Negative [facility] C. diff result Negative, free toxin Negative, free toxin [facility] C. diff interp Negative for toxigenic Clostridioides (Clostridium) difficile. Analysis was performed using a glutamate dehydrogenase antigen detection assay combined with a C. difficile toxin detection assay. [facility] Stool 05/09/2024 4:01 PM AUDITING CONTROL CLERK 05/09/2024 6:22 PM AUDITING CONTROL CLERK Felecia Ribera MD LAB MICROBIOLOGY - GENERAL O RDERABLES Final Result [facility] [place] [address] * (ABNORMAL) Infection Prevention VRE Culture Stool (05/09/2024 4:01 PM AUDITING CONTROL CLERK) Report Final Report: Enterococcus species, vancomycin resistant (.) Organism ENTEROCOCCUS SPECIES, VANCOMYCIN RESISTANT [facility] Stool 05/09/2024 4:01 PM AUDITING CONTROL CLERK 05/09/2024 10:42 PM AUDITING CONTROL CLERK Narrative KAILA CUNNINGHAM - 05/10/2024 9:45 PM AUDITING CONTROL CLERK Surveillance culture for Infection Prevention purposes only; results indicate colonization, not infection requiring treatment. Testing performed by [facility] ([phone]). us Floridalma Williamson MD LAB MICROBIOLOGY - GENERA L ORDERABLES Final Result [facility] Department [place] [address] * XR Abdomen Ap 1 Vw (05/09/2024 3:01 PM AUDITING CONTROL CLERK) Anatomical Region Laterality Modality Body, Abdomen N/A Computed Radiogr aphy 05/09/2024 3:15 PM AUDITING CONTROL CLERK Impressions 05/09/2024 3:35 PM AUDITING CONTROL CLERK Bowel gas pattern within normal limits. Cholecystectomy clips. Lumbar dextroscoliosis. Surgical clip overlies the pelvis. Dictated by: Pawel Archuleta MD PHD The radiology attending physician has personally reviewed this study, and had reviewed and/or edited this written report and agrees with it. Electronically signed by: José Ruiz M.D. Narrative 05/09/2024 3:35 PM AUDITING CONTROL CLERK EXAMINATION: Abdomen, one view. HISTORY: Concern for [...] Resu lt * eGFR (05/08/2024 1:30 PM AUDITING CONTROL CLERK) eGFR 60 >=60 mL/min/1. 73 m2 Comment: [...] last reviewed 2021. Blood 05/08/2024 1:30 PM AUDITING CONTROL CLERK 05/08/2024 2:16 PM AUDITING CONTROL CLERK us Floridalma Williamson MD LAB BLOOD ORDERABLES Danna jin Result [facility] Department [place] [address] * Differential, auto (05/08/2024 1:30 PM AUDITING CONTROL CLERK) Pathologist [facility] Neutrophil abs 4.9 1.5 - 6.5 K/cumm Imm gran abs 0.0 0.0 - 0.1 K/cumm [facility] Lymphocyte abs 1.6 0.8 - 3.3 K/cumm [facility] Monocyte abs 0.7 0.2 - 0.8 K/cumm [facility] Eosinophil abs 0.1 0.0 - 0.5 K/cumm [facility] Basophil abs 0.0 0.0 - 0.1 K/cumm [facility] Neutrophil pct 66.0 % [facility] Comment: Interpretive Data Percent cell count reference ranges are not reported, since discordance with absolute values may lead to misinterpretation of CBC data. Current Interpretive Data was last revised on 2017. Imm gran pct 0.5 % [facility] Comment: Interpretive Data Percent cell count reference ranges are not reported, since discordance with absolute values may lead to misinterpretation of CBC data. Current Interpretive Data was last revised on 2017. Lymphocyte pct 22.0 % [facility] Comment: Interpretive Data Percent cell count reference ranges are not reported, since discordance with absolute values may lead to misinterpretation of CBC data. Current Interpretive Data was last revised on 2017. Monocyte pct 9.6 % [facility] Comment: Interpretive Data Percent cell count reference ranges are not reported, since discordance with absolute values may lead to misinterpretation of CBC data. Current Interpretive Data was last revised on 2017. Eosinophil pct 1.4 % [facility] Comment: Interpretive Data Percent cell count reference ranges are not reported, since discordance with absolute values may lead to misinterpretation of CBC data. Current Interpretive Data was last revised on 2017. Basophil pct 0.5 % [facility] Comment: Interpretive Data Percent cell count reference ranges are not reported, since discordance with absolute values may lead to misinterpretation of CBC data. Current Interpretive Data was last revised on 2017. Blood 05/08/2024 1:30 PM AUDITING CONTROL CLERK 05/08/2024 2:16 PM AUDITING CONTROL CLERK us Floridalma Williamson MD LAB BLOOD ORDERABLES Danna jin Result [facility] Department [place] [address] * (ABNORMAL) CBC with auto differential (05/08/2024 1:30 PM AUDITING CONTROL CLERK) WBC 7.4 3.8 - 9.9 K/cumm Hgb 12.0 11.9 - 15.5 g/dL [facility] Hct 37.3 35.6 - 45.5 % [facility] Plt 295 150 - 400 K/cumm [facility] MPV 8.7(L) 9.1 - 12.3 fL [facility] RBC 4.04 3.90 - 5.20 M/cumm [facility] MCV 92.3 81.3 - 96.4 fL [facility] MCH 29.7 27.1 - 33.3 pg [facility] MCHC 32.2(L) 32.3 - 35.7 g/dL [facility] RDW CV 18.0(H) 11.1 - 14.9 % [facility] RDW SD 59.4(H) 35.7 - 48.1 fL [facility] NRBC abs 0.00 0.00 - 0.01 K/cumm [facility] Blood 05/08/2024 1:30 PM AUDITING CONTROL CLERK 05/08/2024 2:16 PM AUDITING CONTROL CLERK Floridalma Williamson MD LAB BLOOD ORDERABLES Danna l Result Performing Organization Address [facility] de Phone Number [facility] Department [place] [address] * Phosphorus (05/08/2024 1:30 PM AUDITING CONTROL CLERK) Phosphorus, pl 3.7 2.3 - 4.5 mg/dL Blood 05/08/2024 1:30 PM AUDITING CONTROL CLERK 05/08/2024 2:08 PM AUDITING CONTROL CLERK Floridalma Williamson MD LAB BLOOD ORDERABLES Danna l Result Performing Organization Address [facility] de Phone Number [facility] Department [place] [address] * (ABNORMAL) Magnesium (05/08/2024 1:30 PM AUDITING CONTROL CLERK) Magnesium 1.3(L) 1.4 - 2.5 mg/dL Blood 05/08/2024 1:30 PM AUDITING CONTROL CLERK 05/08/2024 2:08 PM AUDITING CONTROL CLERK Floridalma Williamson MD LAB BLOOD ORDERABLES Danna l Result Performing Organization Address City/[facility] Co de Phone Number [facility] Department [place] [address] * (ABNORMAL) Basic metabolic panel (05/08/2024 1:30 PM AUDITING CONTROL CLERK) Pathologist [facility] Sodium 135 135 - 145 mmol/L Potassium, pl 3.7 3.3 - 4.9 mmol/L [facility] Chloride 103 97 - 110 mmol/L [facility] CO2 21(L) 22 - 32 mmol/L [facility] Anion gap 11 2 - 15 mmol/L [facility] BUN 19 6 - 25 mg/dL [facility] Creatinine 0.97 0.60 - 1.10 mg/dL [facility] Glucose 87 70 - 199 mg/dL [facility] Comment: Interpretive Data Fasting glucose >/= 126 [...] 2022. Calcium 8.7 8.5 - 10.3 mg/dL [facility] Blood 05/08/2024 1:30 PM AUDITING CONTROL CLERK 05/08/2024 2:08 PM AUDITING CONTROL CLERK us Floridalma Williamson MD LAB BLOOD ORDERABLES Danna jin Result [facility] Department [place] [address] * eGFR (05/06/2024 10:27 PM AUDITING CONTROL CLERK) [facility] [address] eGFR 63 >=60 mL/min/1. 73 m2 Comment: [...] reviewed 2021. Blood 05/06/2024 10:2 7 PM AUDITING CONTROL CLERK 05/06/2024 11:48 PM AUDITING CONTROL CLERK us Jadyn Leyva MD LAB BLOOD ORDERABLES F inal Result [facility] [place] [address] * (ABNORMAL) Differential, auto (05/06/2024 10:27 PM AUDITING CONTROL CLERK) Neutrophil abs 4.4 1.5 - 6.5 K/cumm Imm gran abs 0.1 0.0 - 0.1 K/cumm [facility] Lymphocyte abs 1.8 0.8 - 3.3 K/cumm [facility] Monocyte abs 0.9(H) 0.2 - 0.8 K/cumm [facility] Eosinophil abs 0.1 0.0 - 0.5 K/cumm [facility] Basophil abs 0.0 0.0 - 0.1 K/cumm [facility] Neutrophil pct 61.0 % [facility] Comment: Interpretive Data Percent cell count reference ranges are not reported, since discordance with absolute values may lead to misinterpretation of CBC data. Current Interpretive Data was last revised on 2017. Imm gran pct 1.0 % [facility] Comment: Interpretive Data Percent cell count reference ranges are not reported, since discordance with absolute values may lead to misinterpretation of CBC data. Current Interpretive Data was last revised on 2017. Lymphocyte pct 24.2 % [facility] Comment: Interpretive Data Percent cell count reference ranges are not reported, since discordance with absolute values may lead to misinterpretation of CBC data. Current Interpretive Data was last revised on 2017. Monocyte pct 12.0 % [facility] Comment: Interpretive Data Percent cell count reference ranges are not reported, since discordance with absolute values may lead to misinterpretation of CBC data. Current Interpretive Data was last revised on 2017. Eosinophil pct 1.4 % [facility] Comment: Interpretive Data Percent cell count reference ranges are not reported, since discordance with absolute values may lead to misinterpretation of CBC data. Current Interpretive Data was last revised on 2017. Basophil pct 0.4 % [facility] Comment: Interpretive Data Percent cell count reference ranges are not reported, since discordance with absolute values may lead to misinterpretation of CBC data. Current Interpretive Data was last revised on 2017. Blood 05/06/2024 10:2 7 PM AUDITING CONTROL CLERK 05/06/2024 11:48 PM AUDITING CONTROL CLERK us Jadyn Leyva MD LAB BLOOD ORDERABLES F inal Result [facility] Department [place] [address] * (ABNORMAL) CBC with auto differential (05/06/2024 10:27 PM AUDITING CONTROL CLERK) WBC 7.3 3.8 - 9.9 K/cumm Hgb 10.4(L) 11.9 - 15.5 g/dL [facility] Hct 31.4(L) 35.6 - 45.5 % [facility] Plt 232 150 - 400 K/cumm [facility] MPV 9.3 9.1 - 12.3 fL [facility] RBC 3.40(L) 3.90 - 5.20 M/cumm [facility] MCV 92.4 81.3 - 96.4 fL [facility] MCH 30.6 27.1 - 33.3 pg [facility] MCHC 33.1 32.3 - 35.7 g/dL [facility] RDW CV 18.3(H) 11.1 - 14.9 % [facility] RDW SD 60.0(H) 35.7 - 48.1 fL [facility] NRBC abs 0.00 0.00 - 0.01 K/cumm [facility] Blood 05/06/2024 10:2 7 PM AUDITING CONTROL CLERK 05/06/2024 11:48 PM AUDITING CONTROL CLERK Jadyn Leyva MD LAB BLOOD ORDERABLES F inal Result Performing Organization Address City/[facility]/ZIP Co de Phone Number [facility] [place] [address] * Phosphorus (05/06/2024 10:27 PM AUDITING CONTROL CLERK) Phosphorus, pl 3.6 2.3 - 4.5 mg/dL Blood 05/06/2024 10:2 7 PM AUDITING CONTROL CLERK 05/06/2024 11:48 PM AUDITING CONTROL CLERK Jadyn Leyva MD LAB BLOOD ORDERABLES F inal Result Performing Organization Address [facility] Co de Phone Number [facility] [place] [address] * Magnesium (05/06/2024 10:27 PM AUDITING CONTROL CLERK) Magnesium 1.4 1.4 - 2.5 mg/dL Blood 05/06/2024 10:2 7 PM AUDITING CONTROL CLERK 05/06/2024 11:48 PM AUDITING CONTROL CLERK Jadyn Leyva MD LAB BLOOD ORDERABLES F inal Result Performing Organization Address City/[facility] Co de Phone Number [facility] [place] [address] * (ABNORMAL) Basic metabolic panel (05/06/2024 10:27 PM AUDITING CONTROL CLERK) Pathologist [facility] Sodium 136 135 - 145 mmol/L Potassium, pl 5.0(H) 3.3 - 4.9 mmol/L [facility] Chloride 108 97 - 110 mmol/L [facility] CO2 18(L) 22 - 32 mmol/L [facility] Anion gap 10 2 - 15 mmol/L [facility] BUN 18 6 - 25 mg/dL [facility] Creatinine 0.93 0.60 - 1.10 mg/dL [facility] Glucose 93 70 - 199 mg/dL [facility] Comment: Interpretive Data Fasting glucose >/= 126 [...] 2022. Calcium 8.5 8.5 - 10.3 mg/dL [facility] Blood 05/06/2024 10:2 7 PM AUDITING CONTROL CLERK 05/06/2024 11:48 PM AUDITING CONTROL CLERK us Jadyn Leyva MD LAB BLOOD ORDERABLES F inal Result [facility] Department [place] [address] * eGFR (05/05/2024 10:32 PM AUDITING CONTROL CLERK) Pathologist [facility] eGFR 65 >=60 mL/min/1. 73 m2 Comment: [...] reviewed 2021. Blood 05/05/2024 10:3 2 PM AUDITING CONTROL CLERK 05/06/2024 us Chester [place] MD LAB BLOOD ORDERABLES Fi nal Result [facility] [place] [address] * Differential, auto (05/05/2024 10:32 PM AUDITING CONTROL CLERK) Neutrophil abs 3.2 1.5 - 6.5 K/cumm Imm gran abs 0.1 0.0 - 0.1 K/cumm [facility] Lymphocyte abs 2.1 0.8 - 3.3 K/cumm [facility] Monocyte abs 0.8 0.2 - 0.8 K/cumm [facility] Eosinophil abs 0.1 0.0 - 0.5 K/cumm [facility] Basophil abs 0.0 0.0 - 0.1 K/cumm [facility] Neutrophil pct 50.6 % [facility] Comment: Interpretive Data Percent cell count reference ranges are not reported, since discordance with absolute values may lead to misinterpretation of CBC data. Current Interpretive Data was last revised on 2017. Imm gran pct 0.8 % [facility] Comment: Interpretive Data Percent cell count reference ranges are not reported, since discordance with absolute values may lead to misinterpretation of CBC data. Current Interpretive Data was last revised on 2017. Lymphocyte pct 33.3 % [facility] Comment: Interpretive Data Percent cell count reference ranges are not reported, since discordance with absolute values may lead to misinterpretation of CBC data. Current Interpretive Data was last revised on 2017. Monocyte pct 13.1 % [facility] Comment: Interpretive Data Percent cell count reference ranges are not reported, since discordance with absolute values may lead to misinterpretation of CBC data. Current Interpretive Data was last revised on 2017. Eosinophil pct 1.7 % [facility] Comment: Interpretive Data Percent cell count reference ranges are not reported, since discordance with absolute values may lead to misinterpretation of CBC data. Current Interpretive Data was last revised on 2017. Basophil pct 0.5 % [facility] Comment: Interpretive Data Percent cell count reference ranges are not reported, since discordance with absolute values may lead to misinterpretation of CBC data. Current Interpretive Data was last revised on 2017. Blood 05/05/2024 10:3 2 PM AUDITING CONTROL CLERK 05/06/2024 12:00 AM AUDITING CONTROL CLERK us Chester Vegas MD LAB BLOOD ORDERABLES nal Result [facility] Department [place] [address] * (ABNORMAL) CBC with auto differential (05/05/2024 10:32 PM AUDITING CONTROL CLERK) WBC 6.4 3.8 - 9.9 K/cumm Hgb 9.4(L) 11.9 - 15.5 g/dL [facility] Hct 28.8(L) 35.6 - 45.5 % [facility] Plt 211 150 - 400 K/cumm [facility] MPV 9.2 9.1 - 12.3 fL [facility] RBC 3.17(L) 3.90 - 5.20 M/cumm [facility] MCV 90.9 81.3 - 96.4 fL [facility] MCH 29.7 27.1 - 33.3 pg [facility] MCHC 32.6 32.3 - 35.7 g/dL [facility] RDW CV 17.7(H) 11.1 - 14.9 % [facility] RDW SD 58.3(H) 35.7 - 48.1 fL [facility] NRBC abs 0.00 0.00 - 0.01 K/cumm [facility] Blood 05/05/2024 10:3 2 PM AUDITING CONTROL CLERK 05/06/2024 12:00 AM AUDITING CONTROL CLERK Chester [place] MD LAB BLOOD ORDERABLES Fi nal Result Performing Organization Address City/[facility] Co de Phone Number [facility] [address] * Phosphorus (05/05/2024 10:32 PM AUDITING CONTROL CLERK) Phosphorus, pl 3.1 2.3 - 4.5 mg/dL Blood 05/05/2024 10:3 2 PM AUDITING CONTROL CLERK 05/06/2024 12:00 AM AUDITING CONTROL CLERK us Chester Vegas MD LAB BLOOD ORDERABLES Fi nal Result Performing Organization Address [facility] Co de Phone Number [facility] [address] * Magnesium (05/05/2024 10:32 PM AUDITING CONTROL CLERK) Magnesium 1.5 1.4 - 2.5 mg/dL Blood 05/05/2024 10:3 2 PM AUDITING CONTROL CLERK 05/06/2024 12:00 AM AUDITING CONTROL CLERK Chester Vegas MD LAB BLOOD ORDERABLES Fi nal Result Performing Organization Address City/[facility] Co de Phone Number [facility] [place] [address] * (ABNORMAL) Basic metabolic panel (05/05/2024 10:32 PM AUDITING CONTROL CLERK) Sodium 137 135 - 145 mmol/L Potassium, pl 4.1 3.3 - 4.9 mmol/L [facility] Chloride 111(H) 97 - 110 mmol/L [facility] CO2 18(L) 22 - 32 mmol/L [facility] Anion gap 8 2 - 15 mmol/L [facility] BUN 16 6 - 25 mg/dL [facility] Creatinine 0.90 0.60 - 1.10 mg/dL [facility] Glucose 91 70 - 199 mg/dL [facility] Comment: Interpretive Data Fasting glucose >/= 126 [...] 2022. Calcium 8.3(L) 8.5 - 10.3 mg/dL [facility] Blood 05/05/2024 10:3 2 PM AUDITING CONTROL CLERK 05/06/2024 12:00 AM AUDITING CONTROL CLERK us Chester Vegas MD LAB BLOOD ORDERABLES Fi nal Result [facility] One [facility] Department [place] [address] * eGFR (05/04/2024 11:29 PM AUDITING CONTROL CLERK) eGFR 67 >=60 mL/min/1. 73 m2 Comment: [...] reviewed 2021. Blood 05/04/2024 11:2 9 PM AUDITING CONTROL CLERK 05/05/2024 12:54 AM AUDITING CONTROL CLERK us Chester Vegas MD LAB BLOOD ORDERABLES Fi nal Result [facility] One [facility] [place] [address] * Differential, auto (05/04/2024 11:29 PM AUDITING CONTROL CLERK) Neutrophil abs 4.0 1.5 - 6.5 K/cumm Imm gran abs 0.1 0.0 - 0.1 K/cumm [facility] Lymphocyte abs 1.7 0.8 - 3.3 K/cumm [facility] Monocyte abs 0.8 0.2 - 0.8 K/cumm [facility] Eosinophil abs 0.1 0.0 - 0.5 K/cumm [facility] Basophil abs 0.0 0.0 - 0.1 K/cumm [facility] Neutrophil pct 59.1 % [facility] Comment: Interpretive Data Percent cell count reference ranges are not reported, since discordance with absolute values may lead to misinterpretation of CBC data. Current Interpretive Data was last revised on 2017. Imm gran pct 0.7 % [facility] Comment: Interpretive Data Percent cell count reference ranges are not reported, since discordance with absolute values may lead to misinterpretation of CBC data. Current Interpretive Data was last revised on 2017. Lymphocyte pct 25.6 % [facility] Comment: Interpretive Data Percent cell count reference ranges are not reported, since discordance with absolute values may lead to misinterpretation of CBC data. Current Interpretive Data was last revised on 2017. Monocyte pct 12.1 % [facility] Comment: Interpretive Data Percent cell count reference ranges are not reported, since discordance with absolute values may lead to misinterpretation of CBC data. Current Interpretive Data was last revised on 2017. Eosinophil pct 2.1 % [facility] Comment: Interpretive Data Percent cell count reference ranges are not reported, since discordance with absolute values may lead to misinterpretation of CBC data. Current Interpretive Data was last revised on 2017. Basophil pct 0.4 % [facility] Comment: Interpretive Data Percent cell count reference ranges are not reported, since discordance with absolute values may lead to misinterpretation of CBC data. Current Interpretive Data was last revised on 2017. Blood 05/04/2024 11:2 9 PM AUDITING CONTROL CLERK 05/05/2024 12:54 AM AUDITING CONTROL CLERK us Chester Vegas MD LAB BLOOD ORDERABLES Fi nal Result [facility] One [facility] Department [place] [address] * (ABNORMAL) CBC with auto differential (05/04/2024 11:29 PM AUDITING CONTROL CLERK) WBC 6.7 3.8 - 9.9 K/cumm Hgb 9.4(L) 11.9 - 15.5 g/dL [facility] Hct 28.9(L) 35.6 - 45.5 % [facility] Plt 223 150 - 400 K/cumm [facility] MPV 9.4 9.1 - 12.3 fL [facility] RBC 3.17(L) 3.90 - 5.20 M/cumm [facility] MCV 91.2 81.3 - 96.4 fL [facility] MCH 29.7 27.1 - 33.3 pg [facility] MCHC 32.5 32.3 - 35.7 g/dL [facility] RDW CV 18.0(H) 11.1 - 14.9 % [facility] RDW SD 60.1(H) 35.7 - 48.1 fL [facility] NRBC abs 0.00 0.00 - 0.01 K/cumm [facility] Blood 05/04/2024 11:2 9 PM AUDITING CONTROL CLERK 05/05/2024 12:54 AM AUDITING CONTROL CLERK Chester Vegas MD LAB BLOOD ORDERABLES Fi nal Result Performing Organization Address [facility] Co de Phone Number [facility] [place] [address] * Phosphorus (05/04/2024 11:29 PM AUDITING CONTROL CLERK) Pathologist [facility] Phosphorus, pl 2.9 2.3 - 4.5 mg/dL Blood 05/04/2024 11:2 9 PM AUDITING CONTROL CLERK 05/05/2024 12:54 AM AUDITING CONTROL CLERK us Chester Vegas MD LAB BLOOD ORDERABLES Fi nal Result Performing Organization Address [facility] Co de Phone Number [facility] [place] [address] * Magnesium (05/04/2024 11:29 PM AUDITING CONTROL CLERK) [facility] [address] Magnesium 1.5 1.4 - 2.5 mg/dL Blood 05/04/2024 11:2 9 PM AUDITING CONTROL CLERK 05/05/2024 12:54 AM AUDITING CONTROL CLERK Chester Vegas MD LAB BLOOD ORDERABLES Fi nal Result Performing Organization Address [facility] [place] [address] * (ABNORMAL) Basic metabolic panel (05/04/2024 11:29 PM AUDITING CONTROL CLERK) Pathologist [facility] Sodium 137 135 - 145 mmol/L Potassium, pl 3.9 3.3 - 4.9 mmol/L [facility] Chloride 112(H) 97 - 110 mmol/L [facility] CO2 18(L) 22 - 32 mmol/L [facility] Anion gap 7 2 - 15 mmol/L [facility] BUN 16 6 - 25 mg/dL [facility] Creatinine 0.88 0.60 - 1.10 mg/dL [facility] Glucose 119 70 - 199 mg/dL [facility] Comment: Interpretive Data Fasting glucose >/= 126 [...] 2022. Calcium 8.2(L) 8.5 - 10.3 mg/dL [facility] Blood 05/04/2024 11:2 9 PM AUDITING CONTROL CLERK 05/05/2024 12:54 AM AUDITING CONTROL CLERK us Chester Vegas MD LAB BLOOD ORDERABLES Fi nal Result [facility] One [facility] Department [place] [address] * eGFR (05/03/2024 10:28 PM AUDITING CONTROL CLERK) eGFR 67 >=60 mL/min/1. 73 m2 Comment: [...] reviewed 2021. Blood 05/03/2024 10:2 8 PM AUDITING CONTROL CLERK 05/03/2024 11:51 PM AUDITING CONTROL CLERK us Chester Vegas MD LAB BLOOD ORDERABLES Fi nal Result [facility] One [facility] Department [place] [address] * Differential, auto (05/03/2024 10:28 PM AUDITING CONTROL CLERK) Neutrophil abs 3.2 1.5 - 6.5 K/cumm Imm gran abs 0.1 0.0 - 0.1 K/cumm [facility] Lymphocyte abs 1.8 0.8 - 3.3 K/cumm [facility] Monocyte abs 0.8 0.2 - 0.8 K/cumm [facility] Eosinophil abs 0.2 0.0 - 0.5 K/cumm [facility] Basophil abs 0.0 0.0 - 0.1 K/cumm [facility] Neutrophil pct 52.1 % [facility] Comment: Interpretive Data Percent cell count reference ranges are not reported, since discordance with absolute values may lead to misinterpretation of CBC data. Current Interpretive Data was last revised on 2017. Imm gran pct 0.8 % [facility] Comment: Interpretive Data Percent cell count reference ranges are not reported, since discordance with absolute values may lead to misinterpretation of CBC data. Current Interpretive Data was last revised on 2017. Lymphocyte pct 29.7 % [facility] Comment: Interpretive Data Percent cell count reference ranges are not reported, since discordance with absolute values may lead to misinterpretation of CBC data. Current Interpretive Data was last revised on 2017. Monocyte pct 13.6 % [facility] Comment: Interpretive Data Percent cell count reference ranges are not reported, since discordance with absolute values may lead to misinterpretation of CBC data. Current Interpretive Data was last revised on 2017. Eosinophil pct 3.2 % [facility] Comment: Interpretive Data Percent cell count reference ranges are not reported, since discordance with absolute values may lead to misinterpretation of CBC data. Current Interpretive Data was last revised on 2017. Basophil pct 0.6 % [facility] Comment: Interpretive Data Percent cell count reference ranges are not reported, since discordance with absolute values may lead to misinterpretation of CBC data. Current Interpretive Data was last revised on 2017. Blood 05/03/2024 10:2 8 PM AUDITING CONTROL CLERK 05/03/2024 11:51 PM AUDITING CONTROL CLERK us Chester Vegas MD LAB BLOOD ORDERABLES Fi nal Result [facility] One [facility] Department [place] [address] * (ABNORMAL) CBC with auto differential (05/03/2024 10:28 PM AUDITING CONTROL CLERK) WBC 6.2 3.8 - 9.9 K/cumm Hgb 9.5(L) 11.9 - 15.5 g/dL [facility] Hct 29.0(L) 35.6 - 45.5 % [facility] Plt 221 150 - 400 K/cumm [facility] MPV 9.4 9.1 - 12.3 fL [facility] RBC 3.20(L) 3.90 - 5.20 M/cumm [facility] MCV 90.6 81.3 - 96.4 fL [facility] Comment:Consistent with hist orical value. MCH 29.7 27.1 - 33.3 pg [facility] MCHC 32.8 32.3 - 35.7 g/dL [facility] RDW CV 18.3(H) 11.1 - 14.9 % [facility] RDW SD 60.1(H) 35.7 - 48.1 fL [facility] NRBC abs 0.00 0.00 - 0.01 K/cumm [facility] Blood 05/03/2024 10:2 8 PM AUDITING CONTROL CLERK 05/03/2024 11:51 PM AUDITING CONTROL CLERK us Chester Vegas MD LAB BLOOD ORDERABLES Fi nal Result Performing Organization Address City/[facility] Co de Phone Number [facility] [place] [address] * Phosphorus (05/03/2024 10:28 PM AUDITING CONTROL CLERK) [facility] [address] Phosphorus, pl 2.6 2.3 - 4.5 mg/dL Blood 05/03/2024 10:2 8 PM AUDITING CONTROL CLERK 05/03/2024 11:51 PM AUDITING CONTROL CLERK Chester Vegas MD LAB BLOOD ORDERABLES Fi nal Result Performing Organization Address [facility] Co de Phone Number [facility] [place] [address] * Magnesium (05/03/2024 10:28 PM AUDITING CONTROL CLERK) [facility] [address] Magnesium 1.7 1.4 - 2.5 mg/dL Blood 05/03/2024 10:2 8 PM AUDITING CONTROL CLERK 05/03/2024 11:51 PM AUDITING CONTROL CLERK Chester Vegas MD LAB BLOOD ORDERABLES Fi nal Result Performing Organization Address [facility] Co de Phone Number [facility] [place] [address] * (ABNORMAL) Basic metabolic panel (05/03/2024 10:28 PM AUDITING CONTROL CLERK) [facility] [address] Sodium 136 135 - 145 mmol/L Potassium, pl 4.0 3.3 - 4.9 mmol/L [facility] Chloride 112(H) 97 - 110 mmol/L [facility] CO2 16(L) 22 - 32 mmol/L [facility] Anion gap 8 2 - 15 mmol/L [facility] BUN 16 6 - 25 mg/dL [facility] Creatinine 0.88 0.60 - 1.10 mg/dL [facility] Glucose 98 70 - 199 mg/dL [facility] Comment: Interpretive Data Fasting glucose >/= 126 [...] 2022. Calcium 8.1(L) 8.5 - 10.3 mg/dL [facility] Blood 05/03/2024 10:2 8 PM AUDITING CONTROL CLERK 05/03/2024 11:51 PM AUDITING CONTROL CLERK Chester Vegas MD LAB BLOOD ORDERABLES Fi nal Result [facility] One [facility] Department [place] [address] * Tissue aerobic and anaerobic culture and gram stain Bone Iliac (05/03/2024 11:37 AM AUDITING CONTROL CLERK) Direct Specimen Exam Stain: No polymorphonuclear leukocytes seen. No organisms seen. Report Final Report: No growth [facility] Bone (Iliac) 05/03/2024 11:3 7 AM AUDITING CONTROL CLERK 05/03/2024 11:37 AM AUDITING CONTROL CLERK Narrative [facility] - 05/08/2024 11:33 AM AUDITING CONTROL CLERK left Testing performed by [facility] ([phone]) Specimens submitted from normally sterile body sites [...] - GENERAL O RDERABLES Final Result KAILA CUNNINGHAM Vicenta [facility] Department [place] [address] * IR Superficial Bone Biopsy (05/03/2024 10:25 AM AUDITING CONTROL CLERK) Anatomical Region Laterality Modality Body N/A Computed Tomogra phy 05/03/2024 10:3 6 AM AUDITING CONTROL CLERK Impressions 05/03/2024 3:43 PM AUDITING CONTROL CLERK Left iliac bone biopsy under CT guidance. The core specimens were sent to surgical pathology and microbiology. Aspirate was sent to microbiology. Dictated by: Douglas Kraus M.D. The radiology attending physician has personally reviewed this study, and had reviewed and/or edited this written report and agrees with it. Electronically signed by: Salvatore Patel MD, PHD Narrative 05/03/2024 3:43 PM AUDITING CONTROL CLERK EXAMINATION: Left iliac bone biopsy under CT guidance HISTORY: Chronic fracture, concern for osteomyelitis ATTENDING PRESENCE: Dr. Salvatore Patel MD, PHD, the attending radiologist, was present from the beginning to the end of the procedure. Dr. Hickman (residential gas heat technician) was present and participated in the procedure. [...] was obtained. Prior to beginning the procedure, Jerome Protocol was performed to confirm the patient's [...] for subcutaneous and deep anesthesia. 10/12 gauge MobilyTrip coaxial biopsy device was inserted into the [...] the end of the procedure. Dr. Hickman (residential gas heat technician) was present and participated in the procedure. [...] was obtained. Prior to beginning the procedure, Jerome Protocol was performed to confirm the patient's [...] gram stain Aspirate Pelvic (05/03/2024 10:17 AM AUDITING CONTROL CLERK) Direct Specimen Exam Stain: Few polymorphonuclear leukocytes seen. No organisms seen. Report Final Report: No growth [facility] CUNNINGHAM Aspirate (Pelvic) 05/03/2024 10:17 AM AUDITING CONTROL CLERK 05/03/2024 11:46 AM AUDITING CONTROL CLERK Narrative [facility]AIL[facility] - 05/08/2024 11:33 AM AUDITING CONTROL CLERK Left Iliac Apirate Testing performed by [facility] ([phone]) Specimens submitted from normally sterile body sites [...] MICROBIOLOGY - GEN ERAL ORDERABLES Final Result DAVIDREZA MARISA One [facility] Department [place] [address] * Surgical pathology (05/03/2024 9:55 AM AUDITING CONTROL CLERK) Tissue (Bone - Biopsy / Curettings) 05/03/2024 9:55 AM AUDITING CONTROL CLERK Comment:Left Iliac Bone Biop sy Narrative PATHOLOGY [facility] - 05/09/2024 2:13 PM AUDITING CONTROL CLERK EPIC results best viewed via link to PDF [facility] [place] [address] Note to Patients: This report may contain [...] Gender: F : 1945 (Age: 78) Address: [address] [place], [place] [id number] Hospital #: [id number] Taken:05/03/2024 Received:05/03/2024 Reported: 05/09/2024 Patient Type: [facility] Inpatient Service: Hospitalist Location: [place] [address] Physician(s): Israel Heredia MD Chelsea E. Pearson, M.D. Diagnosis: Bone, left iliac, biopsy - [...] Labeled A1. Acid 1 decalcification.. Jar 0. sxs/05/03/2024 12:09 PA(s): Marsha Casey By this signature, I attest that the above diagnosis is based upon my personal examination of the slides(and/or other material). Addenda/Procedures The performance characteristics of some immunohistochemical stains, fluorescence in-situ hybridization tests and immunophenotyping by flow cytometry cited in this report (if any) were determined by the Surgical Pathology and Flow Cytometry Departments at [facility] as part of an ongoing quality tester program and in compliance with federally mandated [...] Surgical Pathology and Flow Cytometry Departments of [facility]. It has not been cleared or approved by the U. S. Food and Drug Administration. IMAGES AND SCANNED DOCUMENTS, IF INCLUDED, ONLY VIEWABLE IN PDF VERSION OF REPORT us Jadyn Leyva MD LAB PATHOLOGY ORDERABL ES Final Result PATHOLOGY [facility] 3rd Floor [place], [place] [phone] * eGFR (05/02/2024 11:12 PM AUDITING CONTROL CLERK) eGFR 65 >=60 mL/min/1. 73 m2 Comment: [...] reviewed 2021. Blood 05/02/2024 11:1 2 PM AUDITING CONTROL CLERK 05/03/2024 12:01 AM AUDITING CONTROL CLERK Chester Vegas MD LAB BLOOD ORDERABLES nal Result [facility] One [facility] Department [place] [address] * (ABNORMAL) Differential, auto (05/02/2024 11:12 PM AUDITING CONTROL CLERK) Pathologist [facility] Neutrophil abs 4.2 1.5 - 6.5 K/cumm Imm gran abs 0.1 0.0 - 0.1 K/cumm [facility] Lymphocyte abs 1.7 0.8 - 3.3 K/cumm [facility] Monocyte abs 0.9(H) 0.2 - 0.8 K/cumm [facility] Eosinophil abs 0.3 0.0 - 0.5 K/cumm [facility] Basophil abs 0.0 0.0 - 0.1 K/cumm [facility] Neutrophil pct 58.4 % [facility] Comment: Interpretive Data Percent cell count reference ranges are not reported, since discordance with absolute values may lead to misinterpretation of CBC data. Current Interpretive Data was last revised on 2017. Imm gran pct 0.8 % [facility] Comment: Interpretive Data Percent cell count reference ranges are not reported, since discordance with absolute values may lead to misinterpretation of CBC data. Current Interpretive Data was last revised on 2017. Lymphocyte pct 24.1 % [facility] Comment: Interpretive Data Percent cell count reference ranges are not reported, since discordance with absolute values may lead to misinterpretation of CBC data. Current Interpretive Data was last revised on 2017. Monocyte pct 12.3 % [facility] Comment: Interpretive Data Percent cell count reference ranges are not reported, since discordance with absolute values may lead to misinterpretation of CBC data. Current Interpretive Data was last revised on 2017. Eosinophil pct 3.8 % [facility] Comment: Interpretive Data Percent cell count reference ranges are not reported, since discordance with absolute values may lead to misinterpretation of CBC data. Current Interpretive Data was last revised on 2017. Basophil pct 0.6 % [facility] Comment: Interpretive Data Percent cell count reference ranges are not reported, since discordance with absolute values may lead to misinterpretation of CBC data. Current Interpretive Data was last revised on 2017. Blood 05/02/2024 11:1 2 PM AUDITING CONTROL CLERK 05/03/2024 12:01 AM AUDITING CONTROL CLERK us Chester Vegas MD LAB BLOOD ORDERABLES Fi nal Result [facility] One [facility] [place] [address] * (ABNORMAL) CBC with auto differential (05/02/2024 11:12 PM AUDITING CONTROL CLERK) WBC 7.1 3.8 - 9.9 K/cumm Hgb 9.9(L) 11.9 - 15.5 g/dL [facility] Hct 32.1(L) 35.6 - 45.5 % [facility] Plt 237 150 - 400 K/cumm [facility] MPV 9.2 9.1 - 12.3 fL [facility] RBC 3.34(L) 3.90 - 5.20 M/cumm [facility] MCV 96.1 81.3 - 96.4 fL [facility] Comment:Large delta with no apparant cause, correlate with clinical context and redraw if indicated. Called to Mary Jo Palm RN. MCH 29.6 27.1 - 33.3 pg [facility] MCHC 30.8(L) 32.3 - 35.7 g/dL [facility] RDW CV 18.6(H) 11.1 - 14.9 % [facility] RDW SD 65.2(H) 35.7 - 48.1 fL [facility] NRBC abs 0.00 0.00 - 0.01 K/cumm [facility] Blood 05/02/2024 11:1 2 PM AUDITING CONTROL CLERK 05/03/2024 12:01 AM AUDITING CONTROL CLERK us Chester Vegas MD LAB BLOOD ORDERABLES nal Result Performing Organization Address [facility] de Phone Number [facility] [place] [address] * aPTT (05/02/2024 11:12 PM AUDITING CONTROL CLERK) Pathologist [facility] aPTT 28 28 - 38 sec Comment: Interpretive Data Heparin therapeutic range: 66.0 - 100.0 seconds. Range based on correlation with therapeutic heparin activity range of 0.3 - 0.7 Units/mL. Current interpretive data was last revised on 2022. Blood 05/02/2024 11:1 2 PM AUDITING CONTROL CLERK 05/03/2024 12:07 AM AUDITING CONTROL CLERK Chester Vegas MD LAB BLOOD ORDERABLES nal Result Performing Organization Address [facility] Co de Phone Number [facility] [place] [address] * Protime-INR (05/02/2024 11:12 PM AUDITING CONTROL CLERK) PT 11.9 9.7 - 13.0 sec INR 1.10 0.90 - 1.20 [facility] Comment: Interpretive data Oral anticoagulant therapeutic ranges: Venous thromboembolism prophylaxis or treatment: 2.0-3.0 CARDIOLOGY Standard range: 2.0-3.0 High-intensity range: 2.5-3.5 Refer to indication-specific guidelines for appropriate target ranges for prosthetic heart valve replacement. Current interpretive data was last revised on 2019. Blood 05/02/2024 11:1 2 PM AUDITING CONTROL CLERK 05/03/2024 12:07 AM AUDITING CONTROL CLERK us Chester Vegas MD LAB BLOOD ORDERABLES Fi nal Result Performing Organization Address City/[facility] [place] [address] * Phosphorus (05/02/2024 11:12 PM AUDITING CONTROL CLERK) Phosphorus, pl 2.4 2.3 - 4.5 mg/dL Blood 05/02/2024 11:1 2 PM AUDITING CONTROL CLERK 05/03/2024 12:01 AM AUDITING CONTROL CLERK Chester Vegas MD LAB BLOOD ORDERABLES Fi nal Result Performing Organization Address [facility] Co de Phone Number [facility] [place] [address] * Magnesium (05/02/2024 11:12 PM AUDITING CONTROL CLERK) Magnesium 1.8 1.4 - 2.5 mg/dL Blood 05/02/2024 11:1 2 PM AUDITING CONTROL CLERK 05/03/2024 12:01 AM AUDITING CONTROL CLERK Chester Vegas MD LAB BLOOD ORDERABLES Fi nal Result Performing Organization Address [facility] Co de Phone Number [facility] [place] [address] * (ABNORMAL) Basic metabolic panel (05/02/2024 11:12 PM AUDITING CONTROL CLERK) Pathologist [facility] Sodium 136 135 - 145 mmol/L Potassium, pl 4.3 3.3 - 4.9 mmol/L [facility] Chloride 114(H) 97 - 110 mmol/L [facility] CO2 13(L) 22 - 32 mmol/L [facility] Anion gap 9 2 - 15 mmol/L [facility] BUN 16 6 - 25 mg/dL [facility] Creatinine 0.90 0.60 - 1.10 mg/dL [facility] Glucose 87 70 - 199 mg/dL [facility] Comment: Interpretive Data Fasting glucose >/= 126 [...] 2022. Calcium 8.1(L) 8.5 - 10.3 mg/dL [facility] Blood 05/02/2024 11:1 2 PM AUDITING CONTROL CLERK 05/03/2024 12:01 AM AUDITING CONTROL CLERK us Chester Vegas MD LAB BLOOD ORDERABLES nal Result [facility] One [facility] Department [place] [address] * (ABNORMAL) eGFR (05/01/2024 11:02 PM AUDITING CONTROL CLERK) [facility] [address] eGFR 58(L) >=60 mL/min/1. 73 m2 Comment: [...] reviewed 2021. Blood 05/01/2024 11:0 2 PM AUDITING CONTROL CLERK 05/01/2024 11:55 PM AUDITING CONTROL CLERK us Chester Vegas MD LAB BLOOD ORDERABLES Fi nal Result [facility] One [facility] Department [place] [address] * (ABNORMAL) Differential, auto (05/01/2024 11:02 PM AUDITING CONTROL CLERK) Neutrophil abs 5.7 1.5 - 6.5 K/cumm Imm gran abs 0.0 0.0 - 0.1 K/cumm [facility] Lymphocyte abs 1.5 0.8 - 3.3 K/cumm [facility] Monocyte abs 1.0(H) 0.2 - 0.8 K/cumm [facility] Eosinophil abs 0.5 0.0 - 0.5 K/cumm [facility] Basophil abs 0.0 0.0 - 0.1 K/cumm [facility] Neutrophil pct 65.3 % [facility] Comment: Interpretive Data Percent cell count reference ranges are not reported, since discordance with absolute values may lead to misinterpretation of CBC data. Current Interpretive Data was last revised on 2017. Imm gran pct 0.5 % [facility] Comment: Interpretive Data Percent cell count reference ranges are not reported, since discordance with absolute values may lead to misinterpretation of CBC data. Current Interpretive Data was last revised on 2017. Lymphocyte pct 17.4 % [facility] Comment: Interpretive Data Percent cell count reference ranges are not reported, since discordance with absolute values may lead to misinterpretation of CBC data. Current Interpretive Data was last revised on 2017. Monocyte pct 11.0 % [facility] Comment: Interpretive Data Percent cell count reference ranges are not reported, since discordance with absolute values may lead to misinterpretation of CBC data. Current Interpretive Data was last revised on 2017. Eosinophil pct 5.5 % [facility] Comment: Interpretive Data Percent cell count reference ranges are not reported, since discordance with absolute values may lead to misinterpretation of CBC data. Current Interpretive Data was last revised on 2017. Basophil pct 0.3 % [facility] Comment: Interpretive Data Percent cell count reference ranges are not reported, since discordance with absolute values may lead to misinterpretation of CBC data. Current Interpretive Data was last revised on 2017. Blood 05/01/2024 11:0 2 PM AUDITING CONTROL CLERK 05/01/2024 11:55 PM AUDITING CONTROL CLERK us Chester Vegas MD LAB BLOOD ORDERABLES Fi nal Result Performing Organization Address City/[facility]/ZIP Co de Phone Number [facility] Department [place] [address] * Thyroid Function [place] (05/01/2024 11:02 PM AUDITING CONTROL CLERK) TSH 2.06 0.30 - 4.20 mcIUnit/mL Blood 05/01/2024 11:0 2 PM AUDITING CONTROL CLERK 05/01/2024 11:55 PM AUDITING CONTROL CLERK us Chester Vegas MD LAB BLOOD ORDERABLES Fi nal Result [facility] [place] [address] * (ABNORMAL) CBC with auto differential (05/01/2024 11:02 PM AUDITING CONTROL CLERK) WBC 8.7 3.8 - 9.9 K/cumm Hgb 10.5(L) 11.9 - 15.5 g/dL [facility] Hct 32.6(L) 35.6 - 45.5 % [facility] Plt 272 150 - 400 K/cumm [facility] MPV 9.3 9.1 - 12.3 fL [facility] RBC 3.60(L) 3.90 - 5.20 M/cumm [facility] MCV 90.6 81.3 - 96.4 fL [facility] MCH 29.2 27.1 - 33.3 pg [facility] MCHC 32.2(L) 32.3 - 35.7 g/dL [facility] RDW CV 18.6(H) 11.1 - 14.9 % [facility] RDW SD 60.8(H) 35.7 - 48.1 fL [facility] NRBC abs 0.00 0.00 - 0.01 K/cumm [facility] Blood 05/01/2024 11:0 2 PM AUDITING CONTROL CLERK 05/01/2024 11:55 PM AUDITING CONTROL CLERK us Chester Vegas MD LAB BLOOD ORDERABLES Fi nal Result [facility] [place] [address] * (ABNORMAL) Phosphorus (05/01/2024 11:02 PM AUDITING CONTROL CLERK) Phosphorus, pl 1.7(L) 2.3 - 4.5 mg/dL Blood 05/01/2024 11:0 2 PM AUDITING CONTROL CLERK 05/01/2024 11:55 PM AUDITING CONTROL CLERK us Chester Vegas MD LAB BLOOD ORDERABLES Fi nal Result [facility] [place] [address] * Magnesium (05/01/2024 11:02 PM AUDITING CONTROL CLERK) Magnesium 2.5 1.4 - 2.5 mg/dL Blood 05/01/2024 11:0 2 PM AUDITING CONTROL CLERK 05/01/2024 11:55 PM AUDITING CONTROL CLERK Chester Vegas MD LAB BLOOD ORDERABLES Fi nal Result Performing Organization Address [facility] Co de Phone Number [facility] [place] [address] * Folate (05/01/2024 11:02 PM AUDITING CONTROL CLERK) [facility] [address] Folic acid >20.0 >=5.0 ng/mL Blood 05/01/2024 11:0 2 PM AUDITING CONTROL CLERK 05/01/2024 11:55 PM AUDITING CONTROL CLERK us Chester Vegas MD LAB BLOOD ORDERABLES Fi nal Result Performing Organization Address [facility] Co de Phone Number [facility] [place] [address] * (ABNORMAL) Vitamin B12 (05/01/2024 11:02 PM AUDITING CONTROL CLERK) [facility] [address] Vitamin B12 1,353(H) 230 - 1,250 pg/mL Blood 05/01/2024 11:0 2 PM AUDITING CONTROL CLERK 05/01/2024 11:55 PM AUDITING CONTROL CLERK Chester Vegas MD LAB BLOOD ORDERABLES Fi nal Result Performing Organization Address [facility] [place] [address] * (ABNORMAL) Basic metabolic panel (05/01/2024 11:02 PM AUDITING CONTROL CLERK) [facility] [address] Sodium 140 135 - 145 mmol/L Potassium, pl 4.2 3.3 - 4.9 mmol/L [facility] Chloride 116(H) 97 - 110 mmol/L [facility] CO2 15(L) 22 - 32 mmol/L [facility] Anion gap 9 2 - 15 mmol/L [facility] BUN 16 6 - 25 mg/dL [facility] Creatinine 1.00 0.60 - 1.10 mg/dL [facility] Glucose 125 70 - 199 mg/dL [facility] Comment: Interpretive Data Fasting glucose >/= 126 [...] 2022. Calcium 8.2(L) 8.5 - 10.3 mg/dL [facility] Blood 05/01/2024 11:0 2 PM AUDITING CONTROL CLERK 05/01/2024 11:55 PM AUDITING CONTROL CLERK us Chester Vegas MD LAB BLOOD ORDERABLES Fi nal Result [facility] Department [place] [address] * (ABNORMAL) eGFR (04/30/2024 11:17 PM AUDITING CONTROL CLERK) eGFR 49(L) >=60 mL/min/1. 73 m2 Comment: [...] reviewed 2021. Blood 04/30/2024 11:1 7 PM AUDITING CONTROL CLERK 04/30/2024 11:53 PM AUDITING CONTROL CLERK us Chester Vegas MD LAB BLOOD ORDERABLES Fi nal Result [facility] Department [place] [address] * (ABNORMAL) Differential, auto (04/30/2024 11:17 PM AUDITING CONTROL CLERK) Neutrophil abs 5.8 1.5 - 6.5 K/cumm Imm gran abs 0.1 0.0 - 0.1 K/cumm [facility] Lymphocyte abs 1.2 0.8 - 3.3 K/cumm [facility] Monocyte abs 1.0(H) 0.2 - 0.8 K/cumm [facility] Eosinophil abs 0.5 0.0 - 0.5 K/cumm [facility] Basophil abs 0.1 0.0 - 0.1 K/cumm [facility] Neutrophil pct 67.7 % [facility] Comment: Interpretive Data Percent cell count reference ranges are not reported, since discordance with absolute values may lead to misinterpretation of CBC data. Current Interpretive Data was last revised on 2017. Imm gran pct 0.6 % [facility] Comment: Interpretive Data Percent cell count reference ranges are not reported, since discordance with absolute values may lead to misinterpretation of CBC data. Current Interpretive Data was last revised on 2017. Lymphocyte pct 14.1 % [facility] Comment: Interpretive Data Percent cell count reference ranges are not reported, since discordance with absolute values may lead to misinterpretation of CBC data. Current Interpretive Data was last revised on 2017. Monocyte pct 11.1 % [facility] Comment: Interpretive Data Percent cell count reference ranges are not reported, since discordance with absolute values may lead to misinterpretation of CBC data. Current Interpretive Data was last revised on 2017. Eosinophil pct 5.9 % [facility] Comment: Interpretive Data Percent cell count reference ranges are not reported, since discordance with absolute values may lead to misinterpretation of CBC data. Current Interpretive Data was last revised on 2017. Basophil pct 0.6 % [facility] Comment: Interpretive Data Percent cell count reference ranges are not reported, since discordance with absolute values may lead to misinterpretation of CBC data. Current Interpretive Data was last revised on 2017. Blood 04/30/2024 11:1 7 PM AUDITING CONTROL CLERK 04/30/2024 11:54 PM AUDITING CONTROL CLERK us Chester Vegas MD LAB BLOOD ORDERABLES Fi nal Result [facility] Department [place] [address] * (ABNORMAL) CBC with auto differential (04/30/2024 11:17 PM AUDITING CONTROL CLERK) WBC 8.6 3.8 - 9.9 K/cumm Hgb 9.7(L) 11.9 - 15.5 g/dL [facility] Hct 29.2(L) 35.6 - 45.5 % [facility] Plt 260 150 - 400 K/cumm [facility] MPV 9.1 9.1 - 12.3 fL [facility] RBC 3.33(L) 3.90 - 5.20 M/cumm [facility] MCV 87.7 81.3 - 96.4 fL [facility] MCH 29.1 27.1 - 33.3 pg [facility] MCHC 33.2 32.3 - 35.7 g/dL [facility] RDW CV 18.1(H) 11.1 - 14.9 % [facility] RDW SD 57.2(H) 35.7 - 48.1 fL [facility] NRBC abs 0.00 0.00 - 0.01 K/cumm [facility] Blood 04/30/2024 11:1 7 PM AUDITING CONTROL CLERK 04/30/2024 11:54 PM AUDITING CONTROL CLERK Chester Vegas MD LAB BLOOD ORDERABLES Fi nal Result Performing Organization Address City/[facility] Co de Phone Number [facility] [place] [address] * Phosphorus (04/30/2024 11:17 PM AUDITING CONTROL CLERK) Pathologist [facility] Phosphorus, pl 2.5 2.3 - 4.5 mg/dL Blood 04/30/2024 11:1 7 PM AUDITING CONTROL CLERK 04/30/2024 11:53 PM AUDITING CONTROL CLERK Chester Vegas MD LAB BLOOD ORDERABLES Fi nal Result Performing Organization Address [facility] Co de Phone Number [facility] [place] [address] * Magnesium (04/30/2024 11:17 PM AUDITING CONTROL CLERK) [facility] [address] Magnesium 1.5 1.4 - 2.5 mg/dL Blood 04/30/2024 11:1 7 PM AUDITING CONTROL CLERK 04/30/2024 11:53 PM AUDITING CONTROL CLERK Chester Vegas MD LAB BLOOD ORDERABLES Fi nal Result Performing Organization Address [facility] [place] [address] * (ABNORMAL) Basic metabolic panel (04/30/2024 11:17 PM AUDITING CONTROL CLERK) Pathologist [facility] Sodium 141 135 - 145 mmol/L Potassium, pl 3.6 3.3 - 4.9 mmol/L [facility] Chloride 115(H) 97 - 110 mmol/L [facility] CO2 17(L) 22 - 32 mmol/L [facility] Anion gap 9 2 - 15 mmol/L [facility] BUN 14 6 - 25 mg/dL [facility] Creatinine 1.14(H) 0.60 - 1.10 mg/dL [facility] Glucose 102 70 - 199 mg/dL [facility] Comment: Interpretive Data Fasting glucose >/= 126 [...] 2022. Calcium 8.3(L) 8.5 - 10.3 mg/dL [facility] Blood 04/30/2024 11:1 7 PM AUDITING CONTROL CLERK 04/30/2024 11:53 PM AUDITING CONTROL CLERK us Chester Vegas MD LAB BLOOD ORDERABLES [facility] Result [facility] Department [place] [address] * (ABNORMAL) eGFR (04/30/2024 3:35 AM AUDITING CONTROL CLERK) eGFR 44(L) >=60 mL/min/1. 73 m2 Comment: [...] last reviewed 2021. Blood 04/30/2024 3:35 AM AUDITING CONTROL CLERK 04/30/2024 4:21 AM AUDITING CONTROL CLERK us Jadyn Leyva MD LAB BLOOD ORDERABLES F inal Result [facility] Department [place] [address] * (ABNORMAL) Differential, auto (04/30/2024 3:35 AM AUDITING CONTROL CLERK) Neutrophil abs 7.0(H) 1.5 - 6.5 K/cumm Imm gran abs 0.1 0.0 - 0.1 K/cumm [facility] Lymphocyte abs 1.4 0.8 - 3.3 K/cumm [facility] Monocyte abs 0.9(H) 0.2 - 0.8 K/cumm [facility] Eosinophil abs 0.3 0.0 - 0.5 K/cumm [facility] Basophil abs 0.0 0.0 - 0.1 K/cumm [facility] Neutrophil pct 72.2 % [facility] Comment: Interpretive Data Percent cell count reference ranges are not reported, since discordance with absolute values may lead to misinterpretation of CBC data. Current Interpretive Data was last revised on 2017. Imm gran pct 0.9 % [facility] Comment: Interpretive Data Percent cell count reference ranges are not reported, since discordance with absolute values may lead to misinterpretation of CBC data. Current Interpretive Data was last revised on 2017. Lymphocyte pct 14.2 % [facility] Comment: Interpretive Data Percent cell count reference ranges are not reported, since discordance with absolute values may lead to misinterpretation of CBC data. Current Interpretive Data was last revised on 2017. Monocyte pct 9.5 % [facility] Comment: Interpretive Data Percent cell count reference ranges are not reported, since discordance with absolute values may lead to misinterpretation of CBC data. Current Interpretive Data was last revised on 2017. Eosinophil pct 2.9 % [facility] Comment: Interpretive Data Percent cell count reference ranges are not reported, since discordance with absolute values may lead to misinterpretation of CBC data. Current Interpretive Data was last revised on 2017. Basophil pct 0.3 % [facility] Comment: Interpretive Data Percent cell count reference ranges are not reported, since discordance with absolute values may lead to misinterpretation of CBC data. Current Interpretive Data was last revised on 2017. Blood 04/30/2024 3:35 AM AUDITING CONTROL CLERK 04/30/2024 4:22 AM AUDITING CONTROL CLERK Jadyn Leyva MD LAB BLOOD ORDERABLES F inal Result [facility] Department [place] [address] * (ABNORMAL) CBC with auto differential (04/30/2024 3:35 AM AUDITING CONTROL CLERK) WBC 9.7 3.8 - 9.9 K/cumm Hgb 10.4(L) 11.9 - 15.5 g/dL [facility] Hct 31.2(L) 35.6 - 45.5 % [facility] Plt 285 150 - 400 K/cumm [facility] MPV 9.0(L) 9.1 - 12.3 fL [facility] RBC 3.59(L) 3.90 - 5.20 M/cumm [facility] MCV 86.9 81.3 - 96.4 fL [facility] MCH 29.0 27.1 - 33.3 pg [facility] MCHC 33.3 32.3 - 35.7 g/dL [facility] RDW CV 17.7(H) 11.1 - 14.9 % [facility] RDW SD 54.9(H) 35.7 - 48.1 fL [facility] NRBC abs 0.00 0.00 - 0.01 K/cumm [facility] Blood 04/30/2024 3:35 AM AUDITING CONTROL CLERK 04/30/2024 4:22 AM AUDITING CONTROL CLERK Jadyn Leyva MD LAB BLOOD ORDERABLES F inal Result [facility] Department [place] [address] * (ABNORMAL) Basic metabolic panel (04/30/2024 3:35 AM AUDITING CONTROL CLERK) Pathologist [facility] Sodium 142 135 - 145 mmol/L Potassium, pl 4.4 3.3 - 4.9 mmol/L [facility] Chloride 114(H) 97 - 110 mmol/L [facility] CO2 17(L) 22 - 32 mmol/L [facility] Anion gap 11 2 - 15 mmol/L [facility] BUN 17 6 - 25 mg/dL [facility] Creatinine 1.26(H) 0.60 - 1.10 mg/dL [facility] Glucose 86 70 - 199 mg/dL [facility] Comment: Interpretive Data Fasting glucose >/= 126 [...] 2022. Calcium 8.6 8.5 - 10.3 mg/dL [facility] Blood 04/30/2024 3:35 AM AUDITING CONTROL CLERK 04/30/2024 4:21 AM AUDITING CONTROL CLERK us Jadyn Levya MD LAB BLOOD ORDERABLES F inal Result Performing Organization Address City/[facility]/ZIP Co de Phone Number [facility] [place] [address] * (ABNORMAL) Calcium, ionized, whole blood (04/29/2024 7:49 PM AUDITING CONTROL CLERK) Ca, ionized, bld 5.34(H) 4.50 - 5.10 mg/dL Blood 04/29/2024 7:49 PM AUDITING CONTROL CLERK 04/29/2024 7:53 PM AUDITING CONTROL CLERK Griffin Jimenez MD LAB BLOOD ORDERABLES Final Result Performing Organization Address City/[facility]/ZIP Co de Phone Number [facility] [address] * (ABNORMAL) eGFR (04/29/2024 7:49 PM AUDITING CONTROL CLERK) eGFR 44(L) >=60 mL/min/1. 73 m2 Comment: [...] last reviewed 2021. Blood 04/29/2024 7:49 PM AUDITING CONTROL CLERK 04/29/2024 8:18 PM AUDITING CONTROL CLERK Griffin Jimenez MD LAB BLOOD ORDERABLES Final Result [facility] [address] * Magnesium (04/29/2024 7:49 PM AUDITING CONTROL CLERK) Magnesium 2.0 1.4 - 2.5 mg/dL Comment:Reviewed Blood 04/29/2024 7:49 PM AUDITING CONTROL CLERK 04/29/2024 8:18 PM AUDITING CONTROL CLERK Griffin Jimenez MD LAB BLOOD ORDERABLES Final Result [facility] Department [place] [address] * (ABNORMAL) Basic metabolic panel (04/29/2024 7:49 PM AUDITING CONTROL CLERK) [facility] [address] Sodium 138 135 - 145 mmol/L Potassium, pl 3.8 3.3 - 4.9 mmol/L [facility] Chloride 110 97 - 110 mmol/L [facility] CO2 16(L) 22 - 32 mmol/L [facility] Anion gap 12 2 - 15 mmol/L [facility] BUN 19 6 - 25 mg/dL [facility] Creatinine 1.26(H) 0.60 - 1.10 mg/dL [facility] Glucose 89 70 - 199 mg/dL [facility] Comment: Interpretive Data Fasting glucose >/= 126 [...] 2022. Calcium 8.6 8.5 - 10.3 mg/dL [facility] Comment:Reviewed Blood 04/29/2024 7:49 PM AUDITING CONTROL CLERK 04/29/2024 8:18 PM AUDITING CONTROL CLERK Griffin Jimenez MD LAB BLOOD ORDERABLES Final Result Performing Organization Address [facility]/ZIP Co de Phone Number [facility] Department [place] [address] * Critical Result Callback Chemistry (04/29/2024 5:43 PM AUDITING CONTROL CLERK) Date Notified [id number] Time Notified 1801 [facility] TestName HCO3 Abrahan (Calc) [facility] Called/Read Back Griffin [facility] Credentials MD [facility] Called By HARRISON CUNN[facility] Blood 04/29/2024 5:43 PM AUDITING CONTROL CLERK 04/29/2024 5:48 PM AUDITING CONTROL CLERK Griffin Jimenez MD LAB BLOOD ORDERABLES Final Result [facility] Department [place] [address] * (ABNORMAL) Blood gas, venous (04/29/2024 5:43 PM AUDITING CONTROL CLERK) pH, Venous 7.26(L) 7.32 - 7.43 PCO2, Venous 18(L) 40 - 50 mmHg [facility] PO2, Venous 52 mmHg [facility] Comment: Interpretive Data No Reference Range Established Current Interpretive Data was last revised on 2017. HCO3 Venous, Calculated 8(C) 20 - 30 mmol/L [facility] BE, venous -18 mmol/L [facility] Comment: Interpretive Data No Reference Range Established Current Interpretive Data was last revised on 2017. Blood 04/29/2024 5:43 PM AUDITING CONTROL CLERK 04/29/2024 5:48 PM AUDITING CONTROL CLERK Griffin Jimenez MD LAB BLOOD ORDERABLES Final Result [facility] [place] [address] * (ABNORMAL) ECG 12-LEAD (04/29/2024 5:28 PM AUDITING CONTROL CLERK) Narrative [facility] - 04/29/2024 5:28 PM AUDITING CONTROL CLERK Noble Vang MD 05/02/2024 2:44 AM ECG [...] follow up: further workup in the ED Griffin Jimenez MD ECG ORDERABLES Final Result [facility] * [place] [facility] ILL/INJURED PATIENT INIT 30-74 MIN (04/29/2024 5:25 PM AUDITING CONTROL CLERK) Narrative Noble Vang MD - 04/29/2024 5:25 PM AUDITING CONTROL CLERK Noble Vang MD 05/04/2024 11:45 AM Critical [...] Result * (ABNORMAL) eGFR (04/29/2024 2:28 PM AUDITING CONTROL CLERK) Pathologist [facility] eGFR 42(L) >=60 mL/min/1. 73 m2 Comment: [...] last reviewed 2021. Blood 04/29/2024 2:28 PM AUDITING CONTROL CLERK 04/29/2024 2:42 PM AUDITING CONTROL CLERK us Jadyn Leyva MD LAB BLOOD ORDERABLES F inal Result [facility] [place] [address] * (ABNORMAL) Differential, auto (04/29/2024 2:28 PM AUDITING CONTROL CLERK) Neutrophil abs 5.6 1.5 - 6.5 K/cumm Imm gran abs 0.1 0.0 - 0.1 K/cumm [facility] Lymphocyte abs 1.4 0.8 - 3.3 K/cumm [facility] Monocyte abs 1.0(H) 0.2 - 0.8 K/cumm [facility] Eosinophil abs 0.1 0.0 - 0.5 K/cumm [facility] Basophil abs 0.0 0.0 - 0.1 K/cumm [facility] Neutrophil pct 68.2 % [facility] Comment: Interpretive Data Percent cell count reference ranges are not reported, since discordance with absolute values may lead to misinterpretation of CBC data. Current Interpretive Data was last revised on 2017. Imm gran pct 1.0 % [facility] Comment: Interpretive Data Percent cell count reference ranges are not reported, since discordance with absolute values may lead to misinterpretation of CBC data. Current Interpretive Data was last revised on 2017. Lymphocyte pct 17.0 % [facility] Comment: Interpretive Data Percent cell count reference ranges are not reported, since discordance with absolute values may lead to misinterpretation of CBC data. Current Interpretive Data was last revised on 2017. Monocyte pct 12.3 % [facility] Comment: Interpretive Data Percent cell count reference ranges are not reported, since discordance with absolute values may lead to misinterpretation of CBC data. Current Interpretive Data was last revised on 2017. Eosinophil pct 1.0 % [facility] Comment: Interpretive Data Percent cell count reference ranges are not reported, since discordance with absolute values may lead to misinterpretation of CBC data. Current Interpretive Data was last revised on 2017. Basophil pct 0.5 % [facility] Comment: Interpretive Data Percent cell count reference ranges are not reported, since discordance with absolute values may lead to misinterpretation of CBC data. Current Interpretive Data was last revised on 2017. Blood 04/29/2024 2:28 PM AUDITING CONTROL CLERK 04/29/2024 2:36 PM AUDITING CONTROL CLERK us Jadyn Leyva MD LAB BLOOD ORDERABLES F inal Result [facility] [place] [address] * Critical Result Callback Chemistry (04/29/2024 2:28 PM AUDITING CONTROL CLERK) Date Notified 20240429 Time Notified 1648 [facility] TestName Magnesium [facility] Called/Read Back Marcia [facility] Credentials [facility] Called By Rey [facility] Blood 04/29/2024 2:28 PM AUDITING CONTROL CLERK 04/29/2024 2:42 PM AUDITING CONTROL CLERK us Navid Weinstein MD LAB BLOOD ORDERABLES Final Re sult [facility] [place] [address] * Critical Result Callback Chemistry (04/29/2024 2:28 PM AUDITING CONTROL CLERK) Pathologist [facility] Date Notified [id number] Time Notified 151 [facility] TestName Calcium [facility] Called/Read Back Jadyn [facility] Credentials MD [facility] Called By [facility] Blood 04/29/2024 2:28 PM AUDITING CONTROL CLERK 04/29/2024 2:42 PM AUDITING CONTROL CLERK us Jadyn Leyva MD LAB BLOOD ORDERABLES F inal Result Performing Organization Address City/[facility]/ZIP Co de Phone Number [facility] One [facility] Department [place] [address] * (ABNORMAL) CBC with auto differential (04/29/2024 2:28 PM AUDITING CONTROL CLERK) [facility] [address] WBC 8.3 3.8 - 9.9 K/cumm Hgb 9.3(L) 11.9 - 15.5 g/dL [facility] Hct 26.6(L) 35.6 - 45.5 % [facility] Plt 271 150 - 400 K/cumm [facility] MPV 9.2 9.1 - 12.3 fL [facility] RBC 3.16(L) 3.90 - 5.20 M/cumm [facility] MCV 84.2 81.3 - 96.4 fL [facility] MCH 29.4 27.1 - 33.3 pg [facility] MCHC 35.0 32.3 - 35.7 g/dL [facility] RDW CV 17.0(H) 11.1 - 14.9 % [facility] RDW SD 52.3(H) 35.7 - 48.1 fL [facility] NRBC abs 0.00 0.00 - 0.01 K/cumm [facility] Blood 04/29/2024 2:28 PM AUDITING CONTROL CLERK 04/29/2024 2:36 PM AUDITING CONTROL CLERK Jadyn Leyva MD LAB BLOOD ORDERABLES F inal Result Performing Organization Address [facility]/ZIP Co de Phone Number [facility] Department [place] [address] * (ABNORMAL) Magnesium (04/29/2024 2:28 PM AUDITING CONTROL CLERK) [facility] [address] Magnesium 0.6(C) 1.4 - 2.5 mg/dL Comment:Repeated and Verifie d Blood 04/29/2024 2:28 PM AUDITING CONTROL CLERK 04/29/2024 2:42 PM AUDITING CONTROL CLERK us Navid Weinstein MD LAB BLOOD ORDERABLES Final Re sult Performing Organization Address [facility] Co de Phone Number [facility] Department [place] [address] * (ABNORMAL) Basic metabolic panel (04/29/2024 2:28 PM AUDITING CONTROL CLERK) [facility] [address] Sodium 141 135 - 145 mmol/L Potassium, pl 2.9(L) 3.3 - 4.9 mmol/L [facility] Chloride 115(H) 97 - 110 mmol/L [facility] CO2 17(L) 22 - 32 mmol/L [facility] Anion gap 9 2 - 15 mmol/L [facility] BUN 19 6 - 25 mg/dL [facility] Creatinine 1.31(H) 0.60 - 1.10 mg/dL [facility] Glucose 75 70 - 199 mg/dL [facility] Comment: Interpretive Data Fasting glucose >/= 126 [...] 2022. Calcium 6.4(C) 8.5 - 10.3 mg/dL [facility] Blood 04/29/2024 2:28 PM AUDITING CONTROL CLERK 04/29/2024 2:36 PM AUDITING CONTROL CLERK us Jadyn Leyva MD LAB BLOOD ORDERABLES F inal Result [facility] Department [place] [address] * XR Hip Left 2 or 3 Views W Pelvis (04/29/2024 11:27 AM AUDITING CONTROL CLERK) Anatomical Region Laterality Modality Lower Extremities, Hip, Pelvis Left C omputed Radiography 04/29/2024 12:2 7 PM AUDITING CONTROL CLERK Impressions 04/29/2024 12:27 PM AUDITING CONTROL CLERK Findings and Impression: Left hip: No acute fracture or dislocation. The chronic left iliac wing fracture was better seen on the recent CT. Right tibia and fibula: Status post right knee replacement. Enthesopathic changes at the Achilles insertion on the calcaneus. No fracture or dislocation. Electronically signed by: Pedro Lau M.D. Narrative 04/29/2024 12:27 PM AUDITING CONTROL CLERK Study: 3 views of the left hip. [...] Fibula Right 2 Views (04/29/2024 11:26 AM AUDITING CONTROL CLERK) Anatomical Region Laterality Modality Lower Extremities, Lower Leg Right Com puted Radiography 04/29/2024 12:2 7 PM AUDITING CONTROL CLERK Impressions 04/29/2024 12:27 PM AUDITING CONTROL CLERK Findings and Impression: Left hip: No acute fracture or dislocation. The chronic left iliac wing fracture was better seen on the recent CT. Right tibia and fibula: Status post right knee replacement. Enthesopathic changes at the Achilles insertion on the calcaneus. No fracture or dislocation. Electronically signed by: Pedro Lau M.D. Narrative 04/29/2024 12:27 PM AUDITING CONTROL CLERK Study: 3 views of the left hip. [...] * Erythrocyte sedimentation rate (04/29/2024 9:51 AM AUDITING CONTROL CLERK) Erythrocyte sedimentation rate 16 1 - 30 mm/hr Blood 04/29/2024 9:51 AM AUDITING CONTROL CLERK 04/29/2024 10:04 AM AUDITING CONTROL CLERK Jadyn Leyva MD LAB BLOOD ORDERABLES F inal Result Performing Organization Address City/[facility] Co de Phone Number [facility] [place] [address] * CRP (acute phase) (04/29/2024 9:51 AM AUDITING CONTROL CLERK) CRP 6.1 <=10.0 mg/L Blood 04/29/2024 9:51 AM AUDITING CONTROL CLERK 04/29/2024 10:04 AM AUDITING CONTROL CLERK Jadyn Leyva MD LAB BLOOD ORDERABLES F inal Result Performing Organization Address [facility] de Phone Number [facility] [place] [address] * (ABNORMAL) eGFR (04/29/2024 5:49 AM AUDITING CONTROL CLERK) eGFR 34(L) >=60 mL/min/1. 73 m2 Comment: [...] last reviewed 2021. Blood 04/29/2024 5:49 AM AUDITING CONTROL CLERK 04/29/2024 5:58 AM AUDITING CONTROL CLERK Amna Zaragoza DO LAB BLOOD ORDERABLES Final Resul t Performing Organization Address [facility] Co de Phone Number [facility] Department [place] [address] * (ABNORMAL) CBC without differential (04/29/2024 5:49 AM AUDITING CONTROL CLERK) WBC 8.4 3.8 - 9.9 K/cumm Hgb 10.4(L) 11.9 - 15.5 g/dL [facility] Hct 30.4(L) 35.6 - 45.5 % [facility] Plt 263 150 - 400 K/cumm [facility] MPV 9.1 9.1 - 12.3 fL [facility] RBC 3.56(L) 3.90 - 5.20 M/cumm [facility] MCV 85.4 81.3 - 96.4 fL [facility] MCH 29.2 27.1 - 33.3 pg [facility] MCHC 34.2 32.3 - 35.7 g/dL [facility] RDW CV 16.6(H) 11.1 - 14.9 % [facility] RDW SD 51.0(H) 35.7 - 48.1 fL [facility] NRBC abs 0.00 0.00 - 0.01 K/cumm [facility] Blood 04/29/2024 5:49 AM AUDITING CONTROL CLERK 04/29/2024 5:58 AM AUDITING CONTROL CLERK Amna Zaragoza DO LAB BLOOD ORDERABLES Final Resul t Performing Organization Address City/[facility]/ZIP Co de Phone Number [facility] Department [place] [address] * (ABNORMAL) Comprehensive metabolic panel (04/29/2024 5:49 AM AUDITING CONTROL CLERK) Pathologist [facility] Sodium 142 135 - 145 mmol/L Potassium, pl 3.0(L) 3.3 - 4.9 mmol/L [facility] Chloride 113(H) 97 - 110 mmol/L [facility] CO2 17(L) 22 - 32 mmol/L [facility] Anion gap 12 2 - 15 mmol/L [facility] BUN 24 6 - 25 mg/dL [facility] Creatinine 1.54(H) 0.60 - 1.10 mg/dL [facility] Glucose 77 70 - 199 mg/dL [facility] Comment: Interpretive Data Fasting glucose >/= 126 [...] 2022. Calcium 7.2(L) 8.5 - 10.3 mg/dL [facility] Bilirubin, total 0.2 0.1 - 1.2 mg/dL [facility] Protein, pl 5.2(L) 6.5 - 8.5 g/dL [facility] Albumin 2.5(L) 3.5 - 5.0 g/dL [facility] Alk phos 117 40 - 130 Units/L [facility] ALT 19 7 - 45 Units/L [facility] AST 27 10 - 45 Units/L [facility] Blood 04/29/2024 5:49 AM AUDITING CONTROL CLERK 04/29/2024 5:58 AM AUDITING CONTROL CLERK us Amna Zaragoza DO LAB BLOOD ORDERABLES Final Resul t [facility] [place] [address] * C. difficile testing Stool (04/28/2024 8:45 PM AUDITING CONTROL CLERK) [facility] Result Negative Negative Toxin Result Negative Negative [facility] C. diff result Negative, free toxin Negative, free toxin [facility] C. diff interp Negative for toxigenic Clostridioides (Clostridium) difficile. Analysis was performed using a glutamate dehydrogenase antigen detection assay combined with a C. difficile toxin detection assay. [facility] Stool 04/28/2024 8:45 PM AUDITING CONTROL CLERK 04/28/2024 9:17 PM AUDITING CONTROL CLERK Mel Kim MD LAB MICROBIOLOGY - [facility] ORDERABLES Final Result [facility] Department [place] [address] * (ABNORMAL) Drugs of Abuse Screen, Urine with Reflex Confirmation (04/28/2024 7:39 PM AUDITING CONTROL CLERK) Pathologist [facility] Amphetamine, ur Not Detected CutOff 500ng/mL Comment: Interpretive Data - Amphetamines: Samples containing greater than 500 ng/mL d-methamphetamine or other cross-reacting amphetamine compounds are reported as positive. Amphetamine immunoassays are subject to significant false positive rates due to cross-reactivity of non-amphetamine drugs. Confirmatory testing required for definitive results. Current Interpretive Data was last reviewed 2022. Barbiturates, ur Not Detected CutOff 200ng/mL [facility] Comment: Interpretive Data - Barbiturates: Samples containing greater than 200 ng/mL secobarbital or other cross-reacting barbiturate compounds are reported as positive. False positive and false negative results are possible. Confirmatory testing required for definitive results. Current Interpretive Data was last reviewed 2022. Benzodiazepines, ur Screen Positive, presumptive (A) CutOff 100ng/mL [facility] Comment: Interpretive Data - Benzodiazepines: Samples containing greater than 100 ng/mL nordiazepam or other cross-reacting compounds are reported as positive. False positive and false negative results are possible. Confirmatory testing required for definitive results. Current Interpretive Data was last reviewed 2022. Cannabinoids, ur Not Detected CutOff 50 ng/mL [facility] Comment: Interpretive Data - Cannabinoids: Samples containing greater than 50 ng/mL delta-9 THC -COOH or other cross- reacting compounds are reported as positive. False positive and false negative results are possible. Confirmatory testing required for definitive results. Current Interpretive Data was last reviewed 2022. Cocaine, ur Not Detected CutOff 150ng/mL [facility] Comment: Interpretive Data - Cocaine: Samples containing greater than 150 ng/mL benzoylecgonine or other cross- reacting compounds are reported as positive. False positive and false negative results are possible. Confirmatory testing required for definitive results. Current Interpretive Data was last reviewed 2022. Fentanyl, Ur Not Detected CutOff 5 ng/mL [facility] Comment: Interpretive Data - Fentanyl: Samples containing greater than 5 ng/mL norfentanyl, fentanyl, or other cross-reacting fentanyl compounds are reported as positive. False positive and false negative results are possible. Confirmatory testing required for definitive results. Current Interpretive Data was last reviewed 2023. Methadone, ur Not Detected CutOff 300ng/mL [facility] Comment: Interpretive Data - Methadone: Samples containing greater than 300 ng/mL d,l-methadone or other cross-reacting compounds are reported as positive. False positive and false negative results are possible. Confirmatory testing required for definitive results. Current Interpretive Data was last reviewed 2022. Opiates, ur Not Detected CutOff 300ng/mL [facility] Comment: Interpretive Data - Opiates: Samples containing greater than 300 ng/mL morphine or other cross-reacting compounds are reported as positive. False positive and false negative results are possible. Confirmatory testing required for definitive results. Current Interpretive Data was last reviewed 2022. Oxycodone, ur Not Detected CutOff 100ng/mL [facility] Comment: Interpretive Data - Oxycodone: Samples containing greater than 100 ng/mL oxycodone or other cross-reacting compounds are reported as positive. False positive and false negative results are possible. Confirmatory testing required for definitive results. Current Interpretive Data was last reviewed 2022. Phencyclidine, ur Not Detected CutOff 25 ng/mL [facility] Comment: Interpretive Data - Phencyclidine: Samples containing greater than 25 ng/mL phencyclidine or other cross-reacting compounds are reported as positive. False positive and false negative results are possible. Confirmatory testing required for definitive results. Current Interpretive Data was last reviewed 2022. Urine Creatinine 114 mg/dL [facility] Comment: Interpretive Data Urine Creatinine: < 10 mg/dL is extremely dilute = or > 10 but < 20 mg/dL is dilute = or > 20 mg/dL is normal Current Interpretive Data was last revised on 2017. Urine 04/28/2024 7:39 PM AUDITING CONTROL CLERK 04/28/2024 7:47 PM AUDITING CONTROL CLERK Narrative [facility] - 04/28/2024 8:17 PM AUDITING CONTROL CLERK Drug of Abuse screening is performed by immunoassay for medical purposes only. This is not to be used for Pain Management purposes. If Detected, confirmation testing will be performed for Amphetamines, Cocaine, Fentanyl, Methadone, Opiates, Oxycodone or Phencyclidine. us Carlitos Carr MD LAB URINE ORDERABLES Final Re sult [facility] Department [place] [address] * (ABNORMAL) Urinalysis reflex to microscopic and culture Urine (04/28/2024 7:17 PM AUDITING CONTROL CLERK) Color, ur Yellow Yellow Clarity, ur Cloudy(A) Clear [facility] Specific gravity, ur 1.039(H) 1.003 - 1.030 [facility] pH, urine 6.0 [facility] Comment: Interpretive Data U rine pH is affected by diet, medications, systemic acid-base disturbances, and renal tubular function. pH may affect urinary stone formation. For example, urine pH below 6.0 may help reduce the tendency for calcium phosphate stones and pH greater than 6.0 may reduce the tendency for uric acid stone formation. Source: [facility] Current Interpretive Data was last revised on 2017 Protein, ur ql 1+(A) Negative [facility] Glucose, ur ql Negative Negative [facility] Ketones, ur Negative Negative [facility] Bilirubin, ur Negative Negative [facility] Blood, ur Trace(A) Negative [facility] Urobilinogen, ur <2.0 <2.0 mg/dL [facility] Nitrite, ur Negative Negative [facility] Leukocyte esterase, ur 3+(A) Negative [facility] UA reflex comment Reflex to microscopic UA will be performed. [facility] Urine 04/28/2024 7:17 PM AUDITING CONTROL CLERK 04/28/2024 7:21 PM AUDITING CONTROL CLERK Mel Kim MD LAB MICROBIOLOGY - GENER AL ORDERABLES Final Result Performing Organization Address [facility] Co de Phone Number [facility] Department [place] [address] * Blood culture Blood Peripheral (04/28/2024 7:17 PM AUDITING CONTROL CLERK) Report Final Report: No growth Blood (Peripheral) 04/28/2024 7:17 PM AUDITING CONTROL CLERK 04/28/2024 7:38 PM AUDITING CONTROL CLERK Narrative [facility] - 05/03/2024 7:00 AM AUDITING CONTROL CLERK From a different site than #1. Draw [...] performance characteristics have been verified by the [facility]. For questions about this culture, contact the Microbiology Laboratory at [phone]. Interpretive data was last revised on 24. Mel Kim MD LAB MICROBIOLOGY - GENER AL ORDERABLES Final Result Performing Organization Address City/[facility] Co de Phone Number [facility] [place] [address] * Blood culture Blood Peripheral (04/28/2024 7:17 PM AUDITING CONTROL CLERK) Report Final Report: No growth Blood (Peripheral) 04/28/2024 7:17 PM AUDITING CONTROL CLERK 04/28/2024 7:38 PM AUDITING CONTROL CLERK Narrative [facility] - 05/03/2024 7:00 AM AUDITING CONTROL CLERK Draw Blood cultures before administration of Antibiotics [...] performance characteristics have been verified by the [facility]. For questions about this culture, contact the Microbiology Laboratory at [phone]. Interpretive data was last revised on 24. Mel Kim MD LAB MICROBIOLOGY - [facility] ORDERABLES Final Result Performing Organization Address [facility] Co de Phone Number [facility] Department [place] [address] * (ABNORMAL) Urinalysis, microscopic only (04/28/2024 7:17 PM AUDITING CONTROL CLERK) WBC, ur >50(A) 0 - 5 /HPF RBC, ur 0-2 0 - 2 /HPF [facility] Epithelial cells, squamous, ur 1-5 0 - 5 /HPF [facility] Bacteria, ur 4+(A) [facility] Mucous, ur Present(A) [facility] Hyaline casts, ur 1-5 0 - 10 /LPF [facility] Culture Reflex Comment Reflex to urine culture will be performed. [facility] Urine 04/28/2024 7:17 PM AUDITING CONTROL CLERK 04/28/2024 7:21 PM AUDITING CONTROL CLERK us Mel Kim MD LAB URINE ORDERABLES Fin al Result [facility] [place] [address] * (ABNORMAL) Urine culture Urine (04/28/2024 7:17 PM AUDITING CONTROL CLERK) Report Final Report: Greater than or equal [...] contact infectious diseases. (.) Organism [facility] Organism [facility] Urine 04/28/2024 7:17 PM AUDITING CONTROL CLERK 04/29/2024 1:52 AM AUDITING CONTROL CLERK Narrative [facility] - 05/02/2024 9:28 AM AUDITING CONTROL CLERK Urine culture reflexed based upon urinalysis results. Testing performed by [facility] ([phone]) Organism Antibiotic Method Susceptibility Klebsiella pneumoniae Ampicillin [...] pneumoniae Ampicillin with Sulbactam INTERP RETATION Resistant Mel Kim MD LAB MICROBIOLOGY - GENER AL ORDERABLES Final Result Performing Organization Address City/[facility]/ZIP Co de Phone Number [facility] [place] [address] * Sepsis Lactate w/ Reflex (04/28/2024 5:42 PM AUDITING CONTROL CLERK) Sepsis Lactate 1.5 0.7 - 2.0 mmol/L Blood 04/28/2024 5:42 PM AUDITING CONTROL CLERK 04/28/2024 5:45 PM AUDITING CONTROL CLERK Margo Chang MD LAB BLOOD ORDERABLES Fin al Result Performing Organization Address City/[facility]/ZIP Co de Phone Number [facility] Department [place] [address] * [place] CRITICAL CARE ILL/INJURED PATIENT INIT 30-74 MIN (04/28/2024 4:52 PM AUDITING CONTROL CLERK) Narrative Carlitos Carr MD - 04/28/2024 4:52 PM AUDITING CONTROL CLERK Carlitos Carr MD 04/28/2024 6:30 PM Critical [...] Final Result * aPTT (04/28/2024 4:33 PM AUDITING CONTROL CLERK) aPTT 33 28 - 38 sec Comment: Interpretive Data Heparin therapeutic range: 66.0 - 100.0 seconds. Range based on correlation with therapeutic heparin activity range of 0.3 - 0.7 Units/mL. Current interpretive data was last revised on 2022. Blood 04/28/2024 4:33 PM AUDITING CONTROL CLERK 04/28/2024 4:45 PM AUDITING CONTROL CLERK Carlitos Carr MD LAB BLOOD ORDERABLES Final Re sult [facility] [place] [address] * (ABNORMAL) Protime-INR (04/28/2024 4:33 PM AUDITING CONTROL CLERK) PT 20.6(H) 9.7 - 13.0 sec INR 1.88(H) 0.90 - 1.20 [facility] Comment: Interpretive data Oral anticoagulant therapeutic ranges: Venous thromboembolism prophylaxis or treatment: 2.0-3.0 CARDIOLOGY Standard range: 2.0-3.0 High-intensity range: 2.5-3.5 Refer to indication-specific guidelines for appropriate target ranges for prosthetic heart valve replacement. Current interpretive data was last revised on 2019. Blood 04/28/2024 4:33 PM AUDITING CONTROL CLERK 04/28/2024 4:45 PM AUDITING CONTROL CLERK us Carlitos Carr MD LAB BLOOD ORDERABLES Final Re sult [facility] Department [place] [address] * CT Recon Thoracic and Lumbar Spine W Contrast (C) (04/28/2024 3:38 PM AUDITING CONTROL CLERK) Anatomical Region Laterality Modality Spine N/A Computed Tomogra phy 04/28/2024 4:19 PM AUDITING CONTROL CLERK Impressions 04/28/2024 5:05 PM AUDITING CONTROL CLERK 1. No acute intracranial process. 2. No [...] Juan Drake MD Narrative 04/28/2024 5:05 PM AUDITING CONTROL CLERK EXAMINATION: 1. CT head without contrast 2. [...] agrees with it. Electronically signed by: Juan Draek MD Jun Mitchell MD IMG CT PROCEDURES Final Result * CT Head and Cervical Spine WO Contrast (04/28/2024 3:38 PM AUDITING CONTROL CLERK) Anatomical Region Laterality Modality Head and Neck N/A Computed Tomogra phy 04/28/2024 4:19 PM AUDITING CONTROL CLERK Impressions 04/28/2024 5:05 PM AUDITING CONTROL CLERK 1. No acute intracranial process. 2. No [...] Juan Drake MD Narrative 04/28/2024 5:05 PM AUDITING CONTROL CLERK EXAMINATION: 1. CT head without contrast 2. [...] by: Juan Drake MD Carlitos Carr MD IM CT PROCEDURES Final Resul t * CT Chest Abdomen Pelvis W Contrast (04/28/2024 3:38 PM AUDITING CONTROL CLERK) Anatomical Region Laterality Modality Body N/A Computed Tomogra phy 04/28/2024 4:00 PM AUDITING CONTROL CLERK Impressions 04/28/2024 4:00 PM AUDITING CONTROL CLERK 1. No acute traumatic injury identified in the chest abdomen or pelvis. 2. Soft tissue wound overlying the left iliac bone with inflammation extending to the site of a chronic iliac wing fracture, suspicious for osteomyelitis. Electronically signed by: Molina Griffin M.D. Narrative 04/28/2024 4:00 PM AUDITING CONTROL CLERK EXAMINATION: Computed tomography of the chest, abdomen [...] by: Molina Griffin M.D. Margo Chang MD IMG CT PROCEDURES Final Result * Thromboelastometry Panel - Heparin (04/28/2024 3:38 PM AUDITING CONTROL CLERK) HEPTEM-CT 203 141 - 215 sec HEPTEM-A5 48 33 - 51 mm [facility] HEPTEM-A10 59 44 - 61 mm [facility] HEPTEM-A20 66 52 - 67 mm [facility] HEPTEM-MCF 68 54 - 69 mm [facility] Blood 04/28/2024 3:38 PM AUDITING CONTROL CLERK 04/28/2024 3:43 PM AUDITING CONTROL CLERK Carlitos Carr MD LAB BLOOD ORDERABLES Edited R esult - Final [facility] Department [place] [address] * Thromboelastometry Panel - Intrinsic (04/28/2024 3:38 PM AUDITING CONTROL CLERK) Pathologist [facility] INTEM-CT 204 139 - 205 sec INTEM-A5 50 36 - 54 mm [facility] INTEM-A10 60 46 - 63 mm [facility] INTEM-A20 67 53 - 68 mm [facility] INTEM-MCF 69 55 - 70 mm [facility] INTEM-LI60 99 93 - 100 % [facility] INTEM-ML 1 0 - 7 % [facility] Blood 04/28/2024 3:38 PM AUDITING CONTROL CLERK 04/28/2024 3:43 PM AUDITING CONTROL CLERK Carlitos Carr MD LAB BLOOD ORDERABLES Edited [facility] Performing Organization Address City/[facility] Co de Phone Number [facility] Department [place] [address] * Thromboelastometry Panel - Fibrinogen (04/28/2024 3:38 PM AUDITING CONTROL CLERK) [facility] [address] FIBTEM-A5 9 5 - 16 mm FIBTEM-A10 11 6 - 17 mm [facility] FIBTEM-A20 13 6 - 18 mm [facility] FIBTEM-MCF 13 9 - 19 mm [facility] Blood 04/28/2024 3:38 PM AUDITING CONTROL CLERK 04/28/2024 3:43 PM AUDITING CONTROL CLERK Carlitos Carr MD LAB BLOOD ORDERABLES Edited [facility] Department [place] [address] * Thromboelastometry Panel - Extrinsic (04/28/2024 3:38 PM AUDITING CONTROL CLERK) [facility] [address] EXTEM-CT >172 51 - 73 sec EXTEM-A5 42 33 - 52 mm [facility] EXTEM-A10 59 45 - 62 mm [facility] EXTEM-A20 66 54 - 69 mm [facility] EXTEM-MCF 69 57 - 72 mm [facility] EXTEM-LI60 99 94 - 100 % [facility] EXTEM-ML 1 0 - 6 % [facility] Blood 04/28/2024 3:38 PM AUDITING CONTROL CLERK 04/28/2024 3:43 PM AUDITING CONTROL CLERK us Carlitos Carr MD LAB BLOOD ORDERABLES Edited R esult - Final [facility] Department [place] [address] * (ABNORMAL) Differential, auto (04/28/2024 3:38 PM AUDITING CONTROL CLERK) Neutrophil abs 8.9(H) 1.5 - 6.5 K/cumm Imm gran abs 0.1 0.0 - 0.1 K/cumm [facility] Lymphocyte abs 2.7 0.8 - 3.3 K/cumm [facility] Monocyte abs 1.2(H) 0.2 - 0.8 K/cumm [facility] Eosinophil abs 0.0 0.0 - 0.5 K/cumm [facility] Basophil abs 0.1 0.0 - 0.1 K/cumm [facility] Neutrophil pct 68.2 % [facility] Comment: Interpretive Data Percent cell count reference ranges are not reported, since discordance with absolute values may lead to misinterpretation of CBC data. Current Interpretive Data was last revised on 2017. Imm gran pct 1.0 % [facility] Comment: Interpretive Data Percent cell count reference ranges are not reported, since discordance with absolute values may lead to misinterpretation of CBC data. Current Interpretive Data was last revised on 2017. Lymphocyte pct 21.0 % [facility] Comment: Interpretive Data Percent cell count reference ranges are not reported, since discordance with absolute values may lead to misinterpretation of CBC data. Current Interpretive Data was last revised on 2017. Monocyte pct 9.1 % [facility] Comment: Interpretive Data Percent cell count reference ranges are not reported, since discordance with absolute values may lead to misinterpretation of CBC data. Current Interpretive Data was last revised on 2017. Eosinophil pct 0.2 % [facility] Comment: Interpretive Data Percent cell count reference ranges are not reported, since discordance with absolute values may lead to misinterpretation of CBC data. Current Interpretive Data was last revised on 2017. Basophil pct 0.5 % [facility] Comment: Interpretive Data Percent cell count reference ranges are not reported, since discordance with absolute values may lead to misinterpretation of CBC data. Current Interpretive Data was last revised on 2017. Blood 04/28/2024 3:38 PM AUDITING CONTROL CLERK 04/28/2024 3:43 PM AUDITING CONTROL CLERK us Carlitos Carr MD LAB BLOOD ORDERABLES Final Re sult [facility] Department [place] [address] * (ABNORMAL) CBC with auto differential (04/28/2024 3:38 PM AUDITING CONTROL CLERK) WBC 13.0(H) 3.8 - 9.9 K/cumm Comment:Code Blue Specimen Hgb 13.3 11.9 - 15.5 g/dL [facility] Hct 38.4 35.6 - 45.5 % [facility] Plt 396 150 - 400 K/cumm [facility] MPV 8.9(L) 9.1 - 12.3 fL [facility] RBC 4.48 3.90 - 5.20 M/cumm [facility] MCV 85.7 81.3 - 96.4 fL [facility] MCH 29.7 27.1 - 33.3 pg [facility] MCHC 34.6 32.3 - 35.7 g/dL [facility] RDW CV 16.6(H) 11.1 - 14.9 % [facility] RDW SD 51.2(H) 35.7 - 48.1 fL [facility] NRBC abs 0.00 0.00 - 0.01 K/cumm [facility] Blood 04/28/2024 3:38 PM AUDITING CONTROL CLERK 04/28/2024 3:43 PM AUDITING CONTROL CLERK Carlitos Carr MD LAB BLOOD ORDERABLES Final Re sult Performing Organization Address City/[facility]/ZIP Co de Phone Number [facility] [place] [address] * Type and screen (04/28/2024 3:38 PM AUDITING CONTROL CLERK) Solo, indirect Negative ABO Rh A Positive [facility] Blood 04/28/2024 3:38 PM AUDITING CONTROL CLERK 04/28/2024 3:45 PM AUDITING CONTROL CLERK Narrative [facility] - 04/28/2024 4:30 PM AUDITING CONTROL CLERK Has the patient had Daratumumab or Isatuximab in the past 6 months?->Unknown Result [facility] Carlitos Carr MD LAB BLOOD BANK TEST ORDERABLE S Final Result Performing Organization Address [facility] [place] [address] * Ethanol (04/28/2024 3:38 PM AUDITING CONTROL CLERK) Ethanol <10 <=10 mg/dL Comment: Code Blue Specimen Interpretive Data Legal limit of intoxication > or = 80 mg/dL Levels > or = 400 mg/dL are potentially TOXIC. Current interpretive data was last revised on 2018. Blood 04/28/2024 3:38 PM AUDITING CONTROL CLERK 04/28/2024 3:43 PM AUDITING CONTROL CLERK Carlitos Carr MD LAB BLOOD ORDERABLES Final Re sult Performing Organization Address [facility]/ZIP Co de Phone Number [facility] [place] [address] * (ABNORMAL) POC Blood Gas and Chemistries, Venous - (04/28/2024 3:34 PM AUDITING CONTROL CLERK) pH, Abrahan POC 7.22(L) 7.32 - 7.43 pCO2, abrahan POC 36(L) 40 - 50 mmHg [facility] pO2, abrahan POC 24(C) mmHg [facility] Na, POC 131(L) 135 - 145 mmol/L [facility] K POC 2.6(L) 3.3 - 4.9 mmol/L [facility] Comment: Interpretive Data Not all point of care methods assess for hemolysis. Confirm with instrument and retest K+ if not consistent with clinical signs and symptoms. Current Interpretive Data was last revised on 2023. Cl, POC 99 97 - 110 mmol/L [facility] Ionized Ca, POC 4.41(L) 4.50 - 5.10 mg/dL [facility] Glucose, POC 115 70 - 199 mg/dL [facility] Lactate, POC 4.9(C) 0.7 - 2.0 mmol/L [facility] MetHb, Abrahan POC 0.5 0.0 - 1.9 % [facility] O2 Sat, Abrahan POC (Jair) 24 % [facility] Base excess, POC -12.1 mmol/L [facility] Hct, POC 41.0 36.3 - 45.3 % [facility] Total Hb, POC 13.6 11.9 - 15.5 g/dL [facility] Blood 04/28/2024 3:34 PM AUDITING CONTROL CLERK 04/28/2024 3:34 PM AUDITING CONTROL CLERK us Carlitos Carr MD LAB POCT ORDERABLES - DEVICE Final Result [facility] [place] [address] * XR Spine Cervical 2 or 3 Views (03/21/2024 3:21 PM AUDITING CONTROL CLERK) Anatomical Region Laterality Modality Spine N/A Computed Radiogr aphy 03/21/2024 4:18 PM AUDITING CONTROL CLERK Impressions 03/21/2024 4:18 PM AUDITING CONTROL CLERK 1. Healing minimally displaced C2 vertebral body fracture. 2. Severe multilevel cervical degenerative disc disease. Electronically signed by: Terence Radford M.D. Narrative 03/21/2024 4:18 PM AUDITING CONTROL CLERK EXAMINATION: XR SPINE CERVICAL 2 OR 3 [...] uncovertebral hypertrophy. Vascular calcifications noted. Procedure Note Terence Ríos MD - 03/21/2024 EXAMINATION: XR SPINE CERVICAL [...] foot left 3+ views (03/21/2024 1:17 PM AUDITING CONTROL CLERK) Anatomical Region Laterality Modality Lower Extremities, Foot Left Computed Radiography 03/21/2024 3:24 PM AUDITING CONTROL CLERK Impressions 03/21/2024 3:25 PM AUDITING CONTROL CLERK 1. Healing minimally displaced intra-articular fifth proximal phalanx base fracture. 2. Healing comminuted and displaced left iliac wing fracture. 3. Unchanged displaced left clavicle mid shaft fracture. Dictated by: Chau Paris M.D. The radiology attending physician has personally reviewed this study, and had reviewed and/or edited this written report and agrees with it. Electronically signed by: Eugene Godfrey M.D. Narrative 03/21/2024 3:25 PM AUDITING CONTROL CLERK EXAMINATION: XR FOOT LEFT 3 OR MORE [...] * X-ray clavicle left (03/21/2024 1:17 PM AUDITING CONTROL CLERK) Anatomical Region Laterality Modality Clavicle, Chest Left Computed Radiogr aphy 03/21/2024 3:24 PM AUDITING CONTROL CLERK Impressions 03/21/2024 3:25 PM AUDITING CONTROL CLERK 1. Healing minimally displaced intra-articular fifth proximal phalanx base fracture. 2. Healing comminuted and displaced left iliac wing fracture. 3. Unchanged displaced left clavicle mid shaft fracture. Dictated by: Chau Paris M.D. The radiology attending physician has personally reviewed this study, and had reviewed and/or edited this written report and agrees with it. Electronically signed by: Eugene Godfrey M.D. Narrative 03/21/2024 3:25 PM AUDITING CONTROL CLERK EXAMINATION: XR FOOT LEFT 3 OR MORE [...] X-ray pelvis 3+ views (03/21/2024 1:17 PM AUDITING CONTROL CLERK) Anatomical Region Laterality Modality Pelvis, Body N/A Computed Radiogr aphy 03/21/2024 3:24 PM AUDITING CONTROL CLERK Impressions 03/21/2024 3:25 PM AUDITING CONTROL CLERK 1. Healing minimally displaced intra-articular fifth proximal phalanx base fracture. 2. Healing comminuted and displaced left iliac wing fracture. 3. Unchanged displaced left clavicle mid shaft fracture. Dictated by: Chau Paris M.D. The radiology attending physician has personally reviewed this study, and had reviewed and/or edited this written report and agrees with it. Electronically signed by: Eugene Godfrey M.D. Narrative 03/21/2024 3:25 PM AUDITING CONTROL CLERK EXAMINATION: XR FOOT LEFT 3 OR MORE [...] left clavicle mid shaft fracture. Dictated by: Chua Paris M.D. The radiology attending physician has personally reviewed this study, and had reviewed and/or edited this written report and agrees with it. Electronically signed by: Eugene Godfrey M.D. Jeffy Lugo MD IMG XR PROCEDURE S Final Result * Infection Prevention Trenton auris PCR, surveillance Axilla/Groin (03/03/2024 2:40 PM AUDITING CONTROL CLERK) Trenton auris DNA Not Detected Not Detected [facility] Comment: Interpretive Data Testing performed by [facility] using the Diasorin Liaison MDX Trenton auris assay. This assay detects DNA from Trenton auris using Real-Time PCR. This assay is laboratory developed and is not cleared by the [place] Food and Drug Administration. The performance characteristics have been verified by the [facility]. Interpretive data was last reviewed on 07/01/2023 Axilla/Groin 03/03/2024 2:40 PM AUDITING CONTROL CLERK 03/03/2024 3:42 PM AUDITING CONTROL CLERK Eamon Rodriguez MD LAB MICROBIOLOGY - GENERAL ORDER KRIS Final Result [facility] One [facility] Department [place] [address] [facility] * Dexa Axial Skeleton Bone Density 1 [...] it. Electronically signed by: Jj Jung M.D. Anna Adames MD IM DXA PROCEDURES Final Result * COLONOSCOPY (12/17/2020 8:06 AM CDT) Anatomical Region Laterality Modality Other Narrative Procedure Note Yolis Mata MD PhD - 12/17/2020 8:06 AM CDT ENDOSCOPY LAB Patient Name: Brenton Valdez Procedure Date: 12/17/2020 8:06 AM Date of : 1945 Admit Type: Outpatient Age: 75 Gender: Female Attending MD: Yolis Mata MD,PHD Room: [facility] ENDOSCOPY ROOM 03 Note Status: Finalized Procedure: [...] The scope was passed under direct vision.The [id number] was introduced through the anusand advanced to [...] business hours - Please call theNurse Coordinator: [phone]. After hours, evening, nights, weekends and holidays- Please call the hospital black ash burner operator at and ask for the GI fellow bindery leadperson. Attending Participation: I personally performed the entire procedure. Electronically signed by Yolis Mata MD. Yolis Mata MD, PHD 12/17/2020 8:36:25 AM Number of Addenda: 0 Note Initiated On: 12/17/2020 8:06 AM us Yolis Mata MD PhD ENDOSCOPY PROCEDURES Danna [...] to a prior imaging study performed at [facility] 3 on 07/22/2017. There are scattered areas of [...] to a prior imaging study performed at [facility] 3 on 07/22/2017. There are scattered areas of [...] RNA. Detection and Quantitation by Real-Time Reverse Qc Tech-PCR.Current Interpretive data was last revised on 2016. 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 Dx <6 months, Can review 10/26, OWEN Rodriguez RN 04/28/2024 04/28/2024 VRE 05/09/2024 05/09/2024 Insurance UHC MEDICARE ADVANTAGE UHC MEDICARE ADVANTAGE Member Subscriber Plan / Payer (Ef fective 2017-Present) Name:Brenton Valdez Relation to Subscriber:Self Name:Brenton Valdez Payer ID:[id number] (NAIC) Type:[facility] MEDICARE Address: [place] [id number] AETNA MEDICARE AETNA MEDICARE Advance Directives For more information, please contact: [phone] Documents on File Type Date Recorded 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 of [employer] E Business Developer 02/24/2022 1:27 PM [facility]al [facility]Care Directive Brenton [email or web address] * Full Code (Latest Code Status on [...] 11:17 AM 10/05/2019 5:44 PM Care Teams Hydraulic Rock Drill Operator Relationship Specialty Start Date End Date Anna Adames MD [address] [facility], [address] [address] PCP - General Internal Medicine 04/14/24 Ksenia Fermin MD Referring Physician Dermatology 07/23/18 José Cole MD Referring Physician Otolaryngology 08/08/19 Valeri Lezama, JOANNE Optometry 08/29/21 Dionte Zaragoza MD [address] [facility] DEPT ORTHOPAEDIC SURGERY, [facility] [place] [address] Consulting Physician Orthopedic Surgery 04/14/24 Jeffy Lugo MD [address] [facility] [phone] [place] [address] Surgeon Orthopedic Surgery 04/14/24 Kaushal Massey MD [address] [place] [address] Surgeon Trauma Surgery 04/14/24
--- OUTSIDE RECORDS SUMMARY | 2024-05-30 13:02 | XMS_ITS | Encounter Summary ---
Author Organization [facility] Address 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
--- OUTSIDE RECORDS SUMMARY | 2024-05-30 13:02 | XMS_ITS | Encounter Summary ---
Author Organization [email or web address] Address [address] [place] [address] Care Team Providers Care Motion Graphics Artist Name Role Phone Kevin Peterson MD Primary Care Provider Aram hinds Encounter Details Date Type Department Care Team (Late st Contact Info) Description 11/25/2002 Outpatient Historical [facility] Support [facility]. (Adt Cardiology-[facility]) [address] 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
--- OUTSIDE RECORDS SUMMARY | 2024-05-30 13:02 | XMS_ITS | Clinical Summary ---
Author Organization [facility] [employer] Address [address] [place] [address] Care Team Providers Care Drilling Fluids Specialist Name Role Phone Anna Adames MD Primary Care Provi meenakshi Source Comments [facility] [employer],non-owned Affiliates and Associated Physician Practices is amultiple site organization consisting of ambulatory clinics and hospital sitesin [place], [place], [place] and [place]. This disclosure is being madepursuant to the Care Everywhere program and may not contain all information available regarding this patient. Last updated 17.[facility] [employer] Allergies Active Allergy Reactions Criticality Noted Date Comments Gabapentin Swelling Medium 07/29/2023 Penicillins Unknown Low 11/20/2016 Childhood allergy, reaction unknown. Sulfa Drugs Urticaria Medium Topiramate Shortness of Breath High 08/05/2023 Medications * Be aware that medications may not be up to date on this document. Alwaysverify current medications with the patient. Medication Sig Dispensed Refills Start Date End Date Status rosuvastatin (CRESTOR) 20 MG tablet Take 1 (one) tablet by mouth Twice Daily Twice a Week Active Multiple Vitamins-Minerals (CENTRUM SILVER 50+WOMEN) TABS Take 1 tablet by mouth once daily 04/04/2019 Active B Complex Vitamins (VITAMIN B COMPLEX) tablet Take 1 (one) tablet by mouth every morning 07/04/2019 Active Boswellia-Glucosami ne-Vit D (OSTEO BI-FLEX ONE PER DAY) TABS Take 2 tablets by mouth every morning 07/04/2019 Active vitamin D (CHOLECACIFEROL) 125 MCG (5000 UT) capsule Take 1 (one) capsule by mouth once daily 07/04/2019 Active omeprazole (PRILOSEC) 40 MG capsule Take 1 (one) capsule by mouth once daily 12/28/2019 Active Naproxen Sodium 220 MG Take 2 tablets by mouth 2 times daily as needed Active estradiol (ESTRACE) 0.1 MG/GM vaginal cream Insert 1g into the vagina nightly for 2 weeks. Then insert 1g into the vagina two times a week thereafter. 1 g 3 10/22/2020 Active Additional Information Patient taking differently: 1 g Vaginal AT BEDTIME, Insert 1g into the vagina nightly for 2 weeks. Then insert 1g into the vagina two times a week thereafter., Reported on 01/29/2022 Yuvafem 10 MCG vaginal tablet Insert 1 (one) tablet into the vagina as directed 12/09/2021 Active losartan (Cozaar) 100 MG tablet Take 1 (one) tablet by mouth at bedtime 09/17/2021 Active Mometasone Furoate Use 1 mg 2 times daily Compound 1 mg capsules. Mix contents of 1 capsule in 240 ml saline, and irrigate half in each nostril twice daily. 60 g 11 12/29/2022 Active Eliquis 5 MG tablet Take 1 (one) tablet by mouth 2 times daily 04/15/2023 Active clobetasol (Temovate) 0.05 % solution Apply to affected area 2 times daily 07/08/2023 Active doxycycline hyclate (Vibramycin) 100 MG capsule Take 1 (one) capsule by mouth 2 times daily 07/08/2023 Active finasteride (Proscar) 5 MG tablet Take 1 (one) tablet by mouth once daily 07/08/2023 Active methIMAzole (Tapazole) 5 MG tablet Take 1 (one) tablet by mouth once daily 07/02/2023 Active metoprolol succinate XL 24hr (Toprol XL) 50 MG tablet Take 1 (one) tablet by mouth once daily 10/23/2022 Active minoxidil (Loniten) 2.5 MG tablet Take 1 (one) tablet by mouth once daily 07/08/2023 Active Vitamin E (E 1000) 450 MG (1000 UT) CAPS Take 1 (one) capsule by mouth once daily Active propranolol (Inderal) 10 MG tablet Take 1 (one) tablet by mouth once 08/17/2023 Active celecoxib (CeleBREX) 200 MG capsule Take 1 (one) capsule by mouth once daily 11/11/2023 Active nystatin/triamcinol one (Mycolog) 549170-5.1 UNIT/GM-% ointmentIndications :Bilateral impacted cerumen,Nasal congestion,Chronic rhinitis,Left ear pain Apply to affected area 2 times daily 30 g 11 11/18/2023 Active clonazePAM (KlonoPIN) 0.5 MG tabletIndications:t remor Take 1.5 (one and one-half) tablets by mouth once daily Reasons: tremor 45 tablet 5 12/24/2023 Active mupirocin (Bactroban) 2 % ointment APPLY 1 OINTMENT TOPICALLY TO AFFECTED AREA TWICE DAILY 22 g 1 01/08/2024 Active Active Problems Problem Noted Date Diagnosed Date Mitral valve prolapse 10/29/2023 Overview (11/18/2023): Last Assessment & Plan: Mild on ECHO in September 2022 with worsening SOB, NASCIMENTO and edema. BNP check ECHO. NYHA class II-III. Dr. Iverson in 6 months. Paroxysmal atrial fibrillation 06/16/2022 Overview (11/18/2023): Last Assessment & Plan: Stable on metoprolol. Continue Eliquis. Would recommend she not be on both metoprolol and propranolol as previously discussed. However pt has not found a good replacement for propranolol She sees Neurology later this month. She is currently on clonazepam for her tremor but endorses fatigue is worsening and edema. Right calf pain 07/12/2021 Overview (07/12/2021): Last Assessment & Plan: Suspect that this Is a mild calf strain, but vascular insufficiency could also contribute Encouraged gentle calf stretching and strengthening daily (defers PT for now) If pain persists, could consider LE reflux studies . Thankfully DVT has been ruled out Urinary tract infection symptoms 07/12/2021 Overview (07/12/2021): Last Assessment & Plan: With mild dysuria and urgency in the last couple days but not currently UA has already been obtained- since not having symptoms, will wait for results but she knows to call if symptoms worsen over the weekend Diarrhea of presumed infectious origin 2 Overview (07/12/2021): Last Assessment & Plan: Suspect viral gastroenteritis - defers COVID testing [...] vs ER If persistent, consider stool cultures Acquired hallux valgus, right 05/03/2021 Overview (07/12/2021): Last Assessment & Plan: Ongoing pain Scheduled for right hallux exostectomy with Dr. Aragon to remove prior hardware Preoperative clearance provided today in office as requested Pain of toe of right foot 03/26/2021 Overview (07/12/2021): Last Assessment & Plan: Has right toe surgery scheduled with Dr Aragon for 04/05/21 No CXR needed as noted above Unable to calculate RCRI - will update labs and clear pending results Chronic LLQ pain 11/14/2020 Overview (11/17/2020): Last Assessment & Plan: Following with her ob-director of planning for this but persistent after her hysterectomy US done- will get records and consider CT Does not seem to be related to hip pain given normal exam today but some features seem more like MSK pain so will obtain imaging Sensorineural hearing loss (SNHL) of both ears 0 11/05/2020 Dizziness 11/05/2020 Encounter for pre-operative examination 09/20/19 21 Hearing loss of right ear due to cerumen impacti on 08/14/2020 Overview (10/01/2020): Last Assessment & Plan: Will clean right ear due to hearing loss at visit Acute cystitis without hematuria 05/31/2020 Overview (07/06/2020): Last Assessment & Plan: Advised pt to practice hygiene Wipe front to back Will send Pyridium (discussed orange discoloration of urine) will order Macrobid and UA Encouraged hydration and avoiding bladder irritants Pt knows to reach back out if sx worsen or do not get better Gave warnings for renal colic Work on pelvic floor training for bladder prolapse and follow up with uro and director of planning Esophageal stenosis 10/13/2019 Overview (11/21/2019): Per EGD report from 09/2019 Dysphagia 10/04/2019 Overview (11/21/2019): Added automatically from request for surgery [id number] Palpitations 03/17/2019 Overview (11/21/2019): Last Assessment & Plan: Concerning for arrhythmia- perhaps longer episodes of SVT. She also has known frequent PACs. Will obtain event monitor to examine these longer episodes c/f SVT. Discussed abortive manuevers to try but also advised her to go to ER if prolonged symptoms arise. Also checking electrolytes and thyroid function tests. Return to clinic for an interim f/u in 2 weeks with TELECASTING ENGINEER. Neck pain 12/07/2018 Overview (11/21/2019): Last Assessment & Plan: Chronic stable posterior neck pain, well-controlled with Aleve. Likely secondary to her known kyphosis and scoliosis. NTD at this time, CTM. Balance problems 08/06/2018 Overview (11/21/2019): Last Assessment & Plan: Sensation in feet intact but will add B12 to this morning's labs. She has tremor but this thought related to ET - no rigidity on exam today but will continue to monitor for Parkinsonism. Referred to PT to work on this as well. Impaired gait 08/06/2018 Kyphosis 08/06/2018 Overview (11/21/2019): Last Assessment & Plan: Referred to PT to work on posture History of nonmelanoma skin cancer 07/23/2018 Overview (11/21/2019): Last Assessment & Plan: Follows with derm- Dr Fermin Recommended annual FBSE and sun protection Chronic pansinusitis 04/12/2018 Overview (11/21/2019): Last Assessment & Plan: Now on doxy in addition to nasal regimen Osteopenia 09/10/2017 Overview (11/21/2019): Last Assessment & Plan: Mild, on DEXA 2017 Check vit D level- plan to continue supplementation Encouraged 1200mg calcium daily, preferably through diet but supplemental if needed Continue weight-bearing exercise and consider strength-training as well Subclinical hyperthyroidism 07/22/2017 Overview (11/21/2019): Last Assessment & Plan: Last TSH depressed at 0.28, with normal FT4 at 1.08. Given her episodes of worsening palpiations, along with new HTN, will re-screen today. Muscle cramps 03/16/2017 Overview (11/21/2019): Last Assessment & Plan: Better on current regimen but still intermittently bothersome Encouraged her to drink more water and stretch every night before bed Paroxysmal supraventricular tachycardia 12/04/19 17 Overview (11/21/2019): Last Assessment & Plan: Controlled on propranolol ER- continue at current dose Mixed hyperlipidemia 11/20/2016 Overview (11/21/2019): Last Assessment & Plan: On rosuva 3x weekly She will hold for a couple weeks to see if this makes a big difference in her muscle cramps Gastroesophageal reflux disease 07/14/2016 Overview (11/21/2019): Last Assessment & Plan: With dysphagia that necessitates EGD Will continue famotidine BID and add omeprazole 40mg daily. She knows to continue both until the time of her EGD. Memory impairment 07/14/2016 Tremor 07/14/2016 Impaired sense of smell 03/19/2015 Resolved Problems Problem Noted Date Diagnosed Date Resolved Date Impacted minnan 08/14/2020 12/01/2020 Overview (11/17/2020): Last Assessment & Plan: Chronic issue and we can perform ear lavages for her Essential hypertension 11/20/201608/19 Overview (11/21/2019): Last Assessment & Plan: Controlled on current regimen of losartan 50mg + propranolol ER 80mg daily Encouraged to monitor intermittently at home and report back with values Advised lifestyle measures for improving BP inc regular exercise, healthy diet, salt restriction and weight loss Immunizations Name Administration Dates Next Due INFLUENZA VACCINE, TRIV. (AF LURIA, FLUZONE TRIVALENT; 6MO+) (IIV3) 01/13/2013,03/17/2012 Covid [employer] primary monoval ent 12+ yr 0.3mL Purple cap 12/04/2020,05/10/2020,04/17/2020 INFLUENZA VACCINE 10/22/2022,,12/03/2018,2017,12/20/2016,02/20/2016,02/07/2016,1 ,11/28/2013 INFLUENZA VACCINE, ADJUVANTE D, QUADR. (FLUAD QUADRIVALENT; 65Y+) (AIIV4) 12/11/2021,11/26/2019 INFLUENZA VACCINE, HIGH-DOSE , QUADR. (FLUZONE HIGH-DOSE QUADRIVALENT; 65Y+), 0.7 ML (HD-IIV4) 11/14/2020,12/03/2018,01/10/2018,2016,02/20/2016,03/07/2015,11/28/2013 INFLUENZA VACCINE, TRIV. (FL UZONE; FLULAVAL; FLUARIX; AFLURIA TRIVALENT; 6MO+), 0.5 ML (IIV3) 11/26/2019 MODERNA SARS-COV-2 COVID-19 VACCINE 0.25ML 08/08/2021 PNEUMOCOCCAL PPSV23 07/23/2018 Pneumococcal Pcv13 Conj 03/06/2016,03/07/2015 RSV AREXVY 60YR+ 0.5ML 01/22/2023 TDAP (7yrs+) 07/23/2018 ZOSTER VACCINE, LIVE 03/17/2012,02/15/2012 Zoster Hzv Vacc Recombinant Inj Im 11/04/2022, Family History Medical History Relation Name Comments CAD (Coronary Artery Disease) Father CVA Father CAD (Coronary Artery Disease) Mother Osteoporosis Mother Relation Name Status Comments Brother Father (Age 70) Maternal Grandfather Maternal Grandmother Mother (Age 83) Other Paternal Grandfather Paternal Grandmother Sister Social History Tobacco Use Types Packs/Day Years Used Date Smoking Tobacco: Never Smokeless Tobacco: Never Tobacco Cessation:Counseling Given: Not Answered Alcohol Use Standard Drinks/Week Comments Yes 1 (1 standard drink = 0.6 oz pur e alcohol) Sex and Gender Information Value Date Recorded Sex Assigned at Not on file Gender Identity Female 11/20/2016 10:17 AM CDT Sexual Orientation Not on file Last Filed Vital Signs Vital Sign Reading Time Taken Comments Blood Pressure 126/83 11/05/2023 2:31 PM CDT Pulse 83 11/05/2023 2:31 PM CDT Temperature 36.6 C (97.8 F) 02/05/2022 10:04 AM STOCK 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 Respiratory Rate 18 08/05/2023 10:56 AM CDT Oxygen Saturation 97% 08/05/2023 10:56 AM CDT Inhaled Oxygen Concentration - - Weight 85.3 kg (188 lb) 11/18/2023 2:17 PM CDT Height 162.6 cm (5' 4 ) 11/18/2023 2:17 PM CDT Body Mass Index 32.27 11/18/2023 2:17 PM CDT Plan of Treatment Health Maintenance Due Date Last Done Comments HEPATITIS C SCREENING 07/11/1963 COVID-19 VACCINE ( season) 2023 12/11/2021, 08/08/2021, 12/04/2020, Additional history exists INFLUENZA VACCINE (#1) 2023 3, 12/11/2021, 11/14/2020, Additional history exists DEPRESSION SCREENING 03/09/2024 MEDICARE AWV CALENDAR YEAR 2024 DTAP/TDAP/TD VACCINES (2 - Td or Tdap) 07/23/2028 07/23/2018 PNEUMOCOCCAL VACCINE 50+ Completed 019, 03/06/2016, 03/07/2015 BONE DENSITY TESTING Completed 09/14/2019, 07/23/19 18 ZOSTER VACCINE Completed 11/04/2022, 08/07, 03/17/2012, Additional history exists Respiratory Syncytial Virus (RSV) Vaccine Pt: or over 60 yrs Completed 01/22/2023 HEPATITIS B VACCINE Aged Out No longe r eligible based on patient's age to complete this topic HIB VACCINE Aged Out No longer eligi ble based on patient's age to complete this topic HPV VACCINE Aged Out No longer eligi ble based on patient's age to complete this topic MENINGOCOCCAL (Group B) VACCINE SHARED DECISION-MAKING Aged Out No longer eligible based on patient's age to complete this topic MENINGOCOCCAL GROUPS A/C/Y/W VACCINE Aged Out No longer eligible based on patient's age to complete this topic Care Teams Drilling Fluids Specialist Relationship Specialty Start Date End Date Anna Adames MD PCP - General Internal Medicine 11/20/16
--- OUTSIDE RECORDS SUMMARY | 2024-05-30 13:02 | XMS_ITS | Encounter Summary ---
Author Organization [facility] Address [address] [place] [address] Care Team Providers Care Interior Paneler Name Role Phone Kevin Peterson MD Primary Care Provider Aram hinds Encounter Details Date Type Department Care Team (Latest Contact Info) Description 01/12/2006 Outpatient [facility] [address] [place] [address] [place] [address] Kevin Peterson MD NO ADDRESS ON FILE Osteoarth NOS-L/Leg (Primary Dx) Social History Tobacco Use Types Packs/Day Years Used Date Smoking Tobacco: Never Assessed Comments Unknown Sex and Gender Information Value Date Recorded Sex Assigned at Not on file Legal 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
--- OUTSIDE RECORDS SUMMARY | 2024-05-30 13:02 | XMS_ITS | Encounter Summary ---
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
--- OUTSIDE RECORDS SUMMARY | 2024-05-30 13:02 | XMS_ITS | Encounter Summary ---
Author Organization [facility] Address [address] [place] [address] Care Team Providers Care Strategy Lead Name Role Phone Anna Adames MD Primary Care Provi [facility] Encounter Details Date Type Department Care Team (Late st Contact Info) Description 12/23/2023 Telephone [facility]rology [facility] [place] [id number] Henry Perez MD Social History Tobacco Use Types Packs/Day Years [...] encounter Miscellaneous Notes * Telephone Encounter - Adrianna Simmons - 12/23/2023 2:12 PM CDT Pt is calling in because she is running more of the clonazepam and she is constantly taken it and you told her to take 1/2 a day unless she needs it but it will in the middle of the day and needs to know your opinion. Callback she would appreciate it documented in this encounter Plan of Treatment Not on file documented as of this encounter Visit Diagnoses Not on filedocumented in this encounter Care Teams Strategy Lead Relationship Specialty Start Date End Date Anna Adames MD PCP - General Internal Medicine 11/20/16 documented as of this encounter
--- OUTSIDE RECORDS SUMMARY | 2024-05-30 13:02 | XMS_ITS | Encounter Summary ---
Author Organization [facility] Address 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
--- NOTE | 2024-05-30 13:30 | PC.NURSE ---
Pt refuses to have IV's removed priort to going back to rehab due to being a difficult stick.
--- NOTE | 2024-05-30 13:34 | PC.NURSE ---
[place] collar placed per pts request for comfort. Pt removed collar within minutes of it being placed.
== END 2024-05-30 14:07 ==
PROVIDERS: Emergency Provider Emergency Medicine; PCP Internal Medicine
DX: R20.0 Anesthesia of skin (principal); E05.90 Thyrotoxicosis, unspecified without thyrotoxic crisis or storm; R00.0 Tachycardia, unspecified; Z79.01 Long term (current) use of anticoagulants; Z79.899 Other long term (current) drug therapy
CPT/HCPCS: 36415; 70450; 70496; 70498; 71045; 80053; 82948; 84484; 85025; 85610; 85730; 93005; 99284; L0140; Q9967

== ENCOUNTER 2024-09-13 12:30 | Outpatient (RCR) | payer MEDICARE, SELFPAY ==
--- NOTE | 2024-08-31 16:22 | OPREHPOC ---
Outpatient Therapy Plan of Care This is a Multidisciplinary Plan of Care that may contain components documented by all disciplines (PT, OT, and ST.) PT Problem 1 PT Problem #1 Knowledge Deficit PT Goal 1 Goal / Goal Update *independent with HEP Target Visit 10 PT Problem 2 PT Problem #2 Pain PT Goal 1 Goal / Goal Update 1* pt report pain rating at worst of 6/10 Target Visit 10 PT Problem 3 PT Problem #3 Impaired Strength PT Goal 1 Goal / Goal Update * increase strength of R and L LE and trunk to 4+/ 5, to improve mobility and support to spine Target Visit 10 PT Problem 4 PT Problem #4 Impaired Functional Mobility PT Goal 1 Goal / Goal Update 1* sit/stand with use of 1 UE 2* sit/stand 5 reps in 22 seconds 3* 2 minute walking test distance of 250' with assistive device 4* pt report standing/walking/activity tolerance of 20 minutes Target Visit 10
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
--- NOTE | 2024-09-21 08:19 | PCPTNOTE ---
Patient called to cancel appointment day prior but did not give a specific reason with office staff.
--- NOTE | 2024-10-31 09:52 | OPREHPOC ---
Outpatient Therapy Plan of Care This is a Multidisciplinary Plan of Care that may contain components documented by all disciplines (PT, OT, and ST.) PT Problem 1 PT Problem #1 Knowledge Deficit PT Goal 1 Goal / Goal Update *independent with HEP 10-31-24 d/c goals not addressed. pt stopped attended therapy Target Visit 10 PT Problem 2 PT Problem #2 Pain PT Goal 1 Goal / Goal Update 1* pt report pain rating at worst of 6/10 10-31-24 d/c goals not addressed. pt stopped attended therapy Target Visit 10 PT Problem 3 PT Problem #3 Impaired Strength PT Goal 1 Goal / Goal Update * increase strength of R and L LE and trunk to 4+/ 5, to improve mobility and support to spine 10-31-24 d/c goals not addressed. pt stopped attended therapy Target Visit 10 PT Problem 4 PT Problem #4 Impaired Functional Mobility PT Goal 1 Goal / Goal Update 1* sit/stand with use of 1 UE 2* sit/stand 5 reps in 22 seconds 3* 2 minute walking test distance of 250' with assistive device 4* pt report standing/walking/activity tolerance of 20 minutes 10-31-24 d/c goals not addressed. pt stopped attended therapy Target Visit 10
--- NOTE | 2024-10-31 09:52 | PTOPDC ---
Assessment and note entered by Kamille Reddy, PT Assessment Status Discharge - Pt Not Present ICD-10 Condition Codes (PT) Pain in low back M54.50,Difficulty Walking R26.2, Abnormalities of gait and mobility R26.9,Weakness R53.1 Onset January 2024 Subjective Information pt was not seen this date. Assessment PT Clinical Summary Andria has received 3 PT sessions, from August 31 to September 13. She then stopped attending therapy. Discharge PT services. Plan of Care PT Services Indicated No
== END 2024-10-31 11:06 | disposition home or self-care (01) ==
LOC: ANHPT 12:30
PROVIDERS: Visit Provider Nurse Practitioner Gerontology
DX: M54.2 Cervicalgia (principal); M54.50 Low back pain, unspecified; G89.29 Other chronic pain
CPT/HCPCS: 97110; 97140; 97162; 97530